=== PATIENT | female | born 1985 | race Caucasian/White ===

== ENCOUNTER 2018-03-17 18:47 | Emergency (ER) | payer SELFPAY ==
--- NOTE | 2018-03-17 20:50 | EDPHYS ---
Physician Documentation [facility] Name: Mary Ann Lin Age: 32 yrs Sex: Female : 1985 Arrival Date: 03/17/2018 Time: 18:50 Bed 5 Private MD: Jhonatan Palma M ED Physician Ilana Marrufo HPI: 03/17 19:21 This 32 yrs old Female presents to ER via Ambulatory with complaints of jmm Cough, Chest Congestion, Chest Pain, Sore Throat. 19:21 The patient or guardian reports cough. Onset: The symptoms/episode began/occurred jmm gradually, 2 day(s) ago. Modifying factors: The symptoms are alleviated by nothing, the symptoms are aggravated by nothing. Associated signs and symptoms: Pertinent positives: chest pain, with cough, fever, sore throat. This is a 32 year old female with a history of anxiety that presents to the ED with cough, sore throat, congestion. States having productive cough. . Historical: - Allergies: 18:57 No Known Allergies; la1 - PMHx: 18:57 Anxiety; la1 - Immunization history:: Adult Immunizations up to date. - Social history:: Smoking status: Patient uses tobacco products, smokes one-half pack cigarettes per day. - Ebola Screening: : No symptoms or risks identified at this time. ROS: 19:21 Abdomen/GI: Negative for abdominal pain, nausea, vomiting, diarrhea, and constipation, jmm MS/Extremity: Negative for injury and deformity, Skin: Negative for injury, rash, and discoloration, Neuro: Negative for headache, weakness, numbness, tingling, and seizure. 19:21 Constitutional: Positive for body aches, malaise. 19:21 Cardiovascular: Positive for chest pain, with cough. 19:21 Respiratory: Positive for cough. 19:21 All other systems are negative. Exam: 19:21 Head/Face: atraumatic. jmm 19:21 Neck: Trachea midline, Supple Chest/axilla: Normal chest wall appearance and motion. 19:21 Constitutional: The patient appears in no acute distress, alert, awake. 19:21 ENT: Posterior pharynx: erythema, that is moderate. 19:21 Cardiovascular: Rate: normal, Rhythm: regular. 19:21 Respiratory: the patient does not display signs of respiratory distress, Respirations: normal, Breath sounds: are clear throughout. 19:21 Abdomen/GI: Inspection: abdomen appears normal, Bowel sounds: normal, Palpation: abdomen is soft and non-tender, in all quadrants. 19:21 Back: ROM is normal. 19:21 Musculoskeletal/extremity: ROM: intact in all extremities. 19:21 Skin: Appearance: Color: normal in color. 19:21 Neuro: Orientation: is normal, Mentation: is normal, Memory: is normal, Gait: is steady. 19:21 Psych: Behavior/mood is pleasant, cooperative. Vital Signs: 18:57 BP 111 / 73; Pulse 84; Resp 16; Temp 98.4; Pulse Ox 100% on R/A; Weight 61.23 kg; la1 Height 5 ft. 4 in. (162.56 cm); 20:56 BP 118 / 67; Pulse 76; Resp 20; Temp 98.6; Pulse Ox 99% on R/A; aj 18:57 Body Mass Index 23.17 (61.23 kg, 162.56 cm) la1 MDM: 19:[address] [facility] 20:48 Data reviewed: vital signs, nurses notes. Data interpreted: Pulse oximetry: on room air [facility] is 100 %. Interpretation: normal. Counseling: I had a detailed discussion with the patient and/or guardian regarding: the historical points, exam findings, and any diagnostic results supporting the discharge/admit diagnosis, lab results, radiology results, the need for outpatient follow up, to return to the emergency department if symptoms worsen or persist or if there are any questions or concerns that arise at home. 03/17 19:05 Order name: Flu; Complete Time: 20:26 03/17 19:05 Order name: Strep; Complete Time: 20:26 03/17 19:19 Order name: Chest Pa And Lat (2 Views) XRAY [facility] 03/17 19:54 Order name: Throat Culture EDMS Administered Medications: No medications were administered Disposition: 03/17/18 20:49 Discharged to Home. Impression: Acute bronchitis. - Condition is Stable. - Discharge Instructions: Acute Bronchitis, Adult. - Prescriptions for promethazine- DM - take 5 milliliter by ORAL route every 4-6 hours; 120 milliliter. Prednisone 20 mg Oral Tablet - take 3 tablet by ORAL route once daily for 5 days; 15 tablet. Zithromax Z- Juan 250 mg Oral Tablet - take 1 tablet by ORAL route as directed for 5 days Day 1 - take two (2) tablets one time. Day 2, 3, 4 , 5 take one (1) tablet once daily.; 6 tablet. Albuterol Sulfate 90 mcg/actuation - inhale 1-2 puff by INHALATION route every 4-6 hours; 1 Inhaler. - Medication Reconciliation Form, Thank You Letter, Antibiotic Education, Prescription Opioid Use form. - Work release form (03/18/18 13:27). bd - Follow up: Private Physician; When: 2 - 3 days; Reason: Recheck today's complaints, Continuance of care, Re-evaluation by your physician. Signatures: Dispatcher [employer] EDChanel Hensley, RN RN Jhonatan Siu PA PA jmm Attema, Lee, RN RN laSwetha Condon Corrections: (The following items were deleted from the chart) 20:58 20:49 03/17/2018 20:49 Discharged to Home. Impression: Acute bronchitis. Condition is aj Stable. Forms are Medication Reconciliation Form, Thank You Letter, Antibiotic Education, Prescription Opioid Use. Follow up: Private Physician; When: 2 - 3 days; Reason: Recheck today's complaints, Continuance of care, Re-evaluation by your physician. con
--- NOTE | 2018-03-17 20:50 | ER ---
Nurse's Notes [facility] Name: Mary Ann Lin Age: 32 yrs Sex: Female : 1985 Arrival Date: 03/17/2018 Time: 18:50 Bed 5 Private MD: Jhonatan Palma M Diagnosis: Acute bronchitis Presentation: 03/17 18:56 Presenting complaint: Patient states: sore throat, productive cough, fever for one la1 week. Transition of care: patient was not received from another setting of care. Onset of symptoms was March 17, 2018. Risk Assessment: Do you want to hurt yourself or someone else? Patient reports no desire to harm self or others. Initial Sepsis Screen: Does the patient meet any 2 criteria? No. Patient's initial sepsis screen is negative. Does the patient have a suspected source of infection? No. Patient's initial sepsis screen is negative. Care prior to arrival: None. 18:56 Method Of Arrival: Ambulatory la1 18:56 Acuity: ANNABELLE 4 la1 Triage Assessment: 20:58 General: Behavior is. aj Historical: - Allergies: 18:57 No Known Allergies; la1 - PMHx: 18:57 Anxiety; la1 - Immunization history:: Adult Immunizations up to date. - Social history:: Smoking status: Patient uses tobacco products, smokes one-half pack cigarettes per day. - Ebola Screening: : No symptoms or risks identified at this time. Screenin:04 Abuse screen: Denies threats or abuse. Denies injuries from another. Nutritional aj screening: No deficits noted. Tuberculosis screening: No symptoms or risk factors identified. Fall Risk None identified. Assessment: 19:04 General: Appears in no apparent distress. comfortable. Neuro: Level of Consciousness is aj awake, alert, obeys commands, Oriented to person, place, time, situation, Appropriate for age. Cardiovascular: Patient's skin is warm and dry. Respiratory: Reports cough that is non-productive, persistent pain with cough pain with respiration Airway is patent Respiratory effort is even, unlabored, Respiratory pattern is regular, symmetrical. EENT: Throat is reddened has enlarged tonsils bilaterally Reports pain when swallowing. Derm: Skin is intact, is healthy with good turgor, Skin is pink, warm \T\ dry. normal. 20:56 Reassessment: Patient appears in no apparent distress at this time. No changes from aj previously documented assessment. Patient and/or family updated on plan of care and expected duration. Pain level reassessed. Patient is alert, oriented x 3, equal unlabored respirations, skin warm/dry/pink. Vital Signs: 18:57 BP 111 / 73; Pulse 84; Resp 16; Temp 98.4; Pulse Ox 100% on R/A; Weight 61.23 kg; la1 Height 5 ft. 4 in. (162.56 cm); 20:56 BP 118 / 67; Pulse 76; Resp 20; Temp 98.6; Pulse Ox 99% on R/A; aj 18:57 Body Mass Index 23.17 (61.23 kg, 162.56 cm) la1 ED Course: 18:50 Patient arrived in ED. mr 18:50 None, None is Private Physician. mr 18:50 Jhonatan Palma MD is Private Physician. mr 18:57 Triage completed. la1 18:57 Arm band placed on right wrist. wa1 19:02 Jhontaan Faustin PA is PHCP. [facility] 19:02 Ilana Marrufo MD is Attending Physician. [facility] 19:04 Patient has correct armband on for positive identification. Pulse ox on. NIBP on. aj 19:04 No provider procedures requiring assistance completed. Patient did not have IV access aj during this emergency room visit. Patient maintains SpO2 saturation greater than 95% on room air. 19:32 Chanel Hirsch, RN is Primary Nurse. aj 19:57 Chest Pa And Lat (2 Views) XRAY In Process Unspecified. EDMS Administered Medications: No medications were administered Outcome: 20:49 Discharge ordered by MD. [facility] 20:56 Discharged to home ambulatory. aj 20:56 Condition: good 20:56 Discharge instructions given to patient, Instructed on discharge instructions, follow up and referral plans. medication usage, Demonstrated understanding of instructions, follow-up care, medications, Prescriptions given X 4. 20:58 Patient left the ED. drake Signatures: Dispatcher [employer] EDMS Chanel Hirsch, RN Jhonatan Jerome PA PA jmm Rivera, Maria mr Attema, Lee RN RN la1
[2018-03-17 21:09] VITALS: BP 118/67; TEMP 98.6; O2SAT 99
--- NOTE | 2018-03-17 21:16 | RAD REPORT ---
EXAM DESCRIPTION: RAD - Chest Pa And Lat (2 Views) - 03/17/2018 7:59 pm CLINICAL HISTORY: Productive cough, fever, smoking history COMPARISON: None. TECHNIQUE: PA and lateral views of the chest were obtained. FINDINGS: The lungs are clear. Few small granulomatous seen. Heart size is normal and central vascu lature is within normal limits. No pleural effusion or pneumothorax seen. No acute bony finding not ed. No aortic abnormality. IMPRESSION: No acute cardiopulmonary process.
== END 2018-03-17 20:58 | disposition home or self-care (01) ==
LOC: ER 18:47
DX: J20.9 Acute bronchitis, unspecified (principal); F17.210 Nicotine dependence, cigarettes, uncomplicated
CPT/HCPCS: 71046; 87070; 87081; 87804; 99284

== ENCOUNTER 2018-06-25 11:42 | Emergency (ER) | payer SELFPAY ==
--- NOTE | 2018-06-25 13:31 | ER ---
Nurse's Notes [facility] Name: Mary Ann Riley Age: 33 yrs Sex: Female : 1985 Arrival Date: 06/25/2018 Time: 11:43 Bed Waiting Private MD: Diagnosis: ED Course: 06/25 11:43 Patient arrived in ED. as 13:22 Brandon Walter MD is Attending Physician. tw4 Administered Medications: No medications were administered Outcome: 13:30 Patient left the ED. iw Signatures: Jaimee Reece as Radha Galicia, RN RN iw Brandon Walter MD MD tw4
== END 2018-06-25 13:30 | disposition left against medical advice (07) ==
LOC: ER 11:42
DX: Z53.21 Procedure and treatment not carried out due to patient leaving prior to being seen by health care provider (principal)

== ENCOUNTER 2018-06-25 19:15 | Emergency (ER) | payer SELFPAY ==
[2018-06-25 20:44] LABS: Absolute Lymphocytes (CBC) 2.1 K/uL (0.7-4.9); Absolute Monocytes 0.7 K/uL (0.1-1.3); Absolute Neutrophil 6.3 K/uL (1.8-8.0); Basophils % 0.5 % (0-1.3); Eosinophils % 2.4 % (0-4.4); Hematocrit 43.9 % (36.0-45.0); Lymphocytes % 22.7 % (15.3-44.8); MPV 8.1 fL (7.6-11.3); Monocytes % 7.3 % (3.3-12.3); RBC Red Blood Cell Count 4.49 M/uL (3.86-4.86)
[2018-06-25] MEDS ORDERED: DIPHENOX/ATROP SULF 1 TAB PO ONE ×2 (20:52→22:13)
[2018-06-25] MEDS ORDERED: ONDANSETRON 4 MG/2 ML VIAL ONE (20:53)
[2018-06-25] MEDS ORDERED: NA CHLORIDE 0.9% 1,000 ML ONE (20:53)
[2018-06-25 20:57] LABS: BUN Blood Urea Nitrogen 8 mg/dL (7-18); Bicarbonate 26 mmol/L (21-32); Glucose Level 90 mg/dL (74-106); Potassium 3.8 mmol/L (3.5-5.1); Sodium Level 141 mmol/L (136-145)
[2018-06-25 22:14] LABS: Urine Blood 2+ (NEG); Urine Glucose NEGATIVE (NEG); Urine Protein NEGATIVE (NEG); Urine Specific Gravity >1.030 (1.005-1.030); Urine pH 5.5 (5.0-7.0)
--- NOTE | 2018-06-25 22:30 | EDPHYS ---
Physician Documentation [facility] Name: Mary Ann Lin Age: 33 yrs Sex: Female : 1985 Arrival Date: 06/25/2018 Time: 19:18 Bed 23 Private MD: ED Physician Milton Ziegler HPI: 06/25 20:29 This 33 yrs old Female presents to ER via Ambulatory with complaints of Flu pkl Symptoms. 20:29 The patient or guardian reports cough, described as mild, with productive sputum, that pkl is yellow. Onset: The symptoms/episode began/occurred 3 day(s) ago. Associated signs and symptoms: Pertinent positives: diarrhea, sore throat, vomiting. 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 - Social history:: Smoking status: Patient uses tobacco products, smokes one-half pack cigarettes per day. - Ebola Screening: : Patient negative for fever greater than or equal to 101.5 degrees Fahrenheit, and additional compatible Ebola Virus Disease symptoms Patient denies exposure to infectious person Patient denies travel to an Ebola-affected area in the 21 days before illness onset No symptoms or risks identified at this time. ROS: 20:29 Eyes: Negative for injury, pain, redness, and discharge. pkl 20:29 ENT: Positive for sinus congestion, sore throat. 20:29 Neck: Negative for stiffness. 20:29 Cardiovascular: Negative for chest pain. 20:29 Respiratory: Positive for cough, with yellow sputum. 20:29 Abdomen/GI: Positive for vomiting, diarrhea. 20:29 Back: Negative for acute changes. 20:29 : Negative for urinary symptoms. 20:29 MS/extremity: Negative for acute changes. 20:29 Skin: Negative for rash. 20:29 Neuro: Negative for altered mental status. Exam: 20:29 Head/Face: Normocephalic, atraumatic. Eyes: Pupils equal round and reactive to light, pkl extra-ocular motions intact. Lids and lashes normal. Conjunctiva and sclera are non-icteric and not injected. Cornea within normal limits. Periorbital areas with no swelling, redness, or edema. 20:29 ENT: Mouth: Oral mucosa: dry, Posterior pharynx: erythema, that is mild. 20:29 Neck: Exam negative for nuchal rigidity. 20:29 Chest/axilla: Exam negative for acute changes. 20:29 Cardiovascular: Rate: normal, Rhythm: regular. 20:29 Respiratory: the patient does not display signs of respiratory distress, Respirations: normal, Breath sounds: are clear throughout. 20:29 Abdomen/GI: Bowel sounds: normal, Palpation: abdomen is soft and non-tender, in all quadrants. 20:29 Back: Exam negative for acute changes. 20:29 : Exam negative for acute changes. 20:29 Musculoskeletal/extremity: Exam is negative for acute changes. 20:29 Skin: Exam negative for rash. 20:29 Neuro: Orientation: is normal, Mentation: is normal, Cranial nerves: grossly normal, Motor: is normal. Vital Signs: 19:42 BP 128 / 69; Pulse 81; Resp 19; Temp 97.6; Pulse Ox 100% on R/A; Weight 68.04 kg; aj Height 5 ft. 3 in. (160.02 cm); 20:35 BP 126 / 72; Pulse 60; Resp 18; Pulse Ox 100% ; rv 21:00 BP 138 / 80; Pulse 64; Resp 16 S; Pulse Ox 100% on R/A; rv 21:30 BP 134 / 85; Pulse 64; Resp 17 S; Pulse Ox 100% on R/A; rv 22:00 BP 133 / 82; Pulse 56; Resp 17 S; Pulse Ox 100% on R/A; rv 22:30 BP 137 / 63; Pulse 58; Resp 19 S; Pulse Ox 100% on R/A; rv 19:42 Body Mass Index 26.57 (68.04 kg, 160.02 cm) MDM: 20:21 Patient medically screened. [facility] 22:27 Data reviewed: vital signs, nurses notes, lab test result(s). [facility] 06/25 19:40 Order name: Flu; Complete Time: 22:24 06/25 19:40 Order name: Strep; Complete Time: 22:16 06/25 20:27 Order name: CBC with Diff; Complete Time: 21:08 [facility] 06/25 20:27 Order name: Chem 7; Complete Time: 21:08 pkl 06/25 22:04 Order name: Urine Dipstick--Ancillary (enter results); Complete Time: 22:16 ms 06/25 22:12 Order name: Throat Culture EDMS Administered Medications: 20:46 Drug: NS 0.9% 1000 ml Route: IV; Rate: 1000 ml; Site: right antecubital; rv 22:42 Follow up: IV Status: Completed infusion rv 20:46 Drug: Zofran 4 mg Route: IVP; Site: right antecubital; rv 22:42 Follow up: Response: No adverse reaction rv 22:05 Drug: LoMOTIL 2 tabs Route: PO; rv 22:42 Follow up: Response: Marked relief of symptoms rv 22:30 Drug: Cipro 500 mg Route: PO; rv 22:42 Follow up: Response: Medication administered at discharge. rv Disposition: 06/25/18 22:28 Discharged to Home. Impression: Gastroenteritis. Bronchitis. - Condition is Stable. - Prescriptions for Zofran 4 mg Oral Tablet - take 1 tablet by ORAL route every 12 hours As needed; 6 tablet. Cipro 500 mg Oral Tablet - take 1 tablet by ORAL route every 12 hours for 5 days; 10 tablet. - Work release form, Medication Reconciliation Form, Thank You Letter, Antibiotic Education, Prescription Opioid Use form. - Follow up: Private Physician; When: 2 - 3 days; Reason: Re-evaluation by your physician. - Problem is new. - Symptoms are unchanged. Signatures: Dispatcher [employer] EDChanel Hensley RN RN aj Lam, Pin, MD MD pkl Kermit Hill RN RN rv Corrections: (The following items were deleted from the chart) 22:52 22:28 06/25/2018 22:28 Discharged to Home. Impression: Gastroenteritis. Bronchitis. rv Condition is Stable. Forms are Medication Reconciliation Form, Thank You Letter, Antibiotic Education, Prescription Opioid Use. Follow up: Private Physician; When: 2 - 3 days; Reason: Re-evaluation by your physician. Problem is new. Symptoms are unchanged. pkl
--- NOTE | 2018-06-25 22:30 | ER ---
Nurse's Notes [facility] Name: Mary Ann Lin Age: 33 yrs Sex: Female : 1985 Arrival Date: 06/25/2018 Time: 19:18 Bed 23 Private MD: Diagnosis: Gastroenteritis. Bronchitis Presentation: 06/25 19:40 Presenting complaint: Patient states: Flu like symptoms for 2-3 days. Took cold and flu aj medication at 1830 today [employer]. Transition of care: patient was not received from another setting of care. Onset of symptoms was June 23, 2018. Risk Assessment: Do you want to hurt yourself or someone else? Patient reports no desire to harm self or others. Initial Sepsis Screen: Does the patient meet any 2 criteria? No. Patient's initial sepsis screen is negative. Does the patient have a suspected source of infection? No. Patient's initial sepsis screen is negative. Care prior to arrival: None. 19:40 Method Of Arrival: Ambulatory aj 19:40 Acuity: ANNABELLE 4 aj Triage Assessment: 19:42 General: Appears in no apparent distress. comfortable, Behavior is calm, cooperative, aj appropriate for age. Pain: Denies pain. EENT: Reports nasal congestion nasal discharge. Neuro: Level of Consciousness is awake, alert, obeys commands, Oriented to person, place, time, situation, Appropriate for age. Respiratory: Reports cough that is Airway is patent Respiratory effort is even, unlabored, Respiratory pattern is regular, symmetrical. Derm: Skin is intact, is healthy with good turgor, Skin is pink, warm \T\ dry. normal. 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 - Social history:: Smoking status: Patient uses tobacco products, smokes one-half pack cigarettes per day. - Ebola Screening: : Patient negative for fever greater than or equal to 101.5 degrees Fahrenheit, and additional compatible Ebola Virus Disease symptoms Patient denies exposure to infectious person Patient denies travel to an Ebola-affected area in the 21 days before illness onset No symptoms or risks identified at this time. Screenin:15 Abuse screen: Denies threats or abuse. Denies injuries from another. Nutritional rv screening: No deficits noted. Tuberculosis screening: No symptoms or risk factors identified. Fall Risk None identified. Assessment: 20:14 General: Appears in no apparent distress. comfortable, Behavior is calm, cooperative. rv Pain: Denies pain. Neuro: Level of Consciousness is awake, alert, obeys commands, Oriented to person, place, time, situation. Cardiovascular: Capillary refill < 3 seconds. Respiratory: Airway is patent. GI: No signs and/or symptoms were reported involving the gastrointestinal system. : No signs and/or symptoms were reported regarding the genitourinary system. EENT: No signs and/or symptoms were reported regarding the EENT system. Derm: Skin is intact. Musculoskeletal: No signs and/or symptoms reported regarding the musculoskeletal system. Vital Signs: 19:42 BP 128 / 69; Pulse 81; Resp 19; Temp 97.6; Pulse Ox 100% on R/A; Weight 68.04 kg; aj Height 5 ft. 3 in. (160.02 cm); 20:35 BP 126 / 72; Pulse 60; Resp 18; Pulse Ox 100% ; rv 21:00 BP 138 / 80; Pulse 64; Resp 16 S; Pulse Ox 100% on R/A; rv 21:30 BP 134 / 85; Pulse 64; Resp 17 S; Pulse Ox 100% on R/A; rv 22:00 BP 133 / 82; Pulse 56; Resp 17 S; Pulse Ox 100% on R/A; rv 22:30 BP 137 / 63; Pulse 58; Resp 19 S; Pulse Ox 100% on R/A; rv 19:42 Body Mass Index 26.57 (68.04 kg, 160.02 cm) aj ED Course: 19:18 Patient arrived in ED. al2 19:41 Triage completed. aj 19:42 Arm band placed on left wrist. Patient placed in waiting room, Patient notified of wait aj time. Labs ordered per protocol. Drawn by ED staff. 20:15 Patient has correct armband on for positive identification. Bed in low position. Call rv light in reach. Side rails up X 1. Pulse ox on. NIBP on. 20:15 Strep Sent. rv 20:15 Flu Sent. rv 20:20 Inserted saline lock: 22 gauge in right antecubital area, using aseptic technique. rv Blood collected. 20:20 Initial lab(s) drawn, by me, sent to lab. rv 20:21 Milton Ziegler MD is Attending Physician. pkl 22:43 No provider procedures requiring assistance completed. IV discontinued, bleeding rv controlled, No redness/swelling at site. Pressure dressing applied. Administered Medications: 20:46 Drug: NS 0.9% 1000 ml Route: IV; Rate: 1000 ml; Site: right antecubital; rv 22:42 Follow up: IV Status: Completed infusion rv 20:46 Drug: Zofran 4 mg Route: IVP; Site: right antecubital; rv 22:42 Follow up: Response: No adverse reaction rv 22:05 Drug: LoMOTIL 2 tabs Route: PO; rv 22:42 Follow up: Response: Marked relief of symptoms rv 22:30 Drug: Cipro 500 mg Route: PO; rv 22:42 Follow up: Response: Medication administered at discharge. rv Outcome: 22:28 Discharge ordered by . pkl 22:43 Discharged to home ambulatory. rv 22:43 Condition: improved 22:43 Discharge instructions given to patient, Instructed on discharge instructions, follow up and referral plans. medication usage, Demonstrated understanding of instructions, follow-up care, medications, Prescriptions given X 2. 22:52 Patient left the ED. rv Signatures: Chanel Hirsch, RN RN Milton Sandoval MD MD pkBernice Crowder Ronaldo, RN RN rv
[2018-06-25] MEDS ORDERED: CIPROFLOXACIN HCL 500 MG TAB ONE (22:45)
[2018-06-26 01:22] VITALS: TEMP 97.6; O2SAT 100
[2018-06-26 01:28] VITALS: BP 137/63
== END 2018-06-25 22:52 | disposition home or self-care (01) ==
LOC: ER 19:15
DX: J40 Bronchitis, not specified as acute or chronic (principal); K52.9 Noninfective gastroenteritis and colitis, unspecified; F41.9 Anxiety disorder, unspecified; F17.210 Nicotine dependence, cigarettes, uncomplicated
CPT/HCPCS: 36415; 80048; 81003; 85025; 87070; 87081; 87804; 96361; 96374; 99284; J2405; J7030

== ENCOUNTER 2018-09-16 07:08 | Emergency (ER) | payer SELFPAY ==
--- NOTE | 2018-09-16 08:08 | ER ---
Nurse's Notes [facility] Name: Mary Ann Lin Age: 33 yrs Sex: Female : 1985 Arrival Date: 09/16/2018 Time: 07:10 Bed 5 Private MD: Jhonatan Palma M Diagnosis: Viral infection, unspecified Presentation: 09/16 07:14 Presenting complaint: Nonproductive cough, body aches, fever, sore throat, and headache hb x 4 days. TMAX 100.4. Transition of care: patient was not received from another setting of care. Onset of symptoms was September 12, 2018. Risk Assessment: Do you want to hurt yourself or someone else? Patient reports no desire to harm self or others. Initial Sepsis Screen: Does the patient meet any 2 criteria? No. Patient's initial sepsis screen is negative. Does the patient have a suspected source of infection? No. Patient's initial sepsis screen is negative. Care prior to arrival: None. 07:14 Method Of Arrival: Ambulatory hb 07:14 Acuity: ANNABELLE 4 hb Historical: - Allergies: 07:16 No Known Allergies; hb - Home Meds: 07:16 Lorazepam Oral [Active]; hb - PMHx: 07:16 Anxiety; hb - PSHx: 07:16 ; hb - Immunization history:: Adult Immunizations up to date. - Social history:: Smoking status: Patient uses tobacco products, smokes one-half pack cigarettes per day. - Ebola Screening: : No symptoms or risks identified at this time. Screenin:39 Abuse screen: Denies threats or abuse. Denies injuries from another. Nutritional ph screening: No deficits noted. Tuberculosis screening: No symptoms or risk factors identified. Fall Risk None identified. Assessment: 07:40 General: Appears in no apparent distress. comfortable, Behavior is calm, cooperative, ph appropriate for age, Reports chills for fever for 2-3 days. Pain: Complains of pain in head and "all over". Neuro: Level of Consciousness is awake, alert, obeys commands, Oriented to person, place, time, situation. Cardiovascular: Capillary refill < 3 seconds Patient's skin is warm and dry. Respiratory: Airway is patent Respiratory effort is even, unlabored, Respiratory pattern is regular, symmetrical. GI: Patient currently denies diarrhea, nausea, vomiting. EENT: Reports nasal congestion nasal discharge pain when swallowing. Derm: Skin is intact, is healthy with good turgor, Skin is pink, warm \\T\\ dry. Musculoskeletal: Circulation, motion, and sensation intact. Range of motion: intact in all extremities. 08:38 Reassessment: Patient appears in no apparent distress at this time. Patient and/or ph family updated on plan of care and expected duration. Pain level reassessed. Patient is alert, oriented x 3, equal unlabored respirations, skin warm/dry/pink. Pt d/c home w/ work note. Vital Signs: 07:14 BP 124 / 62; Pulse 100; Resp 16; Temp 98; Pulse Ox 97% ; Pain 6/10; hb ED Course: 07:10 Patient arrived in ED. as 07:10 Jhonatan Palma MD is Private Physician. as 07:13 Lona Barriga RN is Primary Nurse. ph 07:15 Triage completed. hb 07:16 Arm band placed on. hb 07:19 [facility] 07:19 Armen Giron MD is Attending Physician. jr8 07:21 Attending Physician role handed off by Armen Giron MD [facility] 07:21 Ed Banks MD is Attending Physician. henrique 07:40 Patient has correct armband on for positive identification. Placed in gown. Bed in low ph position. Call light in reach. Side rails up X 1. Pulse ox on. NIBP on. Door closed. Lights dimmed. Warm blanket given. 07:40 Flu and/or RSV swab sent to lab. Strep swab sent to lab. ph 07:43 No provider procedures requiring assistance completed. Patient did not have IV access ph during this emergency room visit. Administered Medications: No medications were administered Outcome: 08:07 Discharge ordered by . jr8 08:41 Discharged to home ambulatory. ph 08:41 Condition: good 08:41 Discharge instructions given to patient, Instructed on discharge instructions, follow up and referral plans. medication usage, Demonstrated understanding of instructions, follow-up care, medications, Prescriptions given X 3. 08:41 Patient left the ED. ph Signatures: Ed Banks MD MD cha Martinez, Amelia as Christian Stein PA PA [facility] Lona Barriga RN RN ph Bridges, Karen, RN RN hb
--- NOTE | 2018-09-16 08:08 | EDPHYS ---
Physician Documentation [facility] Name: Mary Ann Riley Age: 33 yrs Sex: Female : 1985 Arrival Date: 09/16/2018 Time: 07:10 Bed 5 Private MD: Jhonatan Palma M ED Physician Ed Banks HPI: 09/16 07:31 This 33 yrs old Female presents to ER via Ambulatory with complaints of Cold jr8 Symptoms. 07:31 Patient for the past 4 days has had cough, body aches, fever, sore throat, headache. jr8 Has been utilizing OTC medications without relief . Severity of symptoms: At their worst the symptoms were moderate in the emergency department the symptoms are unchanged. The patient has not experienced similar symptoms in the past. The patient has not recently seen a physician. Historical: - Allergies: 07:16 No Known Allergies; hb - Home Meds: 07:16 Lorazepam Oral [Active]; hb - PMHx: 07:16 Anxiety; hb - PSHx: 07:16 ; hb - Immunization history:: Adult Immunizations up to date. - Social history:: Smoking status: Patient uses tobacco products, smokes one-half pack cigarettes per day. - Ebola Screening: : No symptoms or risks identified at this time. ROS: 07:31 Eyes: Negative for injury, pain, redness, and discharge, Neck: Negative for injury, jr8 pain, and swelling, Cardiovascular: Negative for chest pain, palpitations, and edema, Abdomen/GI: Negative for abdominal pain, nausea, vomiting, diarrhea, and constipation, Back: Negative for injury and pain, MS/Extremity: Negative for injury and deformity, Skin: Negative for injury, rash, and discoloration, Neuro: Negative for headache, weakness, numbness, tingling, and seizure. 07:31 Constitutional: Positive for body aches, chills. 07:31 ENT: Positive for sore throat, Negative for drainage from ear(s), ear pain, rhinorrhea, sinus congestion, difficulty swallowing, difficulty handling secretions, hoarseness. 07:31 Respiratory: Positive for cough, Negative for dyspnea on exertion, shortness of breath, sputum production, wheezing. Exam: 07:31 Eyes: Pupils equal round and reactive to light, extra-ocular motions intact. Lids and jr8 lashes normal. Conjunctiva and sclera are non-icteric and not injected. Cornea within normal limits. Periorbital areas with no swelling, redness, or edema. ENT: Nares patent. No nasal discharge, no septal abnormalities noted. Tympanic membranes are normal and external auditory canals are clear. Oropharynx with no redness, swelling, or masses, exudates, or evidence of obstruction, uvula midline. Mucous membranes moist. Neck: Trachea midline, no thyromegaly or masses palpated, and no cervical lymphadenopathy. Supple, full range of motion without nuchal rigidity, or vertebral point tenderness. No Meningismus. Cardiovascular: Regular rate and rhythm with a normal S1 and S2. No gallops, murmurs, or rubs. Normal PMI, no JVD. No pulse deficits. Respiratory: Lungs have equal breath sounds bilaterally, clear to auscultation and percussion. No rales, rhonchi or wheezes noted. No increased work of breathing, no retractions or nasal flaring. Abdomen/GI: Soft, non-tender, with normal bowel sounds. No distension or tympany. No guarding or rebound. No evidence of tenderness throughout. Back: No spinal tenderness. No costovertebral tenderness. Full range of motion. Skin: Warm, dry with normal turgor. Normal color with no rashes, no lesions, and no evidence of cellulitis. MS/ Extremity: Pulses equal, no cyanosis. Neurovascular intact. Full, normal range of motion. Neuro: Awake and alert, GCS 15, oriented to person, place, time, and situation. Cranial nerves II-XII grossly intact. Motor strength 5/5 in all extremities. Sensory grossly intact. Cerebellar exam normal. Normal gait. Vital Signs: 07:14 BP 124 / 62; Pulse 100; Resp 16; Temp 98; Pulse Ox 97% ; Pain 6/10; hb MDM: 07:21 Patient medically screened. henrique 07:21 Patient medically screened. henrique 08:06 Data reviewed: vital signs, nurses notes, lab test result(s), Flu: negative and as a jr8 result, I will discharge patient. Data interpreted: Pulse oximetry: on room air is 97 %. Interpretation: normal. Counseling: I had a detailed discussion with the patient and/or guardian regarding: the historical points, exam findings, and any diagnostic results supporting the discharge/admit diagnosis, lab results, the need for outpatient follow up, a family practitioner, to return to the emergency department if symptoms worsen or persist or if there are any questions or concerns that arise at home. 09/16 07:24 Order name: Influenza Screen (a \T\ B); Complete Time: 08:06 8 09/16 07:24 Order name: Strep; Complete Time: 08:06 8 09/16 08:08 Order name: Throat Culture EDNM Administered Medications: No medications were administered Disposition: 13:47 Co-signature as Attending Physician, Ed Banks MD I agree with the assessment and [facility] plan of care. Disposition: 09/16/18 08:07 Discharged to Home. Impression: Viral infection, unspecified. - Condition is Stable. - Discharge Instructions: Viral Respiratory Infection. - Prescriptions for Prednisone 20 mg Oral Tablet - take 1 tablet by ORAL route once daily for 5 days; 5 tablet. Tessalon Perles 100 mg Oral Capsule - take 1 capsule by ORAL route every 8 hours As needed; 15 capsule. Guaifenesin AC 10- 100 mg/5 mL Oral Liquid - take 10 milliliter by ORAL route every 4 hours As needed; 240 milliliter. - Medication Reconciliation Form, Thank You Letter, Antibiotic Education, Prescription Opioid Use, Work release form form. - Follow up: Private Physician; When: 5 - 6 days; Reason: Recheck today's complaints, Continuance of care, Re-evaluation by your physician. - Problem is new. - Symptoms have improved. Signatures: Dispatcher [employer] Ed Daniels MD MD cha Roszak, Josh, PA PA jr8 Lona Barriga RN RN Karen Bridges RN RN Corrections: (The following items were deleted from the chart) 08:41 08:07 09/16/2018 08:07 Discharged to Home. Impression: Viral infection, unspecified. ph Condition is Stable. Forms are Medication Reconciliation Form, Thank You Letter, Antibiotic Education, Prescription Opioid Use. Follow up: Private Physician; When: 5 - 6 days; Reason: Recheck today's complaints, Continuance of care, Re-evaluation by your physician. Problem is new. Symptoms have improved. jr8
[2018-09-16 08:47] VITALS: BP 124/62; TEMP 98; O2SAT 97
== END 2018-09-16 08:41 | disposition home or self-care (01) ==
LOC: ER 07:08
DX: B34.9 Viral infection, unspecified (principal); F41.9 Anxiety disorder, unspecified; F17.210 Nicotine dependence, cigarettes, uncomplicated
CPT/HCPCS: 87070; 87081; 87804; 99283

== ENCOUNTER 2020-05-31 13:22 | Emergency (ER) | payer OTHER, SELFPAY ==
[2020-05-31] MEDS ORDERED: KETOROLAC 30 MG/ML INJ ONE (14:06)
[2020-05-31] MEDS ORDERED: NA CHLORIDE 0.9% 1,000 ML ONE (14:07)
[2020-05-31 14:19] LABS: Absolute Lymphocytes (CBC) 2.1 K/uL (0.7-4.9); Basophils % 0.5 % (0-1.3); Hematocrit 38.5 % (36.0-45.0); MPV 8.9 fL (7.6-11.3); RBC Red Blood Cell Count 4.47 M/uL (3.86-4.86)
[2020-05-31 14:42] LABS: ALT/SGPT 26 U/L (12-78); AST/SGOT 13 U/L (15-37); Albumin 3.8 g/dL (3.4-5.0); Alkaline Phosphatase 91 U/L (45-117); BUN Blood Urea Nitrogen 13 mg/dL (7-18); Bicarbonate 27 mmol/L (21-32); Bilirubin Direct < 0.1 mg/dL (0-0.2); Bilirubin Total 0.2 mg/dL (0.2-1.0); Glucose Level 97 mg/dL (74-106); Potassium 3.9 mmol/L (3.5-5.1); Protein, Total 7.7 g/dL (6.4-8.2); Sodium Level 137 mmol/L (136-145)
[2020-05-31] MEDS ORDERED: CEFTRIAXONE/SWI 1gm 1 GM/10 ML SYR ONE (14:57)
[2020-05-31 15:10] LABS: Urine Bacteria <20 /HPF (<20); Urine Mucus 1+ /HPF (NONE SEEN)
[2020-05-31 15:11] LABS: Urine Blood 3+ (NEG); Urine Glucose NEGATIVE (NEG); Urine Protein 1+ (NEG)
--- NOTE | 2020-05-31 15:22 | RAD REPORT ---
EXAM DESCRIPTION: CT - Abdomen Pelvis W Contrast - 05/31/2020 2:58 pm CLINICAL HISTORY: Abdominal pain COMPARISON: none. TECHNIQUE: Computed axial tomography of the abdomen pelvis was obtained. 100 cc Isovue-300 was admin istered intravenously. Oral contrast was not requested which limits evaluation of bowel. All CT scans are performed using dose optimization technique as appropriate and may include automated exposure control or mA/KV adjustment according to patient size. FINDINGS: The liver, spleen, pancreas, adrenal and kidneys appear unremarkable. There is no evidence of diverticulitis. Normal appendix. A 17 millimeter right ovarian follicle without significant free-fluid IMPRESSION: No acute abnormality is displayed.
[2020-05-31] MEDS ORDERED: ONDANSETRON 4 MG/2 ML VIAL ONE (15:35)
[2020-05-31] MEDS ORDERED: MORPHINE 4 MG/ML SYR ONE (15:35)
--- NOTE | 2020-05-31 15:38 | EDPHYS ---
Physician Documentation [facility] Name: Mary Ann Lin Age: 35 yrs Sex: Female : 1985 Arrival Date: 05/31/2020 Time: 13:25 Bed 8 Private MD: ED Physician Shashank Bailey HPI: 05/31 14:41 This 35 yrs old Female presents to ER via Ambulatory with complaints of Blood jr8 in Urine, Kidney Pain. 14:41 The patient complains of pain in the mid back area, left flank and right flank. The jr8 pain does not radiate. Onset: The symptoms/episode began/occurred acutely. Modifying factors: The symptoms are alleviated by nothing. the symptoms are aggravated by nothing. Associated signs and symptoms: Pertinent positives: hematuria. Severity of pain: At its worst the pain was mild in the emergency department the pain is unchanged. The patient has not experienced similar symptoms in the past. The patient has not recently seen a physician. Historical: - Allergies: 13:41 No Known Allergies; ss - PMHx: 13:41 Anxiety; ss - Immunization history:: Adult Immunizations up to date. ROS: 14:41 Eyes: Negative for injury, pain, redness, and discharge, ENT: Negative for injury, jr8 pain, and discharge, Neck: Negative for injury, pain, and swelling, Cardiovascular: Negative for chest pain, palpitations, and edema, Respiratory: Negative for shortness of breath, cough, wheezing, and pleuritic chest pain, Abdomen/GI: Negative for abdominal pain, nausea, vomiting, diarrhea, and constipation, MS/Extremity: Negative for injury and deformity, Skin: Negative for injury, rash, and discoloration, Neuro: Negative for headache, weakness, numbness, tingling, and seizure. 14:41 Back: Positive for flank pain, bilaterally. 14:41 : Positive for hematuria. Exam: 14:41 Eyes: Pupils equal round and reactive to light, extra-ocular motions intact. Lids and jr8 lashes normal. Conjunctiva and sclera are non-icteric and not injected. Cornea within normal limits. Periorbital areas with no swelling, redness, or edema. ENT: Nares patent. No nasal discharge, no septal abnormalities noted. Tympanic membranes are normal and external auditory canals are clear. Oropharynx with no redness, swelling, or masses, exudates, or evidence of obstruction, uvula midline. Mucous membranes moist. Neck: Trachea midline, no thyromegaly or masses palpated, and no cervical lymphadenopathy. Supple, full range of motion without nuchal rigidity, or vertebral point tenderness. No Meningismus. Cardiovascular: Regular rate and rhythm with a normal S1 and S2. No gallops, murmurs, or rubs. Normal PMI, no JVD. No pulse deficits. Respiratory: Lungs have equal breath sounds bilaterally, clear to auscultation and percussion. No rales, rhonchi or wheezes noted. No increased work of breathing, no retractions or nasal flaring. Skin: Warm, dry with normal turgor. Normal color with no rashes, no lesions, and no evidence of cellulitis. MS/ Extremity: Pulses equal, no cyanosis. Neurovascular intact. Full, normal range of motion. Neuro: Awake and alert, GCS 15, oriented to person, place, time, and situation. Cranial nerves II-XII grossly intact. Motor strength 5/5 in all extremities. Sensory grossly intact. Cerebellar exam normal. Normal gait. 14:41 Abdomen/GI: Inspection: abdomen appears normal, Bowel sounds: active, all quadrants, Palpation: soft, in all quadrants, mild abdominal tenderness, in the suprapubic area, anterior aspect of right lateral abdomen and anterior aspect of left lateral abdomen, mass, is not appreciated, rebound tenderness, is not appreciated, voluntary guarding, is not appreciated, involuntary guarding, is not appreciated, no appreciated organomegaly, Indicators: McBurney's point is not tender, Yu's sign is negative, Rovsing's sign is negative. 14:41 Back: ROM is normal, normal spinal alignment noted, CVA tenderness, that is mild, is noted bilaterally. Vital Signs: 13:38 BP 132 / 81; Pulse 84; Resp 15; Temp 97.5(TE); Pulse Ox 100% on R/A; Weight 74.84 kg; ss Height 5 ft. 4 in. (162.56 cm); Pain 8/10; 14:30 BP 114 / 66; Pulse 64; Resp 18; Pulse Ox 99% on R/A; em 15:30 BP 119 / 76; Pulse 60; Resp 18; Pulse Ox 97% on R/A; em 13:38 Body Mass Index 28.32 (74.84 kg, 162.56 cm) ss MDM: 13:29 Patient medically screened. 8 15:36 Data reviewed: vital signs, nurses notes, lab test result(s), radiologic studies, CT jr8 scan. Data interpreted: Pulse oximetry: on room air is 100 %. Interpretation: normal. Counseling: I had a detailed discussion with the patient and/or guardian regarding: the historical points, exam findings, and any diagnostic results supporting the discharge/admit diagnosis, lab results, radiology results, the need for outpatient follow up, a family practitioner, to return to the emergency department if symptoms worsen or persist or if there are any questions or concerns that arise at home. Response to treatment: the patient's symptoms have mildly improved after treatment. 05/31 13:36 Order name: Basic Metabolic Panel; Complete Time: 14:52 [facility] 05/31 13:36 Order name: CBC with Diff; Complete Time: 14:32 [facility] 05/31 13:36 Order name: Hepatic Function; Complete Time: 14:52 [facility] 05/31 13:36 Order name: Urine Microscopic Only; Complete Time: 15:12 8 05/31 13:37 Order name: Gc Culture [facility] 05/31 14:15 Order name: Urine Dipstick--Ancillary (enter results); Complete Time: 15:12 05/31 13:36 Order name: IV Saline Lock; Complete Time: 14:04 8 05/31 13:36 Order name: Labs collected and sent; Complete Time: 14:04 [facility] 05/31 14:15 Order name: Urine --Ancillary (enter results); Complete Time: 15:12 05/31 14:32 Order name: CT Abd/Pelvis - IV Contrast Only; Complete Time: 15:36 [facility] 05/31 15:12 Order name: Urine Culture [facility] 05/31 13:36 Order name: Urine Test (obtain specimen); Complete Time: 14:03 [facility] 05/31 13:36 Order name: Urine Dipstick-Ancillary (obtain specimen); Complete Time: 14:03 [facility] Administered Medications: 14:00 Drug: NS 0.9% 1000 ml Route: IV; Rate: 1000 ml; Site: right antecubital; em 15:45 Follow up: IV Status: Completed infusion; IV Intake: 1000ml em 14:00 Drug: TORadol - Ketorolac 15 mg Route: IVP; Site: right antecubital; em 14:34 Follow up: Response: No adverse reaction; No change in condition; Pain is unchanged, em physician notified 15:17 Drug: Rocephin 1 grams Route: IV; Rate: calculated rate; Site: right antecubital; em 15:45 Follow up: Response: No adverse reaction; IV Status: Completed infusion; IV Intake: 10mlem Disposition: 16:54 Co-signature as Attending Physician, Shashank Bailey MD. rn Disposition: 05/31/20 15:37 Discharged to Home. Impression: Acute cystitis with hematuria. - Condition is Stable. - Discharge Instructions: Urinary Tract Infection, Adult. - Prescriptions for Bactrim DS 800- 160 mg Oral Tablet - take 1 tablet by ORAL route every 12 hours for 7 days; 14 tablet. Zofran 4 mg Oral Tablet - take 1 tablet by ORAL route every 12 hours As needed; 20 tablet. - Medication Reconciliation Form, Thank You Letter, Antibiotic Education, Prescription Opioid Use form. - Follow up: Private Physician; When: 2 - 3 days; Reason: Recheck today's complaints, Continuance of care, Re-evaluation by your physician. - Problem is new. - Symptoms have improved. Signatures: Dispatcher [employer] Cj Roman, RN Shashank Amaya MD MD rn Smirch, Shelby, RN RN ss Roszak, Josh, PA PA jr8 Corrections: (The following items were deleted from the chart) 16:08 15:37 05/31/2020 15:37 Discharged to Home. Impression: Acute cystitis with hematuria. em Condition is Stable. Forms are Medication Reconciliation Form, Thank You Letter, Antibiotic Education, Prescription Opioid Use. Follow up: Private Physician; When: 2 - 3 days; Reason: Recheck today's complaints, Continuance of care, Re-evaluation by your physician. Problem is new. Symptoms have improved. jr8
--- NOTE | 2020-05-31 15:38 | ER ---
Nurse's Notes [facility] Name: Mary Ann Lin Age: 35 yrs Sex: Female : 1985 Arrival Date: 05/31/2020 Time: 13:25 Bed 8 Private MD: Diagnosis: Acute cystitis with hematuria Presentation: 05/31 13:38 Chief complaint: Patient states: "kidney pain" x 4 days. Coronavirus screen: Client ss denies travel out of the [place] in the last 14 days. Ebola Screen: Patient denies exposure to infectious person. Patient denies travel to an Ebola-affected area in the 21 days before illness onset. Initial Sepsis Screen: Does the patient meet any 2 criteria? No. Patient's initial sepsis screen is negative. Does the patient have a suspected source of infection? No. Patient's initial sepsis screen is negative. Risk Assessment: Do you want to hurt yourself or someone else? Patient reports no desire to harm self or others. Onset of symptoms was May 27, 2020. 13:38 Method Of Arrival: Ambulatory ss 13:38 Acuity: ANNABELLE 3 ss Historical: - Allergies: 13:41 No Known Allergies; ss - PMHx: 13:41 Anxiety; ss - Immunization history:: Adult Immunizations up to date. Screenin:34 Abuse screen: Denies threats or abuse. Denies injuries from another. Nutritional sv screening: No deficits noted. Tuberculosis screening: No symptoms or risk factors identified. Fall Risk None identified. Assessment: 13:50 General: Appears in no apparent distress. comfortable, Behavior is calm, cooperative, em appropriate for age. Pain: Complains of pain in left low back and right low back Pain currently is 8 out of 10 on a pain scale. Neuro: Level of Consciousness is awake, alert, obeys commands, Oriented to person, place, time, situation, Appropriate for age. Cardiovascular: Capillary refill < 3 seconds Patient's skin is warm and dry. Respiratory: Airway is patent Respiratory effort is even, unlabored, Respiratory pattern is regular, symmetrical. GI: Abdomen is flat, Patient currently denies nausea, vomiting. Derm: Skin is intact, is healthy with good turgor, Skin is pink, warm \\T\\ dry. Musculoskeletal: Capillary refill < 3 seconds, Range of motion: intact in all extremities. 14:30 Reassessment: Patient appears in no apparent distress at this time. Patient and/or em family updated on plan of care and expected duration. Pain level reassessed. Patient is alert, oriented x 3, equal unlabored respirations, skin warm/dry/pink. Patient states symptoms have not improved. 15:15 Reassessment: reports pain is unchanged, provider notified, received VO for 4 mg Zofran em IVP x 1 and 4 mg Morphine IVP x 1. 15:45 Reassessment: Patient appears in no apparent distress at this time. Patient and/or em family updated on plan of care and expected duration. Pain level reassessed. Patient is alert, oriented x 3, equal unlabored respirations, skin warm/dry/pink. rates pain 6/10 Patient states feeling better. Vital Signs: 13:38 BP 132 / 81; Pulse 84; Resp 15; Temp 97.5(TE); Pulse Ox 100% on R/A; Weight 74.84 kg; ss Height 5 ft. 4 in. (162.56 cm); Pain 8/10; 14:30 BP 114 / 66; Pulse 64; Resp 18; Pulse Ox 99% on R/A; em 15:30 BP 119 / 76; Pulse 60; Resp 18; Pulse Ox 97% on R/A; em 13:38 Body Mass Index 28.32 (74.84 kg, 162.56 cm) ED Course: 13:25 Patient arrived in ED. ds1 13:29 Christian Stein PA is PHCP. jr8 13:29 Shashank Bailey MD is Attending Physician. jr8 13:31 Cj Finch, ONEIL is Primary Nurse. em 13:34 Nurse Practitioner and/or Physician School Bus Operator to see patient. sv 13:34 Arm band placed on Patient placed in an exam room, on a stretcher. sv 13:34 Patient has correct armband on for positive identification. Bed in low position. Call light in reach. 13:40 Triage completed. ss 13:55 Initial lab(s) drawn, by me, sent to lab. Urine collected: clean catch specimen, clear, jp3 parrish colored. Inserted saline lock: 20 gauge in right antecubital area, using aseptic technique. Blood collected. Patient maintains SpO2 saturation greater than 95% on room air. 14:58 CT Abd/Pelvis - IV Contrast Only In Process Unspecified. EDMS 16:06 No provider procedures requiring assistance completed. IV discontinued, intact, em bleeding controlled, No redness/swelling at site. Pressure dressing applied. Administered Medications: 14:00 Drug: NS 0.9% 1000 ml Route: IV; Rate: 1000 ml; Site: right antecubital; em 15:45 Follow up: IV Status: Completed infusion; IV Intake: 1000ml em 14:00 Drug: TORadol - Ketorolac 15 mg Route: IVP; Site: right antecubital; em 14:34 Follow up: Response: No adverse reaction; No change in condition; Pain is unchanged, em physician notified 15:17 Drug: Rocephin 1 grams Route: IV; Rate: calculated rate; Site: right antecubital; em 15:45 Follow up: Response: No adverse reaction; IV Status: Completed infusion; IV Intake: 10mlem Intake: 10:00 IV: 150ml; Total: 150ml. em 10:00 IV: 1000ml; Total: 1150ml. em 15:45 IV: 1000ml; Total: 2150ml. em 15:45 IV: 10ml; Total: 2160ml. em Outcome: 15:37 Discharge ordered by MD. barrera 16:06 Discharged to home ambulatory. em 16:06 Condition: improved 16:06 Discharge instructions given to patient, Instructed on discharge instructions, follow up and referral plans. medication usage, Demonstrated understanding of instructions, follow-up care, medications, Prescriptions given X 2. 16:08 Patient left the ED. em Signatures: Dispatcher [employer] [facility] Ghada Nieto RN RN Cj Finch RN RN Emma Garcia ds1 Gauri Harrison RN RN ss Roszak, Josh, PA PA jr8 Deepak Daley jp3
[2020-05-31 18:04] VITALS: TEMP 97.5
[2020-05-31 18:08] VITALS: BP 119/76; O2SAT 97
== END 2020-05-31 16:08 | disposition home or self-care (01) ==
LOC: ER 13:22
DX: N30.01 Acute cystitis with hematuria (principal)
CPT/HCPCS: 96365; 96361; 87088; 85025; 87086; 80048; 36415; 81025; 80076; 74177; 96375; 99284; Q9967; J0696; J7030; J2405; 81003; 81015

== ENCOUNTER 2022-05-13 19:39 | Emergency (ER) | payer OTHER ==
[2022-05-13 20:33] LABS: Absolute Lymphocytes (CBC) 2.2 K/uL (0.7-4.9); Hematocrit 42.9 % (36.0-45.0); MCV 94.2 fL (80-100); MPV 7.5 fL (7.6-11.3); RBC Red Blood Cell Count 4.55 M/uL (3.86-4.86)
[2022-05-13] MEDS ORDERED: ONDANSETRON 4 MG/2 ML VIAL ONE (20:40)
[2022-05-13] MEDS ORDERED: HYDROCOD 2.5mg-ACETAMIN 108mg/5mL Soln ONE (20:40)
[2022-05-13] MEDS ORDERED: KETOROLAC 30 MG/ML INJ ONE (20:40)
[2022-05-13 20:54] LABS: Magnesium 2.2 mg/dL (1.8-2.4); Troponin High Sensitivity 3.9 pg/mL (<58.9)
[2022-05-13 21:03] LABS: SARS-COV-2 RT PCR NEGATIVE (NEGATIVE)
--- NOTE | 2022-05-13 21:09 | RAD REPORT ---
EXAM DESCRIPTION: RAD - Chest Single View - 05/13/2022 8:59 pm CLINICAL HISTORY: CHEST PAIN COMPARISON: <Comparisons> FINDINGS: Lines: None. Lungs: No evidence of edema or pneumonia. Pleural: No significant pleural effusions or pneumothorax. Cardiac: The heart size is within normal limits. Mediastinum: Within normal limits. Bones: No acute fractures. Other: None IMPRESSION: No acute cardiopulmonary disease.
[2022-05-13] MEDS ORDERED: NA CHLORIDE 0.9% 1,000 ML ONE (21:58)
[2022-05-13 23:04] LABS: Urine Blood 3+ (Negative); Urine Glucose Negative (Negative); Urine Protein Negative (Negative); Urine Specific Gravity 1.025 (1.005-1.030)
[2022-05-13 23:20] LABS: Urine Bacteria <20 /HPF (<20); Urine Mucus Slight /HPF (None Seen)
[2022-05-13] MEDS ORDERED: CEFTRIAXONE 1000 MG/VIAL ONE (23:58)
--- NOTE | 2022-05-13 23:58 | EDPHYS ---
Physician Documentation [facility] Name: Mary Ann Lin Age: 36 yrs Sex: Female : 1985 Arrival Date: 05/13/2022 Time: 19:42 Bed 7 Private MD: ED Physician Jignesh Quick HPI: 05/13 20:30 This 36 yrs old Female presents to ER via Ambulatory with complaints of Sore Throat, cp Cough, Chest Pain, Neck Pain, <24hrs Old. 20:30 The patient presents with sore throat. cp 20:30 The patient describes throat pain as constant. cp 20:30 Onset: The symptoms/episode began/occurred 2 day(s) ago. cp 20:30 Associated signs and symptoms: Pertinent positives: chest pain, cough, fever, flu-like cp symptoms, myalgias, headache, Sore throat neck and back pain, Pertinent negatives diarrhea, dysphagia, vomiting. 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 Last tetanus immunization: up to date. - Social history:: Smoking status: Patient reports the use of cigarette tobacco products, smokes one pack cigarettes per day. ROS: 20:35 Constitutional: Positive for body aches, Negative for fever, poor PO intake. cp 20:35 Eyes: Negative for injury, pain, redness, and discharge. cp 20:35 ENT: Positive for sore throat, Negative for drainage from ear(s), ear pain, difficulty swallowing, difficulty handling secretions. 20:35 Neck: Positive for pain with movement, pain at rest. 20:35 Cardiovascular: Positive for chest pain, Negative for edema, palpitations. 20:35 Respiratory: Positive for cough, Negative for wheezing. 20:35 Abdomen/GI: Negative for vomiting, diarrhea, constipation. 20:35 Skin: Negative for cellulitis, rash. 20:35 Neuro: Positive for headache, Negative for altered mental status, numbness, syncope, weakness. 20:35 All other systems are negative. Exam: 20:10 ECG was reviewed by the Attending Physician. cp 20:40 Constitutional: The patient appears in no acute distress, alert, awake, cp non-diaphoretic, non-toxic, well developed, well nourished. 20:40 Head/Face: Normocephalic, atraumatic. cp 20:40 Eyes: Periorbital structures: appear normal, Conjunctiva: normal, no exudate, no injection, Sclera: no appreciated abnormality, Lids and lashes: appear normal, bilaterally. 20:40 ENT: External ear(s): are unremarkable, Ear canal(s): are normal, clear, TM's: dullness, bilaterally, Nose: is normal, Mouth: Lips: moist, Oral mucosa: moist, Posterior pharynx: Tonsils: no enlargement, no exudate, swelling, is not appreciated, erythema, that is mild, exudate, is not appreciated. 20:40 Neck: ROM/movement: pain, that is mild, with flexion, limited range of motion, is not appreciated, Meningeal signs: are not present, nuchal rigidity, is not appreciated, Lymph nodes: no appreciated lymphadenopathy. 20:40 Chest/axilla: Inspection: normal. 20:40 Cardiovascular: Rate: normal, Rhythm: regular. 20:40 Respiratory: the patient does not display signs of respiratory distress, Respirations: normal, no use of accessory muscles, no retractions, labored breathing, is not present, Breath sounds: bronchial sounds, that are mild, are heard diffusely, decreased breath sounds, are not appreciated, stridor, is not appreciated, + upper airway congestion. 20:40 Abdomen/GI: Inspection: abdomen appears normal, Bowel sounds: active, all quadrants, Palpation: abdomen is soft and non-tender, in all quadrants. 20:40 Back: pain, that is mild, ROM is normal, CVA tenderness, is absent. 20:40 Skin: no rash present. 20:40 Neuro: Orientation: to person, place \\T\\ time. Mentation: is normal, Motor: moves all fours, strength is normal, Sensation: is normal. Vital Signs: 19:49 BP 147 / 82; Pulse 79; Resp 20; Temp 98.8; Pulse Ox 100% ; Weight 74.39 kg; Height 5 kb3 ft. 4 in. (162.56 cm); Pain 8/10; 21:12 BP 106 / 76; Pulse 72; Resp 18; Pulse Ox 100% on R/A; ll3 23:05 BP 116 / 59; Pulse 62; Resp 18; Pulse Ox 100% on R/A; ll3 05/14 00:16 BP 106 / 69; Pulse 56; Resp 18; Pulse Ox 100% on R/A; kl 05/13 19:49 Body Mass Index 28.15 (74.39 kg, 162.56 cm) kb3 MDM: 05/13 20:01 Patient medically screened. cp 21:00 Differential diagnosis: group A strep tonsillitis, mononucleosis, peritonsillar abscess cp retropharyngeal abcess tonsillitis, COVOD-19, influenza, UTI. 23:57 Data reviewed: vital signs, nurses notes, lab test result(s), EKG, radiologic studies, cp plain films. 23:57 Test interpretation: by ED physician or midlevel provider: ECG, plain radiologic cp studies. Counseling: I had a detailed discussion with the patient and/or guardian regarding: the historical points, exam findings, and any diagnostic results supporting the discharge/admit diagnosis, lab results, radiology results, to return to the emergency department if symptoms worsen or persist or if there are any questions or concerns that arise at home. Response to treatment: the patient's symptoms have markedly improved after treatment, and as a result, I will discharge patient. 05/13 19:56 Order name: COVID-19/FLU A+B (Document "Date of Onset" if Symptomatic); Complete Time: kb3 21:40 05/13 21:41 Interpretation: Reviewed. cp 05/13 19:56 Order name: Strep; Complete Time: 21:40 kb3 05/13 21:44 Interpretation: Reviewed. cp 05/13 20:15 Order name: Basic Metabolic Panel; Complete Time: 21:40 cp 05/13 21:40 Interpretation: Normal except: GFR 76. cp 05/13 20:15 Order name: CBC with Diff; Complete Time: 21:40 cp 05/13 21:40 Interpretation: Normal except: MPV 7.5. cp 05/13 20:15 Order name: D-Dimer; Complete Time: 21:40 cp 05/13 21:41 Interpretation: Reviewed. cp 05/13 20:15 Order name: Magnesium; Complete Time: 21:40 05/13 20:15 Order name: Troponin HS; Complete Time: 21:40 05/13 21:44 Interpretation: Reviewed. 05/13 20:15 Order name: XRAY Chest (1 view); Complete Time: 21:40 05/13 21:41 Interpretation: Report review. 05/13 20:36 Order name: [place] Screen Profile; Complete Time: 21:40 05/13 21:12 Order name: Throat Culture EDTX 05/13 21:46 Order name: Urine Microscopic Only; Complete Time: 23:29 05/13 23:30 Interpretation: Normal except: UWBC 10-20; URBC 5-10. 05/13 23:04 Order name: Urine Dipstick-Ancillary; Complete Time: 23:11 [facility] 05/13 23:11 Interpretation: Normal except: UBLD 3+; UESTR Trace. 05/13 23:25 Order name: Urine Culture [facility] 05/13 20:15 Order name: EKG; Complete Time: 20:15 05/13 20:15 Order name: Cardiac monitoring; Complete Time: 20:16 05/13 20:15 Order name: EKG - Nurse/Tech; Complete Time: 20:16 05/13 20:15 Order name: IV Saline Lock; Complete Time: 20:29 05/13 20:15 Order name: Labs collected and sent; Complete Time: 20:29 05/13 20:15 Order name: O2 Per Protocol; Complete Time: 20:16 05/13 20:15 Order name: O2 Sat Monitoring; Complete Time: 20:16 05/13 21:46 Order name: Urine Dipstick-Ancillary (obtain specimen); Complete Time: 23:05 EC:10 Rate is 70 beats/min. Rhythm is regular. ID interval is normal. QRS interval is normal. cp QT interval is normal. Interpreted by me. Reviewed by me. Administered Medications: 20:53 Drug: Ketorolac 15 mg Route: IVP; Site: left antecubital; ll3 23:26 Follow up: Response: No adverse reaction ll3 20:53 Drug: Zofran (Ondansetron) 4 mg Route: IVP; Site: left antecubital; ll3 23:26 Follow up: Response: No adverse reaction ll3 20:53 Drug: Lortab Liquid 10 ml Route: PO; ll3 23:26 Follow up: Response: No adverse reaction; Pain is decreased ll3 22:03 Drug: NS 0.9% 1000 ml Route: IV; Rate: 1 bolus; Site: left antecubital; kl 23:00 Follow up: IV Status: Completed infusion; IV Intake: 1000ml kl 05/14 00:02 Drug: Rocephin (cefTRIAXone) 1 grams Route: IV; Rate: calculated rate; Site: left ll3 antecubital; 00:15 Follow up: IV Status: Completed infusion; IV Intake: 50ml kl 00:16 Follow up: Response: No adverse reaction kl Disposition: 04:37 Co-signature as Attending Physician, Jignesh FIERRO was immediately available on-site ms3 in the Emergency Department for consultation in the care of the patient. Disposition Summary: 05/13/22 23:57 Discharge Ordered Location: Home cp Problem: new cp Symptoms: have improved cp Condition: Stable cp Diagnosis - Acute bronchitis, unspecified cp - UTI/ Urinary tract infection, site not specified cp Followup: cp - With: Private Physician - When: 2 - 3 days - Reason: Recheck today's complaints Discharge Instructions: - Discharge Summary Sheet cp - Acute Bronchitis, Adult cp - Urinary Tract Infection, Adult cp Forms: - Medication Reconciliation Form cp - Thank You Letter cp - Antibiotic Education cp - Prescription Opioid Use cp Prescriptions: - Bromfed DM 2-30-10 mg/5 mL Oral syrup - take 10 milliliter by ORAL route every 6 hours; 180 milliliter; Refills: 0, cp Product Selection Permitted - albuterol sulfate 90 mcg/actuation Inhalation HFA aerosol inhaler - inhale 1 puff by INHALATION route every 4-6 hours; 1 Inhaler; Refills: 0, cp Product Selection Permitted - Bactrim DS 800-160 mg Oral Tablet - take 1 tablet by ORAL route every 12 hours for 7 days; 14 tablet; Refills: 0, cp Product Selection Permitted Signatures: Dispatcher [employer] Mariajose Walton RN RN kl Page, Corey, PA PA cp Sims, Marcus, DO DO ms3 Amelia Heart RN RN ll3 Felicia Toledo RN RN kb3 Corrections: (The following items were deleted from the chart) 11/12 19:52 19:50 Home Meds: Lorazepam Oral; kb3 kb3 21:40 21:40 Normal except. cp cp
--- NOTE | 2022-05-13 23:58 | ER ---
Nurse's Notes [facility] Name: Mary Ann Lin Age: 36 yrs Sex: Female : 1985 Arrival Date: 05/13/2022 Time: 19:42 Bed 7 Private MD: Diagnosis: Acute bronchitis, unspecified;UTI/ Urinary tract infection, site not specified Presentation: 05/13 19:49 Chief complaint: Patient states: Pt reports fever, cough, body aches, neck pain, chest kb3 pain x2 days. Reports son was recently in ED with same symptoms but tested negative for flu/covid. Coronavirus screen: Vaccine status: Patient reports being unvaccinated. Client denies travel out of the [place] in the last 14 days. Ebola Screen: Patient negative for fever greater than or equal to 101.5 degrees Fahrenheit, and additional compatible Ebola Virus Disease symptoms Patient denies exposure to infectious person. Patient denies travel to an Ebola-affected area in the 21 days before illness onset. Initial Sepsis Screen: Does the patient meet any 2 criteria? No. Patient's initial sepsis screen is negative. Does the patient have a suspected source of infection? No. Patient's initial sepsis screen is negative. Risk Assessment: Do you want to hurt yourself or someone else? Patient reports no desire to harm self or others. Onset of symptoms was May 11, 2022. 19:49 Method Of Arrival: Ambulatory kb3 19:49 Acuity: ANNABELLE 4 kb3 Triage Assessment: 19:50 General: Appears in no apparent distress. Behavior is calm, cooperative. Pain: kb3 Complains of pain in head, chest, abdomen, right arm, left arm, right leg and left leg Pain does not radiate. Pain currently is 8 out of 10 on a pain scale. 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 Last tetanus immunization: up to date. - Social history:: Smoking status: Patient reports the use of cigarette tobacco products, smokes one pack cigarettes per day. Screenin:14 Abuse screen: Denies threats or abuse. Nutritional screening: No deficits noted. kl Tuberculosis screening: No symptoms or risk factors identified. Fall Risk None identified. Assessment: 20:29 General: Appears in no apparent distress. uncomfortable, Behavior is calm, cooperative. ll3 Pain: Complains of pain in chest and head Pain does not radiate. Pain currently is 8 out of 10 on a pain scale. Is continuous. Neuro: Level of Consciousness is awake, alert, obeys commands, Oriented to person, place, time, situation. Respiratory: Airway is patent Respiratory effort is even, unlabored, Respiratory pattern is regular, symmetrical, Breath sounds are clear bilaterally. EENT: Throat Pt c/o of sore neck. Derm: Skin is pink, warm \T\ dry. 21:12 Reassessment: No changes from previously documented assessment. Patient and/or family ll3 updated on plan of care and expected duration. Pain level reassessed. Patient is alert, oriented x 3, equal unlabored respirations, skin warm/dry/pink. 22:26 Reassessment: No changes from previously documented assessment. Patient and/or family kl updated on plan of care and expected duration. Pain level reassessed. Patient is alert, oriented x 3, equal unlabored respirations, skin warm/dry/pink. Vital Signs: 19:49 BP 147 / 82; Pulse 79; Resp 20; Temp 98.8; Pulse Ox 100% ; Weight 74.39 kg; Height 5 kb3 ft. 4 in. (162.56 cm); Pain 8/10; 21:12 BP 106 / 76; Pulse 72; Resp 18; Pulse Ox 100% on R/A; ll3 23:05 BP 116 / 59; Pulse 62; Resp 18; Pulse Ox 100% on R/A; ll3 05/14 00:16 BP 106 / 69; Pulse 56; Resp 18; Pulse Ox 100% on R/A; kl 05/13 19:49 Body Mass Index 28.15 (74.39 kg, 162.56 cm) kb3 ED Course: 05/13 19:42 Patient arrived in ED. as 19:45 Ed Connelly PA is PHCP. cp 19:45 Quick, Jignesh, DO is Attending Physician. cp 19:50 Triage completed. kb3 19:50 Arm band placed on right wrist. kb3 20:30 Initial lab(s) drawn, by me, sent to lab. Inserted saline lock: 22 gauge in left ll3 antecubital area, using aseptic technique. Blood collected. 21:00 XRAY Chest (1 view) In Process Unspecified. EDMS 23:07 Urine Microscopic Only Sent. 05/14 00:16 IV discontinued, intact, bleeding controlled, No redness/swelling at site. Pressure kl dressing applied. 00:17 Patient has correct armband on for positive identification. kl 00:17 No provider procedures requiring assistance completed. kl Administered Medications: 05/13 20:53 Drug: Ketorolac 15 mg Route: IVP; Site: left antecubital; ll3 23:26 Follow up: Response: No adverse reaction ll3 20:53 Drug: Zofran (Ondansetron) 4 mg Route: IVP; Site: left antecubital; ll3 23:26 Follow up: Response: No adverse reaction ll3 20:53 Drug: Lortab Liquid 10 ml Route: PO; ll3 23:26 Follow up: Response: No adverse reaction; Pain is decreased ll3 22:03 Drug: NS 0.9% 1000 ml Route: IV; Rate: 1 bolus; Site: left antecubital; kl 23:00 Follow up: IV Status: Completed infusion; IV Intake: 1000ml 05/14 00:02 Drug: Rocephin (cefTRIAXone) 1 grams Route: IV; Rate: calculated rate; Site: left ll3 antecubital; 00:15 Follow up: IV Status: Completed infusion; IV Intake: 50ml 00:16 Follow up: Response: No adverse reaction Medication: 00:17 VIS not applicable for this client. kl Intake: 05/13 23:00 IV: 1000ml; Total: 1000ml. 05/14 00:15 IV: 50ml; Total: 1050ml. Outcome: 05/13 23:57 Discharge ordered by . cp 05/14 00:16 Discharged to home ambulatory. kl Condition: improved Discharge instructions given to patient, Instructed on discharge instructions, follow up and referral plans. medication usage, Demonstrated understanding of instructions, follow-up care, medications, Prescriptions given X 3. 00:18 Patient left the ED. Signatures: Dispatcher [employer] Mariajose Walton RN RN Jaimee Juan Corey, PA PA cp Loubet, Lynsea, RN RN 3 Felicia Toledo RN RN kb3 Corrections: (The following items were deleted from the chart) 05/13 19:52 19:50 Home Meds: Lorazepam Oral; kb3 kb3 21:12 20:29 Neuro: Level of Consciousness is awake, alert, obeys commands, Oriented to ll3 person, place, time, situation, ll3
[2022-05-13] MEDS ORDERED: NA CHLORIDE 0.9% 50 ML IV ONE (23:59)
[2022-05-14 00:44] VITALS: TEMP 98.8; O2SAT 100
[2022-05-14 01:01] VITALS: BP 106/69
--- NOTE | 2022-05-15 15:10 | EKG ---
Test Date: 2022-05-13 Test Time: 20:06:32 Flush Tester: MARCELLUS MEASUREMENT RESULTS: Intervals: Rate: 70 [place]: 168 QRSD: 80 QT: 380 QTc: 410 [place]: P: 54 [place]: 168 QRS: 92 T: 32 INTERPRETIVE STATEMENTS: Sinus rhythm with marked sinus arrhythmia Rightward axis Borderline ECG Compared to ECG 07/27/2005 13:37:00 Right-axis deviation now present Electronically Signed On 05-15-22 15:09:12 RECORDS SUPERVISOR by Pop Dorsey
== END 2022-05-14 00:18 | disposition home or self-care (01) ==
LOC: ER 19:39
DX: J20.9 Acute bronchitis, unspecified (principal); N39.0 Urinary tract infection, site not specified; F41.9 Anxiety disorder, unspecified; Z20.822 Contact with and (suspected) exposure to COVID-19
CPT/HCPCS: 96361; 93005; 87070; 87088; 85025; 87086; 80048; 36415; 83735; 86308; 85379; 87081; 84484; 0240U; 71045; 96375; 96374; 99284; J7030; J2405; 81003; 81015

== ENCOUNTER 2022-06-08 12:06 | Emergency (ER) | payer OTHER ==
--- OUTSIDE RECORDS SUMMARY | 2022-06-08 12:13 | XMS REPORT | Continuity of Care Document ---
:1985 Author Organization [facility] t Address [address] [place] [address] Care Team Providers Name Role Phone Pcp, Patient Does Not Have A Primary Care Physician +1-000-0 00-0000 FELICITAS TORRES Attending Clinician Unavailable Torres PACFelicitas Attending Clinician JOHNNA YO Attending Clinician Unavailable Johnna Yo MD Attending Clinician Only, Adc Test Attending Clinician Unavailable Pob, Ad[facility] Lab Main Attending Clinician Unavailable Doctor Unassigned, [place] Attending Clinician Unavailable Ultrasound, Adc Mfm Attending Clinician Unavailable Edward Martínez MD Attending Clinician Kaylee Houser RN Attending Clinician Unavailable 1, [facility] Mfm Usg Room Attending Clinician Unavailable Lynnette Castellanos MD Attending Clinician JOHNNA YO Admitting Clinician Unavailable Johnna Yo MD Admitting Clinician Payers Payer Name Policy Type Policy Number Effective Date Expiration Date S nikhil [employer] [id number] 2016 HEALTH 00:00:00 Problems Condition Condition Condition Status Onset Resolution Last Treating Co mments Source Name Details Category Date Date Treatment Clinician Date Single Single Disease Active 2020-07 Univers liveborn, liveborn, 1-18 ity of born in born in 00:00: [facility], 00 Medi sarah delivered delivered Bran ch by by section section Obesity Obesity Disease Active 2021-1 Univers (BMI (BMI 0-01 ity of 30-39.9) 30-39.9) 00:00: [place] [id number] Medical Branch Anemia of Anemia of Disease Active Uni vers mother in mother in 7-31 [place]y [place] , , [place] antepartum antepartum 00 Me dical Branch Family Family Disease Active Univers history of history of 6-22 it y of congenital congenital [place] anomaly of anomaly of 00 Me dical cardiovasc cardiovasc Br anch ular ular system system High risk High risk Disease Active Uni vers , , 4-21 it y of multigravi multigravi 00:[place] da of da of 00 Medical advanced advanced Branch maternal maternal age in age in third third trimester trimester 32 weeks 32 weeks Disease Active Unive rs gestation gestation 4-21 ity of of of 00:00: [place] 00 [facility] 36 weeks 36 weeks Disease Active Unive rs gestation gestation 4-21 ity of of of 00:00: [place] 00 [facility] 38 weeks 38 weeks Disease Active Unive rs gestation gestation 4-21 ity of of of 00:00: [place] 00 [facility] 39 weeks 39 weeks Disease Active Unive rs gestation gestation 4-21 ity of of of 00:00: [place] 00 [facility] History of History of Disease Active 2016-07 U nivers seizure seizure 2-13 ity of 00:00: [address] Tobacco Tobacco Disease Active 2016-07 Univers use use 2-13 ity of disorder disorder 00:00: [address] Depression Depression Disease Active U nivers ity of [facility] Anxiety Anxiety Disease Active Overview: Univ ers [place] ity of g of this [place] note Medical might be Branch different from the original. dx: 2005, currently on SSRI and Benzodiaz epines Previous Previous Disease Active Unive rs ity of section section [facility] Allergies, Adverse Reactions, Alerts Allergy Allergy Status Severity Reaction(s) Onset Inactive Treating Comm ents Source Name Type Date Date Clinician NO KNOWN Drug Active Univers ALLERGIE Class ity of S [facility] Social History Social Habit Start Date Stop Date Quantity Comments Source ASSERTION 2020-09-01 University of 00:00:00 [facility] History of tobacco 2007-06-13 Cigarette Smoker University of use 00:00:00 [facility] Exposure to 2022-01-18 2022-01-28 Not sure University SARS-CoV-2 (event) 00:00:00 17:23:00 [facility] Alcohol intake 2021-04-01 2021-04-01 Ex-drinker [facility] 00:00:00 00:00:00 (finding) [facility] Cigarettes smoked 2020-12-21 2020-12-21 Univers ity of current (pack per 00:00:00 00:00:00 [facility] ) - Reported Branch Tobacco use and 2020-12-21 2020-12-21 Smokeless Universit y of exposure 00:00:00 00:00:00 tobacco non-user [facility] dical [place] Tobacco Comment 2020-10-20 2020-10-20 < 1/2 PPD, was Unive rsity of 00:00:00 00:00:00 smoking 1 PPD [facility] Sex Ass[birth year] At [birth year] Universit y of 00:00:00 00:00:00 [facility] Smoking Status Start Date Stop Date Source Smokes tobacco daily 2020-12-21 00:00:00 Univers ity of [facility] Medications Ordered Filled Start Stop Current Ordering Indication Dosage Frequency Signature Comments Components Source Medication Medication Date Date Medication? Clinician (SIG) Name Name acetaminoph 2021- No 1000mg 1,000 mg, Univers en 01-29 Oral, ity of (TYLENOL) 00:30: 23:25 ONCE, 1 [place] tablet 00 :00 dose, On Medical 1,000 mg Sat [place] 01/28/22 at 1930, Routine ketorolac 2021- No 30mg 30 mg, Unive rs (TORADOL) 01-29 Slow IV ity of injection 00:30: 23:26 Push, [place] 30 mg 00 :00 ONCE, 1 Medical dose, On Branch 01/28/22 at 1930, JYOTI ibuprofen Yes [id number] 800mg Take 1 U nivers 800 mg 7-30 tablet by ity of tablet 00:00: mouth [place] 00 every 8 Medical (eight) Branch hours as needed for Pain (scale 4-6). 2020-07 Yes Take by Univer s vit 1-20 mouth. ity of calc,iron,f 11:10: [facility] 18 Medical ( Branch VITAMIN ORAL) 2020-07 Yes Take by Univer s vit 1-20 mouth. ity of calc,iron,f 11:10: [facility] 18 Medical ( Branch VITAMIN ORAL) 2020-07 Yes Take by Univer s vit 1-20 mouth. ity of calc,iron,f 11:10: [facility] 18 Medical ( Branch VITAMIN ORAL) 2020-07 Yes Take by Univer s vit 1-20 mouth. ity of calc,iron,f 11:10: [place] [address] Medical ( Branch VITAMIN ORAL) 2020-07 Yes Take by Univer s vit 1-20 mouth. ity of calc,iron,f 11:10: [place] [address] Medical ( Branch VITAMIN ORAL) simethicone 2020-07 Yes 80mg 80 mg, Univ ers (GAS RELIEF -19 Oral, BID, it y of (SIMETHICON 23:45: First dose [place] E)) 00 (after Medical chewable last Branch tablet 80 modificati mg on) on Sun05/20/21 at 1745, Until Discontinu ed, Routine 2020-07 Yes Take by [employer] vit 1-19 mouth. ity of calc,iron,f 07:53: [facility] 25 Medical ( Branch VITAMIN ORAL) 2020-07 Yes [id number] 1{tbl} Take 1 Univers vitamin 1-19 tablet by ity of w/FA tablet 00:00: mouth [place] 00 daily. Medical Branch docusate 2020-07 Yes [id number] 240mg Take 1 U nivers calcium 240 1-19 capsule by it y of mg capsule 00:00: mouth once [place] 00 daily as Medical needed for Branch Constipati on. ferrous 2020-07 Yes [id number] 325mg Take 1 Un go sulfate 325 1-19 tablet by ity of mg (65 mg 00:00: mouth 2 [place] iron) 00 (two) Medical tablet times Branch daily. ibuprofen 2020-07 Yes [id number] 800mg Take 1 Univers 800 mg 1-19 tablet by ity of tablet 00:00: mouth [place] 00 every 8 Medical (eight) Branch hours. Take with food or milk. HYDROcodone 2020-07 Yes [id number] 1{tbl} Take 1 Un go -acetaminop 1-19 tablet by ity of hen 5-325 00:00: mouth [place] mg tablet 00 every 6 Medical (six) Branch hours as needed (Pain scale above 4). Do not exceed 3 grams of acetaminop hen in 24 hours. Indication s: acute pain 2020-07 Yes [id number] 1{tbl} Take 1 Univers vitamin 1-19 tablet by ity of w/FA tablet 00:00: mouth [place] 00 daily. Medical Branch docusate 2020-07 Yes [id number] 240mg Take 1 U nivers calcium 240 1-19 capsule by it y of mg capsule 00:00: mouth once [place] 00 daily as Medical needed for Branch Constipati on. ferrous 2020-07 Yes [id number] 325mg Take 1 Un go sulfate 325 1-19 tablet by ity of mg (65 mg 00:00: mouth 2 [place] iron) 00 (two) Medical tablet times Branch daily. ibuprofen 2020-07 Yes [id number] 800mg Take 1 Univers 800 mg 1-19 tablet by ity of tablet 00:00: mouth [place] 00 every 8 Medical (eight) Branch hours. Take with food or milk. HYDROcodone 2020-07 Yes [id number] 1{tbl} Take 1 Un go -acetaminop 1-19 tablet by ity of hen 5-325 00:00: mouth [place] mg tablet 00 every 6 Medical (six) Branch hours as needed (Pain scale above 4). Do not exceed 3 grams of acetaminop hen in 24 hours. Indication s: acute pain 2020-07 Yes [id number] 1{tbl} Take 1 Univers vitamin 1-19 tablet by ity of w/FA tablet 00:00: mouth [place] 00 daily. Medical Branch docusate 2020-07 Yes [id number] 240mg Take 1 U nivers calcium 240 1-19 capsule by it y of mg capsule 00:00: mouth once [place] 00 daily as Medical needed for Branch Constipati on. ferrous 2020-07 Yes [id number] 325mg Take 1 Un go sulfate 325 1-19 tablet by ity of mg (65 mg 00:00: mouth 2 [place] iron) 00 (two) Medical tablet times Branch daily. ibuprofen 2020-07 Yes [id number] 800mg Take 1 Univers 800 mg 1-19 tablet by ity of tablet 00:00: mouth [place] 00 every 8 Medical (eight) Branch hours. Take with food or milk. HYDROcodone 2020-07 Yes [id number] 1{tbl} Take 1 Un go -acetaminop 1-19 tablet by ity of hen 5-325 00:00: mouth [place] mg tablet 00 every 6 Medical (six) Branch hours as needed (Pain scale above 4). Do not exceed 3 grams of acetaminop hen in 24 hours. Indication s: acute pain 2020-07 Yes [id number] 1{tbl} Take 1 Univers vitamin 1-19 tablet by ity of w/FA tablet 00:00: mouth [place] 00 daily. Medical Branch docusate 2020-07 Yes [id number] 240mg Take 1 U nivers calcium 240 1-19 capsule by it y of mg capsule 00:00: mouth once [place] 00 daily as Medical needed for Branch Constipati on. ferrous 2020-07 Yes [id number] 325mg Take 1 Un go sulfate 325 1-19 tablet by ity of mg (65 mg 00:00: mouth 2 [place] iron) 00 (two) Medical tablet times Branch daily. HYDROcodone 2020-07 Yes [id number] 1{tbl} Take 1 Un go -acetaminop 1-19 tablet by ity of hen 5-325 00:00: mouth [place] mg tablet 00 every 6 Medical (six) Branch hours as needed (Pain scale above 4). Do not exceed 3 grams of acetaminop hen in 24 hours. Indication s: acute pain ibuprofen 2020-07- No [id number] 800mg Take 1 Univers 800 mg 1-19 07-30 tablet by ity of tablet 00:00: 00:00 mouth [place] 00 :00 every 8 Medical (eight) Branch hours. Take with food or milk. acetaminoph 2020-07 No 1000mg 1,000 mg, Univers en ADULT 07-19 IV ity of (OFIRMEV) 22:00: 10:13 [place]fusion, [place] injection 00 :00 Administer Medi sarah 1,000 mg over 15 Branch Minutes, Q6H, 3 doses, First dose on Sun05/19/21 at 1600, Last dose on Sun05/20/21 at 0000, Routine
Indicatio n: Perioperat cecilia Patient ibuprofen 2020-07 Yes 800mg 800 mg, Univ ers (IBU) 1-18 Oral, Q8H, ity of tablet 800 20:00: First dose [place] mg 00 on [facility] 05/19/21 Branch at 1400, Until Discontinu ed, Routine ibuprofen 2020-07 Yes 800mg 800 mg, Univ ers (IBU) 1-18 Oral, Q8H, ity of tablet 800 20:00: First dose [place] mg 00 on [facility] 05/19/21 Branch at 1400, Until Discontinu ed, Routine simethicone 2020-07 Yes 80mg 80 mg, Univ ers (GAS RELIEF 07-19 Oral, ity of (SIMETHICON 18:30: DAILY, [place] E)) 00 First dose Medical chewable on [facility] tablet 80 05/19/21 mg at 1230, Until Discontinu ed, Routine simethicone 2020-07- No 80mg 80 mg, Uni vers (GAS RELIEF 07-19 Oral, ity of (SIMETHICON 18:30: 23:42 DAILY, [place] E)) 00 :05 First dose Medical chewable on [facility] tablet 80 05/19/21 mg at 1230, Until Discontinu ed, Routine ketorolac 2020-07- No 30mg 30 mg, Unive rs (TORADOL) 07-19 Slow IV ity of injection 18:00: 05:23 [place], Q6H, [place] 30 mg 00 :00 3 doses, Medical First dose Branch (after last modificati on) on [place] 05/19/21 at 1200, Last dose on Sun05/20/21 at 0000, Routine
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 Restricted medication : ALEXIS OBJUAN JOSEN rho(D) 2020-07 Yes 300ug 300 mcg, Univer s immune -18 Intramuscu ity of globulin 16:28: lar, ONCE, [place] (RHOGAM) 34 For 1 Medical syringe 300 dose, Branch mcg Conditiona l, Routine rho(D) 2020-07 Yes 300ug 300 mcg, Univer s immune -18 Intramuscu ity of globulin 16:28: lar, ONCE, [place] (RHOGAM) 34 For 1 Medical syringe 300 dose, Branch mcg Conditiona l, Routine HYDROcodone 2020-07 Yes 2{tbl} 2 tablet, Univers -acetaminop 1-18 Oral, ity of hen (NORCO 16:24: Q6HPRN, [place] 5) 5-325 mg 53 Starting Medi sarah tablet 2 on [place] Branch tablet 05/19/21 at 1024, Until Discontinu ed, Routine, Pain (scale 7-10), If uncontroll ed by Ibuprofen HYDROcodone 2020-07 Yes 2{tbl} 2 tablet, Univers -acetaminop 1-18 Oral, ity of hen (NORCO 16:24: Q6HPRN, [place] 5) 5-325 mg 53 Starting Medi sarah tablet 2 on [place] Branch tablet 05/19/21 at 1024, Until Discontinu ed, Routine, Pain (scale 7-10), If uncontroll ed by Ibuprofen HYDROcodone 2020-07 Yes 1{tbl} 1 tablet, Univers -acetaminop 1-18 Oral, ity of hen (NORCO 16:24: Q6HPRN, [place] 5) 5-325 mg 49 Starting Medi sarah tablet 1 on [place] Branch tablet 05/19/21 at 1024, Until Discontinu ed, Routine, Pain (scale 4-6), If uncontroll ed by Ibuprofen HYDROcodone 2020-07 Yes 1{tbl} 1 tablet, Univers -acetaminop 1-18 Oral, ity of hen (NORCO 16:24: Q6HPRN, [place] 5) 5-325 mg 49 Starting Medi sarah tablet 1 on [place] Branch tablet 05/19/21 at 1024, Until Discontinu ed, Routine, Pain (scale 4-6), If uncontroll ed by Ibuprofen diphenhydrA 2020-07 Yes 25mg 25 mg, Univ ers MINE 1-18 Oral, ity of (BENADRYL) 16:23: Q6HPRN, [place] tablet 25 41 Starting Medica l mg on [place] Branch 05/19/21 at 1023, Until Discontinu ed, Routine, Sleep, Itching ondansetron 2020-07 Yes 4mg 4 mg, Slow Univers (ZOFRAN 1-18 IV Push, ity of (PF)) 16:23: Q8HPRN, [place] injection 4 41 Starting Medi sarah mg on [place] Branch 05/19/21 at 1023, Until Discontinu ed, Routine, Nausea and Vomiting (N/V) bisacodyL 2020-07 Yes 10mg 10 mg, Univer s (DULCOLAX) 1-18 Rectal, ity of suppository 16:23: QDAILYPRN, [place] 10 mg 41 Starting Medical on [place] Branch 05/19/21 at 1023, Until Discontinu ed, Routine, Constipati on magnesium 2020-07 Yes 30mL 30 mL, Univer s hydroxide 1-18 Oral, ity of (MILK OF 16:23: QDAILYPRN, [place] MAGNESIA) 41 Starting Medica l 400 mg/5 mL on [place] Branch suspension 05/19/21 30 mL at 1023, Until Discontinu ed, Routine, Constipati on diphenhydrA 2020-07 Yes 25mg 25 mg, Univ ers MINE 1-18 Oral, ity of (BENADRYL) 16:23: Q6HPRN, [place] tablet 25 41 Starting Medica l mg on [place] Branch 05/19/21 at 1023, Until Discontinu ed, Routine, Sleep, Itching ondansetron 2020-07 Yes 4mg 4 mg, Slow Univers (ZOFRAN 1-18 IV Push, ity of (PF)) 16:23: Q8HPRN, [place] injection 4 41 Starting Medi sarah mg on [place] Branch 05/19/21 at 1023, Until Discontinu ed, Routine, Nausea and Vomiting (N/V) bisacodyL 2020-07 Yes 10mg 10 mg, Univer s (DULCOLAX) 1-18 Rectal, ity of suppository 16:23: QDAILYPRN, [place] 10 mg 41 Starting Medical on [place] Branch 05/19/21 at 1023, Until Discontinu ed, Routine, Constipati on magnesium 2020-07 Yes 30mL 30 mL, Univer s hydroxide 1-18 Oral, ity of (MILK OF 16:23: QDAILYPRN, [place] MAGNESIA) 41 Starting Medica l 400 mg/5 mL on [place] Branch suspension 05/19/21 30 mL at 1023, Until Discontinu ed, Routine, Constipati on sodium 2020-07 Yes PRN, Univers chloride 18 Starting ity of 0.9 % 15:00: on [place] irrigation 00 05/19/21 Medic al solution at 0900, Branch Until Discontinu ed, Intra-op sodium 2020-07 Yes PRN, Univers chloride 18 Starting ity of 0.9 % 15:00: on [place] irrigation 00 05/19/21 Medic al solution at 0900, Branch Until Discontinu ed, Intra-op lactated 2020-07- No 500mL at 999 Unive rs ringers IV 07-1918 mL/hr, 500 it y of infusion 14:30: 14:24 mL, IV [place] 500 mL 00 :00 Infusion, Medical ONCE, 1 Branch dose, On [place] 05/19/21 at 0830, Routine lactated 2020-07- No 1000mL at 125 Univ ers ringers IV 07-19-18 mL/hr, ity of infusion 14:30: 16:28 1,000 mL, [place] 1,000 mL 00 :35 IV Medical Infusion, Branch CONTINUOUS , Starting on [place] 05/19/21 at 0830, Until [place] 05/19/21 at 1028, Routine sodium 2020-07- No 30mL 30 mL, Univers citrate-cit 07-19 Oral, ity of kim acid 14:22: 14:34 PRE-PROCED [place] (BICITRA) 50 :00 URE ONCE, Medic al 500-334 1 dose, Branch mg/5 mL Starting solution 30 on [place] mL 05/19/21 at 0822, Until 05/21/21 at 2359, Routine, Surgery/Pr ocedure hydrOXYzine 2020-07 Yes [id number] 25mg Take 1 Univers 25 mg 0-01 capsule by ity of capsule 00:00: mouth 4 [place] 00 (four) Medical times Branch daily as needed for Anxiety. hydrOXYzine 2020-07 Yes [id number] 25mg Take 1 Univers 25 mg 0-01 capsule by ity of capsule 00:00: mouth 4 [place] 00 (four) Medical times Branch daily as needed for Anxiety. hydrOXYzine 2020-07 Yes [id number] 25mg Take 1 Univers 25 mg 0-01 capsule by ity of capsule 00:00: mouth 4 [place] 00 (four) Medical times Branch daily as needed for Anxiety. hydrOXYzine 2020-07 Yes [id number] 25mg Take 1 Univers 25 mg 0-01 capsule by ity of capsule 00:00: mouth () Medical times Branch daily as needed for Anxiety. hydrOXYzine 2020-07 Yes [id number] 25mg Take 1 Univers 25 mg 0-01 capsule by ity of capsule 00:00: mouth () Medical times Branch daily as needed for Anxiety. hydrOXYzine 2020-07 Yes [id number] 25mg Take 1 Univers 25 mg 0-01 capsule by ity of capsule 00:00: mouth (four) Medical times Branch daily as needed for Anxiety. hydrOXYzine 2020-07 Yes [id number] 25mg Take 1 Univers 25 mg 0-01 capsule by ity of capsule 00:00: mouth () Medical times Branch daily as needed for Anxiety. hydrOXYzine 2020-07 Yes [id number] 25mg Take 1 Univers 25 mg 0-01 capsule by ity of capsule 00:00: mouth () Medical times Branch daily as needed for Anxiety. hydrOXYzine 2020-07 Yes [id number] 25mg Take 1 Univers 25 mg 0-01 capsule by ity of capsule 00:00: mouth () Medical times Branch daily as needed for Anxiety. hydrOXYzine 2020-07 Yes [id number] 25mg Take 1 Univers 25 mg 0-01 capsule by ity of capsule 00:00: mouth () Medical times Branch daily as needed for Anxiety. hydrOXYzine 2020-07 Yes [id number] 25mg Take 1 Univers 25 mg 0-01 capsule by ity of capsule 00:00: mouth () Medical times Branch daily as needed for Anxiety. hydrOXYzine 2020-07 Yes [id number] 25mg Take 1 Univers 25 mg 0-01 capsule by ity of capsule 00:00: mouth () Medical times Branch daily as needed for Anxiety. hydrOXYzine 2020-07 Yes [id number] 25mg Take 1 Univers 25 mg 0-01 capsule by ity of capsule 00:00: mouth () Medical times Branch daily as needed for Anxiety. hydrOXYzine 2020-07 Yes [id number] 25mg Take 1 Univers 25 mg 0-01 capsule by ity of capsule 00:00: mouth 4 [place] 00 (four) Medical times Branch daily as needed for Anxiety. azithromyci 2021-0 2021- No 250mg Take 1 Un go n 250 mg 03-10 tablet by ity o f tablet 00:00: 00:00 mouth [place] 00 :00 daily. Medical Take 500 Branch mg day 1, then 250 mg days 2 to 5. clonazePAM 2021-0 Yes [id number] .5mg Take 1 U nivers 0.5 mg 9-08 tablet by ity of tablet 00:00: mouth [place] 00 every 8 Medical (eight) Branch hours as needed (Anxiety). clonazePAM 2021-0 Yes [id number] .5mg Take 1 U nivers 0.5 mg 9-08 tablet by ity of tablet 00:00: mouth [place] 00 every 8 Medical (eight) Branch hours as needed (Anxiety). clonazePAM 2021-0 Yes [id number] .5mg Take 1 U nivers 0.5 mg 9-08 tablet by ity of tablet 00:00: mouth [place] 00 every 8 Medical (eight) Branch hours as needed (Anxiety). clonazePAM 2021-0 Yes [id number] .5mg Take 1 U nivers 0.5 mg 9-08 tablet by ity of tablet 00:00: mouth [place] 00 every 8 Medical (eight) Branch hours as needed (Anxiety). clonazePAM 2021-0 Yes [id number] .5mg Take 1 U nivers 0.5 mg 9-08 tablet by ity of tablet 00:00: mouth [place] 00 every 8 Medical (eight) Branch hours as needed (Anxiety). clonazePAM 2021-0 Yes [id number] .5mg Take 1 U nivers 0.5 mg 9-08 tablet by ity of tablet 00:00: mouth [place] 00 every 8 Medical (eight) Branch hours as needed (Anxiety). clonazePAM 2021-0 Yes [id number] .5mg Take 1 U nivers 0.5 mg 9-08 tablet by ity of tablet 00:00: mouth [place] 00 every 8 Medical (eight) Branch hours as needed (Anxiety). clonazePAM 2021-0 Yes [id number] .5mg Take 1 U nivers 0.5 mg 9-08 tablet by ity of tablet 00:00: mouth [place] 00 every 8 Medical (eight) Branch hours as needed (Anxiety). clonazePAM 2021-0 Yes [id number] .5mg Take 1 U nivers 0.5 mg 9-08 tablet by ity of tablet 00:00: mouth [place] 00 every 8 Medical (eight) Branch hours as needed (Anxiety). clonazePAM 2021-0 Yes [id number] .5mg Take 1 U nivers 0.5 mg 9-08 tablet by ity of tablet 00:00: mouth [place] 00 every 8 Medical (eight) Branch hours as needed (Anxiety). clonazePAM 2021-0 Yes [id number] .5mg Take 1 U nivers 0.5 mg 9-08 tablet by ity of tablet 00:00: mouth [place] 00 every 8 Medical (eight) Branch hours as needed (Anxiety). clonazePAM 2021-0 Yes [id number] .5mg Take 1 U nivers 0.5 mg 9-08 tablet by ity of tablet 00:00: mouth [place] 00 every 8 Medical (eight) Branch hours as needed (Anxiety). clonazePAM 1-0 Yes [id number] .5mg Take 1 U nivers 0.5 mg 9-08 tablet by ity of tablet 00:00: mouth [place] 00 every 8 Medical (eight) Branch hours as needed (Anxiety). clonazePAM 1-0 Yes [id number] .5mg Take 1 U nivers 0.5 mg 9-08 tablet by ity of tablet 00:00: mouth [place] 00 every 8 Medical (eight) Branch hours as needed (Anxiety). ferrous 2020-0 Yes [id number] 325mg Take 1 Un go sulfate 325 7-31 tablet by ity of mg (65 mg 00:00: mouth 2 [place] iron) 00 (two) Medical tablet times Branch daily. ferrous 2020-0 Yes [id number] 325mg Take 1 Un go sulfate 325 7-31 tablet by ity of mg (65 mg 00:00: mouth 2 [place] iron) 00 (two) Medical tablet times Branch daily. ferrous 2021-0 Yes [id number] 325mg Take 1 Un go sulfate 325 7-31 tablet by ity of mg (65 mg 00:00: mouth 2 [place] iron) 00 (two) Medical tablet times Branch daily. ferrous 202-0 Yes [id number] 325mg Take 1 Un go sulfate 325 7-31 tablet by ity of mg (65 mg 00:00: mouth 2 [place] iron) 00 (two) Medical tablet times Branch daily. ferrous Yes [id number] 325mg Take 1 Un go sulfate 325 7-31 tablet by ity of mg (65 mg 00:00: mouth 2 [place] iron) 00 (two) Medical tablet times Branch daily. ferrous Yes [id number] 325mg Take 1 Un go sulfate 325 7-31 tablet by ity of mg (65 mg 00:00: mouth 2 [place] iron) 00 (two) Medical tablet times Branch daily. ferrous Yes [id number] 325mg Take 1 Un go sulfate 325 7-31 tablet by ity of mg (65 mg 00:00: mouth 2 [place] iron) 00 (two) Medical tablet times Branch daily. ferrous Yes [id number] 325mg Take 1 Un go sulfate 325 7-31 tablet by ity of mg (65 mg 00:00: mouth 2 [place] iron) 00 (two) Medical tablet times Branch daily. ferrous Yes [id number] 325mg Take 1 Un go sulfate 325 7-31 tablet by ity of mg (65 mg 00:00: mouth 2 [place] iron) 00 (two) Medical tablet times Branch daily. ferrous Yes [id number] 325mg Take 1 Un go sulfate 325 7-31 tablet by ity of mg (65 mg 00:00: mouth 2 [place] iron) 00 (two) Medical tablet times Branch daily. ferrous Yes [id number] 325mg Take 1 Un go sulfate 325 7-31 tablet by ity of mg (65 mg 00:00: mouth 2 [place] iron) 00 (two) Medical tablet times Branch daily. ferrous Yes [id number] 325mg Take 1 Un go sulfate 325 7-31 tablet by ity of mg (65 mg 00:00: mouth 2 [place] iron) 00 (two) Medical tablet times Branch daily. ferrous Yes [id number] 325mg Take 1 Un go sulfate 325 7-31 tablet by ity of mg (65 mg 00:00: mouth 2 [place] iron) 00 (two) Medical tablet times Branch daily. ferrous Yes [id number] 325mg Take 1 Un go sulfate 325 7-31 tablet by ity of mg (65 mg 00:00: mouth 2 [place] iron) 00 (two) Medical tablet times Branch daily. Yes Take by Univer s vit 4-21 mouth. ity of calc,iron,f 14:46: [place] olic 00 Medical ( Branch VITAMIN ORAL) Yes Take by Univer s vit 4-21 mouth. ity of calc,iron,f 14:46: [place] olic 00 Medical ( Branch VITAMIN ORAL) Yes Take by Univer s vit 4-21 mouth. ity of calc,iron,f 14:46: [place] olic 00 Medical ( Branch VITAMIN ORAL) Yes Take by Univer s vit 4-21 mouth. ity of calc,iron,f 14:46: [place] olic 00 Medical ( Branch VITAMIN ORAL) Yes Take by Univer s vit 4-21 mouth. ity of calc,iron,f 14:46: [place] olic 00 Medical ( Branch VITAMIN ORAL) Yes Take by Univer s vit 4-21 mouth. ity of calc,iron,f 14:46: [place] olic 00 Medical ( Branch VITAMIN ORAL) Yes Take by Univer s vit 4-21 mouth. ity of calc,iron,f 14:46: [place] olic 00 Medical ( Branch VITAMIN ORAL) Yes Take by Univer s vit 4-21 mouth. ity of calc,iron,f 14:46: [place] olic 00 Medical ( Branch VITAMIN ORAL) escitalopra Yes Univer s m oxalate 1-26 ity of 20 mg 00:00: [place] tablet 00 Medical Branch escitalopra Yes Univer s m oxalate 1-26 ity of 20 mg 00:00: [place] tablet 00 [facility] Branch escitalopra Yes Univer s m oxalate 1-26 ity of 20 mg 00:00: [place] tablet 00 Medical Branch escitalopra Yes Univer s m oxalate 1-26 ity of 20 mg 00:00: [place] tablet 00 Medical Branch escitalopra Yes Univer s m oxalate 1-26 ity of 20 mg 00:00: [place] tablet 00 Medical Branch escitalopra Yes Univer s m oxalate 1-26 ity of 20 mg 00:00: [place] tablet 00 Medical Branch escitalopra 0 Yes Univer s m oxalate 1-26 ity of 20 mg 00:00: [place] tablet 00 Medical Branch escitalopra 0 Yes Univer s m oxalate 1-26 ity of 20 mg 00:00: [place] tablet 00 Medical Branch escitalopra 0 Yes Univer s m oxalate 1-26 ity of 20 mg 00:00: [place] tablet 00 Medical Branch escitalopra 0 Yes Univer s m oxalate 1-26 ity of 20 mg 00:00: [place] tablet 00 Medical Branch escitalopra 0 Yes Univer s m oxalate 1-26 ity of 20 mg 00:00: [place] tablet 00 Medical Branch escitalopra 0 Yes Univer s m oxalate 1-26 ity of 20 mg 00:00: [place] tablet 00 Medical Branch escitalopra 0 Yes Univer s m oxalate 1-26 ity of 20 mg 00:00: [place] tablet 00 Medical Branch escitalopra 0 Yes Univer s m oxalate 1-26 ity of 20 mg 00:00: [place] tablet 00 Medical Branch Immunizations Ordered Filled Immunization Date Status Comments [facility] e Immunization Name Name Influenza Virus 2021-05-03 Completed Universit y of Vaccine [facility] IM, 00:00:00 [place] Me dical Preserv and ABX Branch Free 6 MO-64 YRS Influenza Virus 2021-05-03 Completed Universit y of Vaccine [place] [facility], 00:00:00 [place] Me dical Preserv and ABX Branch Free 6 MO-64 YRS Influenza Virus 2021-05-03 Completed Universit y of Vaccine [place] [facility], 00:00:00 [place] Me dical Preserv and ABX Branch Free 6 MO-64 YRS Influenza Virus 2021-05-03 Completed Universit y of Vaccine [place] [facility], 00:00:00 [place] Me dical Preserv and ABX Branch Free 6 MO-64 YRS Influenza Virus 2021-05-03 Completed Universit y of Vaccine [facility] IM, 00:00:00 [place] Me dical Preserv and ABX Branch Free 6 MO-64 YRS Influenza Virus 2021-05-03 Completed Universit y of Vaccine [place] IM, 00:00:00 [place] Me dical Preserv and ABX Branch Free 6 MO-64 YRS Influenza Virus 2021-05-03 Completed Universit y of Vaccine [place] IM, 00:00:00 [place] Me dical Preserv and ABX Branch Free 6 MO-64 YRS Influenza Virus 2021-05-03 Completed Universit y of Vaccine [place] IM, 00:00:00 [place] Me dical Preserv and ABX Branch Free 6 MO-64 YRS Influenza Virus 2021-05-03 Completed Universit y of Vaccine [facility] IM, 00:00:00 [place] Me dical Preserv and ABX Branch Free 6 MO-64 YRS Influenza Virus 2021-05-03 Completed Universit y of Vaccine [place] IM, 00:00:00 [place] Me dical Preserv and ABX Branch Free 6 MO-64 YRS Influenza Virus 2021-05-03 Completed Universit y of Vaccine [facility] IM, 00:00:00 [place] Me dical Preserv and ABX Branch Free 6 MO-64 YRS Influenza Virus 2021-05-03 Completed Universit y of Vaccine [place] IM, 00:00:00 [place] Me dical Preserv and ABX Branch Free 6 MO-64 YRS Influenza Virus 2021-05-03 Completed Universit y of Vaccine [facility] IM, 00:00:00 [place] Me dical Preserv and ABX Branch Free 6 MO-64 YRS TDAP 2021-03-09 Completed University of 00:00:00 [facility] TDAP 2021-03-09 Completed University of 00:00:00 [facility] TDAP 2021-03-09 Completed University of 00:00:00 [facility] TDAP 2021-03-09 Completed University of 00:00:00 [facility] TDAP 2021-03-09 Completed University of 00:00:00 [facility] TDAP 2021-03-09 Completed University of 00:00:00 [facility] TDAP 2021-03-09 Completed University of 00:00:00 [facility] TDAP 2021-03-09 Completed University of 00:00:00 [facility] TDAP 2021-03-09 Completed University of 00:00:00 [facility] TDAP 2021-03-09 Completed University of 00:00:00 [facility] TDAP 2021-03-09 Completed University of 00:00:00 [facility] TDAP 2021-03-09 Completed University of 00:00:00 [facility] TDAP 2021-03-09 Completed University of 00:00:00 [facility] TDAP 2021-03-09 Completed University of 00:00:00 [facility] TDAP (ADACEL) 2015-08-31 Completed University of VACCINE 00:00:00 [facility] Branch TDAP (ADACEL) 2015-08-31 Completed University of VACCINE 00:00:00 [facility] TDAP (ADACEL) 2015-08-31 Completed University of VACCINE 00:00:00 [facility] Branch TDAP (ADACEL) 2015-08-31 Completed University of VACCINE 00:00:00 [facility] Branch TDAP (ADACEL) 2015-08-31 Completed University of VACCINE 00:00:00 [facility] Branch TDAP (ADACEL) 2015-08-31 Completed University of VACCINE 00:00:00 [facility] Branch TDAP (ADACEL) 2015-08-31 Completed University of VACCINE 00:00:00 [facility] TDAP (ADACEL) 2015-08-31 Completed University of VACCINE 00:00:00 [facility] TDAP (ADACEL) 2015-08-31 Completed University of VACCINE 00:00:00 [facility] Branch TDAP (ADACEL) 2015-08-31 Completed University of VACCINE 00:00:00 [facility] TDAP (ADACEL) 2015-08-31 Completed University of VACCINE 00:00:00 [facility] TDAP (ADACEL) 2015-08-31 Completed University of VACCINE 00:00:00 [facility] TDAP (ADACEL) 2015-08-31 Completed University of VACCINE 00:00:00 [facility] TDAP (ADACEL) 2015-08-31 Completed University of VACCINE 00:00:00 [facility] Vital Signs Vital Name Observation Time Observation Value Comments Source Systolic blood 2022-01-29 00:51:00 113 mm[Hg] Univer sity of pressure [facility] Diastolic blood 2022-01-29 00:51:00 66 mm[Hg] Unive rsity of pressure [facility] Heart rate 2022-01-29 00:51:00 79 /min [facility] Body temperature 2022-01-28 22:24:00 37.72 Eufemia [facility] Respiratory rate 2022-01-28 22:24:00 19 /min [facility] Body height 2022-01-28 22:24:00 162.6 cm [facility] [place] [facility] Body weight 2022-01-28 22:24:00 78.019 kg [facility] [place] [facility] BMI 2022-01-28 22:24:00 29.52 kg/m2 [facility] [place] [facility] Oxygen saturation in 2022-01-28 22:24:00 98 /min University of Arterial blood by [facility] sarah Pulse oximetry Branch Systolic blood 2021-05-21 13:59:00 125 mm[Hg] Univer sity of pressure [place] [facility] Diastolic blood 2021-05-21 13:59:00 54 mm[Hg] Unive rsity of pressure [place] [facility] Heart rate 2021-05-21 13:59:00 91 /min [facility] [place] [facility] Body temperature 2021-05-21 13:59:00 36.61 Eufemia Univ ersity [facility] [place] [facility] Respiratory rate 2021-05-21 13:59:00 18 /min Univ [facility] [place] [facility] Oxygen saturation in 2021-05-21 13:59:00 99 /min University of Arterial blood by [facility] Pulse oximetry Branch Body height 2021-05-19 14:30:00 162.6 cm [facility] [place] [facility] Body weight 2021-05-19 14:30:00 85.276 kg [facility] [place] [facility] BMI 2021-05-19 14:30:00 32.27 kg/m2 [facility] [place] [facility] Heart rate 2021-05-19 14:45:00 101 /min [facility] [place] [facility] Oxygen saturation in 2021-05-19 14:45:00 100 /min University of Arterial blood by [facility] Pulse oximetry Branch Systolic blood 2021-05-19 14:30:00 126 mm[Hg] Univer sity of pressure [place] [facility] Diastolic blood 2021-05-19 14:30:00 75 mm[Hg] Unive rsity of pressure [place] [facility] Body temperature 2021-05-19 14:30:00 36.44 Eufemia Univ ersity [facility] [place] [facility] Respiratory rate 2021-05-19 14:30:00 16 /min Univ [facility] [place] [facility] Body height 2021-05-19 14:30:00 162.6 cm [facility] [place] [facility] Body weight 2021-05-19 14:30:00 85.276 kg [facility] [place] [facility] BMI 2021-05-19 14:30:00 32.27 kg/m2 [facility] [place] [facility] Systolic blood 2021-05-12 20:23:00 110 mm[Hg] Univer sity of pressure [place] [facility] Diastolic blood 2021-05-12 20:23:00 70 mm[Hg] Unive rsity of pressure [place] [facility] Heart rate 2021-05-12 20:23:00 109 /min [facility] [place] [facility] Body temperature 2021-05-12 20:23:00 36.78 Eufemia Univ ers[facility] [place] [facility] Respiratory rate 2021-05-12 20:23:00 18 /min Univ [facility] [place] [facility] Body height 2021-05-12 20:23:00 162.6 cm [facility] [place] [facility] Body weight 2021-05-12 20:23:00 83.008 kg [facility] [place] [facility] BMI 2021-05-12 20:23:00 31.41 kg/m2 [facility] [place] [facility] Systolic blood 2021-05-03 21:50:00 121 mm[Hg] Univer sity of pressure [place] [facility] Diastolic blood 2021-05-03 21:50:00 80 mm[Hg] Unive rsity of pressure [place] [facility] Heart rate 2021-05-03 21:50:00 101 /min [facility] [place] [facility] Body temperature 2021-05-03 21:50:00 36.83 Eufemia Univ [facility] [place] [facility] Respiratory rate 2021-05-03 21:50:00 18 /min Univ [facility] [place] [facility] Body height 2021-05-03 21:50:00 162.6 cm [facility] [place] [facility] Body weight 2021-05-03 21:50:00 81.647 kg [facility] [place] [facility] BMI 2021-05-03 21:50:00 30.90 kg/m2 [facility] [place] [facility] Systolic blood 2021-04-01 19:30:00 115 mm[Hg] Univer sity of pressure [place] [facility] Diastolic blood 2021-04-01 19:30:00 71 mm[Hg] Unive rsity of pressure [place] [facility] Heart rate 2021-04-01 19:30:00 88 /min [facility] Body temperature 2021-04-01 19:30:00 36.94 Eufemia [facility] Respiratory rate 2021-04-01 19:30:00 18 /min [facility] Body height 2021-04-01 19:30:00 160 cm [facility] Body weight 2021-04-01 19:30:00 78.926 kg [facility] BMI 2021-04-01 19:30:00 30.82 kg/m2 [facility] Procedures Procedure Date / Time Performing Clinician Source Performed LIPASE 2022-01-28 23:26:00 Felicitas Torres [facility] COMP. METABOLIC PANEL 2022-01-28 23:26:00 Felicitas Torres [facility] ([id number]) Medical Branch CBC WITH DIFF 2022-01-28 23:26:00 Felicitas Torres [facility] URINALYSIS 2022-01-28 23:26:00 Felicitas Torres [facility] CONSENT/REFUSAL FOR 2022-01-28 22:19:10 [facility] Unassigned, [facility] CBC WITH DIFF 2021-05-20 10:01:00 Adum, [facility] CBC WITH DIFF 2021-05-20 10:01:00 Adum, [facility] SECTION 2021-05-19 14:42:00 Adum, [facility] LAPAROSCOPIC 2021-05-19 14:42:00 Adum, [facility] 2021-05-19 14:42:00 Adum, [facility] LAPAROSCOPIC 2021-05-19 14:42:00 Adum, [facility] NOTICE OF PRIVACY 2021-05-19 13:56:31 Doctor Unassigned, No Univ ersity [facility] NOTICE OF PRIVACY 2021-05-19 13:56:31 Doctor Unassigned, No Univ ersity [facility] CONSENT/REFUSAL FOR 2021-05-19 13:56:08 Doctor Unassigned, No [facility] [place] DIAGNOSIS AND TREATMENT Name Medical Branch CONSENT/REFUSAL FOR 2021-05-19 13:56:08 Doctor Unassigned, No Un [facility] [place] DIAGNOSIS AND TREATMENT Name Medical Branch ASSIGNMENT OF BENEFITS 2021-05-19 13:55:48 Doctor Unassigned, No [facility] Medical Branch ASSIGNMENT OF BENEFITS 2021-05-19 13:55:48 Doctor Unassigned, No [facility] RHO (D) IMMUNE GLOBULIN 2021-05-18 23:18:00 Adum, Johnna Rodriguez [facility] RHO (D) IMMUNE GLOBULIN 2021-05-18 23:18:00 Adum, Johnna Rodriguez [facility] CONSENT/REFUSAL FOR 2021-05-17 21:41:48 Doctor Unassigned, No [facility] [place] DIAGNOSIS AND TREATMENT Name Medical Branch CONSENT/REFUSAL FOR 2021-05-17 21:41:48 Doctor Unassigned, No [facility] [place] DIAGNOSIS AND TREATMENT Name Medical Branch ASSIGNMENT OF BENEFITS 2021-05-17 21:41:35 Doctor Unassigned, No [facility] Medical Branch ASSIGNMENT OF BENEFITS 2021-05-17 21:41:35 Doctor Unassigned, No [facility] Medical Branch CONSENT/REFUSAL FOR 2021-05-17 21:41:18 Doctor Unassigned, No [facility] [place] DIAGNOSIS AND TREATMENT Name Medical Branch CONSENT/REFUSAL FOR 2021-05-17 21:41:18 Doctor Unassigned, No [facility] [place] DIAGNOSIS AND TREATMENT Name Medical Branch ASSIGNMENT OF BENEFITS 2021-05-17 21:41:04 Doctor Unassigned, No [facility] Medical Branch ASSIGNMENT OF BENEFITS 2021-05-17 21:41:04 Doctor Unassigned, No [facility] Branch PHYSICIAN ORDERS 2021-05-12 06:01:00 [facility]assigned, [facility] W/O 2021-05-12 00:00:00 Adum, Johnna Rodriguez [facility] SPECIFIC GRAVITY Medical Branch PHYSICIAN ORDERS 2021-05-11 06:01:00 Doctor Unassigned, No [facility] [place] Name Medical Branch ASSIGNMENT OF BENEFITS 2021-05-03 22:35:22 Doctor Unassigned, No [facility] FLU VACC ([id number]), 2021-05-03 21:54:12 Adum, [facility] 2-64 YRS, .5ML, IM, [facility] (FLUCELVAX) POCT URINALYSIS W/O 2021-05-03 00:00:00 AdJohnna stern Universi ty [facility] POCT URINALYSIS W/O 2021-04-01 00:00:00 AdJohnna stern Universi ty [facility] Encounters Start End Encounter Admission Attending Care Care Encounter Source Date/Time Date/Time Type Type Clinicians Facility Department ID 2022-01-28 2022-01-28 Emergency X BRIAN [facility] ERT [id number] Univers 17:25:00 20:14:00 FELICITAS [facility] 2022-01-28 2022-01-28 Emergency Brian [facility] [id number] Univers 17:25:00 20:14:00 Felicitas Betts [place] [id number] i ty [facility] [id number] [facility] [phone] [place] [address] Branch 2021-07-29 2021-07-29 Outpatient R ADUM, [facility] [id number] Univers 10:15:00 10:15:00 [facility] 2021-07-28 2021-07-28 Outpatient R ADUM, [facility] [id number] Univers 13:00:00 13:00:00 [facility] 2021-06-22 2021-06-22 Outpatient R ADUM, [facility] [id number] Univers 16:15:00 16:15:00 [facility] 2021-06-14 2021-06-14 Outpatient R ADUM, [facility] [id number] Univers 16:15:00 16:15:00 [facility] 2021-06-09 2021-06-09 Outpatient R ADUM, [facility] [id number] Univers 15:30:00 15:30:00 JOHNNA jara [facility] 2021-06-03 2021-06-03 Outpatient R ADUM, [facility] [id number] Univers 11:15:00 11:15:00 JOHNNA jara [facility] 2021-05-23 2021-05-23 Refill Ad, [facility] 1.2.840.114 [id number] Univers 00:00:00 00:00:00 Johnna Rodriguez [place] [id number] ity of [facility] [id number] [phone] Ia dical [facility] 134 [facility] 2021-05-19 2021-05-21 Inpatient P ADUM, [facility] MERLENE [id number] Univers 07:53:00 11:00:00 JOHNNA jara [facility] 2021-05-19 2021-05-21 Hospital Ad, [facility] 1.2.840.114 [id number] Univers 07:53:00 11:00:00 Encounter Johnna Rodriguez [place] [id number] ity [id number] [id number] [facility] 083 Branch 2021-05-19 2021-05-19 Surgery Adum, [facility] [id number] Univers 08:00:00 10:20:00 Johnna Rodriguez [place] [id number] it[id number] [id number] [facility] 013 Branch 2021-05-18 2021-05-18 Laboratory Only, Adc Test [facility] 1.2.840. 114 [id number] Univers 17:22:54 17:37:54 Only Adum, Johnna Rodriguez [place] [id number] it[id number] [id number] [facility] 353 Branch 2021-05-18 2021-05-18 [place] Supervisor Alan, Adc Lab Main [facility] 1.2.8 40.114 [id number] Univers 17:00:24 17:15:24 Visit Adum, Johnna Rodriguez [place] [id number] ity of [facility] [id number] [phone] Me dical NAL 353 [facility] 2021-05-18 2021-05-18 Outpatient R ADUM, [facility] [id number] Univers 08:30:00 08:30:00 JOHNNA ity [facility] 2021-05-12 2021-05-12 Routine Adum, [facility] [id number] Univers 13:39:02 14:50:19 Johnna L FAIZA [id number] [place]y of [place] [id number] [id number] Ia dical NAL 134 [facility] 2021-05-12 2021-05-12 Outpatient R ADUM, [facility] [id number] Univers 13:15:00 14:50:19 JOHNNA ity [facility] 2021-05-12 2021-05-12 Orders Doctor DEMOND 1.2.840.114 [id number] Univers 00:00:00 00:00:00 Only Unassigned, ANA PAULA [id number] ity of [facility] [id number] Jason as [phone] [address] 2021-05-11 2021-05-11 Outpatient R ADUM, [facility] [id number] Univers 13:15:00 13:15:00 JOHNNA ity [facility] 2021-05-11 2021-05-11 Orders Doctor LAGOS 1.2.840.114 [id number] Univers 00:00:00 00:00:00 Only Unassigned, ANA PAULA [id number] ity of [facility] [id number] Jason as [phone] [address] 2021-05-03 2021-05-03 [place] Supervisor Alan, Alexis Lab Main [facility] 1.2.8 40.114 [id number] Univers 17:36:35 17:51:35 Visit Adum, Johnna Rodriguez FAIZ[place] [id number] ity of [facility] [id number] [place] [phone] [facility] 353 [facility] 2021-05-03 2021-05-03 [place] Supervisor Alan, Adc Lab Main [facility] 1.2.8 40.114 [id number] Univers 17:36:04 17:51:04 Visit Adum, Johnna KENDALL [id number] [place]y of [place] [id number] [phone] [address] 2021-05-03 2021-05-03 Routine Adum, [facility] 1.2.840.114 [id number] Univers 16:27:00 17:15:21 Johnna KENDALL [id number] ity of [place] [id number] [phone] [address] 2021-05-03 2021-05-03 Outpatient R ADUM, [facility] [id number] Univers 16:15:00 17:15:21 JOHNNA ity [facility] 2021-05-03 2021-05-03 Orders Doctor DEMOND 1.2.840.114 [id number] Univers 00:00:00 00:00:00 Only Unassigned, ANA PAULA [id number] ity of [facility] [id number] Jason as [phone] [address] 2021-04-19 2021-04-19 Outpatient R ADUM, [facility] [id number] Univers 14:00:00 14:00:00 JOHNNA ity [facility] 2021-04-01 2021-04-01 Routine Adum, [facility] 1.2.840.114 [id number] Univers 14:13:21 15:03:38 Johnna Kendall [id number] ity of [id number] [phone] [address] 2021-04-01 2021-04-01 Outpatient R ADUM, [facility] [id number] Univers 14:00:00 14:00:00 JOHNNA ity [facility] 2021-03-25 2021-03-25 Outpatient R ADUM, [facility] [id number] Univers 09:15:00 09:15:00 JOHNNA ity of [facility] 2021-03-23 2021-03-23 Outpatient R ADUM, [facility] [id number] Univers 11:00:00 11:00:00 JOHNNA ity [facility] 2021-03-18 2021-03-18 [place] Supervisor Ultrasound, Adc [facility] 1.2 .840.114 [id number] Univers 15:48:20 16:18:20 Visit Edward [place] [id number] it[place] of [id number] [phone] Ia dical nal [address] [place] [address] 2021-03-18 2021-03-18 Outpatient R [facility] [id number] Univers 14:00:00 14:00:00 ity of [facility] 2021-03-10 2021-03-10 [facility] [id number] Univers 00:00:00 00:00:00 Johnna L [place] [id number] it[place] of [id number] [phone] Ia dical nal [address] [place] [address] 2021-03-09 2021-03-09 Laboratory Only, Adc Test [facility] 1.2.840. 114 [id number] Univers 13:15:49 13:30:49 Only Adum, Johnna Rodriguez [place] [id number] ity of [place] [id number] [place] [id number] [address] 2021-03-09 2021-03-09 Routine Adum, [facility] 1.2.840.114 [id number] Univers 11:31:44 12:46:12 Johnna L [place] [id number] ity of [place] [id number] [phone] Ia dical nal [address] [place] [address] 2021-03-09 2021-03-09 Outpatient R ADUM, [facility] [id number] Univers 11:15:00 11:15:00 JOHNNA ity of [facility] 2021-03-09 2021-03-09 Orders Doctor DEMOND 1.2.840.114 [id number] Univers 00:00:00 00:00:00 Only Unassigned, ANA PAULA [id number] ity of [facility] [id number] Jason as [phone] [facility] 009 Branch 2021-03-03 2021-03-03 Outpatient R ADUM, [facility] [id number] Univers 14:15:00 14:15:00 JOHNNA ity [facility] 2021-02-26 2021-02-26 Nurse DEMOND Houser 1.2.840.114 [id number] Univers 00:00:00 00:00:00 Triage Kaylee GOSS [id number] [facility] 4.2.7.2.686 Jason as [phone] [facility] [address] [place] 2021-02-08 2021-02-08 [facility] 1.2.883.205 [id number] Univers 00:00:00 00:00:00 Johnna Michael [place] [id number] [place] of [id number] [phone] Ia dical nal 134 [facility] 2021-02-07 2021-02-07 [facility] 1.2.119.589 [id number] Univers 00:00:00 00:00:00 Johnna Rodriguez [place] [id number] [place] of [id number] [phone] Ia dical nal 134 [facility] 2021-02-03 2021-02-03 [place] Supervisor 1, [facility] Us Room UNIVERSIT 1 .2.840.114 [id number] Univers 13:52:04 15:07:04 Visit Lynnette Castellanos [employer] [id number] ity of [id number] [phone] [facility] 104 Branch 2021-02-03 2021-02-03 Outpatient P [facility] [id number] Univers 14:15:00 14:15:00 ity of [facility] 2021-01-29 2021-01-29 Case Adum, [facility] 1.2.840.114 [id number] Univers 00:00:00 00:00:00 Management Johnna L [place] [id number] [place] of [id number] [phone] Ia dical nal 134 [facility] 2021-01-28 2021-01-28 Outpatient R [facility] [id number] Univers 08:30:00 08:30:00 ity of [facility] 2021-01-27 2021-01-27 [facility] [id number] Univers 00:00:00 00:00:00 Johnna Michael [place] [id number] [place] of [id number] [phone] Ia dical nal 134 [facility] 2021-01-27 2021-01-27 Telephone Ad, [facility] [id number] Univers 00:00:00 00:00:00 Johnna Michael [place] [id number] [place] of [id number] [phone] Ia dical nal 134 [facility] 2021-01-26 2021-01-26 [place] Supervisor Alan, Adc Lab Main [facility] 1.2.8 40.114 [id number] Univers 16:44:26 16:59:26 Visit Adum, Johnna Michael Hu[place] [id number] ity of [id number] [phone] Ia dical nal 353 [facility] 2021-01-26 2021-01-26 Routine Adum, [facility] 1.2.840.114 [id number] Univers 14:21:54 15:48:55 Johnna Rodriguez [place] [id number] ity of Visit [place] [id number] [phone] Me dical nal [address] [place] [address] 2021-01-26 2021-01-26 Outpatient R ADUM, [facility] [id number] Univers 14:00:00 14:00:00 JOHNNA jara [facility] 2021-01-26 2021-01-26 Orders Doctor DEMOND [id number] Univers 00:00:00 00:00:00 Only Unassigned, ANA PAULA [id number] ity of [facility] [id number] Jason as [phone] [address] 2021-01-25 2021-01-25 Outpatient R ADUM, [facility] [id number] Univers 10:45:00 10:45:00 JOHNNA [facility] 2021-01-24 2021-01-24 Outpatient P [facility] [id number] Univers 09:45:00 09:45:00 ity [facility] 2021-01-18 2021-01-18 Outpatient R ADUM, [facility] [id number] Univers 10:45:00 10:45:00 JOHNNA [facility] 2020-12-24 2020-12-24 Outpatient R ADUM, [facility] [id number] Univers 08:15:00 08:15:00 JOHNNA [facility] 2020-12-21 2020-12-21 Routine Adum, [facility] [id number] Univers 16:40:30 17:02:28 Johnna Kendall [id number] ity of [id number] [place] [phone] Ia dical nal [address] [place] [address] 2020-12-21 2020-12-21 Outpatient R ADUM, [facility] [id number] Univers 16:15:00 16:15:00 JOHNNA [facility] 2020-11-03 2020-11-03 Outpatient R ADUM, [facility] [id number] Univers 16:00:00 16:00:00 JOHNNA [facility] 2020-10-21 2020-10-21 Outpatient R [facility] [id number] Univers 13:30:00 13:30:00 ity of [facility] 2020-10-21 2020-10-21 Telephone Adum, [facility] [id number] Univers 00:00:00 00:00:00 Johnna Rodriguez Faiza [id number] ity [id number] [phone] Ia dical [address] 2020-10-20 2020-10-20 Initial Adum, [facility] [id number] Univers 13:56:11 15:52:55 Johnna Rodriguez Faiza [id number] ity of [id number] [phone] Ia dic[address] 2020-10-20 2020-10-20 Outpatient R AD, [facility] [id number] Univers 13:30:00 13:30:00 JOHNNA ity of [facility] 2020-10-20 2020-10-20 Orders Doctor DEMOND [id number] Univers 00:00:00 00:00:00 Only Unassigned, ANA PAULA [id number] ity of [facility] [id number] Jason as [phone] [address] 2009-11-09 2009-11-09 Outpatient [facility] [id number] Univers 00:00:00 17:58:00 5 ity [facility] 2008-06-01 2008-06-01 Outpatient [facility] [id number] Univers 00:00:00 14:49:00 3 ity [facility] 2008-03-06 2008-03-06 Outpatient [facility] [id number] Univers 00:00:00 16:07:00 0 ity [facility] 2008-03-03 2008-03-03 Outpatient [facility] [id number] Univers 00:00:00 00:00:00 9 ity [facility] 2008-02-18 2008-02-18 Outpatient [facility] [id number] Univers 00:00:00 15:54:00 6 ity [facility] 2008-01-29 2008-01-29 Outpatient [facility] [id number] Univers 00:00:00 16:38:00 7 [facility] 2007-02-05 2007-02-05 Outpatient [facility] [id number] Univers 00:00:00 10:10:00 2 [facility] 2006-08-08 2006-08-08 Outpatient [facility] [id number] Univers 00:00:00 14:25:00 6 [facility] 2006-07-25 2006-07-25 Outpatient [facility] [id number] Univers 00:00:00 17:10:00 7 [facility] 2006-05-09 2006-05-09 Outpatient [facility] [id number] Univers 00:00:00 16:09:00 5 [facility] 2006-04-24 2006-04-24 Outpatient [facility] [id number] Univers 00:00:00 00:00:00 1 [facility] 2005-11-09 2005-11-09 Outpatient [facility] [id number] Univers 00:00:00 11:56:00 1 [facility] 2005-06-28 2005-06-28 Outpatient [facility] [id number] Univers 00:00:00 15:39:00 7 [facility] Results Test Description Test Time Test Comments Results Result Comments Source COMP. METABOLIC PANEL (87719) 2022-01-29 00:06:26 Test Item Value Reference Range Interpretation Comme nts NA (test code = 9839507098) 135 mmol/L 135-145 K (test code = 9120727013) 4.0 mmol/L 3.5-5 CL (test code = 1289571511) 101 mmol/L 98-108 CO2 TOTAL (test code = 0546496506) 22 mmol/L 23-31 L AGAP (test code = 6772167309) 2-16 BUN (test code = 9931085423) 10 mg/dL 7-23 GLUCOSE (test code = 7444942251) 120 mg/dL 70-110 H CREATININE (test code = 0.83 mg/dL 0.5-1.04 6840553783) TOTAL BILI (test code = 0.5 mg/dL 0.1-1.3 8494365397) CALCIUM (test code = 3760935125) 9.4 mg/dL 8.6-10.6 T PROTEIN (test code = 4488061517) 7.3 g/dL 6.3-8.2 ALBUMIN (test code = 7916781604) 4.5 g/dL 3.5-5 ALK PHOS (test code = 0068108639) 51 U/L 34-122 ALTv (test code = 1742-6) 19 U/L 5-35 AST(SGOT) (test code = 2717014739) 23 U/L 13-40 eGFR (test code = 7218158688) mL/min/1.73m2 MOLLY (test code = MOLLY) Association of Glomerular Filtration Rate (GFR) and Staging of Kidney Disease* + +-------- + ------+| GFR (mL/min/1.73 m2) ?| With Kidney Damage ?| ?Without Kidney Damage+ +-- + +| ?>90 ?| ?Stage one ?| ? Normal ?+ +------- + -------+| ?60-89 ?| ?Stage two ?| ? Decreased GFR ? + +-------- + ------+| ?30-59 ?| ?Stage three ?| ? Stage three ? + +-------- + ------+| ?15-29 ?| ?Stage four ? | ? Stage four ?+ +------- + -------+| ?<15 (or dialysis) ? ?| ?Stage five ? | ? Stage five ?+ +------- + -------+ *Each stage assumes the associated GFR level has been in effect for at least three months. ?Stages 1 to 5, with or without kidney disease, indicate chronic kidney disease. Notes: Determination of stages one and two (with eGFR >59mL/min/1.73 m2) requires estimation of kidney damage for at least three months as defined by structural or functional abnormalities of the kidney, manifested by either:Pathological abnormalities or Markers of kidney damage (including abnormalities in the composition of the blood or urine or abnormalities in imaging tests). Lab Interpretation (test code = Abnormal 11072-3) [facility] Test Item Value Reference Range Interpretation Comments LIPASE (test code = 6365046630) 177 U/L 0-220 Lab Interpretation (test code = Normal 51696-7) [facility] WITH [id number] 00:01:25 Test Item Value Reference Range Interpretation Comments WBC (test code = See_Comment [Automated message] 6690-2) The system [employer] generated this result transmitted ref erence range: 4.30 - 1 1.10 10*3/?L. The re ference range was not u sed to interpret this result as normal/abnor mal. RBC (test code = See_Comment [Automated message] 789-8) The system [employer] generated this result transmitted ref erence range: 3.93 - 5 .25 10*6/?L. The re ference range was not u sed to interpret this result as normal/abnor mal. HGB (test code = 13.7 g/dL 11.6-15 718-7) HCT (test code = 40.1 % 35.7-45.2 4544-3) MCV (test code = 93.0 fL 80.6-95.5 787-2) MCH (test code = 31.8 pg 25.9-32.8 785-6) MCHC (test code = 34.2 g/dL 31.6-35.1 786-4) RDW-SD (test code 43.3 fL 39-49.9 = 68080-1) RDW-CV (test code 12.5 % 12-15.5 = 788-0) PLT (test code = See_Comment [Automated message] 777-3) The system [employer] generated this result transmitted ref erence range: 166 - 35 8 10*3/?L. The re ference range was not u sed to interpret this result as normal/abnor mal. MPV (test code = 9.7 fL 9.5-12.9 73137-6) NRBC/100 WBC (test See_Comment [Automat ed message] code = 2861597614) The tidye [employer] which generated this result transmitted ref erence range: 0.0 - 10 .0 /100 WBCs. The refer ence range was not u sed to interpret this result as normal/abnor mal. NRBC x10^3 (test See_Comment [Automated message] code = 5487009305) The syste m which generated this result transmitted ref erence range: 10*3/?L. The reference range was not used to interpr et this result as normal/abnormal . GRAN MAT (NEUT) % 73.5 % (test code = 770-8) IMM GRAN % (test 0.40 % code = 8022273382) LYMPH % (test code 19.0 % = 736-9) MONO % (test code 5.8 % = 5905-5) EOS % (test code = 0.9 % 713-8) BASO % (test code 0.4 % = 706-2) GRAN MAT 6.57 10*3/uL 1.88-7.09 x10^3(ANC) (test code = 7730731648) IMM GRAN x10^3 0.04 10*3/uL 0-0.06 (test code = 2864878446) LYMPH x10^3 (test 1.70 10*3/uL 1.32-3.29 code = 731-0) MONO x10^3 (test 0.52 10*3/uL 0.33-0.92 code = 742-7) EOS x10^3 (test 0.08 10*3/uL 0.03-0.39 code = 711-2) BASO x10^3 (test 0.04 10*3/uL 0.01-0.07 code = 704-7) [facility] with [id number] 11:10:09 Test Item Value Reference Range Interpretation Comments WBC (test code = See_Comment H [Automated 2390-2) message] The sy stem which generated this result transmitted reference range : 4.30 - 11.10 10*3/?L. The reference range was not used to interpret this result as normal/abnormal . RBC (test code = See_Comment L [Automated 669-8) message] The sy stem which generated this result transmitted reference range : 3.93 - 5.25 10*6/?L. The reference range was not used to interpret this result as normal/abnormal . HGB (test code = 8.7 g/dL 11.6-15.0 L 718-7) HCT (test code = 27.3 % 35.7-45.2 L 4544-3) MCV (test code = 93.2 fL 80.6-95.5 787-2) MCH (test code = 29.7 pg 25.9-32.8 785-6) MCHC (test code = 31.9 g/dL 31.6-35.1 786-4) RDW-SD (test code = 45.6 fL 39.0-49.9 86261-3) RDW-CV (test code = 13.4 % 12.0-15.5 788-0) PLT (test code = See_Comment [Automated 777-3) message] The sy stem which generated this result transmitted reference range : 166 - 358 10*3/ ?L. The reference r harpal was not used to interpret this result as normal/abnormal . MPV (test code = 10.8 fL 9.5-12.9 67107-1) NRBC/100 WBC (test See_Comment [Automat ed code = 5751422385) message] The system which generated this result transmitted reference range : 0.0 - 10.0 /100 WBCs. The refer ence range was not u sed to interpret th is result as normal/abnormal . NRBC x10^3 (test code <0.01 See_Comment [Auto mated = 4239077254) message] The s ystem which generated this result transmitted reference range : 10*3/?L. The reference range was not used to interpret this result as normal/abnormal . GRAN MAT (NEUT) % 78.0 % (test code = 770-8) IMM GRAN % (test code 0.70 % = 3158337849) LYMPH % (test code = 13.6 % 736-9) MONO % (test code = 6.0 % 5905-5) EOS % (test code = 1.3 % 713-8) BASO % (test code = 0.4 % 706-2) GRAN MAT x10^3(ANC) 8.89 10*3/uL 1.88-7.09 H (test code = 1949517745) IMM GRAN x10^3 (test 0.08 10*3/uL 0.00-0.06 H code = 7490366673) LYMPH x10^3 (test code 1.55 10*3/uL 1.32-3.29 = 731-0) MONO x10^3 (test code 0.68 10*3/uL 0.33-0.92 = 742-7) EOS x10^3 (test code = 0.15 10*3/uL 0.03-0.39 711-2) BASO x10^3 (test code 0.05 10*3/uL 0.01-0.07 = 704-7) Lab Interpretation Abnormal (test code = 18778-0) [facility] with [id number] 11:10:09 Test Item Value Reference Range Interpretation Comments WBC (test code = See_Comment H [Automated 6690-2) message] The sy stem which generated this result transmitted reference range : 4.30 - 11.10 10*3/?L. The reference range was not used to interpret this result as normal/abnormal . RBC (test code = See_Comment L [Automated 789-8) message] The sy stem which generated this result transmitted reference range : 3.93 - 5.25 10*6/?L. The reference range was not used to interpret this result as normal/abnormal . HGB (test code = 8.7 g/dL 11.6-15.0 L 718-7) HCT (test code = 27.3 % 35.7-45.2 L 4544-3) MCV (test code = 93.2 fL 80.6-95.5 787-2) MCH (test code = 29.7 pg 25.9-32.8 785-6) MCHC (test code = 31.9 g/dL 31.6-35.1 786-4) RDW-SD (test code = 45.6 fL 39.0-49.9 14575-5) RDW-CV (test code = 13.4 % 12.0-15.5 788-0) PLT (test code = See_Comment [Automated 777-3) message] The sy stem which generated this result transmitted reference range : 166 - 358 10*3/ ?L. The reference r harpal was not used to interpret this result as normal/abnormal . MPV (test code = 10.8 fL 9.5-12.9 50266-7) NRBC/100 WBC (test See_Comment [Automat ed code = 9034827288) message] The system which generated this result transmitted reference range : 0.0 - 10.0 /100 WBCs. The refer ence range was not u sed to interpret th is result as normal/abnormal . NRBC x10^3 (test code <0.01 See_Comment [Auto mated = 8255061980) message] The s ystem which generated this result transmitted reference range : 10*3/?L. The reference range was not used to interpret this result as normal/abnormal . GRAN MAT (NEUT) % 78.0 % (test code = 770-8) IMM GRAN % (test code 0.70 % = 0362607794) LYMPH % (test code = 13.6 % 736-9) MONO % (test code = 6.0 % 5905-5) EOS % (test code = 1.3 % 713-8) BASO % (test code = 0.4 % 706-2) GRAN MAT x10^3(ANC) 8.89 10*3/uL 1.88-7.09 H (test code = 0662291290) IMM GRAN x10^3 (test 0.08 10*3/uL 0.00-0.06 H code = 3985723114) LYMPH x10^3 (test code 1.55 10*3/uL 1.32-3.29 = 731-0) MONO x10^3 (test code 0.68 10*3/uL 0.33-0.92 = 742-7) EOS x10^3 (test code = 0.15 10*3/uL 0.03-0.39 711-2) BASO x10^3 (test code 0.05 10*3/uL 0.01-0.07 = 704-7) Lab Interpretation Abnormal (test code = 31624-6) [facility] IMMUNE [id number] 18:56:23 Test Item Value Reference Range Interpretation Comments RHIG CANDIDATE? No- see comment Patient i s not a (test code = candidate for R hIg- 5055) Patient is Rh Positive.Perfor med at [facility] Laboratory Services - [facility] Blood [address] [place] [phone] Free: [phone] A No. [id number] [facility] IMMUNE [id number] 18:56:23 Test Item Value Reference Range Interpretation Comments RHIG CANDIDATE? No- see comment Patient i s not a (test code = candidate for R hIg- 5055) Patient is Rh Positive.Perfor med at [facility] Laboratory Services - [facility] Blood [address] [place] [phone] Free: [phone] A No. [id number] [facility] W/O SPECIFIC [id number] 20:25:00 Test Item Value Reference Range Interpretation Comments POCT PH U (test code = 3254) N/A 5-8 POCT U LEUK EST (test code = N/A Negative - Negative 3263) POCT U NIT (test code = 3262) N/A Negative - Negative POCT U PROT (test code = 3259) Negative Negative - Negative POCT U GLU (test code = 3256) Trace Negative - Negative POCT U KETONE (test code = 3258) N/A Negative - Negative POCT U BLD (test code = 3257) N/A Negative - Negative [facility]/O SPECIFIC [id number] 21:54:00 Test Item Value Reference Range Interpretation Comments POCT PH U (test code = 3254) n/a 5-8 POCT U LEUK EST (test code = 3263) n/a Negative - Negative POCT U NIT (test code = 3262) n/a Negative - Negative POCT U PROT (test code = 3259) neg Negative - Negative POCT U GLU (test code = 3256) neg Negative - Negative POCT U KETONE (test code = 3258) n/a Negative - Negative POCT U BLD (test code = 3257) n/a Negative - Negative Lab Interpretation (test code = Normal 92820-5) [facility] [id number] 19:44:00 Test Item Value Reference Range Interpretation Comments POCT PH U (test code = 3254) n/a 5-8 POCT U LEUK EST (test code = 3263) n/a Negative - Negative POCT U NIT (test code = 3262) n/a Negative - Negative POCT U PROT (test code = 3259) neg Negative - Negative POCT U GLU (test code = 3256) neg Negative - Negative POCT U KETONE (test code = 3258) n/a Negative - Negative POCT U BLD (test code = 7027) n/a Negative - Negative [facility]"
[2022-06-08 13:06] LABS: Urine Blood Negative (Negative); Urine Glucose Negative (Negative); Urine Protein Negative (Negative); Urine Specific Gravity <=1.005 (1.005-1.030); Urine pH 5.5 (5.0-7.0)
[2022-06-08] MEDS ORDERED: MORPHINE 4 MG/ML SYR ONE (13:11)
[2022-06-08] MEDS ORDERED: NA CHLORIDE 0.9% 1,000 ML ONE (13:11)
[2022-06-08] MEDS ORDERED: ONDANSETRON 4 MG/2 ML VIAL ONE (13:11)
[2022-06-08 13:13] LABS: Absolute Lymphocytes (CBC) 2.2 K/uL (0.7-4.9); Hematocrit 43.1 % (36.0-45.0); Lymphocytes % 30.9 % (15.3-44.8); MCV 92.2 fL (80-100); RBC Red Blood Cell Count 4.67 M/uL (3.86-4.86)
[2022-06-08 13:25] LABS: Albumin 3.7 g/dL (3.4-5.0); Bilirubin Total 0.1 mg/dL (0.2-1.0); Potassium 3.8 mmol/L (3.5-5.1); Protein, Total 7.5 g/dL (6.4-8.2)
[2022-06-08 13:42] LABS: Urine Specific Gravity/Preg <1.005 (1.005-1.030)
[2022-06-08] MEDS ORDERED: AZITHROMYCIN 250 MG TAB ONE (14:11)
[2022-06-08] MEDS ORDERED: LIDOCAINE 1% MPF 2 ML AMPULE ONE (14:11)
[2022-06-08] MEDS ORDERED: CEFTRIAXONE 1000 MG/VIAL ONE (14:11)
[2022-06-08] MEDS ORDERED: metroNIDAZOLE 500 MG TABLET ONE (14:26)
--- NOTE | 2022-06-08 14:27 | RAD REPORT ---
EXAM DESCRIPTION: CTAbdomen Pelvis W Contrast - 06/08/2022 2:20 pm CLINICAL HISTORY: Abdominal pain. Pelvic pain COMPARISON: Abdomen Pelvis W Contrast dated 05/31/2020 TECHNIQUE: Biphasic CT imaging of the abdomen and pelvis was performed with 100 ml non-ionic IV cont rast. All CT scans are performed using dose optimization technique as appropriate and may include automated exposure control or mA/KV adjustment according to patient size. FINDINGS: The lung bases are clear. The liver, spleen, pancreas, adrenal glands and kidneys are within normal limits. No bowel obstruction, free air, free fluid or abscess. The appendix is normal. No evidence of signi ficant lymphadenopathy. No suspicious bony findings. IMPRESSION: No acute intra-abdominal or pelvic finding.
[2022-06-08 14:40] LABS: Urine Crystals Unidentified Few /HPF (None Seen); Urine RBC <5 /HPF (None Seen)
--- NOTE | 2022-06-08 14:48 | ER ---
Nurse's Notes [facility] Name: Mary Ann Lin Age: 37 yrs Sex: Female : 1985 Arrival Date: 06/08/2022 Time: 12:10 Bed 10 Private MD: Diagnosis: Trichomoniasis, unspecified Presentation: 06/08 12:22 Chief complaint: Patient states: Clear vaginal discharge and itching, bilateral flank jl7 pain x 1 month, started after unprotected intercourse. Coronavirus screen: Vaccine status: Patient reports receiving the 1st dose of the Covid vaccine. Ebola Screen: No symptoms or risks identified at this time. Initial Sepsis Screen: Does the patient meet any 2 criteria? No. Patient's initial sepsis screen is negative. Does the patient have a suspected source of infection? No. Patient's initial sepsis screen is negative. Risk Assessment: Do you want to hurt yourself or someone else? Patient reports no desire to harm self or others. Onset of symptoms was May 09, 2022. 12:22 Method Of Arrival: Ambulatory jl7 12:22 Acuity: ANNABELLE 4 jl7 12:31 Acuity: ANNABELLE 3 ap3 Triage Assessment: 12:26 General: Appears in no apparent distress. uncomfortable, Behavior is calm, cooperative, jl7 appropriate for age. Pain: Complains of pain in pelvis Pain currently is 9 out of 10 on a pain scale. 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 - Social history:: Smoking status: Patient reports the use of cigarette tobacco products, smokes one-half pack cigarettes per day. Screenin:04 Abuse screen: Denies threats or abuse. Nutritional screening: No deficits noted. kr3 Tuberculosis screening: No symptoms or risk factors identified. Fall Risk IV access (20 points). Total Justin Fall Scale indicates No Risk (0-24 pts). Assessment: 15:08 General: Appears in no apparent distress. comfortable, Behavior is calm, cooperative, kr3 appropriate for age. Pain: Complains of pain in pelvis. Neuro: Level of Consciousness is awake, alert, obeys commands, Oriented to person, place, time, situation. Cardiovascular: Patient's skin is warm and dry. Respiratory: No deficits noted. GI: No deficits noted. : white. EENT: No signs and/or symptoms were reported regarding the EENT system. Derm: No signs and/or symptoms reported regarding the dermatologic system. Musculoskeletal: Circulation, motion, and sensation intact. Range of motion:. Vital Signs: 12:22 BP 106 / 74; Pulse 88; Resp 17; Temp 99; Pulse Ox 100% ; Weight 74.84 kg; Height 5 ft. jl7 4 in. (162.56 cm); Pain 9/10; 13:30 BP 117 / 66; Pulse 76; Resp 18; Pulse Ox 100% on R/A; kr3 14:30 BP 109 / 58; Pulse 74; Resp 18; Pulse Ox 100% on R/A; kr3 14:30 BP 115 / 60; Pulse 72; Resp 17; Pulse Ox 100% on R/A; kr3 12:22 Body Mass Index 28.32 (74.84 kg, 162.56 cm) jl7 ED Course: 12:10 Patient arrived in ED. rg4 12:14 Zay Lopez NP is PHCP. pm1 12:14 Shashank Bailey MD is Attending Physician. pm1 12:26 Triage completed. jl7 12:26 Arm band placed on right wrist. jl7 12:30 Bed in low position. Call light in reach. Side rails up X 1. kr3 12:38 Alie Valdez RN is Primary Nurse. kr3 13:37 Inserted saline lock: 22 gauge in right antecubital area, using aseptic technique. kr3 Blood collected. 13:37 Missed attempt(s): 22 gauge in left antecubital area. kr3 13:57 Assist provider with pelvic exam: Set up pelvic tray. Performed by Zay Lopez NP kr3 Specimens sent to lab. 14:22 CT Abd/Pelvis - IV Contrast Only In Process Unspecified. EDMS 15:05 IV discontinued, intact, bleeding controlled, No redness/swelling at site. Pressure kr3 dressing applied. Administered Medications: 13:36 Drug: NS 0.9% 1000 ml Route: IV; Rate: 1 bolus; Site: right antecubital; kr3 15:04 Follow up: Response: No adverse reaction; IV Status: Completed infusion; IV Intake: kr3 1000ml 13:36 Drug: Zofran (Ondansetron) 4 mg Route: IVP; Site: right antecubital; kr3 15:04 Follow up: Response: No adverse reaction kr3 13:37 Drug: morphine 4 mg Route: IVP; Infused Over: 4 mins; Site: right antecubital; kr3 15:04 Follow up: Response: No adverse reaction; RASS: Alert and Calm (0) kr3 14:38 Drug: Rocephin (cefTRIAXone) 1 grams Route: IM; Site: right gluteus; kr3 15:03 Follow up: Response: No adverse reaction kr3 14:38 Drug: AZITHromycin 1 grams Route: PO; kr3 15:03 Follow up: Response: No adverse reaction kr3 14:38 Drug: Flagyl (metroNIDAZOLE) 2 grams Route: PO; kr3 15:03 Follow up: Response: No adverse reaction kr3 Medication: 15:06 VIS not applicable for this client. kr3 Intake: 15:04 IV: 1000ml; Total: 1000ml. kr3 Outcome: 14:47 Discharge ordered by MD. pm1 15:05 Discharged to home ambulatory. kr3 15:05 Condition: stable 15:05 Discharge instructions given to patient, Instructed on discharge instructions, follow up and referral plans. Demonstrated understanding of instructions, follow-up care. 15:09 Patient left the ED. kr3 Signatures: Dispatcher [employer] EDMS Zay Lopez NP E LEARNING COORDINATOR pm1 Jayleen Houser4 Shanelle Gómez RN RN jl7 Chanel Box RN RN ap3 Alie Valdez RN RN kr3
--- NOTE | 2022-06-08 14:48 | EDPHYS ---
Physician Documentation [facility] Name: Mary Ann Lin Age: 37 yrs Sex: Female : 1985 Arrival Date: 06/08/2022 Time: 12:10 Bed 10 Private MD: ED Physician Shashank Bailey HPI: 06/08 12:33 This 37 yrs old Female presents to ER via Ambulatory with complaints of Vaginal pm1 Itching, Vaginal Discharge, Low Back Pain. 12:33 The patient presents with vaginal discharge, that is clear discharge, vaginal itching. pm1 Onset: The symptoms/episode began/occurred 1 month(s) ago. Modifying factors: The symptoms are alleviated by nothing, patient believed that it was a yeast infection initially and took over the counter monostat without improvement, the symptoms are aggravated by nothing. Associated signs and symptoms: Pertinent positives: nausea, low back pain, Pertinent negatives: diarrhea, dysuria, fever, vomiting. Severity of symptoms: in the emergency department the symptoms are unchanged. The patient is sexually active. The patient's method of control includes nothing. The patient has not experienced similar symptoms in the past. The patient has not recently seen a physician. Patient reports onset of symptoms 1 month ago after unprotected intercourse. 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 - Social history:: Smoking status: Patient reports the use of cigarette tobacco products, smokes one-half pack cigarettes per day. ROS: 12:33 Positive for vaginal discharge, low back pain. pm1 12:33 Constitutional: Negative for fever, chills, and weight loss, Cardiovascular: Negative for chest pain, palpitations, and edema, Respiratory: Negative for shortness of breath, cough, wheezing, and pleuritic chest pain, Abdomen/GI: Negative for abdominal pain, nausea, vomiting, diarrhea, and constipation, Back: Negative for injury and pain, MS/Extremity: Negative for injury and deformity, Skin: Negative for injury, rash, and discoloration. 12:33 Neuro: Negative for headache, weakness, numbness, tingling, and seizure. 12:33 : Positive for vaginal discharge, vaginal itching, Negative for urinary symptoms, vaginal bleeding. 12:33 All other systems are negative. Exam: 12:33 Constitutional: This is a well developed, well nourished patient who is awake, alert, pm1 and in no acute distress. Head/Face: Normocephalic, atraumatic. 12:33 Cardiovascular: Regular rate and rhythm with a normal S1 and S2. No gallops, murmurs, or rubs. Normal PMI, no JVD. No pulse deficits. Respiratory: Lungs have equal breath sounds bilaterally, clear to auscultation and percussion. No rales, rhonchi or wheezes noted. No increased work of breathing, no retractions or nasal flaring. 12:33 Skin: Warm, dry with normal turgor. Normal color with no rashes, no lesions, and no evidence of cellulitis. MS/ Extremity: Pulses equal, no cyanosis. Neurovascular intact. Full, normal range of motion. 12:33 Abdomen/GI: Inspection: abdomen appears normal, Palpation: soft, in all quadrants, mild abdominal tenderness, in the suprapubic area. 12:33 Back: Exam negative for acute changes. 12:33 Neuro: Exam negative for acute changes, Orientation: is normal, Mentation: is normal, Motor: is normal, moves all fours. 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 Vital Signs: 12:22 BP 106 / 74; Pulse 88; Resp 17; Temp 99; Pulse Ox 100% ; Weight 74.84 kg; Height 5 ft. jl7 4 in. (162.56 cm); Pain 9/10; 13:30 BP 117 / 66; Pulse 76; Resp 18; Pulse Ox 100% on R/A; kr3 14:30 BP 109 / 58; Pulse 74; Resp 18; Pulse Ox 100% on R/A; kr3 14:30 BP 115 / 60; Pulse 72; Resp 17; Pulse Ox 100% on R/A; kr3 12:22 Body Mass Index 28.32 (74.84 kg, 162.56 cm) jl7 MDM: 12:14 Patient medically screened. pm1 14:46 Data reviewed: vital signs. Data interpreted: Pulse oximetry: on room air is 100 %. pm1 Interpretation: normal. Counseling: I had a detailed discussion with the patient and/or guardian regarding: the historical points, exam findings, and any diagnostic results supporting the discharge/admit diagnosis, lab results, radiology results, the need for outpatient follow up, a family practitioner, an OB/Gyne specialist, to return to the emergency department if symptoms worsen or persist or if there are any questions or concerns that arise at home. 06/08 12:33 Order name: CBC with Diff; Complete Time: 13:38 pm1 06/08 12:33 Order name: CMP; Complete Time: 13:32 pm1 06/08 12:33 Order name: Lipase; Complete Time: 13:32 pm1 06/08 12:33 Order name: GC (GONORR/CHLAMYDIA) Probe pm1 06/08 12:33 Order name: Wet Prep; Complete Time: 14:20 pm1 06/08 13:06 Order name: Urine Dipstick-Ancillary; Complete Time: 13:07 EDMS 06/08 12:33 Order name: CT Abd/Pelvis - IV Contrast Only; Complete Time: 14:28 pm1 06/08 13:06 Order name: Urine --Ancillary (enter results); Complete Time: 13:48 kj1 06/08 13:07 Order name: Test, Serum; Complete Time: 14:06 pm1 06/08 14:19 Order name: Urine Microscopic Only; Complete Time: 14:46 pm1 06/08 12:33 Order name: IV Saline Lock; Complete Time: 13:00 pm1 06/08 12:33 Order name: Labs collected and sent; Complete Time: 13:00 pm1 06/08 12:33 Order name: Urine Dipstick-Ancillary (obtain specimen); Complete Time: 13:00 pm1 06/08 12:33 Order name: Urine Test (obtain specimen); Complete Time: 13:00 pm1 06/08 12:33 Order name: Pelvic Exam Setup; Complete Time: 14:38 pm1 Administered Medications: 13:36 Drug: NS 0.9% 1000 ml Route: IV; Rate: 1 bolus; Site: right antecubital; kr3 15:04 Follow up: Response: No adverse reaction; IV Status: Completed infusion; IV Intake: kr3 1000ml 13:36 Drug: Zofran (Ondansetron) 4 mg Route: IVP; Site: right antecubital; kr3 15:04 Follow up: Response: No adverse reaction kr3 13:37 Drug: morphine 4 mg Route: IVP; Infused Over: 4 mins; Site: right antecubital; kr3 15:04 Follow up: Response: No adverse reaction; RASS: Alert and Calm (0) kr3 14:38 Drug: Rocephin (cefTRIAXone) 1 grams Route: IM; Site: right gluteus; kr3 15:03 Follow up: Response: No adverse reaction kr3 14:38 Drug: AZITHromycin 1 grams Route: PO; kr3 15:03 Follow up: Response: No adverse reaction kr3 14:38 Drug: Flagyl (metroNIDAZOLE) 2 grams Route: PO; kr3 15:03 Follow up: Response: No adverse reaction kr3 Disposition: 16:56 Co-signature as Attending Physician, Shashank Bailey MD. rn Disposition Summary: 06/08/22 14:47 Discharge Ordered Location: Home pm1 Problem: new pm1 Symptoms: have improved pm1 Condition: Stable pm1 Diagnosis - Trichomoniasis, unspecified pm1 Followup: pm1 - With: Emergency Department - When: As needed - Reason: Worsening of condition Followup: pm1 - With: Private Physician - When: 2 - 3 days - Reason: Recheck today's complaints, Continuance of care, Re-evaluation by your physician Discharge Instructions: - Discharge Summary Sheet pm1 - Trichomoniasis pm1 Forms: - Medication Reconciliation Form pm1 - Thank You Letter pm1 - Antibiotic Education pm1 - Prescription Opioid Use pm1 Signatures: Dispatcher [employer] EDMS Shashank Bailey MD MD rn Marinas, Patrick, NP DIET CLERK pm1 Shanelle Gómez RN RN jl7 Alie Valdez RN RN kr3
[2022-06-08 17:09] VITALS: TEMP 99; O2SAT 100
[2022-06-08 17:22] VITALS: BP 115/60
[2022-06-11 23:17] LABS: C.trachomatis RNA,TMA Not Detected (Not Detected)
== END 2022-06-08 15:09 | disposition home or self-care (01) ==
LOC: ER 12:06
DX: A59.8 Trichomoniasis of other sites (principal); F17.210 Nicotine dependence, cigarettes, uncomplicated
CPT/HCPCS: 96361; 85025; 36415; 84703; 81025; 87210; 83690; 80053; 87590; 87490; 74177; 96375; 96372; 96374; 99284; Q9967; Q0144; J7030; J2405; 81003; 81015

== ENCOUNTER 2022-06-24 17:25 | Emergency (ER) | payer OTHER ==
--- OUTSIDE RECORDS SUMMARY | 2022-06-24 17:30 | XMS REPORT | Continuity of Care Document ---
:1985 [facility] t Address [address] [place] [address] Care Team Providers Name Role Phone Pcp, Patient Does Not Have A Primary Care Physician +[id number] FELICITAS TORRES Attending Clinician Unavailable Torres PACFelicitas Attending Clinician JOHNNA YO Attending Clinician Unavailable Johnna Yo MD Attending Clinician Only, Adc Test Attending Clinician Unavailable Pob, Adc Lab Main Attending Clinician Unavailable Doctor Unassigned, [place] Attending Clinician Unavailable Ultrasound, Adc Mfm Attending Clinician Unavailable Edward Martínez MD Attending Clinician Kaylee Houser RN Attending Clinician Unavailable 1, [facility] Mfm Usg Room Attending Clinician Unavailable Lynnette Castellanos MD Attending Clinician JOHNNA YO Admitting Clinician Unavailable Johnna Yo MD Admitting Clinician Payers Payer Name Policy Type Policy Number Effective Date Expiration Date S nikhil [employer] [id number] 2016 HEALTH 00:00:00 Problems Condition Condition Condition Status Onset Resolution Last Treating Co mments Source Name Details Category Date Date Treatment Clinician Date Single Single Disease Active 2020-07 Univers liveborn, liveborn, 1-18 ity of born in born in 00:00: [facility], 00 Medi sarah delivered delivered Bran ch by by section section Obesity Obesity Disease Active 2021-1 Univers (BMI (BMI 0-01 ity of 30-39.9) 30-39.9) 00:00: [place] [id number] Medical Branch Anemia of Anemia of Disease [...] gestation 4-21 ity of of of 00:00: [place] 00 [facility] 36 weeks 36 weeks Disease Active Unive rs gestation gestation 4-21 ity of of of 00:00: [place] 00 [facility] 38 weeks 38 weeks Disease Active Unive rs gestation gestation 4-21 ity of of of 00:00: [place] 00 [facility] 39 weeks 39 weeks Disease Active Unive rs gestation gestation 4-21 ity of of of 00:00: [place] 00 [facility] History of History of Disease Active 2016-07 U nivers seizure seizure 2-13 ity of 00:00: [address] Tobacco Tobacco Disease Active 2016-07 Univers use use 2-13 ity of disorder disorder 00:00: [address] Depression Depression Disease Active U nivers ity of [facility] Anxiety Anxiety Disease Active Overview: Univ ers [place] ity of g of this [place] note Medical might be Branch different from the original. dx: 2005, currently on SSRI and Benzodiaz epines Previous Previous Disease Active Unive rs ity of section section [facility] Allergies, Adverse Reactions, Alerts Allergy Allergy Status Severity Reaction(s) Onset Inactive Treating Comm ents Source Name Type Date Date Clinician NO KNOWN Drug Active Univers ALLERGIE Class ity of S [facility] Social History Social Habit Start Date Stop Date Quantity Comments Source ASSERTION 2020-09-01 University of 00:00:00 [facility] History of tobacco 2007-06-13 Cigarette Smoker University of use 00:00:00 [facility] Exposure to 2022-01-18 2022-01-28 Not sure University SARS-CoV-2 (event) 00:00:00 17:23:00 [facility] Alcohol intake 2021-04-01 2021-04-01 Ex-drinker [facility] 00:00:00 00:00:00 (finding) [facility] Cigarettes smoked 2020-12-21 2020-12-21 Univers ity of current (pack per 00:00:00 00:00:00 [facility] ) - Reported Branch Tobacco use and 2020-12-21 2020-12-21 Smokeless Universit y of exposure 00:00:00 00:00:00 tobacco non-user [facility] dical [place] Tobacco Comment 2020-10-20 2020-10-20 < 1/2 PPD, was Unive rsity of 00:00:00 00:00:00 smoking 1 PPD [facility] Sex Ass[birth year] At [birth year] Universit y of 00:00:00 00:00:00 [facility] Smoking Status Start Date Stop Date Source Smokes tobacco daily 2020-12-21 00:00:00 Univers ity of [facility] Medications Ordered Filled Start Stop Current Ordering Indication Dosage Frequency Signature Comments Components Source Medication Medication Date Date Medication? Clinician (SIG) Name Name acetaminoph 2021- No 1000mg 1,000 mg, Univers en 01-29 Oral, ity of (TYLENOL) 00:30: 23:25 ONCE, 1 [place] tablet [place] :[place] dose, On Medical 1,000 mg Sat [place] 01/28/22 at 1930, Routine ketorolac 2021- No 30mg 30 mg, Unive rs (TORADOL) 01-29 Slow IV ity of injection 00:30: 23:26 Push, [place] 30 mg 00 :00 ONCE, 1 Medical dose, On Branch 01/28/22 at 1930, JYOTI ibuprofen Yes [id number] 800mg Take 1 U nivers 800 mg 7-30 tablet by ity of tablet 00:00: mouth [place] 00 every 8 Medical (eight) Branch hours as needed for Pain (scale 4-6). 2020-07 Yes Take by Univer s vit 1-20 mouth. ity of calc,iron,f 11:10: [facility], [place] 18 Medical ( Branch VITAMIN ORAL) 2020-07 Yes Take by Univer s vit 1-20 mouth. ity of calc,iron,f 11:10: [facility] [place] 18 Medical ( Branch VITAMIN ORAL) 2020-07 Yes Take by Univer s vit 1-20 mouth. ity of calc,iron,f 11:10: [facility] [place] 18 Medical ( Branch VITAMIN ORAL) 2020-07 Yes Take by Univer s vit 1-20 mouth. ity of calc,iron,f 11:10: [place] [address] Medical ( Branch VITAMIN ORAL) 2020-07 Yes Take by Univer s vit 1-20 mouth. ity of calc,iron,f 11:10: [place] [address] Medical ( Branch VITAMIN ORAL) simethicone 2020-07 Yes 80mg 80 mg, Univ ers (GAS RELIEF -19 Oral, BID, it y of (SIMETHICON 23:45: First dose [place] E)) 00 (after Medical chewable last Branch tablet 80 modificati mg on) on Sun05/20/21 at 1745, Until Discontinu ed, Routine 2020-07 Yes Take by walkbyer s vit 1-19 mouth. ity of calc,iron,f 07:53: [facility] [place] 25 Medical ( Branch VITAMIN ORAL) 2020-07 Yes [id number] 1{tbl} Take 1 Univers vitamin 1-19 tablet by ity of w/FA tablet 00:00: mouth [place] 00 daily. Medical Branch docusate 2020-07 Yes [id number] 240mg Take 1 U nivers calcium 240 1-19 capsule by it y of mg capsule 00:00: mouth once [place] 00 daily as Medical needed for Branch Constipati on. ferrous 2020-07 Yes [id number] 325mg Take 1 Un go sulfate 325 1-19 tablet by ity of mg (65 mg 00:00: mouth 2 [place] iron) 00 (two) Medical tablet times Branch daily. ibuprofen 2020-07 Yes [id number] 800mg Take 1 Univers 800 mg 1-19 [...] hours. Indication s: acute pain 2020-07 Yes [id number] 1{tbl} Take 1 Univers vitamin 1-19 tablet by ity of w/FA tablet 00:00: mouth [place] 00 daily. Medical Branch docusate 2020-07 Yes [id number] 240mg Take 1 U nivers calcium 240 1-19 capsule by it y of mg capsule 00:00: mouth once [place] 00 daily as Medical needed for Branch Constipati on. ferrous 2020-07 Yes [id number] 325mg Take 1 Un go sulfate 325 1-19 tablet by ity of mg (65 mg 00:00: mouth 2 [place] iron) 00 (two) Medical tablet times Branch daily. ibuprofen 2020-07 Yes [id number] 800mg Take 1 Univers 800 mg 1-19 tablet by ity of tablet 00:00: mouth [place] 00 every 8 Medical (eight) Branch hours. Take with food or milk. HYDROcodone 2020-07 Yes [id number] 1{tbl} Take 1 Un og -acetaminop 1-19 tablet by ity of hen 5-325 00:00: mouth [place] mg tablet 00 every 6 Medical (six) Branch hours as needed (Pain scale above 4). Do not exceed 3 grams of acetaminop hen in 24 hours. Indication s: acute pain 2020-07 Yes [id number] 1{tbl} Take 1 Univers vitamin 1-19 tablet by ity of w/FA tablet 00:00: mouth [place] 00 daily. Medical Branch docusate 2020-07 Yes [id number] 240mg Take 1 U nivers calcium 240 1-19 capsule by it y of mg capsule 00:00: mouth once [place] 00 daily as Medical needed for Branch Constipati on. ferrous 2020-07 Yes [id number] 325mg Take 1 Un go sulfate 325 1-19 tablet by ity of mg (65 mg 00:00: mouth 2 [place] iron) 00 (two) Medical tablet times Branch daily. ibuprofen 2020-07 Yes [id number] 800mg Take 1 Univers 800 mg 1-19 [...] hours. Indication s: acute pain 2020-07 Yes [id number] 1{tbl} Take 1 Univers vitamin 1-19 tablet by ity of w/FA tablet 00:00: mouth [place] 00 daily. Medical Branch docusate 2020-07 Yes [id number] 240mg Take 1 U nivers calcium 240 1-19 capsule by it y of mg capsule 00:00: mouth once [place] 00 daily as Medical needed for Branch Constipati on. ferrous 2020-07 Yes [id number] 325mg Take 1 Un go sulfate 325 [...] Indication s: acute pain ibuprofen 2020-07- No [id number] 800mg Take 1 Univers 800 mg 1-19 [...] First dose [place] mg 00 on [facility] 05/19/21 Branch at 1400, Until Discontinu ed, Routine ibuprofen 2020-07 Yes 800mg 800 mg, Univ ers (IBU) 1-18 Oral, Q8H, ity of tablet 800 20:00: First dose [place] mg 00 on [facility] 05/19/21 Branch at 1400, Until Discontinu ed, Routine simethicone 2020-07 Yes 80mg 80 mg, Univ ers (GAS RELIEF 07-19 Oral, ity of (SIMETHICON 18:30: DAILY, [place] E[place] 00 First dose Medical chewable on [facility] tablet 80 05/19/21 mg at 1230, Until Discontinu ed, Routine simethicone 2020-07- No 80mg 80 mg, Uni vers (GAS RELIEF 07-19 Oral, ity of (SIMETHICON 18:30: 23:42 DAILY, [place] E)) 00 :05 First dose Medical chewable on [facility] tablet 80 05/19/21 mg at 1230, Until Discontinu ed, Routine ketorolac 2020-07- No 30mg 30 mg, Unive rs (TORADOL) 07-19 Slow IV ity of injection 18:00: 05:23 [place], Q6H, [place] 30 mg 00 :00 3 doses, Medical First dose Branch (after last modificati on) on [place] 05/19/21 at 1200, Last dose on Sun05/20/21 at 0000, Routine
geography faculty member approving Restricted medication : ALEXIS OBJUAN JOSEN [...] IV [place], ity of (PF)) 16:23: Q8HPRN, [place] injection 4 41 Starting Medi sarah mg [...] IV Push, ity of (PF)) 16:23: Q8HPRN, [place] injection 4 41 Starting Medi sarah mg [...] 2359, Routine, Surgery/Pr ocedure hydrOXYzine 2020-07 Yes [id number] 25mg Take 1 Univers 25 mg 0-01 capsule by ity of capsule 00:00: mouth 4 [place] 00 (four) Medical times Branch daily as needed for Anxiety. hydrOXYzine 2020-07 Yes [id number] 25mg Take 1 Univers 25 mg 0-01 capsule by ity of capsule 00:00: mouth 4 [place] 00 (four) Medical times Branch daily as needed for Anxiety. hydrOXYzine 2020-07 Yes [id number] 25mg Take 1 Univers 25 mg 0-01 capsule by ity of capsule 00:00: mouth 4 [place] 00 (four) Medical times Branch daily as needed for Anxiety. hydrOXYzine 2020-07 Yes [id number] 25mg Take 1 Univers 25 mg 0-01 capsule by ity of capsule 00:00: mouth () Medical times Branch daily as needed for Anxiety. hydrOXYzine 2020-07 Yes [id number] 25mg Take 1 Univers 25 mg 0-01 capsule by ity of capsule 00:00: mouth () Medical times Branch daily as needed for Anxiety. hydrOXYzine 2020-07 Yes [id number] 25mg Take 1 Univers 25 mg 0-01 capsule by ity of capsule 00:00: mouth (four) Medical times Branch daily as needed for Anxiety. hydrOXYzine 2020-07 Yes [id number] 25mg Take 1 Univers 25 mg 0-01 capsule by ity of capsule 00:00: mouth () Medical times Branch daily as needed for Anxiety. hydrOXYzine 2020-07 Yes [id number] 25mg Take 1 Univers 25 mg 0-01 capsule by ity of capsule 00:00: mouth () Medical times Branch daily as needed for Anxiety. hydrOXYzine 2020-07 Yes [id number] 25mg Take 1 Univers 25 mg 0-01 capsule by ity of capsule 00:00: mouth () Medical times Branch daily as needed for Anxiety. hydrOXYzine 2020-07 Yes [id number] 25mg Take 1 Univers 25 mg 0-01 capsule by ity of capsule 00:00: mouth () Medical times Branch daily as needed for Anxiety. hydrOXYzine 2020-07 Yes [id number] 25mg Take 1 Univers 25 mg 0-01 capsule by ity of capsule 00:00: mouth () Medical times Branch daily as needed for Anxiety. hydrOXYzine 2020-07 Yes [id number] 25mg Take 1 Univers 25 mg 0-01 capsule by ity of capsule 00:00: mouth () Medical times Branch daily as needed for Anxiety. hydrOXYzine 2020-07 Yes [id number] 25mg Take 1 Univers 25 mg 0-01 capsule by ity of capsule 00:00: mouth () Medical times Branch daily as needed for Anxiety. hydrOXYzine 2020-07 Yes [id number] 25mg Take 1 Univers 25 mg 0-01 [...] days 2 to 5. clonazePAM 2021-0 Yes [id number] .5mg Take 1 U nivers 0.5 mg 9-08 tablet by ity of tablet 00:00: mouth [place] 00 every 8 Medical (eight) Branch hours as needed (Anxiety). clonazePAM 2021-0 Yes [id number] .5mg Take 1 U nivers 0.5 mg 9-08 tablet by ity of tablet 00:00: mouth [place] 00 every 8 Medical (eight) Branch hours as needed (Anxiety). clonazePAM 2021-0 Yes [id number] .5mg Take 1 U nivers 0.5 mg 9-08 tablet by ity of tablet 00:00: mouth [place] 00 every 8 Medical (eight) Branch hours as needed (Anxiety). clonazePAM 2021-0 Yes [id number] .5mg Take 1 U nivers 0.5 mg 9-08 tablet by ity of tablet 00:00: mouth [place] 00 every 8 Medical (eight) Branch hours as needed (Anxiety). clonazePAM 2021-0 Yes [id number] .5mg Take 1 U nivers 0.5 mg 9-08 tablet by ity of tablet 00:00: mouth [place] 00 every 8 Medical (eight) Branch hours as needed (Anxiety). clonazePAM 2021-0 Yes [id number] .5mg Take 1 U nivers 0.5 mg 9-08 tablet by ity of tablet 00:00: mouth [place] 00 every 8 Medical (eight) Branch hours as needed (Anxiety). clonazePAM 2021-0 Yes [id number] .5mg Take 1 U nivers 0.5 mg 9-08 tablet by ity of tablet 00:00: mouth [place] 00 every 8 Medical (eight) Branch hours as needed (Anxiety). clonazePAM 2021-0 Yes [id number] .5mg Take 1 U nivers 0.5 mg 9-08 tablet by ity of tablet 00:00: mouth [place] 00 every 8 Medical (eight) Branch hours as needed (Anxiety). clonazePAM 2021-0 Yes [id number] .5mg Take 1 U nivers 0.5 mg 9-08 tablet by ity of tablet 00:00: mouth [place] 00 every 8 Medical (eight) Branch hours as needed (Anxiety). clonazePAM 2021-0 Yes [id number] .5mg Take 1 U nivers 0.5 mg 9-08 tablet by ity of tablet 00:00: mouth [place] 00 every 8 Medical (eight) Branch hours as needed (Anxiety). clonazePAM 2021-0 Yes [id number] .5mg Take 1 U nivers 0.5 mg 9-08 tablet by ity of tablet 00:00: mouth [place] 00 every 8 Medical (eight) Branch hours as needed (Anxiety). clonazePAM 2021-0 Yes [id number] .5mg Take 1 U nivers 0.5 mg 9-08 tablet by ity of tablet 00:00: mouth [place] 00 every 8 Medical (eight) Branch hours as needed (Anxiety). clonazePAM 1-0 Yes [id number] .5mg Take 1 U nivers 0.5 mg 9-08 tablet by ity of tablet 00:00: mouth [place] 00 every 8 Medical (eight) Branch hours as needed (Anxiety). clonazePAM 1-0 Yes [id number] .5mg Take 1 U nivers 0.5 mg 9-08 tablet by ity of tablet 00:00: mouth [place] 00 every 8 Medical (eight) Branch hours as needed (Anxiety). ferrous 2020-0 Yes [id number] 325mg Take 1 Un go sulfate 325 7-31 tablet by ity of mg (65 mg 00:00: mouth 2 [place] iron) 00 (two) Medical tablet times Branch daily. ferrous 2020-0 Yes [id number] 325mg Take 1 Un go sulfate 325 7-31 tablet by ity of mg (65 mg 00:00: mouth 2 [place] iron) 00 (two) Medical tablet times Branch daily. ferrous 2021-0 Yes [id number] 325mg Take 1 Un go sulfate 325 7-31 tablet by ity of mg (65 mg 00:00: mouth 2 [place] iron) 00 (two) Medical tablet times Branch daily. ferrous 202-0 Yes [id number] 325mg Take 1 Un go sulfate 325 7-31 tablet by ity of mg (65 mg 00:00: mouth 2 [place] iron) 00 (two) Medical tablet times Branch daily. ferrous Yes [id number] 325mg Take 1 Un go sulfate 325 7-31 tablet by ity of mg (65 mg 00:00: mouth 2 [place] iron) 00 (two) Medical tablet times Branch daily. ferrous Yes [id number] 325mg Take 1 Un go sulfate 325 7-31 tablet by ity of mg (65 mg 00:00: mouth 2 [place] iron) 00 (two) Medical tablet times Branch daily. ferrous Yes [id number] 325mg Take 1 Un go sulfate 325 7-31 tablet by ity of mg (65 mg 00:00: mouth 2 [place] iron) 00 (two) Medical tablet times Branch daily. ferrous Yes [id number] 325mg Take 1 Un go sulfate 325 7-31 tablet by ity of mg (65 mg 00:00: mouth 2 [place] iron) 00 (two) Medical tablet times Branch daily. ferrous Yes [id number] 325mg Take 1 Un go sulfate 325 7-31 tablet by ity of mg (65 mg 00:00: mouth 2 [place] iron) 00 (two) Medical tablet times Branch daily. ferrous Yes [id number] 325mg Take 1 Un go sulfate 325 7-31 tablet by ity of mg (65 mg 00:00: mouth 2 [place] iron) 00 (two) Medical tablet times Branch daily. ferrous Yes [id number] 325mg Take 1 Un go sulfate 325 7-31 tablet by ity of mg (65 mg 00:00: mouth 2 [place] iron) 00 (two) Medical tablet times Branch daily. ferrous Yes [id number] 325mg Take 1 Un go sulfate 325 7-31 tablet by ity of mg (65 mg 00:00: mouth 2 [place] iron) 00 (two) Medical tablet times Branch daily. ferrous Yes [id number] 325mg Take 1 Un go sulfate 325 7-31 tablet by ity of mg (65 mg 00:00: mouth 2 [place] iron) 00 (two) Medical tablet times Branch daily. ferrous Yes [id number] 325mg Take 1 Un go sulfate 325 [...] Immunizations Ordered Filled Immunization Date Status Comments [facility] e Immunization Name Name Influenza Virus 2021-05-03 Completed Universit y of Vaccine Quad IM, 00:00:00 [place] Me dical Preserv and ABX Branch Free [...] YRS TDAP 2021-03-09 Completed University of 00:00:00 [facility] TDAP 2021-03-09 Completed University of 00:00:00 [facility] TDAP 2021-03-09 Completed University of 00:00:00 [facility] TDAP 2021-03-09 Completed University of 00:00:00 [facility] TDAP 2021-03-09 Completed University of 00:00:00 [facility] TDAP 2021-03-09 Completed University of 00:00:00 [facility] TDAP 2021-03-09 Completed University of 00:00:00 [facility] TDAP 2021-03-09 Completed University of 00:00:00 [facility] TDAP 2021-03-09 Completed University of 00:00:00 [facility] TDAP 2021-03-09 Completed University of 00:00:00 [facility] TDAP 2021-03-09 Completed University of 00:00:00 [facility] TDAP 2021-03-09 Completed University of 00:00:00 [facility] TDAP 2021-03-09 Completed University of 00:00:00 [facility] TDAP 2021-03-09 Completed University of 00:00:00 [facility] TDAP (ADACEL) 2015-08-31 Completed University of VACCINE 00:00:00 [facility] TDAP (ADACEL) 2015-08-31 Completed University of VACCINE 00:00:00 [facility] TDAP (ADACEL) 2015-08-31 Completed University of VACCINE 00:00:00 [facility] TDAP (ADACEL) 2015-08-31 Completed University of VACCINE 00:00:00 [facility] TDAP (ADACEL) 2015-08-31 Completed University of VACCINE 00:00:00 [facility] TDAP (ADACEL) 2015-08-31 Completed University of VACCINE 00:00:00 [facility] TDAP (ADACEL) 2015-08-31 Completed University of VACCINE 00:00:00 [facility] TDAP (ADACEL) 2015-08-31 Completed University of VACCINE 00:00:00 [facility] TDAP (ADACEL) 2015-08-31 Completed University of VACCINE 00:00:00 [facility] TDAP (ADACEL) 2015-08-31 Completed University of VACCINE 00:00:00 [facility] TDAP (ADACEL) 2015-08-31 Completed University of VACCINE 00:00:00 [facility] TDAP (ADACEL) 2015-08-31 Completed University of VACCINE 00:00:00 [facility] TDAP (ADACEL) 2015-08-31 Completed University of VACCINE 00:00:00 [facility] TDAP (ADACEL) 2015-08-31 Completed University of VACCINE 00:00:00 [facility] Vital Signs Vital Name Observation Time Observation Value Comments Source Systolic blood 2022-01-29 00:51:00 113 mm[Hg] Univer sity of pressure [facility] Diastolic blood 2022-01-29 00:51:00 66 mm[Hg] Unive rsity of pressure [facility] Heart rate 2022-01-29 00:51:00 79 /min [facility] Body temperature 2022-01-28 22:24:00 37.72 Eufemia [facility] Respiratory rate 2022-01-28 22:24:00 19 /min [facility] Body height 2022-01-28 22:24:00 162.6 cm [facility] [place] [facility] Body weight 2022-01-28 22:24:00 78.019 kg [facility] [place] [facility] BMI 2022-01-28 22:24:00 29.52 kg/m2 Universi ty [facility] [place] [facility] Oxygen saturation in 2022-01-28 22:24:00 98 /min University of Arterial blood by [facility] Pulse oximetry Branch Systolic blood 2021-05-21 13:59:00 125 mm[Hg] Univer sity of pressure [place] [facility] Diastolic blood 2021-05-21 13:59:00 54 mm[Hg] Unive rsity of pressure [place] [facility] Heart rate 2021-05-21 13:59:00 91 /min Universi ty of [place] [facility] Body temperature 2021-05-21 13:59:00 36.61 Eufemia Univ ersity of [place] [facility] Respiratory rate 2021-05-21 13:59:00 18 /min Univ ersity of [place] [facility] Oxygen saturation in 2021-05-21 13:59:00 99 /min University of Arterial blood by [facility] Pulse oximetry Branch Body height 2021-05-19 14:30:00 162.6 cm [facility]i [facility] [place] [facility] Body weight 2021-05-19 14:30:00 85.276 kg [facility]i [facility] [place] [facility] BMI 2021-05-19 14:30:00 32.27 kg/m2 Universi ty of [place] [facility] Heart rate 2021-05-19 14:45:00 101 /min Universi ty of [place] [facility] Oxygen saturation in 2021-05-19 14:45:00 100 /min University of Arterial blood by [facility] Pulse oximetry Branch Systolic blood 2021-05-19 14:30:00 126 mm[Hg] Univer sity of pressure [place] [facility] Diastolic blood 2021-05-19 14:30:00 75 mm[Hg] Unive rsity of pressure [place] [facility] Body temperature 2021-05-19 14:30:00 36.44 Eufemia Univ ersity of [place] [facility] Respiratory rate 2021-05-19 14:30:00 16 /min Univ ersity of [place] [facility] Body height 2021-05-19 14:30:00 162.6 cm Universi ty of [place] [facility] Body weight 2021-05-19 14:30:00 85.276 kg Universi ty of [place] [facility] BMI 2021-05-19 14:30:00 32.27 kg/m2 Universi ty [facility] [place] [facility] Systolic blood 2021-05-12 20:23:00 110 mm[Hg] Univer sity of pressure [place] [facility] Diastolic blood 2021-05-12 20:23:00 70 mm[Hg] Unive rsity of pressure [place] [facility] Heart rate 2021-05-12 20:23:00 109 /min Universi ty [facility] [place] [facility] Body temperature 2021-05-12 20:23:00 36.78 Eufemia Univ ersity of [place] [facility] Respiratory rate 2021-05-12 20:23:00 18 /min Univ ersity of [place] [facility] Body height 2021-05-12 20:23:00 162.6 cm Universi [facility] [place] [facility] Body weight 2021-05-12 20:23:00 83.008 kg [facility] [place] [facility] BMI 2021-05-12 20:23:00 31.41 kg/m2 [facility] [place] [facility] Systolic blood 2021-05-03 21:50:00 121 mm[Hg] Univer sity of pressure [place] [facility] Diastolic blood 2021-05-03 21:50:00 80 mm[Hg] Unive rsity of pressure [place] [facility] Heart rate 2021-05-03 21:50:00 101 /min [facility] [place] [facility] Body temperature 2021-05-03 21:50:00 36.83 Eufemia Univ ersity of [place] [facility] Respiratory rate 2021-05-03 21:50:00 18 /min Univ ersity of [place] [facility] Body height 2021-05-03 21:50:00 162.6 cm [facility] [place] [facility] Body weight 2021-05-03 21:50:00 81.647 kg [facility]i ty [facility] [place] [facility] BMI 2021-05-03 21:50:00 30.90 kg/m2 [facility] [place] [facility] Systolic blood 2021-04-01 19:30:00 115 mm[Hg] Univer sity of pressure [place] [facility] Diastolic blood 2021-04-01 19:30:00 71 mm[Hg] Unive rsity of pressure [place] [facility] Heart rate 2021-04-01 19:30:00 88 /min [facility] Body temperature 2021-04-01 19:30:00 36.94 Eufemia [facility] Respiratory rate 2021-04-01 19:30:00 18 /min [facility] Body height 2021-04-01 19:30:00 160 cm [facility] Body weight 2021-04-01 19:30:00 78.926 kg [facility] BMI 2021-04-01 19:30:00 30.82 kg/m2 [facility] Procedures Procedure Date / Time Performing Clinician Source Performed LIPASE 2022-01-28 23:26:00 Felicitas Torres [facility] COMP. METABOLIC PANEL 2022-01-28 23:26:[address] [facility] ([id number]) Medical Branch CBC WITH DIFF 2022-01-28 23:26:00 Felicitas Torres [facility] URINALYSIS 2022-01-28 23:26:00 Felicitas Torres [facility] CONSENT/REFUSAL FOR 2022-01-28 22:19:10 [facility] CBC WITH DIFF 2021-05-20 10:01:00 [facility] CBC WITH DIFF 2021-05-20 10:01:00 [facility] SECTION 2021-05-19 14:42:00 [facility] LAPAROSCOPIC 2021-05-19 14:42:00 Adum, [facility] 2021-05-19 14:42:00 [facility] LAPAROSCOPIC 2021-05-19 14:42:00 Adum, [facility] NOTICE OF PRIVACY 2021-05-19 13:56:31 Doctor Unassigned, No Univ ersity [facility] NOTICE OF PRIVACY 2021-05-19 13:56:31 Doctor Unassigned, No Univ ersity [facility] CONSENT/REFUSAL FOR 2021-05-19 13:56:08 Doctor Unassigned, No [facility] [place] [facility] Name Medical Branch CONSENT/REFUSAL FOR 2021-05-19 13:56:08 Doctor Unassigned, No [facility] [place] [facility] Name Medical Branch ASSIGNMENT OF BENEFITS 2021-05-19 13:55:48 Doctor Unassigned, No [facility] Medical Branch ASSIGNMENT OF BENEFITS 2021-05-19 13:55:48 Doctor Unassigned, No [facility] RHO (D) IMMUNE GLOBULIN 2021-05-18 23:18:00 Adum, Johnna Rodriguez [facility] RHO (D) IMMUNE GLOBULIN 2021-05-18 23:18:00 Adum, Johnna Rodriguez [facility] CONSENT/REFUSAL FOR 2021-05-17 21:41:48 Doctor Unassigned, No [facility] [place] [facility] Name Medical Branch CONSENT/REFUSAL FOR 2021-05-17 21:41:48 Doctor Unassigned, No [facility] [place] [facility]AT[facility] Name Medical Branch ASSIGNMENT OF BENEFITS 2021-05-17 21:41:35 Doctor Unassigned, No [facility] Medical Branch ASSIGNMENT OF BENEFITS 2021-05-17 21:41:35 Doctor Unassigned, No [facility] Medical Branch CONSENT/REFUSAL FOR 2021-05-17 21:41:18 Doctor Unassigned, No [facility] [place] [facility] Name Medical Branch CONSENT/REFUSAL FOR 2021-05-17 21:41:18 Doctor Unassigned, No [facility] [place] [facility] Name Medical Branch ASSIGNMENT OF BENEFITS 2021-05-17 21:41:04 Doctor Unassigned, No [facility] Medical Branch ASSIGNMENT OF BENEFITS 2021-05-17 21:41:04 Doctor Unassigned, No [facility] Branch PHYSICIAN ORDERS 2021-05-12 06:01:00 Doctor Unassigned, No [facility]/O 2021-05-12 00:00:00 Adum, Johnna Rodriguez [facility] SPECIFIC GRAVITY Medical Branch PHYSICIAN ORDERS 2021-05-11 06:01:00 Doctor Unassigned, No [facility] [place] Name Medical [facility] ASSIGNMENT OF BENEFITS 2021-05-03 22:35:22 Doctor Unassigned, No [facility] FLU VACC ([phone]), 2021-05-03 21:54:12 Adum, [facility] 2-64 YRS, .5ML, IM, [facility] (FLUCELVAX) POCT URINALYSIS W/O 2021-05-03 00:00:00 AdJohnna stern [facility] POCT URINALYSIS W/O 2021-04-01 00:00:00 AdJohnna stern [facility] Encounters Start End Encounter Admission Attending Care Care Encounter Source Date/Time Date/Time Type Type Clinicians Facility Department ID 2022-01-28 2022-01-28 Emergency X BRIAN [facility] ERT [id number] Univers 17:25:00 20:14:[address] [facility] 2022-01-28 2022-01-28 Emergency Brian [facility] [id number] Univers 17:25:00 20:14:00 Felicitas Betts SOLO 350.1.13.10 i ty [facility] 4.2.7.2.686 [facility] [id number] [place] [address] Branch 2021-07-29 2021-07-29 Outpatient R ADUM, [facility] [id number] Univers 10:15:00 10:15:00 [facility] 2021-07-28 2021-07-28 Outpatient R ADUM, [facility] [id number] Univers 13:00:00 13:00:00 [facility] 2021-06-22 2021-06-22 Outpatient R ADUM, [facility] [id number] Univers 16:15:00 16:15:00 [facility] 2021-06-14 2021-06-14 Outpatient R ADUM, [facility] [id number] Univers 16:15:00 16:15:00 [facility] 2021-06-09 2021-06-09 Outpatient R ADUM, [facility] [id number] Univers 15:30:00 15:30:00 JHONNA jara [facility] 2021-06-03 2021-06-03 Outpatient R ADUM, [facility] [id number] Univers 11:15:00 11:15:00 JOHNNA jara [facility] 2021-05-23 2021-05-23 Refill Ad, [facility] 1.2.840.114 [id number] Univers 00:00:00 00:00:00 Johnna Rodriguez [place] 350.1.13.10 [facility] [place] [phone] Fl dical [facility] [address] 2021-05-19 2021-05-21 Inpatient P ADUM, [facility] MERLENE [id number] Univers 07:53:00 11:00:00 JOHNNA jara [facility] 2021-05-19 2021-05-21 Hospital Ad, [facility] 1.2.840.114 [id number] Univers 07:53:00 11:00:00 Encounter Johnna Rodriguez [place] 350.1.13.10 [place] [id number] [facility] 083 Branch 2021-05-19 2021-05-19 Surgery Adum, [facility] 1.2.840.114 [id number] Univers 08:00:00 10:20:00 Johnna Rodriguez [place] [id number] [place] [id number] [facility] 013 Branch 2021-05-18 2021-05-18 Laboratory Only, Adc Test [facility] 1.2.840. 114 [id number] Univers 17:22:54 17:37:54 Only Adum, Johnna Rodriguez [place] 350.1.13.10 [place] [id number] [facility] 353 Branch 2021-05-18 2021-05-18 Sales Representative Printing Alan, Adc Lab Main [facility] 1.2.8 40.114 [id number] Univers 17:00:24 17:15:24 Visit Adum, Johnna Rodriguez [place] 350.1.13.10 [facility] [place] [phone] Me dical NAL [address] 2021-05-18 2021-05-18 Outpatient R ADUM, [facility] [id number] Univers 08:30:00 08:30:00 JOHNNA ity [facility] 2021-05-12 2021-05-12 Routine Adum, [facility] 1.2.840.114 [id number] Univers 13:39:02 14:50:19 Johnna L FAIZ[place] 350.1.13.10 ity of [place] [phone] Fl dical NAL [address] 2021-05-12 2021-05-12 Outpatient R ADUM, [facility] [id number] Univers 13:15:00 14:50:19 JOHNNA ity [facility] 2021-05-12 2021-05-12 Orders Doctor DEMOND 1.2.840.114 [id number] Univers 00:00:00 00:00:00 Only Unassigned, ANA PAULA 350.1.13.10 ity of [place] [facility] 4.2.7.2.686 Jason as [phone] [address] 2021-05-11 2021-05-11 Outpatient R ADUM, [facility] [id number] Univers 13:15:00 13:15:00 JOHNNA ity [facility] 2021-05-11 2021-05-11 Orders Doctor LAGOS 1.2.840.114 [id number] Univers 00:00:00 00:00:00 Only Unassigned, ANA PAULA 350.1.13.10 ity of [place] [facility] 4.2.7.2.686 Jason as [phone] [address] 2021-05-03 2021-05-03 Sales Representative Printing Alan, Alexis Lab Main [facility] 1.2.8 40.114 [id number] Univers 17:36:35 17:51:35 Visit Adum, Johnna Rodriguez [place] 350.1.13.10 [facility] [place] [phone] [facility] [address] 2021-05-03 2021-05-03 Sales Representative Printing Alan, Adc Lab Main [facility] 1.2.8 40.114 [id number] Univers 17:36:04 17:51:04 Visit Adum, Johnna K[place] 350.1.13.10 it[place] of [place] [phone] [address] 2021-05-03 2021-05-03 Routine Adum, [facility] 1.2.840.114 [id number] Univers 16:27:00 17:15:21 Johnna K[place]ALL 350.1.13.10 ity of [place] [phone] [address] 2021-05-03 2021-05-03 Outpatient R ADUM, [facility] [id number] Univers 16:15:00 17:15:21 JOHNNA ity [facility] 2021-05-03 2021-05-03 Orders Doctor DEMOND 1.2.840.114 [id number] Univers 00:00:00 00:00:00 Only Unassigned, ANA PAULA 350.1.13.10 ity of [place] [facility] 4.2.7.2.686 Jason as [phone] [address] 2021-04-19 2021-04-19 Outpatient R ADUM, [facility] [id number] Univers 14:00:00 14:00:00 JOHNNA ity [facility] 2021-04-01 2021-04-01 Routine Adum, [facility] 1.2.840.114 [id number] Univers 14:13:21 15:03:38 Johnna [place] 350.1.13.10 ity of [place] [phone] [address] 2021-04-01 2021-04-01 Outpatient R ADUM, [facility] [id number] Univers 14:00:00 14:00:00 JOHNNA ity [facility] 2021-03-25 2021-03-25 Outpatient R ADUM, [facility] [id number] Univers 09:15:00 09:15:00 JOHNNA ity of [facility] 2021-03-23 2021-03-23 Outpatient R ADUM, [facility] [id number] Univers 11:00:00 11:00:00 JOHNNA ity [facility] 2021-03-18 2021-03-18 Sales Representative Printing Ultrasound, Adc [facility] 1.2 .840.114 [id number] Univers 15:48:20 16:18:20 Visit Edward [place] 350.1.13.10 it[place] of [place] [phone] Fl dical nal [address] [place] [address] 2021-03-18 2021-03-18 Outpatient R [facility] [id number] Univers 14:00:00 14:00:00 ity of [facility] 2021-03-10 2021-03-10 [facility] 1.2.077.512 [id number] Univers 00:00:00 00:00:00 Johnna L [place] 350.1.13.10 [place] of [place] [phone] Fl dical nal [address] [place] [address] 2021-03-09 2021-03-09 Laboratory Only, Adc Test [facility] 1.2.840. 114 [id number] Univers 13:15:49 13:30:49 Only Adum, Johnna Rodriguez [place] 350.1.13.10 [place] [phone] [address] 2021-03-09 2021-03-09 Routine Adum, [facility] 1.2.840.114 [id number] Univers 11:31:44 12:46:12 Johnna L [place] 350.1.13.10 ity of [place] [phone] Fl dical nal [address] [place] [address] 2021-03-09 2021-03-09 Outpatient R ADUM, [facility] [id number] Univers 11:15:00 11:15:00 JOHNNA ity of [facility] 2021-03-09 2021-03-09 Orders Doctor DEMOND 1.2.840.114 [id number] Univers 00:00:00 00:00:00 Only Unassigned, ANA PAULA 350.1.13.10 ity of [place] [facility] 4.2.7.2.[phone] [facility] 009 Branch 2021-03-03 2021-03-03 Outpatient R ADUM, [facility] [id number] Univers 14:15:00 14:15:00 JOHNNA ity [facility] 2021-02-26 2021-02-26 Nurse DEMOND Houser 1.2.840.114 [id number] Univers 00:00:00 00:00:00 Triage Kaylee GOSS 350.1.13.10 i ty of [facility] 4.2.7.2.686 Jason as [phone] [facility] 019 [place] 2021-02-08 2021-02-08 [facility] 1.2.594.443 [id number] Univers 00:00:00 00:00:00 Johnna Michael [place] 350.1.13.10 [place] [phone] Fl dical nal [address] [facility] 2021-02-07 2021-02-07 [facility] 1.2.060.684 [id number] Univers 00:00:00 00:00:00 Johnna Rodriguez [place] 350.1.13.10 [place] [phone] Fl dical nal [address] [facility] 2021-02-03 2021-02-03 Sales Representative Printing 1, [facility] Us Room UNIVERSIT 1 .2.840.114 [id number] Univers 13:52:04 15:07:04 Visit Lynnette Castellanos [employer] 350.1.13.10 it[place] [phone] [facility] 104 Branch 2021-02-03 2021-02-03 Outpatient P [facility] [id number] Univers 14:15:00 14:15:00 ity of [facility] 2021-01-29 2021-01-29 Case Adum, [facility] 1.2.840.114 [id number] Univers 00:00:00 00:00:00 Management Johnna L [place] 350.1.13.10 [place] [phone] Fl dical nal [address] [facility] 2021-01-28 2021-01-28 Outpatient R [facility] [id number] Univers 08:30:00 08:30:00 ity of [facility] 2021-01-27 2021-01-27 [facility] 1.2.900.135 [id number] Univers 00:00:00 00:00:00 Johnna Michael [place] 350.1.13.10 [place] [phone] Fl dical nal [address] [facility] 2021-01-27 2021-01-27 Telephone Ad, [facility] 1.2.621.167 [id number] Univers 00:00:00 00:00:00 Johnna Michael [place] 350.1.13.10 [place] of [place] [phone] Fl dical nal [address] [facility] 2021-01-26 2021-01-26 Sales Representative Printing Alan, Adc Lab Main [facility] 1.2.8 40.114 [id number] Univers 16:44:26 16:59:26 Visit Adum, Johnna Michael [place] 350.1.13.10 [place] of [place] [phone] Fl dical nal [address] [facility] 2021-01-26 2021-01-26 Routine Adum, [facility] 1.2.840.114 [id number] Univers 14:21:54 15:48:55 Johnna Rodriguez [place] 350.1.13.10 ity of [place] [phone] Me dical nal [address] [place] [address] 2021-01-26 2021-01-26 Outpatient R ADUM, [facility] [id number] Univers 14:00:00 14:00:00 JOHNNA jara [facility] 2021-01-26 2021-01-26 Orders Doctor DEMOND 1.2.840.114 [id number] Univers 00:00:00 00:00:00 Only Unassigned, ANA PAULA 350.1.13.10 ity of [place] [facility] 4.2.7.2.686 Jason as [phone] [address] 2021-01-25 2021-01-25 Outpatient R ADUM, [facility] [id number] Univers 10:45:00 10:45:[address] [facility] 2021-01-24 2021-01-24 Outpatient P [facility] [id number] Univers 09:45:00 09:45:00 ity [facility] 2021-01-18 2021-01-18 Outpatient R ADUM, [facility] [id number] Univers 10:45:00 10:45:[address] [facility] 2020-12-24 2020-12-24 Outpatient R ADUM, [facility] [id number] Univers 08:15:00 08:15:[address] [facility] 2020-12-21 2020-12-21 Routine Adum, [facility] 1.2.840.114 [id number] Univers 16:40:30 17:02:28 Johnna [place] 350.1.13.10 ity of [place] [phone] Fl dical nal [address] [place] [address] 2020-12-21 2020-12-21 Outpatient R ADUM, [facility] [id number] Univers 16:15:00 16:15:[address] [facility] 2020-11-03 2020-11-03 Outpatient R ADUM, [facility] [id number] Univers 16:00:00 16:00:[address] [facility] 2020-10-21 2020-10-21 Outpatient R [facility] [id number] Univers 13:30:00 13:30:00 ity of [facility] 2020-10-21 2020-10-21 Telephone Adum, [facility] 1.2.614.545 [id number] Univers 00:00:00 00:00:00 Jhonna Rodriguez [place] 350.1.13.10 it[place] of [place] [phone] Fl dical [address] 2020-10-20 2020-10-20 Initial Adum, [facility] 1.2.840.114 [id number] Univers 13:56:11 15:52:55 Johnna Rodriguez [place] 350.1.13.10 ity of [place] [phone] Fl dic[address] 2020-10-20 2020-10-20 Outpatient R AD, [facility] [id number] Univers 13:30:00 13:30:00 JOHNNA ity of [facility] 2020-10-20 2020-10-20 Orders Doctor DEMOND 1.2.840.114 [id number] Univers 00:00:00 00:00:00 Only Unassigned, ANA PAULA 350.1.13.10 ity of [place] [facility] 4.2.7.2.686 Jason as [phone] [address] 2009-11-09 2009-11-09 Outpatient [facility] [id number] Univers 00:00:00 17:58:00 5 ity [facility] 2008-06-01 2008-06-01 Outpatient [facility] [id number] Univers 00:00:00 14:49:00 3 ity [facility] 2008-03-06 2008-03-06 Outpatient [facility] [id number] Univers 00:00:00 16:07:00 0 ity [facility] 2008-03-03 2008-03-03 Outpatient [facility] [id number] Univers 00:00:00 00:00:00 9 ity [facility] 2008-02-18 2008-02-18 Outpatient [facility] [id number] Univers 00:00:00 15:54:00 6 ity [facility] 2008-01-29 2008-01-29 Outpatient [facility] [id number] Univers 00:00:00 16:38:[address] [facility] 2007-02-05 2007-02-05 Outpatient [facility] [id number] Univers 00:00:00 10:10:[address] [facility] 2006-08-08 2006-08-08 Outpatient [facility] [id number] Univers 00:00:00 14:25:[address] [facility] 2006-07-25 2006-07-25 Outpatient [facility] [id number] Univers 00:00:00 17:10:[address] [facility] 2006-05-09 2006-05-09 Outpatient [facility] [id number] Univers 00:00:00 16:09:[address] [facility] 2006-04-24 2006-04-24 Outpatient [facility] [id number] Univers 00:00:00 00:00:[address] [facility] 2005-11-09 2005-11-09 Outpatient [facility] [id number] Univers 00:00:00 11:56:[address] [facility] 2005-06-28 2005-06-28 Outpatient [facility] [id number] Univers 00:00:00 15:39:[address] [facility] Results Test Description Test Time Test Comments Results Result Comments Source COMP. METABOLIC PANEL (78665) 2022-01-29 00:06:26 Test Item Value Reference Range Interpretation Comme nts NA (test code = 9649101224) 135 mmol/L 135-145 K (test code = 9371269650) 4.0 mmol/L 3.5-5 CL (test code = 2958275816) 101 mmol/L 98-108 CO2 TOTAL (test code = 8827605216) 22 mmol/L 23-31 L AGAP (test code = 9052156518) 2-16 BUN (test code = 9668911699) 10 mg/dL 7-23 GLUCOSE (test code = 1199881987) 120 mg/dL 70-110 H CREATININE (test code = 0.83 mg/dL 0.5-1.04 2464769669) TOTAL BILI (test code = 0.5 mg/dL 0.1-1.3 6669330044) CALCIUM (test code = 9998700724) 9.4 mg/dL 8.6-10.6 T PROTEIN (test code = 5302760555) 7.3 g/dL 6.3-8.2 ALBUMIN (test code = 6969231943) 4.5 g/dL 3.5-5 ALK PHOS (test code = 2764238905) 51 U/L 34-122 ALTv (test code = 1742-6) 19 U/L 5-35 AST(SGOT) (test code = 5327641874) 23 U/L 13-40 eGFR (test code = 8437361467) mL/min/1.73m2 MOLLY (test code = MOLLY) Association [...] tests). Lab Interpretation (test code = Abnormal 47245-1) [facility] Test Item Value Reference Range Interpretation Comments LIPASE (test code = 6495596071) 177 U/L 0-220 Lab Interpretation (test code = Normal 10543-0) [facility] WITH FGZK2026-95-12 00:01:25 Test Item Value Reference Range Interpretation Comments WBC (test code = See_Comment [Automated message] 6690-2) The system [employer] generated this result transmitted ref erence range: 4.30 - 1 1.10 10*3/?L. The re ference range was not u sed to interpret this result as normal/abnor mal. RBC (test code = See_Comment [Automated message] 789-8) The system [employer] generated this result transmitted ref erence range: [...] RDW-SD (test code 43.3 fL 39-49.9 = 48811-8) RDW-CV (test code 12.5 % 12-15.5 = 788-0) PLT (test code = See_Comment [Automated message] 777-3) The system [employer] generated this result transmitted ref erence range: 166 - 35 8 10*3/?L. The re ference range was not u sed to interpret this result as normal/abnor mal. MPV (test code = 9.7 fL 9.5-12.9 55646-5) NRBC/100 WBC (test See_Comment [Automat ed message] code = 1123483014) The [employer] which generated this result transmitted ref erence range: 0.0 - 10 .0 /100 WBCs. The refer ence range was not u sed to interpret this result as normal/abnor mal. NRBC x10^3 (test See_Comment [Automated message] code = 0287649742) The syste m which generated this result transmitted ref erence range: 10*3/?L. The reference range was not used to interpr et this result as normal/abnormal . GRAN MAT (NEUT) % 73.5 % (test code = 770-8) IMM GRAN % (test 0.40 % code = 8252128676) LYMPH % (test code 19.0 % = 736-9) MONO % (test code 5.8 % = 5905-5) EOS % (test code = 0.9 % 713-8) BASO % (test code 0.4 % = 706-2) GRAN MAT 6.57 10*3/uL 1.88-7.09 x10^3(ANC) (test code = 2200365212) IMM GRAN x10^3 0.04 10*3/uL 0-0.06 (test code = 6416323068) LYMPH x10^3 (test 1.70 10*3/uL 1.32-3.29 code = 731-0) MONO x10^3 (test 0.52 10*3/uL 0.33-0.92 code = 742-7) EOS x10^3 (test 0.08 10*3/uL 0.03-0.39 code = 711-2) BASO x10^3 (test 0.04 10*3/uL 0.01-0.07 code = 704-7) [facility] with Kuxjdlqeajom1246-18-10 11:10:09 Test Item Value Reference Range Interpretation Comments WBC (test code = See_Comment H [Automated 5390-2) message] The sy stem which generated this result transmitted reference range : 4.30 - 11.10 10*3/?L. The reference range was not used to interpret this result as normal/abnormal . RBC (test code = See_Comment L [Automated 139-8) message] The sy stem which generated this [...] RDW-SD (test code = 45.6 fL 39.0-49.9 60730-9) RDW-CV (test code = 13.4 % 12.0-15.5 788-0) PLT (test code = See_Comment [Automated 777-3) message] The sy stem which generated this result transmitted reference range : 166 - 358 10*3/ ?L. The reference r harpal was not used to interpret this result as normal/abnormal . MPV (test code = 10.8 fL 9.5-12.9 67683-0) NRBC/100 WBC (test See_Comment [Automat ed code = 5932081606) message] The system which generated this result transmitted reference range : 0.0 - 10.0 /100 WBCs. The refer ence range was not u sed to interpret th is result as normal/abnormal . NRBC x10^3 (test code <0.01 See_Comment [Auto mated = 4284438122) message] The s ystem which generated this result transmitted reference range : 10*3/?L. The reference range was not used to interpret this result as normal/abnormal . GRAN MAT (NEUT) % 78.0 % (test code = 770-8) IMM GRAN % (test code 0.70 % = [id number]) LYMPH % (test code = 13.6 % 736-9) MONO % (test code = 6.0 % 5905-5) EOS % (test code = 1.3 % 713-8) BASO % (test code = 0.4 % 706-2) GRAN MAT x10^3(ANC) 8.89 10*3/uL 1.88-7.09 H (test code = [id number]) IMM GRAN x10^3 (test 0.08 10*3/uL 0.00-0.06 H code = [id number]) LYMPH x10^3 (test code 1.55 10*3/uL 1.32-3.29 = 731-0) MONO x10^3 (test code 0.68 10*3/uL 0.33-0.92 = 742-7) EOS x10^3 (test code = 0.15 10*3/uL 0.03-0.39 711-2) BASO x10^3 (test code 0.05 10*3/uL 0.01-0.07 = 704-7) Lab Interpretation Abnormal (test code = 88293-7) [facility] with [id number] 11:10:09 Test Item Value Reference Range Interpretation [...] RDW-SD (test code = 45.6 fL 39.0-49.9 01804-3) RDW-CV (test code = 13.4 % 12.0-15.5 788-0) PLT (test code = See_Comment [Automated 777-3) message] The sy stem which generated this result transmitted reference range : 166 - 358 10*3/ ?L. The reference r harpal was not used to interpret this result as normal/abnormal . MPV (test code = 10.8 fL 9.5-12.9 61724-8) NRBC/100 WBC (test See_Comment [Automat ed code = 2555330397) message] The system which generated this result transmitted reference range : 0.0 - 10.0 /100 WBCs. The refer ence range was not u sed to interpret th is result as normal/abnormal . NRBC x10^3 (test code <0.01 See_Comment [Auto mated = [id number]) message] The s ystem which generated this result transmitted reference range : 10*3/?L. The reference range was not used to interpret this result as normal/abnormal . GRAN MAT (NEUT) % 78.0 % (test code = 770-8) IMM GRAN % (test code 0.70 % = 7246354951) LYMPH % (test code = 13.6 % 736-9) MONO % (test code = 6.0 % 5905-5) EOS % (test code = 1.3 % 713-8) BASO % (test code = 0.4 % 706-2) GRAN MAT x10^3(ANC) 8.89 10*3/uL 1.88-7.09 H (test code = 0462581949) IMM GRAN x10^3 (test 0.08 10*3/uL 0.00-0.06 H code = 7990515597) LYMPH x10^3 (test code 1.55 10*3/uL 1.32-3.29 = 731-0) MONO x10^3 (test code 0.68 10*3/uL 0.33-0.92 = 742-7) EOS x10^3 (test code = 0.15 10*3/uL 0.03-0.39 711-2) BASO x10^3 (test code 0.05 10*3/uL 0.01-0.07 = 704-7) Lab Interpretation Abnormal (test code = 25346-1) [facility] [id number] 18:56:23 Test Item Value Reference Range Interpretation Comments RHIG CANDIDATE? No- see comment Patient i s not a (test code = candidate for R hIg- 5055) Patient is Rh Positive.Perfor med at [facility] Laboratory Services - [facility] Blood [address] [place] [id number] Free: [phone] A No. [id number] [facility] IMM[facility]E [id number] 18:56:23 Test Item Value Reference Range Interpretation Comments RHIG CANDIDATE? No- see comment Patient i s not a (test code = candidate for R hIg- 5055) Patient is Rh Positive.Perfor med at [facility] Laboratory Services - [facility] Blood [address] [place] [id number] Free: [phone] A No. [id number] [facility]/O SPECIFIC [id number] 20:25:00 Test Item Value Reference Range Interpretation [...] code = 3257) N/A Negative - Negative [facility] SPECIFIC [id number] 21:54:00 Test Item Value Reference Range Interpretation [...] Negative Lab Interpretation (test code = Normal 54682-6) [facility] [id number] 19:44:00 Test Item Value Reference Range Interpretation [...] Negative POCT U BLD (test code = 2927) n/a Negative - Negative [facility]"
[2022-06-24] MEDS ORDERED: ACETAMINOPHEN 325 MG TABLET ONE (18:18)
[2022-06-24 19:07] LABS: SARS-COV-2 RT PCR NEGATIVE (NEGATIVE)
--- NOTE | 2022-06-24 19:12 | EDPHYS ---
Physician Documentation [facility] Name: Mary Ann Lin Age: 37 yrs Sex: Female : 1985 Arrival Date: 06/24/2022 Time: 17:26 Bed 12 Private MD: ED Physician Ghada Du HPI: 06/24 18:10 This 37 yrs old Female presents to ER via Ambulatory with complaints of Flu Symptoms. cp 18:10 The patient or guardian reports cough, that is intermittent. Onset: The cp symptoms/episode began/occurred 2 day(s) ago. 18:10 Associated signs and symptoms: Pertinent positives: earache, nausea, rhinorrhea, sore cp throat, Pertinent negatives: chest pain, diarrhea, vomiting. Severity of symptoms: in the emergency department the symptoms are unchanged despite home interventions. 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 - Social history:: Smoking status: Patient reports the use of cigarette tobacco products, smokes one pack cigarettes per day. ROS: 18:15 Constitutional: Positive for chills, Negative for fever, poor PO intake. cp 18:15 Eyes: Negative for injury, pain, redness, and discharge. cp 18:15 ENT: Positive for ear pain, rhinorrhea, sore throat, Negative for drainage from ear(s), difficulty swallowing, difficulty handling secretions. 18:15 Cardiovascular: Negative for chest pain. 18:15 Respiratory: Positive for cough, "sounds productive", Negative for shortness of breath, wheezing. 18:15 Abdomen/GI: Positive for nausea, Negative for vomiting, diarrhea, constipation. 18:15 Skin: Negative for rash. 18:15 Neuro: Negative for altered mental status, headache, weakness. 18:15 All other systems are negative. Exam: 18:20 Constitutional: The patient appears in no acute distress, alert, awake, non-toxic, well cp developed, well nourished. 18:20 Head/Face: Normocephalic, atraumatic. cp 18:20 Eyes: Periorbital structures: appear normal, Conjunctiva: normal, no exudate, no injection, Lids and lashes: appear normal, bilaterally. 18:20 ENT: External ear(s): are unremarkable, Ear canal(s): are normal, clear, TM's: dullness, bilaterally, Nose: nasal drainage, that is minimal, Mouth: Lips: moist, Oral mucosa: moist, Posterior pharynx: Airway: no evidence of obstruction, patent, Tonsils: enlarged on the left, with erythema, no exudate, Uvula: midline, erythema, that is moderate, exudate, is not appreciated, Voice: is normal. 18:20 Neck: ROM/movement: is normal, is supple, no meningismus, no nuchal rigidity, Lymph nodes: lymphadenopathy is appreciated, anterior cervical nodes. 18:20 Chest/axilla: Inspection: normal. 18:20 Cardiovascular: Rate: tachycardic, Rhythm: regular. 18:20 Respiratory: the patient does not display signs of respiratory distress, Respirations: normal, no use of accessory muscles, no retractions, labored breathing, is not present, Breath sounds: decreased breath sounds, are not appreciated, stridor, is not appreciated, + upper airway congestion. wheezing: is not appreciated. 18:20 Abdomen/GI: Inspection: abdomen appears normal, Palpation: abdomen is soft and non-tender. 18:20 Skin: no rash present. Vital Signs: 17:38 BP 128 / 85; Pulse 107; Resp 18; Temp 98.8; Pulse Ox 99% ; Weight 74.84 kg; Height 5 ph ft. 4 in. (162.56 cm); 19:22 BP 123 / 71; Pulse 101; Resp 18; Temp 99; Pulse Ox 100% ; Pain 8/10; pf1 17:38 Body Mass Index 28.32 (74.84 kg, 162.56 cm) ph MDM: 17:44 Patient medically screened. cp 18:15 Differential diagnosis: bronchitis, flu, URI, pneumonia. cp 19:12 Data reviewed: vital signs, nurses notes, lab test result(s). cp 19:12 Counseling: I had a detailed discussion with the patient and/or guardian regarding: the cp historical points, exam findings, and any diagnostic results supporting the discharge/admit diagnosis, lab results, to return to the emergency department if symptoms worsen or persist or if there are any questions or concerns that arise at home. Response to treatment: the patient's symptoms have mildly improved after treatment, and as a result, I will discharge patient. ED course: VSS. Patient appears non-toxic and no signs of respiratory distress. Will discharge to home for continued monitoring. 06/24 18:06 Order name: COVID-19/FLU A+B; Complete Time: 19:10 cp 06/24 18:06 Order name: Strep; Complete Time: 18:38 cp 06/24 19:20 Order name: Throat Culture EDMS Administered Medications: 18:23 Drug: Tylenol 650 mg Route: PO; ph 19:22 Follow up: Response: Temperature is decreased; Pain is decreased; RASS: Alert and Calm pf1 (0) Disposition Summary: 06/24/22 19:12 Discharge Ordered Location: Home cp Problem: new cp Condition: Stable cp Diagnosis - Cough cp - Acute pharyngitis, unspecified cp Followup: cp - With: Private Physician - When: 2 - 3 days - Reason: Worsening of condition Discharge Instructions: - Discharge Summary Sheet cp - Pharyngitis cp - Sore Throat cp - Cool Mist Vaporizer cp - Cough, Adult cp Forms: - Medication Reconciliation Form cp - Thank You Letter cp - Antibiotic Education cp - Prescription Opioid Use cp Prescriptions: - Bromfed DM 2-30-10 mg/5 mL Oral syrup - take 10 milliliter by ORAL route every 6 hours; 180 milliliter; Refills: 0, cp Product Selection Permitted - Amoxicillin 875 mg Oral Tablet - take 1 tablet by ORAL route every 12 hours for 10 days; 20 tablet; Refills: 0, cp Product Selection Permitted Signatures: Dispatcher [employer] EDMS Lona Barriga RN RN ph Ed Connelly, GINGER PA Balbina hercules RN pf1
--- NOTE | 2022-06-24 19:12 | ER ---
Nurse's Notes [facility] Name: Mary Ann Lin Age: 37 yrs Sex: Female : 1985 Arrival Date: 06/24/2022 Time: 17:26 Bed 12 Private MD: Diagnosis: Cough;Acute pharyngitis, unspecified Presentation: 06/24 17:38 Chief complaint: Patient states: Cough, congestion, ear pain, sore throat, headache, ph body aches and nausea x 2 days. Coronavirus screen: Vaccine status: Patient reports receiving the 1st dose of the Covid vaccine. Ebola Screen: No symptoms or risks identified at this time. Initial Sepsis Screen: Does the patient meet any 2 criteria? No. Patient's initial sepsis screen is negative. Does the patient have a suspected source of infection? No. Patient's initial sepsis screen is negative. Risk Assessment: Do you want to hurt yourself or someone else? Patient reports no desire to harm self or others. 17:38 Method Of Arrival: Ambulatory ph 17:38 Acuity: ANNABELLE 4 ph 17:43 Onset of symptoms was June 24, 2022. ph Triage Assessment: 17:42 General: Appears in no apparent distress. Behavior is calm, cooperative, appropriate ph for age. Pain:. Pain: Complains of pain in throat and ears. Neuro: Level of Consciousness is awake, alert, obeys commands, Oriented to person, place, time, situation. Cardiovascular: Capillary refill < 3 seconds in bilateral fingers Patient's skin is warm and dry. Respiratory: Reports cough that is Airway is patent Respiratory effort is even, unlabored, Respiratory pattern is regular, symmetrical, Denies shortness of breath. GI: Reports nausea, Patient currently denies abdominal pain, vomiting. : No signs and/or symptoms were reported regarding the genitourinary system. Derm: Skin is intact, is healthy with good turgor, Skin is pink, warm \T\ dry. Musculoskeletal: Circulation, motion, and sensation intact. Range of motion: intact in all extremities. 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 - Social history:: Smoking status: Patient reports the use of cigarette tobacco products, smokes one pack cigarettes per day. Screenin:41 [facility] ED Fall Risk Assessment (Adult) History of falling in the last 3 months, ph including since admission No falls in past 3 months (0 pts) Confusion or Disorientation No (0 pts) Intoxicated or Sedated No (0 pts) Impaired Gait No (0 pts) Mobility Assist Device Used No (0 pt) Altered Elimination No (0 pt) Score/Fall Risk Level 0 - 2 = Low Risk Oriented to surroundings, Maintained a safe environment. Abuse screen: Denies threats or abuse. Denies injuries from another. Nutritional screening: No deficits noted. Tuberculosis screening: No symptoms or risk factors identified. Assessment: 19:10 General: Appears in no apparent distress. comfortable, well groomed, well developed, pf1 Behavior is calm, cooperative, appropriate for age, quiet. Pain: Complains of pain in Patient C/O sorethroat pain of 8 Pain currently is 8 out of 10 on a pain scale. Quality of pain is described as aching. 19:10 Neuro: No deficits noted. Level of Consciousness is awake, alert, obeys commands, pf1 Oriented to person, place, time, situation. Cardiovascular: No deficits noted. Respiratory: Reports cough that is Airway is patent Respiratory effort is even, unlabored, Respiratory pattern is regular, symmetrical. GI: No deficits noted. No signs and/or symptoms were reported involving the gastrointestinal system. : No deficits noted. No signs and/or symptoms were reported regarding the genitourinary system. EENT: Reports pain in sorethroat. Vital Signs: 17:38 BP 128 / 85; Pulse 107; Resp 18; Temp 98.8; Pulse Ox 99% ; Weight 74.84 kg; Height 5 ph ft. 4 in. (162.56 cm); 19:22 BP 123 / 71; Pulse 101; Resp 18; Temp 99; Pulse Ox 100% ; Pain 8/10; pf1 17:38 Body Mass Index 28.32 (74.84 kg, 162.56 cm) ph ED Course: 17:26 Patient arrived in ED. as 17:27 Ed Connelly PA is PHCP. cp 17:27 Ghada Du MD is Attending Physician. cp 17:39 Triage completed. ph 17:40 Arm band placed on Patient placed in an exam room, on a stretcher. ph 17:41 Lona Barriga, RN is Primary Nurse. ph 17:43 Patient has correct armband on for positive identification. Bed in low position. Call ph light in reach. Side rails up X 1. Door closed. Noise minimized. 18:23 Strep Sent. ph 18:23 COVID-19/FLU A+B Sent. ph 19:23 No provider procedures requiring assistance completed. pf1 19:23 Patient did not have IV access during this emergency room visit. pf1 Administered Medications: 18:23 Drug: Tylenol 650 mg Route: PO; ph 19:22 Follow up: Response: Temperature is decreased; Pain is decreased; RASS: Alert and Calm pf1 (0) Medication: 17:43 VIS not applicable for this client. ph Outcome: 19:12 Discharge ordered by MD. cp 19:23 Discharged to home ambulatory. pf1 19:23 Condition: stable 19:23 Discharge instructions given to patient, Instructed on discharge instructions, follow up and referral plans. medication usage, Demonstrated understanding of instructions, follow-up care, medications, Prescriptions given X 2. 19:27 Patient left the ED. pf1 Signatures: Jaimee Reece Patricia, RN RN Ed Connelly PA PA cp Balbina white, RN RN pf1
[2022-06-24 19:43] VITALS: BP 123/71; TEMP 99; O2SAT 100
== END 2022-06-24 19:27 | disposition home or self-care (01) ==
LOC: ER 17:25
DX: R05.9 Cough, unspecified (principal); J02.9 Acute pharyngitis, unspecified; Z20.822 Contact with and (suspected) exposure to COVID-19; R11.0 Nausea; F17.210 Nicotine dependence, cigarettes, uncomplicated
CPT/HCPCS: 87070; 87081; 0240U

== ENCOUNTER 2022-08-17 12:48 | Emergency (ER) | payer OTHER ==
--- OUTSIDE RECORDS SUMMARY | 2022-08-17 12:53 | XMS REPORT | Continuity of Care Document ---
:1985 Author Organization [facility] t Address [address] [place] [address] Care Team Providers Name Role Phone Pcp, Patient Does Not Have A Primary Care Physician +[id number] FELICITAS TORRES Attending Clinician Unavailable Torres PACFelicitas Attending Clinician JOHNNA YO Attending Clinician Unavailable Johnna Yo MD Attending Clinician Only, Adc Test Attending Clinician Unavailable Pob, Adc Lab Main Attending Clinician Unavailable Doctor Unassigned, [place] Attending Clinician Unavailable Ultrasound, Adc Mfm Attending Clinician Unavailable Edward Martínez MD Attending Clinician Kaylee Houser RN Attending Clinician Unavailable 1, [facility] Mfm Usg Room Attending Clinician Unavailable Lynnette Castellanos MD Attending Clinician JOHNNA YO Admitting Clinician Unavailable Johnna Yo MD Admitting Clinician Payers Payer Name Policy Type Policy Number Effective Date Expiration Date S nikhil [employer] [id number] 2016 HEALTH 00:00:00 Problems Condition Condition Condition Status Onset Resolution Last Treating Co mments Source Name Details Category Date Date Treatment Clinician Date Single Single Disease Active 2020-07 Univers liveborn, liveborn, 1-18 ity of born in born in 00:00: [facility], 00 Medi sarah delivered delivered Bran ch by by section section Obesity Obesity Disease Active 2021-1 Univers (BMI (BMI 0-01 ity of 30-39.9) 30-39.9) 00:00: [place] [address] Medical Branch Anemia of Anemia of Disease [...] gestation 4-21 ity of of of 00:00: [place] 00 [facility] 36 weeks 36 weeks Disease Active Unive rs gestation gestation 4-21 ity of of of 00:00: [place] 00 [facility] 38 weeks 38 weeks Disease Active Unive rs gestation gestation 4-21 ity of of of 00:00: [place] 00 [facility] 39 weeks 39 weeks Disease Active Unive rs gestation gestation 4-21 ity of of of 00:00: [place] 00 [facility] History of History of Disease Active 2016-07 U nivers seizure seizure 2-13 ity of 00:00: [address] Tobacco Tobacco Disease Active 2016-07 Univers use use 2-13 ity of disorder disorder 00:00: [address] Depression Depression Disease Active U nivers ity of [facility] Anxiety Anxiety Disease Active Overview: Univ ers [place] ity of g of this [place] note Medical might be Branch different from the original. dx: 2005, currently on SSRI and Benzodiaz epines Previous Previous Disease Active Unive rs ity of section section [facility] Allergies, Adverse Reactions, Alerts Allergy Allergy Status Severity Reaction(s) Onset Inactive Treating Comm ents Source Name Type Date Date Clinician NO KNOWN Drug Active Univers ALLERGIE Class ity of S [facility] Social History Social Habit Start Date Stop Date Quantity Comments Source ASSERTION 2020-09-01 University of 00:00:00 [facility] History of tobacco 2007-06-13 Cigarette Smoker University of use 00:00:00 [facility] Exposure to 2022-01-18 2022-01-28 Not sure University SARS-CoV-2 (event) 00:00:00 17:23:00 [facility] Alcohol intake 2021-04-01 2021-04-01 Ex-drinker [facility] 00:00:00 00:00:00 (finding) [facility] Cigarettes smoked 2020-12-21 2020-12-21 Univers ity of current (pack per 00:00:00 00:00:00 [facility] ) - Reported Branch Tobacco use and 2020-12-21 2020-12-21 Smokeless Universit y of exposure 00:00:00 00:00:00 tobacco non-user [facility] dical [place] Tobacco Comment 2020-10-20 2020-10-20 < 1/2 PPD, was Unive rsity of 00:00:00 00:00:00 smoking 1 PPD [facility] Sex Assigned At [birth year] Universit y of 00:00:00 00:00:00 [facility] Smoking Status Start Date Stop Date Source Smokes tobacco daily 2020-12-21 00:00:00 Univers ity of [facility] Medications Ordered Filled Start Stop Current Ordering Indication Dosage Frequency Signature Comments Components Source Medication Medication Date Date Medication? Clinician (SIG) Name Name acetaminoph 2021- No 1000mg 1,000 mg, Univers en 01-29 Oral, ity of (TYLENOL) 00:30: 23:25 ONCE, [place] tablet [place] :[place] dose, On Medical 1,000 mg Sat [place] 01/28/22 at 1930, Routine ketorolac 2021- No 30mg 30 mg, Unive rs (TORADOL) 01-29 Slow IV ity of injection 00:30: 23:26 Push, [place] 30 mg 00 :00 ONCE, 1 Medical dose, On Branch 01/28/22 at 1930, JYOTI ibuprofen Yes [id number] 800mg Take 1 U nivers 800 mg 7-30 tablet by ity of tablet 00:00: mouth [place] 00 every 8 Medical (eight) Branch hours as needed for Pain (scale 4-6). 2020-07 Yes Take by Univer s vit 1-20 mouth. ity of calc,iron,f 11:10: [facility] 18 Medical ( Branch VITAMIN ORAL) 2020-07 Yes Take by Univer s vit 1-20 mouth. ity of calc,iron,f 11:10: [facility] 18 Medical ( Branch VITAMIN ORAL) 2020-07 Yes Take by Univer s vit 1-20 mouth. ity of calc,iron,f 11:10: [facility] 18 Medical ( Branch VITAMIN ORAL) 2020-07 Yes Take by Univer s vit 1-20 mouth. ity of calc,iron,f 11:10: [place] [id number] Medical ( Branch VITAMIN ORAL) 2020-07 Yes Take by Univer s vit 1-20 mouth. ity of calc,iron,f 11:10: [place] [address] Medical ( Branch VITAMIN ORAL) simethicone 2020-07 Yes 80mg 80 mg, Univ ers (GAS RELIEF -19 Oral, BID, it y of (SIMETHICON 23:45: First dose [place] E)) 00 (after Medical chewable last Branch tablet 80 modificati mg on) on Sun05/20/21 at 1745, Until Discontinu ed, Routine 2020-07 Yes Take by [employer] s vit 1-19 mouth. ity of calc,iron,f 07:53: [facility] 25 Medical ( Branch VITAMIN ORAL) 2020-07 Yes [id number] 1{tbl} Take 1 Univers vitamin 1-19 tablet by ity of w/FA tablet 00:00: mouth [place] 00 daily. Medical Branch docusate 2020-07 Yes [id number] 240mg Take 1 U nivers calcium 240 1-19 capsule by it y of mg capsule 00:00: mouth [place] 00 daily as Medical needed for Branch Constipati on. ferrous 2020-07 Yes [id number] 325mg Take 1 Un go sulfate 325 1-19 tablet by ity of mg (65 mg 00:00: mouth 2 [place] iron) 00 (two) Medical tablet times Branch daily. ibuprofen 2020-07 Yes [id number] 800mg Take 1 Univers 800 mg 1-19 [...] hours. Indication s: acute pain 2020-07 Yes [id number] 1{tbl} Take 1 Univers vitamin 1-19 tablet by ity of w/FA tablet 00:00: mouth [place] 00 daily. Medical Branch docusate 2020-07 Yes [id number] 240mg Take 1 U nivers calcium 240 1-19 capsule by it y of mg capsule 00:00: mouth [place] 00 daily as Medical needed for Branch Constipati on. ferrous 2020-07 Yes [id number] 325mg Take 1 Un go sulfate 325 1-19 tablet by ity of mg (65 mg 00:00: mouth 2 [place] iron) 00 (two) Medical tablet times Branch daily. ibuprofen 2020-07 Yes [id number] 800mg Take 1 Univers 800 mg 1-19 [...] hours. Indication s: acute pain 2020-07 Yes [id number] 1{tbl} Take 1 Univers vitamin 1-19 tablet by ity of w/FA tablet 00:00: mouth [place] 00 daily. Medical Branch docusate 2020-07 Yes [id number] 240mg Take 1 U nivers calcium 240 1-19 capsule by it y of mg capsule 00:00: mouth once [place] 00 daily as Medical needed for Branch Constipati on. ferrous 2020-07 Yes [id number] 325mg Take 1 Un go sulfate 325 1-19 tablet by ity of mg (65 mg 00:00: mouth 2 [place] iron) 00 (two) Medical tablet times Branch daily. ibuprofen 2020-07 Yes [id number] 800mg Take 1 Univers 800 mg 1-19 [...] hours. Indication s: acute pain 2020-07 Yes [id number] 1{tbl} Take 1 Univers vitamin 1-19 tablet by ity of w/FA tablet 00:00: mouth [place] 00 daily. Medical Branch docusate 2020-07 Yes [id number] 240mg Take 1 U nivers calcium 240 1-19 capsule by it y of mg capsule 00:00: mouth once [place] 00 daily as Medical needed for Branch Constipati on. ferrous 2020-07 Yes [id number] 325mg Take 1 Un go sulfate 325 [...] Indication s: acute pain ibuprofen 2020-07- No [id number] 800mg Take 1 Univers 800 mg 1-19 [...] First dose [place] mg 00 on [facility] 05/19/21 Branch at 1400, Until Discontinu ed, Routine ibuprofen 2020-07 Yes 800mg 800 mg, Univ ers (IBU) 1-18 Oral, Q8H, ity of tablet 800 20:00: First dose [place] mg 00 on [facility] 05/19/21 Branch at 1400, Until Discontinu ed, Routine simethicone 2020-07 Yes 80mg 80 mg, Univ ers (GAS RELIEF 07-19 Oral, ity of (SIMETHICON 18:30: DAILY, [place] E[place] 00 First dose Medical chewable on [facility] tablet 80 05/19/21 mg at 1230, Until Discontinu ed, Routine simethicone 2020-07- No 80mg 80 mg, Uni vers (GAS RELIEF 07-19 Oral, ity of (SIMETHICON 18:30: 23:42 DAILY, [place] E)) 00 :05 First dose Medical chewable on [facility] tablet 80 05/19/21 mg at 1230, Until [...] IV Push, ity of (PF)) 16:23: Q8HPRN, [place] injection 4 41 Starting Medi sarah mg [...] IV Push, ity of (PF)) 16:23: Q8HPRN, [place] injection 4 41 Starting Medi sarah mg [...] 2359, Routine, Surgery/Pr ocedure hydrOXYzine 2020-07 Yes [id number] 25mg Take 1 Univers 25 mg 0-01 capsule by ity of capsule 00:00: mouth 4 [place] 00 (four) Medical times Branch daily as needed for Anxiety. hydrOXYzine 2020-07 Yes [id number] 25mg Take 1 Univers 25 mg 0-01 capsule by ity of capsule 00:00: mouth 4 [place] 00 (four) Medical times Branch daily as needed for Anxiety. hydrOXYzine 2020-07 Yes [id number] 25mg Take 1 Univers 25 mg 0-01 capsule by ity of capsule 00:00: mouth 4 [place] 00 (four) Medical times Branch daily as needed for Anxiety. hydrOXYzine 2020-07 Yes [id number] 25mg Take 1 Univers 25 mg 0-01 capsule by ity of capsule 00:00: mouth () Medical times Branch daily as needed for Anxiety. hydrOXYzine 2020-07 Yes [id number] 25mg Take 1 Univers 25 mg 0-01 capsule by ity of capsule 00:00: mouth () Medical times Branch daily as needed for Anxiety. hydrOXYzine 2020-07 Yes [id number] 25mg Take 1 Univers 25 mg 0-01 capsule by ity of capsule 00:00: mouth (four) Medical times Branch daily as needed for Anxiety. hydrOXYzine 2020-07 Yes [id number] 25mg Take 1 Univers 25 mg 0-01 capsule by ity of capsule 00:00: mouth () Medical times Branch daily as needed for Anxiety. hydrOXYzine 2020-07 Yes [id number] 25mg Take 1 Univers 25 mg 0-01 capsule by ity of capsule 00:00: mouth () Medical times Branch daily as needed for Anxiety. hydrOXYzine 2020-07 Yes [id number] 25mg Take 1 Univers 25 mg 0-01 capsule by ity of capsule 00:00: mouth () Medical times Branch daily as needed for Anxiety. hydrOXYzine 2020-07 Yes [id number] 25mg Take 1 Univers 25 mg 0-01 capsule by ity of capsule 00:00: mouth () Medical times Branch daily as needed for Anxiety. hydrOXYzine 2020-07 Yes [id number] 25mg Take 1 Univers 25 mg 0-01 capsule by ity of capsule 00:00: mouth () Medical times Branch daily as needed for Anxiety. hydrOXYzine 2020-07 Yes [id number] 25mg Take 1 Univers 25 mg 0-01 capsule by ity of capsule 00:00: mouth () Medical times Branch daily as needed for Anxiety. hydrOXYzine 2020-07 Yes [id number] 25mg Take 1 Univers 25 mg 0-01 capsule by ity of capsule 00:00: mouth () Medical times Branch daily as needed for Anxiety. hydrOXYzine 2020-07 Yes [id number] 25mg Take 1 Univers 25 mg 0-01 [...] days 2 to 5. clonazePAM 2021-0 Yes [id number] .5mg Take 1 U nivers 0.5 mg 9-08 tablet by ity of tablet 00:00: mouth [place] 00 every 8 Medical (eight) Branch hours as needed (Anxiety). clonazePAM 2021-0 Yes [id number] .5mg Take 1 U nivers 0.5 mg 9-08 tablet by ity of tablet 00:00: mouth [place] 00 every 8 Medical (eight) Branch hours as needed (Anxiety). clonazePAM 2021-0 Yes [id number] .5mg Take 1 U nivers 0.5 mg 9-08 tablet by ity of tablet 00:00: mouth [place] 00 every 8 Medical (eight) Branch hours as needed (Anxiety). clonazePAM 2021-0 Yes [id number] .5mg Take 1 U nivers 0.5 mg 9-08 tablet by ity of tablet 00:00: mouth [place] 00 every 8 Medical (eight) Branch hours as needed (Anxiety). clonazePAM 2021-0 Yes [id number] .5mg Take 1 U nivers 0.5 mg 9-08 tablet by ity of tablet 00:00: mouth [place] 00 every 8 Medical (eight) Branch hours as needed (Anxiety). clonazePAM 2021-0 Yes [id number] .5mg Take 1 U nivers 0.5 mg 9-08 tablet by ity of tablet 00:00: mouth [place] 00 every 8 Medical (eight) Branch hours as needed (Anxiety). clonazePAM 2021-0 Yes [id number] .5mg Take 1 U nivers 0.5 mg 9-08 tablet by ity of tablet 00:00: mouth [place] 00 every 8 Medical (eight) Branch hours as needed (Anxiety). clonazePAM 2021-0 Yes [id number] .5mg Take 1 U nivers 0.5 mg 9-08 tablet by ity of tablet 00:00: mouth [place] 00 every 8 Medical (eight) Branch hours as needed (Anxiety). clonazePAM 2021-0 Yes [id number] .5mg Take 1 U nivers 0.5 mg 9-08 tablet by ity of tablet 00:00: mouth [place] 00 every 8 Medical (eight) Branch hours as needed (Anxiety). clonazePAM 2021-0 Yes [id number] .5mg Take 1 U nivers 0.5 mg 9-08 tablet by ity of tablet 00:00: mouth [place] 00 every 8 Medical (eight) Branch hours as needed (Anxiety). clonazePAM 2021-0 Yes [id number] .5mg Take 1 U nivers 0.5 mg 9-08 tablet by ity of tablet 00:00: mouth [place] 00 every 8 Medical (eight) Branch hours as needed (Anxiety). clonazePAM 2021-0 Yes [id number] .5mg Take 1 U nivers 0.5 mg 9-08 tablet by ity of tablet 00:00: mouth [place] 00 every 8 Medical (eight) Branch hours as needed (Anxiety). clonazePAM 1-0 Yes [id number] .5mg Take 1 U nivers 0.5 mg 9-08 tablet by ity of tablet 00:00: mouth [place] 00 every 8 Medical (eight) Branch hours as needed (Anxiety). clonazePAM 1-0 Yes [id number] .5mg Take 1 U nivers 0.5 mg 9-08 tablet by ity of tablet 00:00: mouth [place] 00 every 8 Medical (eight) Branch hours as needed (Anxiety). ferrous 2020-0 Yes [id number] 325mg Take 1 Un go sulfate 325 7-31 tablet by ity of mg (65 mg 00:00: mouth 2 [place] iron) 00 (two) Medical tablet times Branch daily. ferrous 2020-0 Yes [id number] 325mg Take 1 Un go sulfate 325 7-31 tablet by ity of mg (65 mg 00:00: mouth 2 [place] iron) 00 (two) Medical tablet times Branch daily. ferrous 2021-0 Yes [id number] 325mg Take 1 Un go sulfate 325 7-31 tablet by ity of mg (65 mg 00:00: mouth 2 [place] iron) 00 (two) Medical tablet times Branch daily. ferrous 202-0 Yes [id number] 325mg Take 1 Un go sulfate 325 7-31 tablet by ity of mg (65 mg 00:00: mouth 2 [place] iron) 00 (two) Medical tablet times Branch daily. ferrous Yes [id number] 325mg Take 1 Un go sulfate 325 7-31 tablet by ity of mg (65 mg 00:00: mouth 2 [place] iron) 00 (two) Medical tablet times Branch daily. ferrous Yes [id number] 325mg Take 1 Un go sulfate 325 7-31 tablet by ity of mg (65 mg 00:00: mouth 2 [place] iron) 00 (two) Medical tablet times Branch daily. ferrous Yes [id number] 325mg Take 1 Un go sulfate 325 7-31 tablet by ity of mg (65 mg 00:00: mouth 2 [place] iron) 00 (two) Medical tablet times Branch daily. ferrous Yes [id number] 325mg Take 1 Un go sulfate 325 7-31 tablet by ity of mg (65 mg 00:00: mouth 2 [place] iron) 00 (two) Medical tablet times Branch daily. ferrous Yes [id number] 325mg Take 1 Un go sulfate 325 7-31 tablet by ity of mg (65 mg 00:00: mouth 2 [place] iron) 00 (two) Medical tablet times Branch daily. ferrous Yes [id number] 325mg Take 1 Un go sulfate 325 7-31 tablet by ity of mg (65 mg 00:00: mouth 2 [place] iron) 00 (two) Medical tablet times Branch daily. ferrous Yes [id number] 325mg Take 1 Un go sulfate 325 7-31 tablet by ity of mg (65 mg 00:00: mouth 2 [place] iron) 00 (two) Medical tablet times Branch daily. ferrous Yes [id number] 325mg Take 1 Un go sulfate 325 7-31 tablet by ity of mg (65 mg 00:00: mouth 2 [place] iron) 00 (two) Medical tablet times Branch daily. ferrous Yes [id number] 325mg Take 1 Un go sulfate 325 7-31 tablet by ity of mg (65 mg 00:00: mouth 2 [place] iron) 00 (two) Medical tablet times Branch daily. ferrous Yes [id number] 325mg Take 1 Un go sulfate 325 [...] Ordered Filled Immunization Date Status Comments [facility] e Immunization Name Name Influenza Virus 2021-05-03 Completed Universit y of Vaccine Quad IM, 00:00:00 [place] Me dical Preserv and ABX Branch Free [...] YRS TDAP 2021-03-09 Completed University of 00:00:00 [facility] TDAP 2021-03-09 Completed University of 00:00:00 [facility] TDAP 2021-03-09 Completed University of 00:00:00 [facility] TDAP 2021-03-09 Completed University of 00:00:00 [facility] TDAP 2021-03-09 Completed University of 00:00:00 [facility] TDAP 2021-03-09 Completed University of 00:00:00 [facility] TDAP 2021-03-09 Completed University of 00:00:00 [facility] TDAP 2021-03-09 Completed University of 00:00:00 [facility] TDAP 2021-03-09 Completed University of 00:00:00 [facility] TDAP 2021-03-09 Completed University of 00:00:00 [facility] TDAP 2021-03-09 Completed University of 00:00:00 [facility] TDAP 2021-03-09 Completed University of 00:00:00 [facility] TDAP 2021-03-09 Completed University of 00:00:00 [facility] Branch TDAP 2021-03-09 Completed University of 00:00:00 [facility] TDAP (ADACEL) 2015-08-31 Completed University of VACCINE 00:00:00 [facility] Branch TDAP (ADACEL) 2015-08-31 Completed University of VACCINE 00:00:00 [facility] TDAP (ADACEL) 2015-08-31 Completed University of VACCINE 00:00:00 [facility] Branch TDAP (ADACEL) 2015-08-31 Completed University of VACCINE 00:00:00 [facility] Branch TDAP (ADACEL) 2015-08-31 Completed University of VACCINE 00:00:00 [facility] Branch TDAP (ADACEL) 2015-08-31 Completed University of VACCINE 00:00:00 [facility] Branch TDAP (ADACEL) 2015-08-31 Completed University of VACCINE 00:00:00 [facility] TDAP (ADACEL) 2015-08-31 Completed University of VACCINE 00:00:00 [facility] TDAP (ADACEL) 2015-08-31 Completed University of VACCINE 00:00:00 [facility] Branch TDAP (ADACEL) 2015-08-31 Completed University of VACCINE 00:00:00 [facility] TDAP (ADACEL) 2015-08-31 Completed University of VACCINE 00:00:00 [facility] TDAP (ADACEL) 2015-08-31 Completed University of VACCINE 00:00:00 [facility] TDAP (ADACEL) 2015-08-31 Completed University of VACCINE 00:00:00 [facility] TDAP (ADACEL) 2015-08-31 Completed University of VACCINE 00:00:00 [facility] Vital Signs Vital Name Observation Time Observation Value Comments Source Systolic blood 2022-01-29 00:51:00 113 mm[Hg] Univer sity of pressure [facility] Diastolic blood 2022-01-29 00:51:00 66 mm[Hg] Unive rsity of pressure [facility] Heart rate 2022-01-29 00:51:00 79 /min [facility] Body temperature 2022-01-28 22:24:00 37.72 [facility] 2022-01-28 22:24:00 19 /min [facility] Body height 2022-01-28 22:24:00 162.6 cm Universi ty of [place] [facility] Body weight 2022-01-28 22:24:00 78.019 kg Universi ty of [place] [facility] BMI 2022-01-28 22:24:00 29.52 kg/m2 Universi ty of [place] [facility] Oxygen saturation in 2022-01-28 22:24:00 98 /min University of Arterial blood by [facility] sarah Pulse oximetry Branch Systolic blood 2021-05-21 13:59:00 125 mm[Hg] Univer sity of pressure [place] [facility] Diastolic blood 2021-05-21 13:59:00 54 mm[Hg] Unive rsity of pressure [place] [facility] Heart rate 2021-05-21 13:59:00 91 /min Universi ty of [place] [facility] Body temperature 2021-05-21 13:59:00 36.61 Eufemia Univ ersity of [place] [facility] Respiratory rate 2021-05-21 13:59:00 18 /min Univ ersity of [place] [facility] Oxygen saturation in 2021-05-21 13:59:00 99 /min University of Arterial blood by [facility] [place] [facility] Pulse oximetry Branch Body height 2021-05-19 14:30:00 162.6 cm Universi ty of [place] [facility] Body weight 2021-05-19 14:30:00 85.276 kg Universi ty of [place] [facility] BMI 2021-05-19 14:30:00 32.27 kg/m2 Universi ty of [place] [facility] Heart rate 2021-05-19 14:45:00 101 /min Universi ty of [place] [facility] Oxygen saturation in 2021-05-19 14:45:00 100 /min University of Arterial blood by [facility] [place] [facility] Pulse oximetry Branch Systolic blood 2021-05-19 14:30:00 126 mm[Hg] Univer sity of pressure [place] [facility] Diastolic blood 2021-05-19 14:30:00 75 mm[Hg] Unive rsity of pressure [place] [facility] Body temperature 2021-05-19 14:30:00 36.44 Eufemia Univ ersity of [place] [facility] Respiratory rate 2021-05-19 14:30:00 16 /min Univ ersity of [place] [facility] Body height 2021-05-19 14:30:00 162.6 cm Universi ty of [place] [facility] Body weight 2021-05-19 14:30:00 85.276 kg Universi ty of [place] [facility] BMI 2021-05-19 14:30:00 32.27 kg/m2 Universi ty of [place] [facility] Systolic blood 2021-05-12 20:23:00 110 mm[Hg] Univer sity of pressure [place] [facility] Diastolic blood 2021-05-12 20:23:00 70 mm[Hg] Unive rsity of pressure [place] [facility] Heart rate 2021-05-12 20:23:00 109 /min Universi ty of [place] [facility] Body temperature 2021-05-12 20:23:00 36.78 Eufemia Univ ersity of [place] [facility] Respiratory rate 2021-05-12 20:23:00 18 /min Univ ersity of [place] [facility] Body height 2021-05-12 20:23:00 162.6 cm Universi ty of [place] [facility] Body weight 2021-05-12 20:23:00 83.008 kg Universi ty of [place] [facility] BMI 2021-05-12 20:23:00 31.41 kg/m2 Universi ty of [place] [facility] Systolic blood 2021-05-03 21:50:00 121 mm[Hg] Univer sity of pressure [place] [facility] Diastolic blood 2021-05-03 21:50:00 80 mm[Hg] Unive rsity of pressure [place] [facility] Heart rate 2021-05-03 21:50:00 101 /min Universi ty of [place] [facility] Body temperature 2021-05-03 21:50:00 36.83 Eufemia Univ ersity of [place] [facility] Respiratory rate 2021-05-03 21:50:00 18 /min Univ ersity of [place] [facility] Body height 2021-05-03 21:50:00 162.6 cm Universi ty of [place] [facility] Body weight 2021-05-03 21:50:00 81.647 kg Universi ty of [place] [facility] BMI 2021-05-03 21:50:00 30.90 kg/m2 Universi ty of [place] [facility] Systolic blood 2021-04-01 19:30:00 115 mm[Hg] Univer sity of pressure [place] [facility] Diastolic blood 2021-04-01 19:30:00 71 mm[Hg] Unive rsity of pressure [place] [facility] Heart rate 2021-04-01 19:30:00 88 /min [facility] Body temperature 2021-04-01 19:30:00 36.94 Eufemia [facility] Respiratory rate 2021-04-01 19:30:00 18 /min [facility] Body height 2021-04-01 19:30:00 160 cm [facility] Body weight 2021-04-01 19:30:00 78.926 kg [facility] BMI 2021-04-01 19:30:00 30.82 kg/m2 [facility] Procedures Procedure Date / Time Performing Clinician Source Performed LIPASE 2022-01-28 23:26:00 Felicitas Torres [facility] COMP. METABOLIC PANEL 2022-01-28 23:26:00 Felicitas Torres [facility] ([id number]) Medical Branch CBC WITH DIFF 2022-01-28 23:26:00 Felicitas Torres [facility] URINALYSIS 2022-01-28 23:26:00 Felicitas Torres [facility] CONSENT/REFUSAL FOR 2022-01-28 22:19:10 [facility] CBC WITH DIFF 2021-05-20 10:01:00 Adum, [facility] CBC WITH DIFF 2021-05-20 10:01:00 Adum, [facility] SECTION 2021-05-19 14:42:00 Adum, [facility] LAPAROSCOPIC 2021-05-19 14:42:00 [facility] [facility] [place] [facility] SECTION 2021-05-19 14:42:00 Adum, [facility] LAPAROSCOPIC 2021-05-19 14:42:00 Adum, [facility] NOTICE OF PRIVACY 2021-05-19 13:56:31 Doctor Unassigned, No Univ ersity [facility] NOTICE OF PRIVACY 2021-05-19 13:56:31 Doctor Unassigned, No Univ ersity [facility] CONSENT/REFUSAL FOR 2021-05-19 13:56:08 Doctor Unassigned, No [facility] [place] [facility] Name Medical Branch CONSENT/REFUSAL FOR 2021-05-19 13:56:08 Doctor Unassigned, No [facility] [place] DI[facility]NOS[facility] AND TREATMENT Name Medical Branch ASSIGNMENT OF BENEFITS 2021-05-19 13:55:48 Doctor Unassigned, No [facility] ASSIGNMENT OF BENEFITS 2021-05-19 13:55:48 Doctor Unassigned, No [facility] RHO (D) IMMUNE GLOBULIN 2021-05-18 23:18:00 Adum, Johnna Rodriguez [facility] RHO (D) IMMUNE GLOBULIN 2021-05-18 23:18:00 Adum, Johnna Rodriguez [facility] CONSENT/REFUSAL FOR 2021-05-17 21:41:48 Doctor Unassigned, No [facility] [place] DIAGNOSIS AND TREATMENT Name Medical Branch CONSENT/REFUSAL FOR 2021-05-17 21:41:48 Doctor Unassigned, No [facility] [place] DIAGNOSIS AND TREATMENT Name Medical Branch ASSIGNMENT OF BENEFITS 2021-05-17 21:41:35 Doctor Unassigned, No [facility] ASSIGNMENT OF BENEFITS 2021-05-17 21:41:35 Doctor Unassigned, No [facility] Branch CONSENT/REFUSAL FOR 2021-05-17 21:41:18 Doctor Unassigned, No [facility] [place] DIAGNOSIS AND TREATMENT Name Medical Branch CONSENT/REFUSAL FOR 2021-05-17 21:41:18 Doctor Unassigned, No [facility] [place] DIAGNOSIS AND TREATMENT Name Medical Branch ASSIGNMENT OF BENEFITS 2021-05-17 21:41:04 Doctor Unassigned, No [facility] Medical Branch ASSIGNMENT OF BENEFITS 2021-05-17 21:41:04 Doctor Unassigned, No [facility] Branch PHYSICIAN ORDERS 2021-05-12 06:01:00 [facility]igned, [facility]O 2021-05-12 00:00:00 Adum, Johnna Rodriguez [facility] SPECIFIC GRAVITY Medical Branch PHYSICIAN ORDERS 2021-05-11 06:01:00 Doctor Unassigned, No [facility] [place] Name Medical Branch ASSIGNMENT OF BENEFITS 2021-05-03 22:35:22 Doctor Unassigned, No [facility] FLU VACC ([id number]), 2021-05-03 21:54:12 Adum, [facility], .5ML, IM, [facility] (FLUCELVAX) POCT URINALYSIS W/O 2021-05-03 00:00:00 AdJohnna stern [facility] POCT URINALYSIS W/O 2021-04-01 00:00:00 AdJohnna stern [facility] Encounters Start End Encounter Admission Attending Care Care Encounter Source Date/Time Date/Time Type Type Clinicians Facility Department ID 2022-01-28 2022-01-28 Emergency X BRIAN [facility] ERT [id number] Univers 17:25:00 20:14:00 FELICITAS [facility] 2022-01-28 2022-01-28 Emergency Brian [facility] [id number] Univers 17:25:00 20:14:00 Felicitas Betts [place] 350.1.13.10 i ty [facility] 4.2.7.2.686 [facility] [phone] [place] [address] Branch 2021-07-29 2021-07-29 Outpatient R ADUM, [facility] [id number] Univers 10:15:00 10:15:00 [facility] 2021-07-28 2021-07-28 Outpatient R ADUM, [facility] [id number] Univers 13:00:00 13:00:00 [facility] 2021-06-22 2021-06-22 Outpatient R ADUM, [facility] [id number] Univers 16:15:00 16:15:00 [facility] 2021-06-14 2021-06-14 Outpatient R ADUM, [facility] [id number] Univers 16:15:00 16:15:00 [facility] 2021-06-09 2021-06-09 Outpatient R ADUM, [facility] [id number] Univers 15:30:00 15:30:00 JOHNNA jara [facility] 2021-06-03 2021-06-03 Outpatient R ADUM, [facility] [id number] Univers 11:15:00 11:15:00 JOHNNA jara [facility] 2021-05-23 2021-05-23 Refill Ad, [facility] 1.2.840.114 [id number] Univers 00:00:00 00:00:00 Johnna Rodriguez [place] 350.1.13.10 ity [facility] [place] [phone] Md dical [facility] [address] [facility] 2021-05-19 2021-05-21 Inpatient P ADUM, [facility] MERLENE [id number] Univers 07:53:00 11:00:00 JOHNNA jara [facility] 2021-05-19 2021-05-21 Hospital Ad, [facility] 1.2.840.114 [id number] Univers 07:53:00 11:00:00 Encounter Johnna Rodriguez [place] 350.1.13.10 ity [place] [phone] [facility] 083 Branch 2021-05-19 2021-05-19 Surgery Adum, [facility] 1.2.840.114 [id number] Univers 08:00:00 10:20:00 Johnna Rodriguez [place] 350.1.13.10 it[place] [phone] [facility] 013 Branch 2021-05-18 2021-05-18 Laboratory Only, Adc Test [facility] 1.2.840. 114 [id number] Univers 17:22:54 17:37:54 Only Adum, Johnna Rodriguez [place] 350.1.13.10 it[place] [phone] [facility] 353 Branch 2021-05-18 2021-05-18 Wood Coater Alan, Adc Lab Main [facility] 1.2.8 40.114 [id number] Univers 17:00:24 17:15:24 Visit Adum, Johnna Rodriguez [place] 350.1.13.10 ity of [facility] 4.[place].2.[place] [phone] Me dical NAL [address] [facility] 2021-05-18 2021-05-18 Outpatient R ADUM, [facility] [id number] Univers 08:30:00 08:30:00 JOHNNA ity [facility] 2021-05-12 2021-05-12 Routine Adum, [facility] 1.2.840.114 [id number] Univers 13:39:02 14:50:19 Johnna L [place] 350.1.13.10 ity of [place] [phone] Md dical NAL [address] [facility] 2021-05-12 2021-05-12 Outpatient R ADUM, [facility] [id number] Univers 13:15:00 14:50:19 JOHNNA ity [facility] 2021-05-12 2021-05-12 Orders Doctor DEMOND 1.2.840.114 [id number] Univers 00:00:00 00:00:00 Only Unassigned, ANA PAULA 350.1.13.10 ity of [place] [facility] 4.2.7.2.686 Jason as [phone] [address] 2021-05-11 2021-05-11 Outpatient R ADUM, [facility] [id number] Univers 13:15:00 13:15:00 JOHNNA ity [facility] 2021-05-11 2021-05-11 Orders Doctor LAGOS 1.2.840.114 [id number] Univers 00:00:00 00:00:00 Only Unassigned, ANA PAULA 350.1.13.10 ity of [place] [facility] 4.2.7.2.686 Jason as [phone] [address] 2021-05-03 2021-05-03 Wood Coater Alan, Alexis Lab Main [facility] 1.2.8 40.114 [id number] Univers 17:36:35 17:51:35 Visit Adum, Johnna Rodriguez [place] 350.1.13.10 ity of [facility] 4.2.[place] [phone] [facility] [address] [facility] 2021-05-03 2021-05-03 Wood Coater Alan, Adc Lab Main [facility] 1.2.8 40.114 [id number] Univers 17:36:04 17:51:04 Visit Adum, Johnna K[place] 350.1.13.10 it[place] of [place] [phone] [address] 2021-05-03 2021-05-03 Routine Adum, [facility] 1.2.840.114 [id number] Univers 16:27:00 17:15:21 Johnna K[place]ALL 350.1.13.10 ity of [place] [phone] [address] 2021-05-03 2021-05-03 Outpatient R ADUM, [facility] [id number] Univers 16:15:00 17:15:21 JOHNNA ity [facility] 2021-05-03 2021-05-03 Orders Doctor DEMOND 1.2.840.114 [id number] Univers 00:00:00 00:00:00 Only Unassigned, ANA PAULA 350.1.13.10 ity of [place] [facility] 4.2.7.2.686 Jason as [phone] [address] 2021-04-19 2021-04-19 Outpatient R ADUM, [facility] [id number] Univers 14:00:00 14:00:00 JOHNNA ity [facility] 2021-04-01 2021-04-01 Routine Adum, [facility] 1.2.840.114 [id number] Univers 14:13:21 15:03:38 Johnna Kend[place] 350.1.13.10 ity of [place] [phone] [address] 2021-04-01 2021-04-01 Outpatient R ADUM, [facility] [id number] Univers 14:00:00 14:00:00 JOHNNA ity [facility] 2021-03-25 2021-03-25 Outpatient R ADUM, [facility] [id number] Univers 09:15:00 09:15:00 JOHNNA ity of [facility] 2021-03-23 2021-03-23 Outpatient R ADUM, [facility] [id number] Univers 11:00:00 11:00:00 JOHNNA ity [facility] 2021-03-18 2021-03-18 Wood Coater Ultrasound, Adc [facility] 1.2 .840.114 [id number] Univers 15:48:20 16:18:20 Visit Edward [place] 350.1.13.10 ity of [place] [phone] Md dical nal [address] [place] [address] 2021-03-18 2021-03-18 Outpatient R [facility] [id number] Univers 14:00:00 14:00:00 ity of [facility] 2021-03-10 2021-03-10 [facility] 1.2.261.909 [id number] Univers 00:00:00 00:00:00 Johnna L [place] 350.1.13.10 ity of [place] [phone] Md dical nal [address] [place] [address] 2021-03-09 2021-03-09 Laboratory Only, Adc Test [facility] 1.2.840. 114 [id number] Univers 13:15:49 13:30:49 Only Adum, Johnna Rodriguez [place] 350.1.13.10 ity of [place] 4.2.7.2.[place] [phone] [address] 2021-03-09 2021-03-09 Routine Adum, [facility] 1.2.840.114 [id number] Univers 11:31:44 12:46:12 Johnna L [place] 350.1.13.10 ity of [place] [phone] Md dical nal [address] [place] [address] 2021-03-09 2021-03-09 Outpatient R ADUM, [facility] [id number] Univers 11:15:00 11:15:00 JOHNNA ity of [facility] 2021-03-09 2021-03-09 Orders Doctor DEMOND 1.2.840.114 [id number] Univers 00:00:00 00:00:00 Only Unassigned, ANA PAULA 350.1.13.10 ity of [place] [facility] 4.2.7.2.686 Jason as [phone] [facility] 009 Branch 2021-03-03 2021-03-03 Outpatient R ADUM, [facility] [id number] Univers 14:15:00 14:15:00 JOHNNA ity [facility] 2021-02-26 2021-02-26 Nurse DEMOND Houser 1.2.840.114 [id number] Univers 00:00:00 00:00:00 Triage Kaylee GOSS 350.1.13.10 i ty of [facility] 4.2.7.2.686 Jason as [phone] [facility] [address] [place] 2021-02-08 2021-02-08 [facility]phone [facility] 1.2.798.529 [id number] Univers 00:00:00 00:00:00 Johnna Michael [place] 350.1.13.10 ity of [place] [phone] Md dical nal 134 [facility] 2021-02-07 2021-02-07 [facility]phone [facility] 1.2.974.858 [id number] Univers 00:00:00 00:00:00 Johnna Rodriguez [place] 350.1.13.10 ity of [place] [phone] Md dical nal 134 [facility] 2021-02-03 2021-02-03 Wood Coater 1, [facility] Us Room UNIVERSIT 1 .2.840.114 [id number] Univers 13:52:04 15:07:04 Visit Lynnette Castellanos [employer] [place] 350.1.13.10 ity of [place] [phone] [facility] 104 Branch 2021-02-03 2021-02-03 Outpatient P [facility] [id number] Univers 14:15:00 14:15:00 ity of [facility] 2021-01-29 2021-01-29 Case Adum, [facility] 1.2.840.114 [id number] Univers 00:00:00 00:00:00 Management Johnna L [place] 350.1.13.10 ity of [place] [phone] Md dical nal 134 [facility] 2021-01-28 2021-01-28 Outpatient R [facility] [id number] Univers 08:30:00 08:30:00 ity of [facility] 2021-01-27 2021-01-27 [facility]phone [facility] 1.2.529.021 [id number] Univers 00:00:00 00:00:00 Johnna Michael [place] 350.1.13.10 ity of [place] [phone] Md dical nal 134 [facility] 2021-01-27 2021-01-27 Telephone Ad, [facility] 1.2.221.992 [id number] Univers 00:00:00 00:00:00 Johnna Michael [place] 350.1.13.10 ity of [place] [phone] Md dical nal 134 [facility] 2021-01-26 2021-01-26 Wood Coater Alan, Adc Lab Main [facility] 1.2.8 40.114 [id number] Univers 16:44:26 16:59:26 Visit Adum, [place]na [place] 350.1.13.10 [place] of [place] [phone] Md dical nal 353 [facility] 2021-01-26 2021-01-26 Routine Adum, [facility] 1.2.840.114 [id number] Univers 14:21:54 15:48:55 Johnna Rodriguez [place] 350.1.13.10 ity of [place].2.[place] [phone] Me dical nal [address] [place] [address] 2021-01-26 2021-01-26 Outpatient R ADUM, [facility] [id number] Univers 14:00:00 14:00:00 JOHNNA jara [facility] 2021-01-26 2021-01-26 Orders Doctor DEMOND 1.2.840.114 [id number] Univers 00:00:00 00:00:00 Only Unassigned, ANA PAULA 350.1.13.10 ity of [place] [facility] 4.2.7.2.686 Jason as [phone] [address] 2021-01-25 2021-01-25 Outpatient R ADUM, [facility] [id number] Univers 10:45:00 10:45:00 JOHNNA [facility] 2021-01-24 2021-01-24 Outpatient P [facility] [id number] Univers 09:45:00 09:45:00 ity [facility] 2021-01-18 2021-01-18 Outpatient R ADUM, [facility] [id number] Univers 10:45:00 10:45:00 JOHNNA [facility] 2020-12-24 2020-12-24 Outpatient R ADUM, [facility] [id number] Univers 08:15:00 08:15:00 JOHNNA [facility] 2020-12-21 2020-12-21 Routine Adum, [facility] 1.2.840.114 [id number] Univers 16:40:30 17:02:28 Johnna Kendall 350.1.13.10 ity of [place].2.[place] [phone] Md dical nal [address] [place] [address] 2020-12-21 2020-12-21 Outpatient R ADUM, [facility] [id number] Univers 16:15:00 16:15:00 JOHNNA [facility] 2020-11-03 2020-11-03 Outpatient R ADUM, [facility] [id number] Univers 16:00:00 16:00:00 JOHNNA [facility] 2020-10-21 2020-10-21 Outpatient R [facility] [id number] Univers 13:30:00 13:30:00 ity of [facility] 2020-10-21 2020-10-21 Telephone Adum, [facility] 1.2.420.967 [id number] Univers 00:00:00 00:00:00 Johnna Rodriguez [place] 350.1.13.10 ity of [place] [phone] Md dical [address] 2020-10-20 2020-10-20 Initial Adum, [facility] 1.2.840.114 [id number] Univers 13:56:11 15:52:55 Johnna Rodriguez [place] 350.1.13.10 ity of [place] [phone] Md dic[address] 2020-10-20 2020-10-20 Outpatient R AD, [facility] [id number] Univers 13:30:00 13:30:00 JOHNNA ity of [facility] 2020-10-20 2020-10-20 Orders Doctor DEMOND 1.2.840.114 [id number] Univers 00:00:00 00:00:00 Only Unassigned, ANA PAULA 350.1.13.10 ity of [place] [facility] 4.2.7.2.686 Jason as [phone] [address] 2009-11-09 2009-11-09 Outpatient [facility] [id number] Univers 00:00:00 17:58:00 5 ity [facility] 2008-06-01 2008-06-01 Outpatient [facility] [id number] Univers 00:00:00 14:49:00 3 ity [facility] 2008-03-06 2008-03-06 Outpatient [facility] [id number] Univers 00:00:00 16:07:00 0 ity [facility] 2008-03-03 2008-03-03 Outpatient [facility] [id number] Univers 00:00:00 00:00:00 9 ity [facility] 2008-02-18 2008-02-18 Outpatient [facility] [id number] Univers 00:00:00 15:54:00 6 ity [facility] 2008-01-29 2008-01-29 Outpatient [facility] [id number] Univers 00:00:00 16:38:00 7 [facility] 2007-02-05 2007-02-05 Outpatient [facility] [id number] Univers 00:00:00 10:10:00 2 [facility] 2006-08-08 2006-08-08 Outpatient [facility] [id number] Univers 00:00:00 14:25:00 6 [facility] 2006-07-25 2006-07-25 Outpatient [facility] [id number] Univers 00:00:00 17:10:00 7 [facility] 2006-05-09 2006-05-09 Outpatient [facility] [id number] Univers 00:00:00 16:09:00 5 [facility] 2006-04-24 2006-04-24 Outpatient [facility] [id number] Univers 00:00:00 00:00:00 1 [facility] 2005-11-09 2005-11-09 Outpatient [facility] [id number] Univers 00:00:00 11:56:00 1 [facility] 2005-06-28 2005-06-28 Outpatient [facility] [id number] Univers 00:00:00 15:39:00 7 [facility] Results Test Description Test Time Test Comments Results Result Comments Source COMP. METABOLIC PANEL (60256) 2022-01-29 00:06:26 Test Item Value Reference Range Interpretation Comme nts NA (test code = 7233570388) 135 mmol/L 135-145 K (test code = 5014416236) 4.0 mmol/L 3.5-5 CL (test code = 7848151556) 101 mmol/L 98-108 CO2 TOTAL (test code = 2872864992) 22 mmol/L 23-31 L AGAP (test code = 3318506831) 2-16 BUN (test code = 8565225891) 10 mg/dL 7-23 GLUCOSE (test code = 8205246667) 120 mg/dL 70-110 H CREATININE (test code = 0.83 mg/dL 0.5-1.04 3594724370) TOTAL BILI (test code = 0.5 mg/dL 0.1-1.3 2535746418) CALCIUM (test code = 1675262160) 9.4 mg/dL 8.6-10.6 T PROTEIN (test code = 9722389657) 7.3 g/dL 6.3-8.2 ALBUMIN (test code = 5375225085) 4.5 g/dL 3.5-5 ALK PHOS (test code = 5043265977) 51 U/L 34-122 ALTv (test code = 1742-6) 19 U/L 5-35 AST(SGOT) (test code = 5072007474) 23 U/L 13-40 eGFR (test code = 9483429749) mL/min/1.73m2 MOLLY (test code = MOLLY) Association [...] tests). Lab Interpretation (test code = Abnormal 73560-3) [facility] Test Item Value Reference Range Interpretation Comments LIPASE (test code = 4453139931) 177 U/L 0-220 Lab Interpretation (test code = Normal 08619-0) [facility] WITH [id number] 00:01:25 Test Item Value Reference Range Interpretation Comments WBC (test code = See_Comment [Automated message] 6690-2) The system [employer] generated this result transmitted ref erence range: 4.30 - 1 1.10 10*3/?L. The re ference range was not u sed to interpret this result as normal/abnor mal. RBC (test code = See_Comment [Automated message] 789-8) The system [employer] generated this result transmitted ref erence range: [...] RDW-SD (test code 43.3 fL 39-49.9 = 48052-9) RDW-CV (test code 12.5 % 12-15.5 = 788-0) PLT (test code = See_Comment [Automated message] 777-3) The system [employer] generated this result transmitted ref erence range: 166 - 35 8 10*3/?L. The re ference range was not u sed to interpret this result as normal/abnor mal. MPV (test code = 9.7 fL 9.5-12.9 52723-0) NRBC/100 WBC (test See_Comment [Automat ed message] code = 9222044894) The [employer] which generated this result transmitted ref erence range: 0.0 - 10 .0 /100 WBCs. The refer ence range was not u sed to interpret this result as normal/abnor mal. NRBC x10^3 (test See_Comment [Automated message] code = 9616315897) The syste m which generated this result transmitted ref erence range: 10*3/?L. The reference range was not used to interpr et this result as normal/abnormal . GRAN MAT (NEUT) % 73.5 % (test code = 770-8) IMM GRAN % (test 0.40 % code = 7467759768) LYMPH % (test code 19.0 % = 736-9) MONO % (test code 5.8 % = 5905-5) EOS % (test code = 0.9 % 713-8) BASO % (test code 0.4 % = 706-2) GRAN MAT 6.57 10*3/uL 1.88-7.09 x10^3(ANC) (test code = 2288744574) IMM GRAN x10^3 0.04 10*3/uL 0-0.06 (test code = 6221054800) LYMPH x10^3 (test 1.70 10*3/uL 1.32-3.29 code = 731-0) MONO x10^3 (test 0.52 10*3/uL 0.33-0.92 code = 742-7) EOS x10^3 (test 0.08 10*3/uL 0.03-0.39 code = 711-2) BASO x10^3 (test 0.04 10*3/uL 0.01-0.07 code = 704-7) [facility] with Spqkcxllzkeo8465-04-65 11:10:09 Test Item Value Reference Range Interpretation Comments WBC (test code = See_Comment H [Automated 5390-2) message] The sy stem which generated this result transmitted reference range : 4.30 - 11.10 10*3/?L. The reference range was not used to interpret this result as normal/abnormal . RBC (test code = See_Comment L [Automated 869-8) message] The sy stem which generated this [...] RDW-SD (test code = 45.6 fL 39.0-49.9 13946-9) RDW-CV (test code = 13.4 % 12.0-15.5 788-0) PLT (test code = See_Comment [Automated 777-3) message] The sy stem which generated this result transmitted reference range : 166 - 358 10*3/ ?L. The reference r harpal was not used to interpret this result as normal/abnormal . MPV (test code = 10.8 fL 9.5-12.9 40544-6) NRBC/100 WBC (test See_Comment [Automat ed code = 0347034706) message] The system which generated this result transmitted reference range : 0.0 - 10.0 /100 WBCs. The refer ence range was not u sed to interpret th is result as normal/abnormal . NRBC x10^3 (test code <0.01 See_Comment [Auto mated = [id number]) message] The s ystem which generated this result transmitted reference range : 10*3/?L. The reference range was not used to interpret this result as normal/abnormal . GRAN MAT (NEUT) % 78.0 % (test code = 770-8) IMM GRAN % (test code 0.70 % = [id number]) LYMPH % (test code = 13.6 % 736-9) MONO % (test code = 6.0 % 5905-5) EOS % (test code = 1.3 % 713-8) BASO % (test code = 0.4 % 706-2) GRAN MAT x10^3(ANC) 8.89 10*3/uL 1.88-7.09 H (test code = [id number]) IMM GRAN x10^3 (test 0.08 10*3/uL 0.00-0.06 H code = [id number]) LYMPH x10^3 (test code 1.55 10*3/uL 1.32-3.29 = 731-0) MONO x10^3 (test code 0.68 10*3/uL 0.33-0.92 = 742-7) EOS x10^3 (test code = 0.15 10*3/uL 0.03-0.39 711-2) BASO x10^3 (test code 0.05 10*3/uL 0.01-0.07 = 704-7) Lab Interpretation Abnormal (test code = 00918-5) [facility] with [id number] 11:10:09 Test Item Value Reference Range Interpretation [...] RDW-SD (test code = 45.6 fL 39.0-49.9 33187-5) RDW-CV (test code = 13.4 % 12.0-15.5 788-0) PLT (test code = See_Comment [Automated 777-3) message] The sy stem which generated this result transmitted reference range : 166 - 358 10*3/ ?L. The reference r harpal was not used to interpret this result as normal/abnormal . MPV (test code = 10.8 fL 9.5-12.9 87054-0) NRBC/100 WBC (test See_Comment [Automat ed code = [id number]) message] The system which generated this result transmitted reference range : 0.0 - 10.0 /100 WBCs. The refer ence range was not u sed to interpret th is result as normal/abnormal . NRBC x10^3 (test code <0.01 See_Comment [Auto mated = [id number]) message] The s ystem which generated this result transmitted reference range : 10*3/?L. The reference range was not used to interpret this result as normal/abnormal . GRAN MAT (NEUT) % 78.0 % (test code = 770-8) IMM GRAN % (test code 0.70 % = [id number]) LYMPH % (test code = 13.6 % 736-9) MONO % (test code = 6.0 % 5905-5) EOS % (test code = 1.3 % 713-8) BASO % (test code = 0.4 % 706-2) GRAN MAT x10^3(ANC) 8.89 10*3/uL 1.88-7.09 H (test code = [id number]) IMM GRAN x10^3 (test 0.08 10*3/uL 0.00-0.06 H code = [id number]) LYMPH x10^3 (test code 1.55 10*3/uL 1.32-3.29 = 731-0) MONO x10^3 (test code 0.68 10*3/uL 0.33-0.92 = 742-7) EOS x10^3 (test code = 0.15 10*3/uL 0.03-0.39 711-2) BASO x10^3 (test code 0.05 10*3/uL 0.01-0.07 = 704-7) Lab Interpretation Abnormal (test code = 66061-5) [facility] [id number] 18:56:23 Test Item Value Reference Range Interpretation Comments RHIG CANDIDATE? No- see comment Patient i s not a (test code = candidate for R hIg- 5055) Patient is Rh Positive.Perfor med at [facility] Laboratory Services - [facility] Blood [address] [place] [id number] Free: [phone] A No. [id number] [facility] IMMUNE [id number] 18:56:23 Test Item Value Reference Range Interpretation Comments RHIG CANDIDATE? No- see comment Patient i s not a (test code = candidate for R hIg- 5055) Patient is Rh Positive.Perfor med at [facility] Laboratory Services - [facility] Blood [address] [place] [id number] Free: [phone] A No. [id number] [facility]/O SPECIFIC [id number] 20:25:00 Test Item Value Reference Range Interpretation [...] code = 3257) N/A Negative - Negative [facility] SPECIFIC [id number] 21:54:00 Test Item Value Reference Range Interpretation [...] Negative Lab Interpretation (test code = Normal 48993-8) [facility]/O SPECIFIC [id number] 19:44:00 Test Item Value Reference Range Interpretation [...] Negative POCT U BLD (test code = 8607) n/a Negative - Negative [facility]"
--- NOTE | 2022-08-17 15:20 | ER ---
Nurse's Notes [facility] Name: Mary Ann Lin Age: 37 yrs Sex: Female : 1985 Arrival Date: 08/17/2022 Time: 12:49 Bed IW1 Private MD: Diagnosis: Presentation: 08/17 13:18 [facility] jl7 Assessment: 15:00 Reassessment: Called patient again to triage. No answer. Unable to locate patient. ss Attempted to call number on file. Not a working number. ED Course: 12:49 Patient arrived in ED. mr 13:07 Jhonatan Faustin PA is PHCP. con 13:07 Apurva Rojas MD is Attending Physician. con Administered Medications: No medications were administered Outcome: 15:19 Patient left the ED. Signatures: Jhonatan Faustin PA PA jmm [place] Gauri Corley RN RN Shanelle Damico RN RN jl7
== END 2022-08-17 15:19 | disposition left against medical advice (07) ==
LOC: ER 12:48
DX: Z02.9 Encounter for administrative examinations, unspecified (principal)

== ENCOUNTER 2023-05-05 16:38 | Emergency (ER) | payer OTHER ==
--- OUTSIDE RECORDS SUMMARY | 2023-05-05 16:42 | XMS REPORT | Continuity of Care Document ---
:1985 Author Organization [facility] t Address [address] [place] [address] [place] [id number] Care Team Providers Name Role Phone Pcp, Patient Does Not Have A Primary Care Physician +1-000-0 00-0000 FELICITAS TORRES Attending Clinician Unavailable Torres PACFelicitas Attending Clinician JOHNNA YO Attending Clinician Unavailable Johnna Yo MD Attending Clinician Only, Adc Test Attending Clinician Unavailable Pob, Adc Lab Main Attending Clinician Unavailable Doctor Unassigned, [place] Attending Clinician Unavailable Ultrasound, Adc Mfm Attending Clinician Unavailable Edward Martínez MD Attending Clinician Kaylee Houesr RN Attending Clinician Unavailable 1, [facility] Mfm Usg Room Attending Clinician Unavailable Lynnette Castellanos MD Attending Clinician JOHNNA YO Admitting Clinician Unavailable Johnna Yo MD Admitting Clinician Payers Payer Name Policy Type Policy Number Effective Date Expiration Date S nikhil [employer] [id number] 2016 HEALTH 00:00:00 Problems Condition Condition Condition Status Onset Resolution Last Treating Co mments Source Name Details Category Date Date Treatment Clinician Date Single Single Disease Active 2020-07 Univers liveborn, liveborn, 1-18 ity of born in born in 00:00: [facility], 00 Medi sarah delivered delivered Bran ch by by section section Obesity Obesity Disease Active 2021-1 Univers (BMI (BMI 0-01 ity of 30-39.9) 30-39.9) 00:00: [place] 00 Medical Branch Anemia of Anemia of Disease Active Uni vers mother in mother in 7-31 [place]y [place] , , [place]:00[place] antepartum antepartum 00 Me dical Branch Anemia of Anemia of Disease Active [...] ity of of of 00:00: [place] 00 [facility] 36 weeks 36 weeks Disease Active Unive rs gestation gestation 4-21 ity of of of 00:00: [place] 00 [facility] 38 weeks 38 weeks Disease Active Unive rs gestation gestation 4-21 ity of of of 00:00: [place] 00 [facility] 39 weeks 39 weeks Disease Active Unive rs gestation gestation 4-21 ity of of of 00:00: [place] 00 [facility] History of History of Disease Active 2016-07 U nivers seizure seizure 2-13 ity of 00:00: [place] 00 Medical Branch Tobacco Tobacco Disease Active 2016-07 Univers use use 2-13 ity of disorder disorder 00:00: [place] [id number] Medical Branch Depression Depression Disease Active U nivers ity of [facility] Branch Anxiety Anxiety Disease Active Overview: Univ ers [place] ity of g of this [place] note Medical might be Branch different from the original. dx: 2005, currently on SSRI and Benzodiaz epines Previous Previous Disease Active Unive rs ity of section section [facility] Allergies, Adverse Reactions, Alerts Allergy Allergy Status Severity Reaction(s) Onset Inactive Treating Comm ents Source Name Type Date Date Clinician NO KNOWN Drug Active [facility] ALLERGIE Class ity of S [facility] Social History Social Habit Start Date Stop Date Quantity Comments Source ASSERTION 2020-09-01 [facility] 00:00:00 [facility] History of tobacco 2007-06-13 Cigarette Smoker University of use 00:00:00 [facility] Sexual orientation Univer sity [facility] [place] [facility] Exposure to 2022-01-18 2022-01-28 Not sure University SARS-CoV-2 (event) 00:00:00 17:23:00 [facility] History of Social 2022-01-28 2022-01-28 Univers ity of function 00:00:00 00:00:00 [facility] Cigarettes smoked 2020-12-21 2020-12-21 Univers ity of current (pack per 00:00:00 00:00:00 [facility] ) - Reported [place] Tobacco use and 2020-12-21 2020-12-21 Smokeless Universit y of exposure 00:00:00 00:00:00 tobacco non-user [facility] Alcohol intake 2020-12-21 2020-12-21 Ex-drinker [facility] 00:00:00 00:00:00 (finding) [facility] Tobacco Comment 2020-10-20 2020-10-20 < 1/2 PPD, was Unive rsity of 00:00:00 00:00:00 smoking 1 PPD [facility] Sex Assigned At [birth year] Universit y of 00:00:00 00:00:00 [facility] Smoking Status Start Date Stop Date Source Smokes tobacco daily 2020-12-21 00:00:00 Univers ity [facility] [place] [facility] Medications Ordered Filled Start Stop Current Ordering Indication Dosage Frequency Signature Comments Components Source Medication Medication Date Date Medication? Clinician (SIG) Name Name acetaminoph No 1000mg 1,000 mg, Univers en 01-29 Oral, ity of (TYLENOL) 00:30: 23:25 ONCE, 1 [place] tablet 00 :00 dose, On Medical 1,000 mg [facility] 01/28/22 at 1930, Routine ketorolac No 30mg 30 mg, Unive rs (TORADOL) 7-31 07-30 Slow IV ity of injection 00:30: 23:26 Push, [place] 30 mg 00 :00 ONCE, 1 Medical dose, On Branch 01/28/22 at 1930, JYOTI ibuprofen 2021-0 Yes [id number] 800mg Take 1 U nivers 800 mg 7-30 tablet by ity of tablet 00:00: mouth [place] 00 every 8 Medical (eight) Branch hours as needed for Pain (scale 4-6). 2020-07 Yes Take by Hypemarkser s vit 1-20 mouth. ity of calc,iron,f 11:10: [place] [address] Medical ( Branch VITAMIN ORAL) 2020-07 Yes Take by Hypemarkser s vit 1-20 mouth. ity of calc,iron,f 11:10: [place] [address] Medical ( Branch VITAMIN ORAL) 2020-07 Yes Take by Hypemarkser s vit 1-20 mouth. ity of calc,iron,f 11:10: [place] [address] Medical ( Branch VITAMIN ORAL) 2020-07 Yes Take by Hypemarkser s vit 1-20 mouth. ity of calc,iron,f 11:10: [place] [address] Medical ( Branch VITAMIN ORAL) 2020-07 Yes Take by Hypemarkser s vit 1-20 mouth. ity of calc,iron,f 11:10: [place] [address] Medical ( Branch VITAMIN ORAL) 2020-07 Yes Take by Hypemarkser s vit 1-20 mouth. ity of calc,iron,f 11:10: [place] [address] Medical ( Branch VITAMIN ORAL) 2020-07 Yes Take by Hypemarkser s vit 1-20 mouth. ity of calc,iron,f 11:10: [place] [address] Medical ( Branch VITAMIN ORAL) 2020-07 Yes Take by Hypemarkser s vit 1-20 mouth. ity of calc,iron,f 11:10: [place] [address] Medical ( Branch VITAMIN ORAL) 2020-07 Yes Take by Hypemarkser s vit 1-20 mouth. ity of calc,iron,f 11:10: [place] [address] Medical ( Branch VITAMIN ORAL) 2020-07 Yes Take by Hypemarkser s vit 1-20 mouth. ity of calc,iron,f 11:10: [place] [address] Medical ( Branch VITAMIN ORAL) 2020-07 Yes Take by Univer s vit 1-20 mouth. ity of calc,iron,f 11:10: [place] [address] Medical ( Branch VITAMIN ORAL) 2020-07 Yes Take by Univer s vit 1-20 mouth. ity of calc,iron,f 11:10: [place] [address] Medical ( Branch VITAMIN ORAL) 2020-07 Yes Take by Univer s vit 1-20 mouth. ity of calc,iron,f 11:10: [place] [address] Medical ( Branch VITAMIN ORAL) 2020-07 Yes Take by Univer s vit 1-20 mouth. ity of calc,iron,f 11:10: [place] [address] Medical ( Branch VITAMIN ORAL) 2020-07 Yes Take by Univer s vit 1-20 mouth. ity of calc,iron,f 11:10: [address] ( Branch VITAMIN ORAL) 2020-07 Yes Take by Univer s vit 1-20 mouth. ity of calc,iron,f 11:10: [place] [address] Medical ( Branch VITAMIN ORAL) 2020-07 Yes Take by Univer s vit 1-20 mouth. ity of calc,iron,f 11:10: [place] [address] Medical ( Branch VITAMIN ORAL) 2020-07 Yes Take by Univer s vit 1-20 mouth. ity of calc,iron,f 11:10: [place] [address] Medical ( Branch VITAMIN ORAL) 2020-07 Yes Take by Univer s vit 1-20 mouth. ity of calc,iron,f 11:10: [place] [address] Medical ( Branch VITAMIN ORAL) 2020-07 Yes Take by Univer s vit 1-20 mouth. ity of calc,iron,f 11:10: [place] [address] Medical ( Branch VITAMIN ORAL) simethicone 2020-07 Yes 80mg 80 mg, Univ ers (GAS RELIEF - Oral, BID, it y of (SIMETHICON 23:45: First dose [place] E)) 00 (after Medical chewable last Branch tablet 80 modificati mg on) on Sun05/20/21 at 1745, Until Discontinu ed, Routine 2020-07 Yes Take by Univer s vit 1-19 mouth. ity of calc,iron,f 07:53: [place] olic 25 Medical ( Branch VITAMIN ORAL) 2020-07 Yes [id number] 1{tbl} Take 1 Univers vitamin 1-19 tablet by ity of w/FA tablet 00:00: mouth [place] 00 daily. Medical Branch docusate 2020-07 Yes [id number] 240mg Take 1 U nivers calcium 240 1-19 capsule by it y of mg capsule 00:00: mouth once [place] 00 daily as Medical needed for Branch Constipati on. ferrous 2020-07 Yes [id number] 325mg Take 1 Un go sulfate 325 1-19 tablet by ity of mg (65 mg 00:00: mouth 2 [place] iron) 00 (two) Medical tablet times Branch daily. ibuprofen 2020-07 Yes [id number] 800mg Take 1 Univers 800 mg 1-19 [...] hours. Indication s: acute pain 2020-07 Yes [id number] 1{tbl} Take 1 Univers vitamin 1-19 tablet by ity of w/FA tablet 00:00: mouth [place] 00 daily. Medical Branch docusate 2020-07 Yes [id number] 240mg Take 1 U nivers calcium 240 1-19 capsule by it y of mg capsule 00:00: mouth once [place] 00 daily as Medical needed for Branch Constipati on. ferrous 2020-07 Yes [id number] 325mg Take 1 Un go sulfate 325 1-19 tablet by ity of mg (65 mg 00:00: mouth 2 [place] iron) 00 (two) Medical tablet times Branch daily. ibuprofen 2020-07 Yes [id number] 800mg Take 1 Univers 800 mg 1-19 [...] hours. Indication s: acute pain 2020-07 Yes [id number] 1{tbl} Take 1 Univers vitamin 1-19 tablet by ity of w/FA tablet 00:00: mouth [place] 00 daily. Medical Branch docusate 2020-07 Yes [id number] 240mg Take 1 U nivers calcium 240 1-19 capsule by it y of mg capsule 00:00: mouth once [place] 00 daily as Medical needed for Branch Constipati on. ferrous 2020-07 Yes [id number] 325mg Take 1 Un go sulfate 325 1-19 tablet by ity of mg (65 mg 00:00: mouth 2 [place] iron) 00 (two) Medical tablet times Branch daily. ibuprofen 2020-07 Yes [id number] 800mg Take 1 Univers 800 mg 1-19 [...] hours. Indication s: acute pain 2020-07 Yes [id number] 1{tbl} Take 1 Univers vitamin 1-19 tablet by ity of w/FA tablet 00:00: mouth [place] 00 daily. Medical Branch docusate 2020-07 Yes [id number] 240mg Take 1 U nivers calcium 240 1-19 capsule by it y of mg capsule 00:00: mouth once [place] 00 daily as Medical needed for Branch Constipati on. ferrous 2020-07 Yes [id number] 325mg Take 1 Un go sulfate 325 [...] hours. Indication s: acute pain 2020-07 Yes [id number] 1{tbl} Take 1 Univers vitamin 1-19 tablet by ity of w/FA tablet 00:00: mouth [place] 00 daily. Medical Branch docusate 2020-07 Yes [id number] 240mg Take 1 U nivers calcium 240 1-19 capsule by it y of mg capsule 00:00: mouth once [place] 00 daily as Medical needed for Branch Constipati on. ferrous 2020-07 Yes [id number] 325mg Take 1 Un go sulfate 325 [...] Indication s: acute pain ibuprofen 2020-07- No [id number] 800mg Take 1 Univers 800 mg 1-19 [...] Minutes, Q6H, 3 doses, First dose on [place] 05/19/21 at 1600, Last dose on Sun05/20/21 at 0000, Routine
Indicatio n: Perioperat cecilia Patient ibuprofen 2020-07 Yes 800mg 800 mg, Univ ers (IBU) 1-18 Oral, Q8H, ity of tablet 800 20:00: First dose [place] mg 00 on [place] Medical 05/19/21 Branch at 1400, Until Discontinu ed, Routine ibuprofen 2020-07 Yes 800mg 800 mg, Univ ers (IBU) 1-18 Oral, Q8H, ity of tablet 800 20:00: First dose [place] mg 00 on [facility] Medical 05/19/21 Branch at 1400, Until Discontinu ed, Routine simethicone 2020-07 Yes 80mg 80 mg, Univ ers (GAS RELIEF 18 Oral, ity of (SIMETHICON 18:30: DAILY, [place] E)) 00 First dose Medical chewable on [facility] Branch tablet 80 05/19/21 mg at 1230, Until Discontinu ed, Routine simethicone 2020-07- No 80mg 80 mg, Uni vers (GAS RELIEF 07-19 Oral, ity of (SIMETHICON 18:30: 23:42 DAILY, [place] E)) 00 :05 First dose Medical chewable on [facility] Branch tablet 80 05/19/21 mg at 1230, Until Discontinu ed, Routine ketorolac 2020-07- No 30mg 30 mg, Unive rs (TORADOL) 07-19 Slow IV ity of injection 18:00: 05:23 Push, Q6H, [place] 30 mg 00 :00 3 doses, Medical First dose Branch (after last modificati on) on Sun05/19/21 at 1200, Last dose on Sun05/20/21 at 0000, Routine
meat team member approving Restricted medication : ADC OBGYN rho(D) 2020-07 Yes 300ug [facility] Intramuscu ity of globulin 16:28: lar, ONCE, [place] (RHOGAM) 34 For 1 Medical syringe 300 dose, Branch mcg Conditiona l, Routine rho(D) 2020-07 Yes 300ug 300 mcg, Univer s immune -18 Intramuscu ity of globulin 16:28: lar, ONCE, [place] (RHOGAM) 34 For 1 Medical syringe 300 dose, Branch mcg Conditiona l, Routine HYDROcodone 2020-07 Yes 2{tbl} 2 tablet, Univers -acetaminop 07-19 Oral, ity of hen (NORCO 16:24: Q6HPRN, [place] 5) 5-325 mg 53 Starting Medi sarah tablet 2 on [facility] tablet 05/19/21 at 1024, Until Discontinu [...] 25 41 Starting Medica l mg on [facility] Branch 05/19/21 at 1023, Until Discontinu ed, Routine, Sleep, Itching ondansetron 2020-07 Yes 4mg 4 mg, Slow Univers (ZOFRAN 1-18 IV Push, ity of (PF)) 16:23: Q8HPRN, [place] injection 4 41 Starting Medi sarah mg on [facility] 05/19/21 at 1023, Until Discontinu ed, [...] 25 41 Starting Medica l mg on [facility] Branch 05/19/21 at 1023, Until Discontinu ed, Routine, Sleep, Itching ondansetron 2020-07 Yes 4mg 4 mg, Slow Univers (ZOFRAN 1-18 IV Push, ity of (PF)) 16:23: Q8HPRN, [place] injection 4 41 Starting Medi sarah mg on [facility] 05/19/21 at 1023, Until Discontinu ed, Routine, Nausea and Vomiting (N/V) bisacodyL 2020-07 Yes 10mg 10 mg, Univer s (DULCOLAX) 118 Rectal, ity of suppository 16:23: QDAILYPRN, [place] 10 mg 41 Starting Medical on [facility] 05/19/21 at 1023, Until Discontinu ed, Routine, Constipati on magnesium 2020-07 Yes 30mL 30 mL, Univer s hydroxide -18 Oral, ity of (MILK OF 16:23: QDAILYPRN, [place] MAGNESIA) 41 Starting Medica l 400 mg/5 mL on [facility] Branch suspension 05/19/21 30 mL at 1023, Until Discontinu ed, Routine, Constipati on sodium 2020-07 Yes PRN, Univers chloride 1-18 Starting ity of 0.9 % 15:00: on [place] irrigation 00 05/19/21 Medic al solution at 0900, Branch Until Discontinu ed, Intra-op sodium 2020-07 Yes PRN, Univers chloride -18 Starting ity of 0.9 % 15:00: on [place] irrigation 00 11/18/21 Medic al solution at 0900, Branch Until Discontinu ed, Intra-op lactated 2020-07- No 500mL at 999 Unive rs ringers IV 07-19-18 mL/hr, 500 it y of infusion 14:30: 14:24 mL, IV [place] 500 mL 00 :00 Infusion, Medical ONCE, 1 Branch dose, On [place] 05/19/21 at 0830, Routine lactated 2020-07- No 1000mL at 125 Univ ers ringers IV 07-19 11-18 mL/hr, ity of infusion 14:30: 16:28 1,000 mL, [place] 1,000 mL 00 :35 IV Medical Infusion, Branch CONTINUOUS , Starting on [place] 05/19/21 at 0830, Until [place] 05/19/21 at 1028, Routine sodium 2020-07- No 30mL 30 mL, Univers citrate-cit 07-19-18 Oral, ity of kim acid 14:22: 14:34 PRE-PROCED [place] (BICITRA) 50 :00 URE ONCE, Medic al [id number] 1 dose, Branch mg/5 mL Starting solution 30 on [place] mL 05/19/21 at 0822, Until 05/21/21 at 2359, Routine, Surgery/Pr ocedure hydrOXYzine 2020-07 Yes [id number] 25mg Take 1 Univers 25 mg 0-01 capsule by ity of capsule 00:00: mouth (four) Medical times Branch daily as needed for Anxiety. hydrOXYzine 2020-07 Yes [id number] 25mg Take 1 Univers 25 mg 0-01 capsule by ity of capsule 00:00: mouth (four) Medical times Branch daily as needed for Anxiety. hydrOXYzine 2020-07 Yes [id number] 25mg Take 1 Univers 25 mg 0-01 capsule by ity of capsule 00:00: mouth 4 (four) Medical times Branch daily as needed for Anxiety. hydrOXYzine 2020-07 Yes [id number] 25mg Take 1 Univers 25 mg 0-01 capsule by ity of capsule 00:00: mouth 4 (four) Medical times Branch daily as needed for Anxiety. hydrOXYzine 2020-07 Yes [id number] 25mg Take 1 Univers 25 mg 0-01 capsule by ity of capsule 00:00: mouth 4 00 (four) Medical times Branch daily as needed for Anxiety. hydrOXYzine 2020-07 Yes [id number] 25mg Take 1 Univers 25 mg 0-01 capsule by ity of capsule 00:00: mouth () Medical times Branch daily as needed for Anxiety. hydrOXYzine 2020-07 Yes [id number] 25mg Take 1 Univers 25 mg 0-01 capsule by ity of capsule 00:00: mouth () Medical times Branch daily as needed for Anxiety. hydrOXYzine 2020-07 Yes [id number] 25mg Take 1 Univers 25 mg 0-01 capsule by ity of capsule 00:00: mouth (four) Medical times Branch daily as needed for Anxiety. hydrOXYzine 2020-07 Yes [id number] 25mg Take 1 Univers 25 mg 0-01 capsule by ity of capsule 00:00: mouth () Medical times Branch daily as needed for Anxiety. hydrOXYzine 2020-07 Yes [id number] 25mg Take 1 Univers 25 mg 0-01 capsule by ity of capsule 00:00: mouth () Medical times Branch daily as needed for Anxiety. hydrOXYzine 2020-07 Yes [id number] 25mg Take 1 Univers 25 mg 0-01 capsule by ity of capsule 00:00: mouth () Medical times Branch daily as needed for Anxiety. hydrOXYzine 2020-07 Yes [id number] 25mg Take 1 Univers 25 mg 0-01 capsule by ity of capsule 00:00: mouth () Medical times Branch daily as needed for Anxiety. hydrOXYzine 2020-07 Yes [id number] 25mg Take 1 Univers 25 mg 0-01 capsule by ity of capsule 00:00: mouth () Medical times Branch daily as needed for Anxiety. hydrOXYzine 2020-07 Yes [id number] 25mg Take 1 Univers 25 mg 0-01 capsule by ity of capsule 00:00: mouth () Medical times Branch daily as needed for Anxiety. hydrOXYzine 2020-07 Yes [id number] 25mg Take 1 Univers 25 mg 0-01 capsule by ity of capsule 00:00: mouth () Medical times Branch daily as needed for Anxiety. hydrOXYzine 2020-07 Yes [id number] 25mg Take 1 Univers 25 mg 0-01 capsule by ity of capsule 00:00: mouth 4 (four) Medical times Branch daily as needed for Anxiety. hydrOXYzine 2020-07 Yes [id number] 25mg Take 1 Univers 25 mg 0-01 capsule by ity of capsule 00:00: mouth 4 (four) Medical times Branch daily as needed for Anxiety. hydrOXYzine 2020-07 Yes [id number] 25mg Take 1 Univers 25 mg 0-01 capsule by ity of capsule 00:00: mouth (four) Medical times Branch daily as needed for Anxiety. azithromyci 2020-2020- No 250mg Take 1 Un go n 250 mg 03-10 tablet by ity o f tablet 00:00: 00:00 mouth [place] 00 :00 daily. Medical Take 500 Branch mg day 1, then 250 mg days 2 to 5. clonazePAM 2020-0 Yes [id number] .5mg Take 1 U nivers 0.5 mg 9-08 tablet by ity of tablet 00:00: mouth 00 every 8 Medical (eight) Branch hours as needed (Anxiety). clonazePAM 2020-0 Yes [id number] .5mg Take 1 U nivers 0.5 mg 9-08 tablet by ity of tablet 00:00: mouth 00 every 8 Medical (eight) Branch hours as needed (Anxiety). clonazePAM 1-0 Yes [id number] .5mg Take 1 U nivers 0.5 mg 9-08 tablet by ity of tablet 00:00: mouth [place] 00 every 8 Medical (eight) Branch hours as needed (Anxiety). clonazePAM 1-0 Yes [id number] .5mg Take 1 U nivers 0.5 mg 9-08 tablet by ity of tablet 00:00: mouth [place] 00 every 8 Medical (eight) Branch hours as needed (Anxiety). clonazePAM 2021-0 Yes [id number] .5mg Take 1 U nivers 0.5 mg 9-08 tablet by ity of tablet 00:00: mouth [place] 00 every 8 Medical (eight) Branch hours as needed (Anxiety). clonazePAM 2021-0 Yes [id number] .5mg Take 1 U nivers 0.5 mg 9-08 tablet by ity of tablet 00:00: mouth [place] 00 every 8 Medical (eight) Branch hours as needed (Anxiety). clonazePAM 2021-0 Yes [id number] .5mg Take 1 U nivers 0.5 mg 9-08 tablet by ity of tablet 00:00: mouth [place] 00 every 8 Medical (eight) Branch hours as needed (Anxiety). clonazePAM 2021-0 Yes [id number] .5mg Take 1 U nivers 0.5 mg 9-08 tablet by ity of tablet 00:00: mouth [place] 00 every 8 Medical (eight) Branch hours as needed (Anxiety). clonazePAM 2021-0 Yes [id number] .5mg Take 1 U nivers 0.5 mg 9-08 tablet by ity of tablet 00:00: mouth [place] 00 every 8 Medical (eight) Branch hours as needed (Anxiety). clonazePAM 2021-0 Yes [id number] .5mg Take 1 U nivers 0.5 mg 9-08 tablet by ity of tablet 00:00: mouth [place] 00 every 8 Medical (eight) Branch hours as needed (Anxiety). clonazePAM 2021-0 Yes [id number] .5mg Take 1 U nivers 0.5 mg 9-08 tablet by ity of tablet 00:00: mouth [place] 00 every 8 Medical (eight) Branch hours as needed (Anxiety). clonazePAM 2021-0 Yes [id number] .5mg Take 1 U nivers 0.5 mg 9-08 tablet by ity of tablet 00:00: mouth [place] 00 every 8 Medical (eight) Branch hours as needed (Anxiety). clonazePAM 2021-0 Yes [id number] .5mg Take 1 U nivers 0.5 mg 9-08 tablet by ity of tablet 00:00: mouth [place] 00 every 8 Medical (eight) Branch hours as needed (Anxiety). clonazePAM 2021-0 Yes [id number] .5mg Take 1 U nivers 0.5 mg 9-08 tablet by ity of tablet 00:00: mouth [place] 00 every 8 Medical (eight) Branch hours as needed (Anxiety). clonazePAM 2021-0 Yes [id number] .5mg Take 1 U nivers 0.5 mg 9-08 tablet by ity of tablet 00:00: mouth [place] 00 every 8 Medical (eight) Branch hours as needed (Anxiety). clonazePAM 2021-0 Yes [id number] .5mg Take 1 U nivers 0.5 mg 9-08 tablet by ity of tablet 00:00: mouth [place] 00 every 8 Medical (eight) Branch hours as needed (Anxiety). clonazePAM 2021-0 Yes [id number] .5mg Take 1 U nivers 0.5 mg 9-08 tablet by ity of tablet 00:00: mouth [place] 00 every 8 Medical (eight) Branch hours as needed (Anxiety). clonazePAM 2021-0 Yes [id number] .5mg Take 1 U nivers 0.5 mg 9-08 tablet by ity of tablet 00:00: mouth [place] 00 every 8 Medical (eight) Branch hours as needed (Anxiety). clonazePAM 2021-0 Yes [id number] .5mg Take 1 U nivers 0.5 mg 9-08 tablet by ity of tablet 00:00: mouth [place] 00 every 8 Medical (eight) Branch hours as needed (Anxiety). clonazePAM 2021-0 Yes [id number] .5mg Take 1 U nivers 0.5 mg 9-08 tablet by ity of tablet 00:00: mouth [place] 00 every 8 Medical (eight) Branch hours as needed (Anxiety). clonazePAM 1-0 Yes [id number] .5mg Take 1 U nivers 0.5 mg 9-08 tablet by ity of tablet 00:00: mouth [place] 00 every 8 Medical (eight) Branch hours as needed (Anxiety). clonazePAM 2021-0 Yes [id number] .5mg Take 1 U nivers 0.5 mg 9-08 tablet by ity of tablet 00:00: mouth [place] 00 every 8 Medical (eight) Branch hours as needed (Anxiety). ferrous 2021-0 Yes [id number] 325mg Take 1 Uni vers sulfate 325 7-31 tablet by ity of mg (65 mg 00:00: mouth 2 [place] iron) 00 (two) Medical tablet times Branch daily. ferrous 2021-0 Yes [id number] 325mg Take 1 Uni vers sulfate 325 7-31 tablet by ity of mg (65 mg 00:00: mouth 2 [place] iron) 00 (two) Medical tablet times Branch daily. ferrous 2021-0 Yes [id number] 325mg Take 1 Uni vers sulfate 325 7-31 tablet by ity of mg (65 mg 00:00: mouth 2 [place] iron) 00 (two) Medical tablet times Branch daily. ferrous 2021-0 Yes [id number] 325mg Take 1 Uni vers sulfate 325 7-31 tablet by ity of mg (65 mg 00:00: mouth 2 [place] iron) 00 (two) Medical tablet times Branch daily. ferrous 0 Yes [id number] 325mg Take 1 Uni vers sulfate 325 7-31 tablet by ity of mg (65 mg 00:00: mouth 2 [place] iron) 00 (two) Medical tablet times Branch daily. ferrous 0 Yes [id number] 325mg Take 1 Uni vers sulfate 325 7-31 tablet by ity of mg (65 mg 00:00: mouth 2 [place] iron) 00 (two) Medical tablet times Branch daily. ferrous 0 Yes [id number] 325mg Take 1 Uni vers sulfate 325 7-31 tablet by ity of mg (65 mg 00:00: mouth 2 [place] iron) 00 (two) Medical tablet times Branch daily. ferrous 0 Yes [id number] 325mg Take 1 Uni vers sulfate 325 7-31 tablet by ity of mg (65 mg 00:00: mouth 2 [place] iron) 00 (two) Medical tablet times Branch daily. ferrous 0 Yes [id number] 325mg Take 1 Uni vers sulfate 325 7-31 tablet by ity of mg (65 mg 00:00: mouth 2 [place] iron) 00 (two) Medical tablet times Branch daily. ferrous 0 Yes [id number] 325mg Take 1 Uni vers sulfate 325 7-31 tablet by ity of mg (65 mg 00:00: mouth 2 [place] iron) 00 (two) Medical tablet times Branch daily. ferrous 0 Yes [id number] 325mg Take 1 Uni vers sulfate 325 7-31 tablet by ity of mg (65 mg 00:00: mouth 2 [place] iron) 00 (two) Medical tablet times Branch daily. ferrous 0 Yes [id number] 325mg Take 1 Uni vers sulfate 325 7-31 tablet by ity of mg (65 mg 00:00: mouth 2 [place] iron) 00 (two) Medical tablet times Branch daily. ferrous 0 Yes [id number] 325mg Take 1 Un go sulfate 325 7-31 tablet by ity of mg (65 mg 00:00: mouth 2 [place] iron) 00 (two) Medical tablet times Branch daily. ferrous 2020-0 Yes [id number] 325mg Take 1 Un go sulfate 325 7-31 tablet by ity of mg (65 mg 00:00: mouth 2 [place] iron) 00 (two) Medical tablet times Branch daily. ferrous Yes [id number] 325mg Take 1 Un go sulfate 325 7-31 tablet by ity of mg (65 mg 00:00: mouth 2 [place] iron) 00 (two) Medical tablet times Branch daily. ferrous Yes [id number] 325mg Take 1 Un go sulfate 325 7-31 tablet by ity of mg (65 mg 00:00: mouth 2 [place] iron) 00 (two) Medical tablet times Branch daily. ferrous Yes [id number] 325mg Take 1 Un go sulfate 325 7-31 tablet by ity of mg (65 mg 00:00: mouth 2 [place] iron) 00 (two) Medical tablet times Branch daily. ferrous Yes [id number] 325mg Take 1 Un go sulfate 325 7-31 tablet by ity of mg (65 mg 00:00: mouth 2 [place] iron) 00 (two) Medical tablet times Branch daily. ferrous Yes [id number] 325mg Take 1 Un go sulfate 325 7-31 tablet by ity of mg (65 mg 00:00: mouth 2 [place] iron) 00 (two) Medical tablet times Branch daily. ferrous Yes [id number] 325mg Take 1 Un go sulfate 325 7-31 tablet by ity of mg (65 mg 00:00: mouth 2 [place] iron) 00 (two) Medical tablet times Branch daily. ferrous Yes [id number] 325mg Take 1 Un go sulfate 325 7-31 tablet by ity of mg (65 mg 00:00: mouth 2 [place] iron) 00 (two) Medical tablet times Branch daily. ferrous Yes [id number] 325mg Take 1 Un go sulfate 325 7-31 tablet by ity of mg (65 mg 00:00: mouth 2 [place] iron) 00 (two) Medical tablet times Branch daily. ferrous Yes [id number] 325mg Take 1 Un go sulfate 325 7-31 tablet by ity of mg (65 mg 00:00: mouth 2 [place] iron) 00 (two) Medical tablet times Branch daily. ferrous Yes [id number] 325mg Take 1 Un go sulfate 325 7-31 tablet by ity of mg (65 mg 00:00: mouth 2 [place] iron) 00 (two) Medical tablet times Branch daily. ferrous Yes [id number] 325mg Take 1 Un go sulfate 325 7-31 tablet by ity of mg (65 mg 00:00: mouth 2 [place] iron) 00 (two) Medical tablet times Branch daily. ferrous Yes [id number] 325mg Take 1 Un go sulfate 325 7-31 tablet by ity of mg (65 mg 00:00: mouth 2 [place] iron) 00 (two) Medical tablet times Branch daily. ferrous Yes [id number] 325mg Take 1 Uni vers sulfate 325 7-31 tablet by ity of mg (65 mg 00:00: mouth 2 [place] iron) 00 (two) Medical tablet times Branch daily. ferrous Yes [id number] 325mg Take 1 Uni vers sulfate 325 7-31 tablet by ity of mg (65 mg 00:00: mouth 2 [place] iron) 00 (two) Medical tablet times Branch daily. Yes Take by Hypemarkser s vit 4-21 mouth. ity of calc,iron,f 14:46: [place] olic 00 Medical ( Branch VITAMIN ORAL) Yes Take by Univer s vit 4-21 mouth. ity of calc,iron,f 14:46: [place] olic 00 Medical ( Branch VITAMIN ORAL) Yes Take by Hypemarkser s vit 4-21 mouth. ity of calc,iron,f [...] 00 Medical ( Branch VITAMIN ORAL) escitalopra 0 Yes Univer s m oxalate 1-26 ity of 20 mg 00:00: [place] tablet Medical Branch escitalopra 0 Yes Univer s m oxalate 1-26 ity of 20 mg 00:00: [place] tablet Medical Branch escitalopra 0 Yes Univer s m oxalate 1-26 ity of 20 mg 00:00: [place] tablet Medical Branch escitalopra 0 Yes Univer s m oxalate 1-26 ity of 20 mg 00:00: [place] tablet Medical Branch escitalopra 0 Yes Univer s m oxalate 1-26 ity of 20 mg 00:00: [place] tablet Medical Branch escitalopra 0 Yes Univer s m oxalate 1-26 ity of 20 mg 00:00: [place] tablet Medical Branch escitalopra 0 Yes Univer s m oxalate 1-26 ity of 20 mg 00:00: [place] tablet Medical Branch escitalopra 0 Yes Univer s m oxalate 1-26 ity of 20 mg 00:00: [place] tablet Medical Branch escitalopra 0 Yes Univer s m oxalate 1-26 ity of 20 mg 00:00: [place] tablet Medical Branch escitalopra 0 Yes Univer s m oxalate 1-26 ity of 20 mg 00:00: [place] tablet Medical Branch escitalopra 0 Yes Univer s m oxalate 1-26 ity of 20 mg 00:00: [place] tablet Medical Branch escitalopra 0 Yes Univer s m oxalate 1-26 ity of 20 mg 00:00: [place] tablet 00 Medical Branch escitalopra 2020-0 Yes Univer s m oxalate 1-26 ity of 20 mg 00:00: [place] tablet 00 Medical Branch escitalopra 2020-0 Yes Univer s m oxalate 1-26 ity of 20 mg 00:00: [place] tablet 00 Medical Branch escitalopra 0 Yes Univer s m oxalate 1-26 ity of 20 mg 00:00: [place] tablet 00 Medical Branch escitalopra 2020-0 Yes Univer s m oxalate 1-26 ity of 20 mg 00:00: [place] tablet Medical Branch escitalopra Yes Univer s m [...] tablet 00 Medical Branch Immunizations Ordered Filled Date Status Comments Source Immunization Name Immunization Name Influenza Virus 2021-05-03 Completed Universit y [...] YRS TDAP 2021-03-09 Completed University of 00:00:00 [facility] TDAP 2021-03-09 Completed University of 00:00:00 [facility] TDAP 2021-03-09 Completed University of 00:00:00 [facility] TDAP 2021-03-09 Completed University of 00:00:00 [facility] TDAP 2021-03-09 Completed University of 00:00:00 [facility] Branch TDAP 2021-03-09 Completed University of 00:00:00 [facility] Branch TDAP 2021-03-09 Completed University of 00:00:00 [facility] TDAP 2021-03-09 Completed University of 00:00:00 [facility] TDAP 2021-03-09 Completed University of 00:00:00 [facility] TDAP 2021-03-09 Completed University of 00:00:00 [facility] TDAP 2021-03-09 Completed University of 00:00:00 [facility] TDAP 2021-03-09 Completed University of 00:00:00 [facility] TDAP 2021-03-09 Completed University of 00:00:00 [facility] TDAP 2021-03-09 Completed University of 00:00:00 [facility] TDAP (ADACEL) 2015-08-31 Completed University of VACCINE 00:00:00 [facility] TDAP (ADACEL) 2015-08-31 Completed University of VACCINE 00:00:00 [facility] TDAP (ADACEL) 2015-08-31 Completed University of VACCINE 00:00:00 [facility] TDAP (ADACEL) 2015-08-31 Completed University of VACCINE 00:00:00 [facility] Branch TDAP (ADACEL) 2015-08-31 Completed University of VACCINE 00:00:00 [facility] TDAP (ADACEL) 2015-08-31 Completed University of VACCINE 00:00:00 [facility] TDAP (ADACEL) 2015-08-31 Completed University of VACCINE 00:00:00 [facility] Branch TDAP (ADACEL) 2015-08-31 Completed University of VACCINE 00:00:00 [facility] TDAP (ADACEL) 2015-08-31 Completed University of VACCINE 00:00:00 [facility] TDAP (ADACEL) 2015-08-31 Completed University of VACCINE 00:00:00 [facility] TDAP (ADACEL) 2015-08-31 Completed University of VACCINE 00:00:00 [facility] TDAP (ADACEL) 2015-08-31 Completed University of VACCINE 00:00:00 [facility] TDAP (ADACEL) 2015-08-31 Completed University of VACCINE 00:00:00 [facility] TDAP (ADACEL) 2015-08-31 Completed University of VACCINE 00:00:00 [facility] Influenza Virus Unknown Completed Universit y of Vaccine Quad IM, [facility] dical Preserv and ABX Branch Free 6 MO-64 YRS (FLUCELVAX) TDAP (ADACEL) Unknown Completed [facility] TDAP Unknown Completed [facility] Influenza Virus Unknown Completed Universit y of Vaccine Quad IM, [facility] dical Preserv and ABX Branch Free 6 MO-64 YRS (FLUCELVAX) TDAP (ADACEL) Unknown Completed [facility] TDAP Unknown Completed [facility] TDAP (ADACEL) Unknown Completed [facility] TDAP Unknown Completed [facility] TDAP (ADACEL) Unknown Completed [facility] TDAP Unknown Completed [facility] TDAP (ADACEL) Unknown Completed [facility] TDAP Unknown Completed [facility] TDAP (ADACEL) Unknown Completed [facility] TDAP Unknown Completed [facility] TDAP (ADACEL) Unknown Completed [facility] TDAP (ADACEL) Unknown Completed [facility] TDAP (ADACEL) Unknown Completed [facility] TDAP (ADACEL) Unknown Completed [facility] TDAP (ADACEL) Unknown Completed [facility] TDAP (ADACEL) Unknown Completed [facility] TDAP (ADACEL) Unknown Completed [facility] TDAP (ADACEL) Unknown Completed [facility] TDAP Unknown Completed [facility] Influenza Virus Unknown Completed Universit y of Vaccine Quad IM, [facility] dical Preserv and ABX Branch Free 6 MO-64 YRS (FLUCELVAX) TDAP (ADACEL) Unknown Completed [facility] TDAP Unknown Completed [facility] Vital Signs Vital Name Observation Time Observation Value Comments Source Systolic blood 2022-01-29 00:51:00 113 mm[Hg] Univer sity of pressure [facility] Diastolic blood 2022-01-29 00:51:00 66 mm[Hg] Unive rsity of pressure [facility] Heart rate 2022-01-29 00:51:00 79 /min [facility] Body temperature 2022-01-28 22:24:00 37.72 Eufemia [facility] [place] [facility] Respiratory rate 2022-01-28 22:24:00 19 /min [facility] [place] [facility] Body height 2022-01-28 22:24:00 162.6 cm [facility] [place] [facility] Body weight 2022-01-28 22:24:00 78.019 kg [facility] [place] [facility] BMI 2022-01-28 22:24:00 29.52 kg/m2 [facility] [place] [facility] Oxygen saturation in 2022-01-28 22:24:00 98 /min University of Arterial blood by [place] [facility] sarah Pulse oximetry Branch Systolic blood 2021-05-21 [...] 99 /min University of Arterial blood by [facility] Pulse oximetry Branch Body height 2021-05-19 14:30:00 162.6 cm [facility] [place] [facility] Body weight 2021-05-19 14:30:00 85.276 kg [facility] [place] [facility] BMI 2021-05-19 14:30:00 32.27 kg/m2 [facility] [place] [facility] Heart rate 2021-05-19 14:45:00 101 /min [facility] [place] [facility] Oxygen saturation in 2021-05-19 14:45:00 100 /min University of Arterial blood by [facility] sarah Pulse oximetry Branch Systolic blood 2021-05-19 14:30:00 [...] 20:23:00 70 mm[Hg] Unive rsity of pressure [place] [facility] Heart rate 2021-05-12 20:23:00 109 /min [facility] [place] [facility] Body temperature 2021-05-12 20:23:00 36.78 Eufemia [facility] [place] [facility] Respiratory rate 2021-05-12 20:23:00 18 /min [facility] [place] [facility] Body height 2021-05-12 20:23:00 162.6 cm [facility] [place] [facility] Body weight 2021-05-12 20:23:00 83.008 kg [facility] [place] [facility] BMI 2021-05-12 20:23:00 31.41 kg/m2 [facility] [place] [facility] Systolic blood 2021-05-03 21:50:00 121 mm[Hg] Univer sity of pressure [place] [facility] Diastolic blood 2021-05-03 21:50:00 80 mm[Hg] Unive rsity of pressure [place] [facility] Heart rate 2021-05-03 21:50:00 101 /min [facility] [place] [facility] Body temperature 2021-05-03 21:50:00 36.83 Eufemia [facility] [place] [facility] Respiratory rate 2021-05-03 21:50:00 18 /min [facility] [place] [facility] Body height 2021-05-03 21:50:00 162.6 cm [facility] [place] [facility] Body weight 2021-05-03 21:50:00 81.647 kg [facility] [place] [facility] BMI 2021-05-03 21:50:00 30.90 kg/m2 [facility] [place] [facility] Systolic blood 2021-04-01 19:30:00 115 mm[Hg] Univer sity of pressure [place] [facility] Diastolic blood 2021-04-01 19:30:00 71 mm[Hg] [facility] Heart rate 2021-04-01 19:30:00 88 /min [facility] Body temperature 2021-04-01 19:30:00 36.94 Eufemia [facility] Respiratory rate 2021-04-01 19:30:00 18 /min [facility] Body height 2021-04-01 19:30:00 160 cm [facility] Body weight 2021-04-01 19:30:00 78.926 kg [facility] BMI 2021-04-01 19:30:00 30.82 kg/m2 [facility] Procedures Procedure Date / Time Performing Clinician Source Performed LIPASE 2022-01-28 23:26:[address] [facility] COMP. METABOLIC PANEL 2022-01-28 23:26:00 Felicitas Torres [facility] ([id number]) [facility] CBC WITH DIFF 2022-01-28 23:26:[address] [facility] URINALYSIS 2022-01-28 23:26:[address] [facility] CONSENT/REFUSAL FOR 2022-01-28 22:19:10 Doctor Unassigned, No [facility] DIAGNOSIS AND TREATMENT [facility] CBC WITH DIFF 2021-05-20 10:01[facility]00 [facility] 2021-05-20 10:01:00 Adum, Johnna Rodriguez [facility] SECTION 2021-05-19 14:42:00 Adum, Johnna Rodriguez [facility] LAPAROSCOPIC 2021-05-19 14:42:00 Adum, Johnna Michael [facility] SALPINGECTOMY [facility] SECTION 2021-05-19 14:42:00 Adum, Johnna Michael [facility] LAPAROSCOPIC 2021-05-19 14:42:00 Adum, [facility] OF [facility]ACY 2021-05-19 13:56:31 Doctor Unassigned, No Univ [facility] PRACTICES Name Medical Branch NOTICE OF PRIVACY 2021-05-19 13:56:31 Doctor Unassigned, No [facility] PRACTICES Name Medical Branch CONSENT/REFUSAL FOR 2021-05-19 13:56:08 Doctor Unassigned, No [facility] [place] [facility]AT[facility] Name Medical Branch CONSENT/REFUSAL FOR 2021-05-19 13:56:08 Doctor Unassigned, No [facility] [place] DIAGNOSIS AND TREATMENT Name Medical Branch ASSIGNMENT OF BENEFITS 2021-05-19 13:55:48 Doctor Unassigned, No [facility] Medical Branch ASSIGNMENT OF BENEFITS 2021-05-19 13:55:48 Doctor Unassigned, No [facility] RHO (D) IMMUNE GLOBULIN 2021-05-18 23:18:00 Adum, Johnna Rodriguez [facility] RHO (D) IMMUNE GLOBULIN 2021-05-18 23:18:00 Adum, Johnna Rodriguez [facility] CONSENT/REFUSAL FOR 2021-05-17 21:41:48 Doctor Unassigned, No [facility] [place] DIAGNOSIS AND TREATMENT [facility] Medical Branch CONSENT/REFUSAL FOR 2021-05-17 21:41:48 Doctor Unassigned, No [facility] [place] DIAGNOSIS AND TREATMENT Name Medical Branch ASSIGNMENT OF BENEFITS 2021-05-17 21:41:35 Doctor Unassigned, No [facility] Medical Branch ASSIGNMENT OF BENEFITS 2021-05-17 21:41:35 Doctor Unassigned, No [facility] Branch CONSENT/REFUSAL FOR 2021-05-17 21:41:18 Doctor Unassigned, No [facility] [place] DIAGNOSIS AND TREATMENT Name Medical Branch CONSENT/REFUSAL FOR 2021-05-17 21:41:18 Doctor Unassigned, No [facility] [place] DIAGNOSIS AND TREATMENT Name Medical Branch ASSIGNMENT OF BENEFITS 2021-05-17 21:41:04 Doctor Unassigned, No [facility] Medical Branch ASSIGNMENT OF BENEFITS 2021-05-17 21:41:04 Doctor Unassigned, No [facility] Branch PHYSICIAN ORDERS 2021-05-12 06:01:00 Doctor Unassigned, No [facility] W/O 2021-05-12 00:00:00 Adum, Johnna Rodriguez [facility] [place] SPECIFIC GRAVITY Medical Branch PHYSICIAN ORDERS 2021-05-11 06:01:00 Doctor Unassigned, No [facility] ASSIGNMENT OF BENEFITS 2021-05-03 22:35:22 Doctor Unassigned, No [facility] FLU VACC ([id number]), 2021-05-03 21:54:12 Adum, Johnna Rodriguez [facility] 2-64 YRS, .5ML, IM, [facility] Medical Branch (FLUCELVAX) POCT URINALYSIS W/O 2021-05-03 00:00:00 Adum, Johnna Rodriguez [facility] POCT URINALYSIS W/O 2021-04-01 00:00:00 Adum, Johnna Rodriguez Universi ty [facility] Encounters Start End Encounter Admission Attending Care Care Encounter Source Date/Time Date/Time Type Type Clinicians Facility Department ID 2022-01-28 2022-01-28 Emergency X [facility] ERT [id number] Univers 17:25:00 20:14:00 [facility] 2022-01-28 2022-01-28 [facility] [id number] Univers 17:25:00 20:14:00 Felicitas Betts [place] [id number] i ty [facility] [id number] [facility] [phone] [place] [id number] Branch 2021-07-29 2021-07-29 Outpatient R ADUM, [facility] [id number] Univers 10:15:00 10:15:00 JOHNNA [facility] 2021-07-28 2021-07-28 Outpatient R ADUM, [facility] [id number] Univers 13:00:00 13:00:00 JOHNNA [facility] 2021-06-22 2021-06-22 Outpatient R ADUM, [facility] [id number] Univers 16:15:00 16:15:00 JOHNNA [facility] 2021-06-14 2021-06-14 Outpatient R ADUM, [facility] [id number] Univers 16:15:00 16:15:00 JOHNNA [facility] 2021-06-13 2021-06-13 Patient Adum, [facility] [id number] Univers 00:00:00 00:00:00 Secure Msg Johnna Rodriguez [place] [id number] ity of [id number] [phone] Nd dical NAL 134 [facility] 2021-06-09 2021-06-09 Outpatient R ADUM, [facility] [id number] Univers 15:30:00 15:30:00 JOHNNA jara [facility] 2021-06-03 2021-06-03 Outpatient R ADUM, [facility] [id number] Univers 11:15:00 11:15:00 JOHNNA jara [facility] 2021-05-23 2021-05-23 Refill Ad, [facility] [id number] Univers 00:00:00 00:00:00 Johnna Rodriguez [place] [id number] ity of [place] [id number] [id number] Nd dical NAL [address] [place] [address] 2021-05-19 2021-05-21 Inpatient P ADUM, [facility] MERLENE [id number] Univers 07:53:00 11:00:00 JOHNNA jara [facility] 2021-05-19 2021-05-21 Hospital Ad, [facility] [id number] Univers 07:53:00 11:00:00 Encounter Johnna Rodriguez [place] [id number] ity of [facility] 4[place]2.7.2.[place] [id number] [facility] sarah [address] [place] 2021-05-19 2021-05-19 Surgery Ad, [facility] [id number] Univers 08:00:00 10:20:00 Johnna Rodriguez [place] [id number] ity of [facility] [id number] [id number] [facility] sarah [address] 2021-05-18 2021-05-18 Laboratory Only, Adc Test [facility] 1.2.840. [id number] Univers 17:22:54 17:37:54 Only Adum, Johnna [place] [id number] [id number] [phone] [facility] [address] 2021-05-18 2021-05-18 Auto Parker Alan, Adc Lab Main [facility] 1.2.8 40.114 [id number] Univers 17:00:24 17:15:24 Visit Adum, Johnna [place] [id number] [place] of [place].2.[place] [phone] Nd dical NAL 353 [facility] 2021-05-18 2021-05-18 Outpatient R ADUM, [facility] [id number] Univers 08:30:00 08:30:00 JOHNNA ity [facility] 2021-05-12 2021-05-12 Routine Adum, [facility] [id number] Univers 13:39:02 14:50:19 Johnna [place] [id number] it[place] of Visit [place] [phone] [facility] 134 [facility] 2021-05-12 2021-05-12 Outpatient R ADUM, [facility] [id number] Univers 13:15:00 14:50:19 JOHNNA ity [facility] 2021-05-12 2021-05-12 Orders Doctor DEMOND 1.2.840.114 [id number] Univers 00:00:00 00:00:00 Only Unassigned, ANA PAULA 350.1.13.10 ity of [place] [facility] 4.2.7.2.686 Jason as [phone] [facility] [address] 2021-05-11 2021-05-11 Outpatient R ADUM, [facility] [id number] Univers 13:15:00 13:15:00 JOHNNA ity [facility] 2021-05-11 2021-05-11 Orders Doctor LAGOS 1.2.840.114 [id number] Univers 00:00:00 00:00:00 Only Unassigned, ANA PAULA [id number] ity of [place] [facility] 4.2.7.2.686 Jason as [phone] [address] 2021-05-10 2021-05-10 Patient Adum, [facility] 1.2.840.114 [id number] Univers 00:00:00 00:00:00 Secure Msg Johnna L [place] [id number] ity of [facility] 4.2.7.2.[place] [id number] Nd dical NAL 134 [facility] 2021-05-06 2021-05-06 Patient Adum, [facility] 1.2.840.114 [id number] Univers 00:00:00 00:00:00 Secure Msg Johnna L [place] [id number] ity of [facility] 4.2.7.2.[place] [id number] Nd dical NAL 134 [facility] 2021-05-03 2021-05-03 Auto Parker Alan, Adc Lab Main [facility] 1.2.8 40.114 [id number] Univers 17:36:35 17:51:35 Visit Adum, Johnna Rodriguez [place] 350.1.13.10 [place] 4[place].2.[place] [phone] Nd dicde NAL 353 [facility] 2021-05-03 2021-05-03 Auto Parker Alan, Adc Lab Main [facility] 1.2.8 40.114 [id number] Univers 17:36:04 17:51:04 Visit Adum, Johnna Rodriguez [place] 350.1.13.10 ity of [facility] [id number] [id number] Nd dical NAL 353 [facility] 2021-05-03 2021-05-03 Routine Adum, [place] 1.2.840.114 [id number] Univers 16:27:00 17:15:21 Johnna L [place] 350.1.13.10 ity of Visit [place].2.[place] [phone] Nd dical NAL 134 [facility] 2021-05-03 2021-05-03 Outpatient R ADUM, [facility] [id number] Univers 16:15:00 17:15:21 JOHNNA ity [facility] 2021-05-03 2021-05-03 Orders Doctor DEMOND 1.2.840.114 [id number] Univers 00:00:00 00:00:00 Only Unassigned, ANA PAULA 350.1.13.10 ity of [place] [facility] 4.2.7.2.686 Jason as [id number] [address] 2021-04-22 2021-04-22 Patient Adum, [facility] 1.2.840.114 [id number] Univers 00:00:00 00:00:00 Secure Msg Johnna Rodriguez [place] [id number] ity of [place] 4[place].2.[place] [id number] Nd dical NAL [address] [place] [address] 2021-04-19 2021-04-19 Outpatient R ADUM, [facility] [id number] Univers 14:00:00 14:00:00 JOHNNA ity [facility] 2021-04-01 2021-04-01 Routine Ad, [facility] 1.2.840.114 [id number] Univers 14:13:21 15:03:38 Johnna [place] 350.1.13.10 ity of Visit [place] [phone] Nd dical nal [address] [place] [address] 2021-04-01 2021-04-01 Outpatient R ADUM, [facility] [id number] Univers 14:00:00 14:00:00 JOHNNA ity [facility] 2021-03-28 2021-03-28 Patient Adum, [facility] [id number] Univers 00:00:00 00:00:00 Secure Msg Johnna Rodriguez [place] [id number] ity of [place] 4[place].2.[place] [id number] Nd dical NAL [address] [place] [address] 2021-03-25 2021-03-25 Outpatient R ADUM, [facility] [id number] Univers 09:15:00 09:15:00 JOHNNA ity of [facility] 2021-03-25 2021-03-25 Patient Adum, [facility] [place] 1.2.840.114 [id number] Univers 00:00:00 00:00:00 Secure Msg Johnna L [place] 350.1.13.10 ity of [place] [phone] Nd dical NAL [address] [place] [address] 2021-03-23 2021-03-23 Outpatient R ADUM, [facility] [id number] Univers 11:00:00 11:00:00 JOHNNA ity [facility] 2021-03-18 2021-03-18 Auto Parker Ultrasound, Adc [facility] 1.2 .840.114 [id number] Univers 15:48:20 16:18:20 Visit Edward Martínez [place] 350.1.13.10 it[place] [phone] Nd dical nal [address] [place] [address] 2021-03-18 2021-03-18 Outpatient R [facility] [id number] Univers 14:00:00 14:00:00 ity of [facility] 2021-03-14 2021-03-14 Patient Adum, [facility] 1.2.840.114 [id number] Univers 00:00:00 00:00:00 Secure Msg Johnna L [place] 350.1.13.10 ity of [facility] [place] [phone] Nd dical NAL [address] [place] [address] 2021-03-10 2021-03-10 Patient Adum, [facility] 1.2.840.114 [id number] Univers 00:00:00 00:00:00 Secure Msg Johnna L [place] 350.1.13.10 it[place] of [place] [phone] Nd dical NAL [address] [place] [address] 2021-03-10 2021-03-10 Telephone Adum, [facility] 1.2.711.859 [id number] Univers 00:00:00 00:00:00 Johnna L [place] 350.1.13.10 [place] of [place] [phone] [facility] [address] [facility] 2021-03-09 2021-03-09 Laboratory Only, Adc Test [facility] 1.2.840. 114 [id number] Univers 13:15:49 13:30:49 Only Adum, Johnna Rodriguez [place] 350.1.13.10 ity of [place] [phone] [facility] [address] 2021-03-09 2021-03-09 Routine Adum, [facility] 1.2.840.114 [id number] Univers 11:31:44 12:46:12 Johnna Rodriguez [place] 350.1.13.10 ity of [place] [phone] [address] 2021-03-09 2021-03-09 Outpatient R ADUM, [facility] [id number] Univers 11:15:00 11:15:00 JOHNNA ity of [facility] 2021-03-09 2021-03-09 Orders Doctor LAGOS 1.2.840.114 [id number] Univers 00:00:00 00:00:00 Only Unassigned, ANA PAULA 350.1.13.10 ity of [place] [facility] 4.2.7.2.686 Jason as [phone] [facility] [address] 2021-03-03 2021-03-03 Outpatient R ADUM, [facility] [id number] Univers 14:15:00 14:15:00 JOHNNA ity of [facility] 2021-02-28 2021-02-28 Patient Adum, [facility] 1.2.840.114 [id number] Univers 00:00:00 00:00:00 Secure Msg Johnna Rodriguez [place] 350.1.13.10 ity of [place].2.[place] [phone] [address] 2021-02-26 2021-02-26 Nurse DEMOND Houser 1.2.840.114 [id number] Univers 00:00:00 00:00:00 Triage Kaylee Luu ANA PAULA 350.1.13.10 i ty of HOSPITAL 4.2.7.2.686 Jason as [phone] [address] 2021-02-26 2021-02-26 Patient Doctor DEMOND 1.2.840.114 [id number] Univers 00:00:00 00:00:00 Secure Msg Unassigned, ANA PAULA 350.1.13.10 ity of [place] [facility] 4.2.7.2.686 Jason as [phone] [address] 2021-02-22 2021-02-22 Patient Adum, [facility] 1.2.840.114 [id number] Univers 00:00:00 00:00:00 Secure Msg Johnna Rodriguez [place] 350.1.13.10 ity of [place].2.[place] [phone] Nd dical NAL [address] [place] [address] 2021-02-18 2021-02-18 Patient Doctor DEMOND 1.2.840.114 [id number] Univers 00:00:00 00:00:00 Secure Msg Unassigned, ANA PAULA 350.1.13.10 ity of [place] [facility] 4.2.7.2.686 Jason as [phone] [address] 2021-02-08 2021-02-08 Telephone Adum, [facility] 1.2.633.971 [id number] Univers 00:00:00 00:00:00 Johnna L [place] 350.1.13.10 ity of [place] [phone] Nd dical nal [address] [place] [address] 2021-02-07 2021-02-07 Telephone Adum, [facility] 1.2.989.955 [id number] Univers 00:00:00 00:00:00 Johnna L [place] 350.1.13.10 ity of [place] [phone] Nd dical nal [address] [place] [address] 2021-02-04 2021-02-04 Patient Adum, [facility] 1.2.840.114 [id number] Univers 00:00:00 00:00:00 Secure Msg Johnna L [place] 350.1.13.10 ity of [place].2.[place] [phone] Nd dical NAL [address] [place] [address] 2021-02-03 2021-02-03 Auto Parker 1, [facility] Us Room UNIVERSIT 1 .2.840.114 [id number] Univers 13:52:04 15:07:04 Visit Nel Castellanosta [facility] 350.1.13.10 ity of [place].2.[place] [phone] [facility] [address] 2021-02-03 2021-02-03 Outpatient P [facility] [id number] Univers 14:15:00 14:15:00 ity of [facility] 2021-02-02 2021-02-02 Patient Adum, [facility] 1.2.840.114 [id number] Univers 00:00:00 00:00:00 Secure Msg Johnna Rodriguez [place] 350.1.13.10 ity of [facility] 4.2.7.2.[place] [phone] Nd dical NAL [address] [place] [address] 2021-01-29 2021-01-29 Case Adum, [facility] 1.2.840.114 [id number] Univers 00:00:00 00:00:00 Management Johnna Rodriguez [place] 350.1.13.10 ity of [place] [phone] Nd dical nal [address] [place] [address] 2021-01-28 2021-01-28 Outpatient R [facility] [id number] Univers 08:30:00 08:30:00 ity of [facility] 2021-01-27 2021-01-27 Patient Doctor DEMOND 1.2.840.114 [id number] Univers 00:00:00 00:00:00 Secure Msg Unassigned, ANA PAULA 350.1.13.10 ity of [place] [facility] 4.2.7.2.686 Jason as [phone] [facility] [address] 2021-01-27 2021-01-27 Telephone Adum, [facility] 1.2.959.240 [id number] Univers 00:00:00 00:00:00 Johnna Michael Kend[place] 350.1.13.10 ity of [place] [phone] Nd dical nal 134 [facility] 2021-01-27 2021-01-27 Telephone Adum, [facility] 1.2.590.971 [id number] Univers 00:00:00 00:00:00 Johnna Rodriguez [place] 350.1.13.10 ity of [place] [phone] Nd dical nal 134 [facility] 2021-01-26 2021-01-26 Auto Parker Alan, Adc Lab Main [facility] 1.2.8 40.114 [id number] Univers 16:44:26 16:59:26 Visit Adum, Johnna Kendall 350.1.13.10 ity of [place] [phone] Nd dical nal 353 [facility] 2021-01-26 2021-01-26 Routine Adum, [facility] 1.2.840.114 [id number] Univers 14:21:54 15:48:55 Johnna Kendall 350.1.13.10 ity of [place] [phone] Nd dical nal 134 [facility] 2021-01-26 2021-01-26 Outpatient R ADUM, [facility] [id number] Univers 14:00:00 14:00:00 JOHNNA ity of [facility] 2021-01-26 2021-01-26 Orders Doctor DEMOND 1.2.840.114 [id number] Univers 00:00:00 00:00:00 Only Unassigned, ANA PAULA 350.1.13.10 ity of [place] [facility] 4.2.7.2.686 Jason as [phone] [address] 2021-01-25 2021-01-25 Outpatient R ADUM, [facility] [id number] Univers 10:45:00 10:45:00 JOHNNA ity [facility] 2021-01-24 2021-01-24 Outpatient P [facility] [id number] Univers 09:45:00 09:45:00 ity of [facility] 2021-01-18 2021-01-18 Outpatient R ADUM, [facility] [id number] Univers 10:45:00 10:45:00 JOHNNA ity [facility] 2020-12-24 2020-12-24 Outpatient R ADUM, [facility] [id number] Univers 08:15:00 08:15:00 JOHNNA ity of [facility] 2020-12-21 2020-12-21 Routine Adum, [facility] 1.2.840.114 [id number] Univers 16:40:30 17:02:28 Johnna L [place] 350.1.13.10 ity of [place] [phone] [address] 2020-12-21 2020-12-21 Outpatient R ADUM, [facility] [id number] Univers 16:15:00 16:15:00 JOHNNA ity [facility] 2020-11-03 2020-11-03 Outpatient R ADUM, [facility] [id number] Univers 16:00:00 16:00:00 JOHNNA ity [facility] 2020-10-21 2020-10-21 Outpatient R [facility] [id number] Univers 13:30:00 13:30:00 ity of [facility] 2020-10-21 2020-10-21 Telephone Ad, [facility] 1.2.514.868 [id number] Univers 00:00:00 00:00:00 Johnna L [place] 350.1.13.10 ity of [place].2.[place] [phone] Nd dic[address] 2020-10-20 2020-10-20 Initial Adum, [facility] 1.2.840.114 [id number] Univers 13:56:11 15:52:55 Johnna L [place] 350.1.13.10 ity of Visit [place].2.[place] [phone] Nd dical [address] 2020-10-20 2020-10-20 Outpatient Kinjal YO, [facility] [id number] Univers 13:30:00 13:30:00 JOHNNA ity [facility] 2020-10-20 2020-10-20 Orders Doctor DEMOND 1.2.840.114 [id number] Univers 00:00:00 00:00:00 Only Unassigned, ANA PAULA 350.1.13.10 [facility] 4.2.7.2.686 Jason as [phone] [address] 2009-11-09 2009-11-09 Outpatient [facility] [id number] Univers 00:00:00 17:58:00 5 [facility] 2008-06-01 2008-06-01 Outpatient [facility] [id number] Univers 00:00:00 14:49:00 3 ity [facility] 2008-03-06 2008-03-06 Outpatient [facility] [id number] Univers 00:00:00 16:07:00 0 [facility] 2008-03-03 2008-03-03 Outpatient [facility] [id number] Univers 00:00:00 00:00:00 9 [facility] 2008-02-18 2008-02-18 Outpatient [facility] [id number] Univers 00:00:00 15:54:00 6 [facility] 2008-01-29 2008-01-29 Outpatient [facility] [id number] Univers 00:00:00 16:38:00 7 y [facility] 2007-02-05 2007-02-05 Outpatient [facility] [id number] Univers 00:00:00 10:10:00 2 y [facility] 2006-08-08 2006-08-08 Outpatient [facility] [id number] Univers 00:00:00 14:25:[facility] 2006-07-25 Outpatient [facility] [id number] Univers 00:00:00 17:10:00 7 ity [facility] 2006-05-09 2006-05-09 Outpatient [facility] [id number] Univers 00:00:00 16:09:00 5 [facility] 2006-04-24 2006-04-24 Outpatient [facility] [id number] Univers 00:00:00 00:00:00 1 [facility] 2005-11-09 2005-11-09 Outpatient [facility] [id number] Univers 00:00:00 11:56:00 1 [facility] 2005-06-28 2005-06-28 Outpatient [facility] [id number] Univers 00:00:00 15:39:00 7 [facility] Results Test Description Test Time Test Comments Results Result Comments Source COMP. METABOLIC PANEL (79899) 2022-01-29 00:06:26 Test Item Value Reference Range Interpretation Comme nts NA (test code = 6821786481) 135 mmol/L 135-145 K (test code = 0244721916) 4.0 mmol/L 3.5-5 CL (test code = 7532433748) 101 mmol/L 98-108 CO2 TOTAL (test code = 1177414092) 22 mmol/L 23-31 L AGAP (test code = 8712682380) 2-16 BUN (test code = 3984887876) 10 mg/dL 7-23 GLUCOSE (test code = 6337131347) 120 mg/dL 70-110 H CREATININE (test code = 0.83 mg/dL 0.5-1.04 1430361588) TOTAL BILI (test code = 0.5 mg/dL 0.1-1.7 5051781554) CALCIUM (test code = 1724983526) 9.4 mg/dL 8.6-10.6 T PROTEIN (test code = 6570315397) 7.3 g/dL 6.3-8.2 ALBUMIN (test code = 7895738537) 4.5 g/dL 3.5-5 ALK PHOS (test code = 9566282722) 51 U/L 34-122 ALTv (test code = 1742-6) 19 U/L 5-35 AST(SGOT) (test code = 0124502217) 23 U/L 13-40 eGFR (test code = 1160615854) mL/min/1.73m2 MOLLY (test code = MOLLY) Association [...] tests). Lab Interpretation (test code = Abnormal 54031-6) [facility] Test Item Value Reference Range Interpretation Comments LIPASE (test code = 9456493665) 177 U/L 0-220 Lab Interpretation (test code = Normal 64821-8) [facility] WITH [id number] 00:01:25 Test Item Value Reference Range Interpretation Comments WBC (test code = See_Comment [Automated message] 6690-2) The system TheWrap generated this result transmitted ref erence range: 4.30 - 1 1.10 10*3/?L. The re ference range was not u sed to interpret this result as normal/abnor mal. RBC (test code = See_Comment [Automated message] 789-8) The system [employer]Wrap generated this result transmitted ref erence range: [...] RDW-SD (test code 43.3 fL 39-49.9 = 53237-0) RDW-CV (test code 12.5 % 12-15.5 = 788-0) PLT (test code = See_Comment [Automated message] 777-3) The system INCHRON h generated this result transmitted ref erence range: 166 - 35 8 10*3/?L. The re ference range was not u sed to interpret this result as normal/abnor mal. MPV (test code = 9.7 fL 9.5-12.9 45482-4) NRBC/100 WBC (test See_Comment [Automat ed message] code = 3022761463) The syste m which generated this result transmitted ref erence range: 0.0 - 10 .0 /100 WBCs. The refer ence range was not u sed to interpret this result as normal/abnor mal. NRBC x10^3 (test See_Comment [Automated message] code = 6265996033) The syste m which generated this result transmitted ref erence range: 10*3/?L. The reference range was not used to interpr et this result as normal/abnormal . GRAN MAT (NEUT) % 73.5 % (test code = 770-8) IMM GRAN % (test 0.40 % code = 0489902676) LYMPH % (test code 19.0 % = 736-9) MONO % (test code 5.8 % = 5905-5) EOS % (test code = 0.9 % 713-8) BASO % (test code 0.4 % = 706-2) GRAN MAT 6.57 10*3/uL 1.88-7.09 x10^3(ANC) (test code = 3660101232) IMM GRAN x10^3 0.04 10*3/uL 0-0.06 (test code = 9416823871) LYMPH x10^3 (test 1.70 10*3/uL 1.32-3.29 code = 731-0) MONO x10^3 (test 0.52 10*3/uL 0.33-0.92 code = 742-7) EOS x10^3 (test 0.08 10*3/uL 0.03-0.39 code = 711-2) BASO x10^3 (test 0.04 10*3/uL 0.01-0.07 code = 704-7) [facility] [id number] 11:10:09 Test Item Value Reference Range Interpretation Comments WBC (test code = See_Comment H [Automated 8190-2) message] The sy stem which generated this result transmitted reference range : 4.30 - 11.10 10*3/?L. The reference range was not used to interpret this result as normal/abnormal . RBC (test code = See_Comment L [Automated 319-8) message] The sy stem which generated this [...] RDW-SD (test code = 45.6 fL 39.0-49.9 55120-5) RDW-CV (test code = 13.4 % 12.0-15.5 788-0) PLT (test code = See_Comment [Automated 777-3) message] The sy stem which generated this result transmitted reference range : 166 - 358 10*3/ ?L. The reference r harpal was not used to interpret this result as normal/abnormal . MPV (test code = 10.8 fL 9.5-12.9 75497-4) NRBC/100 WBC (test See_Comment [Automat ed code = 1572675097) message] The system which generated this result transmitted reference range : 0.0 - 10.0 /100 WBCs. The refer ence range was not u sed to interpret th is result as normal/abnormal . NRBC x10^3 (test code <0.01 See_Comment [Auto mated = 5044234626) message] The s ystem which generated this result transmitted reference range : 10*3/?L. The reference range was not used to interpret this result as normal/abnormal . GRAN MAT (NEUT) % 78.0 % (test code = 770-8) IMM GRAN % (test code 0.70 % = 8312565913) LYMPH % (test code = 13.6 % 736-9) MONO % (test code = 6.0 % 5905-5) EOS % (test code = 1.3 % 713-8) BASO % (test code = 0.4 % 706-2) GRAN MAT x10^3(ANC) 8.89 10*3/uL 1.88-7.09 H (test code = 1533439600) IMM GRAN x10^3 (test 0.08 10*3/uL 0.00-0.06 H code = 4268270900) LYMPH x10^3 (test code 1.55 10*3/uL 1.32-3.29 = 731-0) MONO x10^3 (test code 0.68 10*3/uL 0.33-0.92 = 742-7) EOS x10^3 (test code = 0.15 10*3/uL 0.03-0.39 711-2) BASO x10^3 (test code 0.05 10*3/uL 0.01-0.07 = 704-7) Lab Interpretation Abnormal (test code = 60631-0) [facility] with [id number] 11:10:09 Test Item Value Reference Range Interpretation [...] RDW-SD (test code = 45.6 fL 39.0-49.9 06196-9) RDW-CV (test code = 13.4 % 12.0-15.5 788-0) PLT (test code = See_Comment [Automated 777-3) message] The sy stem which generated this result transmitted reference range : 166 - 358 10*3/ ?L. The reference r harpal was not used to interpret this result as normal/abnormal . MPV (test code = 10.8 fL 9.5-12.9 34350-9) NRBC/100 WBC (test See_Comment [Automat ed code = 5667626168) message] The system which generated this result transmitted reference range : 0.0 - 10.0 /100 WBCs. The refer ence range was not u sed to interpret th is result as normal/abnormal . NRBC x10^3 (test code <0.01 See_Comment [Auto mated = 3788843930) message] The s ystem which generated this result transmitted reference range : 10*3/?L. The reference range was not used to interpret this result as normal/abnormal . GRAN MAT (NEUT) % 78.0 % (test code = 770-8) IMM GRAN % (test code 0.70 % = 2284469391) LYMPH % (test code = 13.6 % 736-9) MONO % (test code = 6.0 % 5905-5) EOS % (test code = 1.3 % 713-8) BASO % (test code = 0.4 % 706-2) GRAN MAT x10^3(ANC) 8.89 10*3/uL 1.88-7.09 H (test code = 4292345394) IMM GRAN x10^3 (test 0.08 10*3/uL 0.00-0.06 H code = 0268514603) LYMPH x10^3 (test code 1.55 10*3/uL 1.32-3.29 = 731-0) MONO x10^3 (test code 0.68 10*3/uL 0.33-0.92 = 742-7) EOS x10^3 (test code = 0.15 10*3/uL 0.03-0.39 711-2) BASO x10^3 (test code 0.05 10*3/uL 0.01-0.07 = 704-7) Lab Interpretation Abnormal (test code = 95667-3) [facility] (D) IMMUNE [id number] 18:56:23 Test Item Value Reference Range Interpretation Comments RHIG CANDIDATE? No- see comment Patient i s not a (test code = candidate for R hIg- 5055) Patient is Rh Positive.Perfor med at [facility] Blood [address] [place] [address] Free: [phone] A No. [id number] [facility] (D) IMMUNE [id number] 18:56:23 Test Item Value Reference Range Interpretation Comments RHIG CANDIDATE? No- see comment Patient i s not a (test code = candidate for R hIg- 5055) Patient is Rh Positive.Perfor med at [facility] Laboratory [facility] Blood [address] [place], [place] [address]Toll Free: [phone] A No. [id number] [facility] URINALYSIS W/O SPECIFIC [id number] 20:25:00 Test Item Value Reference Range Interpretation [...] code = 3257) N/A Negative - Negative [facility]/O SPECIFIC [id number] 21:54:00 Test Item Value Reference Range Interpretation [...] Negative Lab Interpretation (test code = Normal 47666-8) [facility] URINALYSIS W/O SPECIFIC [id number] 19:44:00 Test Item Value Reference Range Interpretation [...] code = 3257) n/a Negative - Negative [facility]"
[2023-05-05] MEDS ORDERED: IPRATROPIUM BROM 0.5MG/2.5ML ONE (17:22)
[2023-05-05] MEDS ORDERED: ALBUTEROL 2.5 MG/3 ML NEB SOL ONE (17:22)
[2023-05-05] MEDS ORDERED: ACETAMINOPHEN 500 MG TAB ONE (17:37)
[2023-05-05] MEDS ORDERED: BENZONATATE 100 MG CAP PO ONE (17:38)
[2023-05-05 17:44] LABS: SARS-CoV-2 Antigen Rapid Res Negative (Negative)
--- NOTE | 2023-05-05 18:05 | RAD REPORT ---
EXAM DESCRIPTION: RAD - Chest Single View - 05/05/2023 5:50 pm CLINICAL HISTORY: COUGH COMPARISON: Chest Single View dated 05/13/2022; Chest Pa And Lat (2 Views) dated 03/17/2018 FINDINGS: Lines: None. Lungs: No evidence of edema or pneumonia. Pleural: No significant pleural effusions or pneumothorax. Cardiac: The heart size is within normal limits. Mediastinum: Within normal limits. Bones: No acute fractures. Other: None IMPRESSION: No acute cardiopulmonary disease.
--- NOTE | 2023-05-05 18:40 | EDPHYS ---
Physician Documentation [facility] Name: Mary Ann Lin Age: 37 yrs Sex: Female : 1985 Arrival Date: 05/05/2023 Time: 16:38 Bed 16 Private MD: ED Physician Shashank Bailey HPI: 05/05 16:50 This 37 yrs old Female presents to ER via Ambulatory with complaints of Cough, Chest jh7 Congestion. 16:50 The patient or guardian reports cough. Onset: The symptoms/episode began/occurred jh7 yesterday. Patient complains of cough, sore throat, and ear pain starting yesterday. She denies fever or chest pain. No medical problems.. Historical: - Allergies: 16:51 No Known Allergies; iw - Home Meds: 16:51 clonazepam 2 mg Oral tab 2 tabs 3 times per day [Active]; iw - PMHx: 16:51 Anxiety; iw - PSHx: 16:51 section; tubal; iw - Immunization history:: Adult Immunizations. - Social history:: Smoking status: Patient reports the use of cigarette tobacco products. ROS: 16:50 Constitutional: Negative for fever, chills, and weight loss, Eyes: Negative for injury, jh7 pain, redness, and discharge, Neck: Negative for injury, pain, and swelling, Cardiovascular: Negative for chest pain, palpitations, and edema, Abdomen/GI: Negative for abdominal pain, nausea, vomiting, diarrhea, and constipation, Back: Negative for injury and pain, MS/Extremity: Negative for injury and deformity, Skin: Negative for injury, rash, and discoloration, Neuro: Negative for headache, weakness, numbness, tingling, and seizure, 16:50 ENT: Positive for ear pain, sore throat, 16:50 Respiratory: Positive for cough, Negative for wheezing, 16:50 All other systems are negative, Exam: 16:50 Constitutional: This is a well developed, well nourished patient who is awake, alert, jh7 and in no acute distress. Head/Face: Normocephalic, atraumatic. Neck: Trachea midline, no thyromegaly or masses palpated, and no cervical lymphadenopathy. Supple, full range of motion without nuchal rigidity, or vertebral point tenderness. No Meningismus. Cardiovascular: Regular rate and rhythm with a normal S1 and S2. No gallops, murmurs, or rubs. Normal PMI, no JVD. No pulse deficits. Respiratory: Lungs have equal breath sounds bilaterally, clear to auscultation and percussion. No rales, rhonchi or wheezes noted. No increased work of breathing, no retractions or nasal flaring. Abdomen/GI: Soft, non-tender, with normal bowel sounds. No distension or tympany. No guarding or rebound. No evidence of tenderness throughout. Back: No spinal tenderness. No costovertebral tenderness. Full range of motion. Skin: Warm, dry with normal turgor. Normal color with no rashes, no lesions, and no evidence of cellulitis. MS/ Extremity: Pulses equal, no cyanosis. Neurovascular intact. Full, normal range of motion. Neuro: Awake and alert, GCS 15, oriented to person, place, time, and situation. Motor strength 5/5 in all extremities. Sensory grossly intact. Normal gait. 16:50 ENT: TM's: are normal, no evidence of bulging, no erythema, Posterior pharynx: erythema, that is mild, pooling of secretions, that are mild, Vital Signs: 16:50 BP 144 / 96; Pulse 108; Resp 16; Temp 98.9; Pulse Ox 100% on R/A; Weight 69.85 kg; iw Height 5 ft. 4 in. ; 17:05 BP 134 / 93; Pulse 96; Resp 20; Pulse Ox 97% on R/A; me1 17:30 BP 127 / 99; Pulse 101; Resp 20; Pulse Ox 100% on R/A; me1 19:10 BP 131 / 67; Pulse 98; Resp 16 S; Pulse Ox 100% on R/A; km8 16:50 Body Mass Index 26.43 (69.85 kg, 162.56 cm) iw MDM: 16:42 Patient medically screened. [facility] 18:15 Differential Diagnosis: Bronchitis Influenza Upper Respiratory Infection Sinusitis [facility] Pharyngitis Viral Syndrome Pneumonia. Data reviewed: vital signs, nurses notes, radiologic studies, plain films. I considered the following discharge prescriptions or medication management in the emergency department Medications were administered in the Emergency Department. See MAR. Counseling: I had a detailed discussion with the patient and/or guardian regarding the historical points, exam findings, and any diagnostic results supporting the discharge/admit diagnosis, to return to the emergency department if symptoms worsen or persist or if there are any questions or concerns that arise at home. Response to treatment: the patient's symptoms have markedly improved after treatment. 05/05 16:55 Order name: Strep [facility] 05/05 16:55 Order name: Flu; Complete Time: 18:04 [facility] 05/05 16:55 Order name: SARS RAPID; Complete Time: 18:04 [facility] 05/05 18:00 Order name: Throat Culture [facility] 05/05 16:55 Order name: XRAY Chest (1 view); Complete Time: 18:11 [facility] Administered Medications: 17:19 Drug: DuoNeb Nebulize (2.5 mg - 0.5 mg) 3 ml Nebulizer once Route: Nebulizer; me1 18:50 Follow up: Response: No adverse reaction me1 17:30 Drug: Acetaminophen PO 1000 mg PO once Route: PO; me1 18:50 Follow up: Response: No adverse reaction me1 17:30 Drug: Tessalon Perle PO 100 mg PO once Route: PO; me1 18:50 Follow up: Response: No adverse reaction; Pain is decreased me1 Disposition: 05/06 08:07 Co-signature as Attending Physician, Shashank Bailey MD I reviewed the patient's care rn provided by the Advanced Practice Provider and agree with the diagnosis and treatment plan. Disposition Summary: 05/05/23 18:39 Discharge Ordered Notes: Location: [place] [id number] Problem: new [facility] Symptoms: have improved [facility] Condition: Stable [facility] Diagnosis - Acute upper respiratory infection, unspecified [facility] Followup: [facility] - With: Private Physician - When: 2 - 3 days - Reason: Recheck today's complaints Discharge Instructions: - Discharge Summary Sheet [facility] - Upper Respiratory Infection, Adult [facility] - Viral Respiratory Infection [facility] Forms: - Medication Reconciliation Form [facility] - Thank You Letter [facility] - Patient Portal Instructions [facility] - Leadership Thank You Letter [facility] Prescriptions: - Bromfed DM 2-30-10 mg/5 mL Oral syrup - administer 10 milliliter ORAL route every 4-6 hours As needed as needed for [facility] cold symptoms; 240 milliliter; Refills: 0, Product Selection Permitted - Tessalon Perles 100 mg Oral Capsule - take 1 capsule ORAL route every 8 hours As needed; 15 capsule; Refills: 0, jh7 Product Selection Permitted - Albuterol Sulfate 2.5 mg /3 mL (0.083 %) Inhalation Solution for Nebulization - inhale 1 unit NEBULIZATION route every 8 hours As needed; 1 Each; Refills: 0, jh7 Product Selection Permitted Signatures: Dispatcher [employer] Radha Lovett, RN RN Shashank Bailey MD MD rn Hadash, Jennifer, [employer] [place] [id number] [place] Castro RN [place] [facility] [place]
--- NOTE | 2023-05-05 18:40 | ER ---
Nurse's Notes [facility] Name: Mary Ann Lin Age: 37 yrs Sex: Female : 1985 Arrival Date: 05/05/2023 Time: 16:38 Bed 16 Private MD: Diagnosis: Acute upper respiratory infection, unspecified Presentation: 05/05 16:50 Chief complaint: Patient states: congestion, sore throat , ears hurt, started iw yesterday. Coronavirus screen: Client presents with at least one sign or symptom that may indicate coronavirus-19. Ebola Screen: Patient negative for fever greater than or equal to 101.5 degrees Fahrenheit, and additional compatible Ebola Virus Disease symptoms Patient denies exposure to infectious person. Patient denies travel to an Ebola-affected area in the 21 days before illness onset. No symptoms or risks identified at this time. Initial Sepsis Screen: Does the patient meet any 2 criteria? No. Patient's initial sepsis screen is negative. Does the patient have a suspected source of infection? No. Patient's initial sepsis screen is negative. Risk Assessment: Do you want to hurt yourself or someone else? Patient reports no desire to harm self or others. Onset of symptoms was May 04, 2023. 16:50 Method Of Arrival: Ambulatory iw 16:50 Acuity: ANNABELLE 4 iw Historical: - Allergies: 16:51 No Known Allergies; iw - Home Meds: 16:51 clonazepam 2 mg Oral tab 2 tabs 3 times per day [Active]; iw - PMHx: 16:51 Anxiety; iw - PSHx: 16:51 section; tubal; iw - Immunization history:: Adult Immunizations. - Social history:: Smoking status: Patient reports the use of cigarette tobacco products. Screenin:46 [facility] ED Fall Risk Assessment (Adult) History of falling in the last 3 months, me1 including since admission No falls in past 3 months (0 pts) Confusion or Disorientation No (0 pts) Intoxicated or Sedated No (0 pts) Impaired Gait No (0 pts) Mobility Assist Device Used No (0 pt) Altered Elimination No (0 pt) Score/Fall Risk Level 0 - 2 = Low Risk. Abuse screen: Denies threats or abuse. Abuse screen: Denies threats or abuse. Nutritional screening: No deficits noted. Tuberculosis screening: No symptoms or risk factors identified. Assessment: 18:46 General: Appears uncomfortable, well groomed, well developed, well nourished, Behavior me1 is calm, cooperative, appropriate for age, Reports congestion, sore throat, bilateral ear pain, body aches that started yesterday. Pain: Complains of pain in throat Pain does not radiate. Pain currently is 7 out of 10 on a pain scale. Quality of pain is described as aching, Pain began gradually, 1 day ago. Is continuous. Neuro: Level of Consciousness is awake, alert, obeys commands, Oriented to person, place, time, situation, Appropriate for age. Cardiovascular: Capillary refill < 3 seconds Patient's skin is warm and dry. Respiratory: Airway is patent Respiratory effort is even, unlabored, Respiratory pattern is regular, symmetrical. Respiratory: Reports cough that is productive, dry, hacking, persistent since yesterday. EENT: Reports pain in throat. Vital Signs: 16:50 BP 144 / 96; Pulse 108; Resp 16; Temp 98.9; Pulse Ox 100% on R/A; Weight 69.85 kg; iw Height 5 ft. 4 in. ; 17:05 BP 134 / 93; Pulse 96; Resp 20; Pulse Ox 97% on R/A; me1 17:30 BP 127 / 99; Pulse 101; Resp 20; Pulse Ox 100% on R/A; me1 19:10 BP 131 / 67; Pulse 98; Resp 16 S; Pulse Ox 100% on R/A; km8 16:50 Body Mass Index 26.43 (69.85 kg, 162.56 cm) ED Course: 16:41 Patient arrived in ED. ts1 16:42 [facility]indu Montgomery FNP [facility]. jh7 16:42 Shashank Bailey MD is Attending Physician. jh7 16:51 Triage completed. iw 16:52 Arm band placed on Patient placed. iw 17:06 Alexandria Castro, RN is Primary Nurse. me1 17:19 SARS RAPID Sent. me1 17:19 Flu Sent. me1 17:19 Strep Sent. me1 17:52 XRAY Chest (1 view) In Process Unspecified. EDMS 18:46 Patient has correct armband on for positive identification. Bed in low position. Call me1 light in reach. Side rails up X 1. Provided Education on: POC. Verbalized understanding.. 18:46 No provider procedures requiring assistance completed. Patient did not have IV access me1 during this emergency room visit. Administered Medications: 17:19 Drug: DuoNeb Nebulize (2.5 mg - 0.5 mg) 3 ml Nebulizer once Route: Nebulizer; me1 18:50 Follow up: Response: No adverse reaction me1 17:30 Drug: Acetaminophen PO 1000 mg PO once Route: PO; me1 18:50 Follow up: Response: No adverse reaction me1 17:30 Drug: Tessalon Perle PO 100 mg PO once Route: PO; me1 18:50 Follow up: Response: No adverse reaction; Pain is decreased me1 Medication: 18:46 VIS not applicable for this client. me1 Outcome: 18:39 Discharge ordered by . david 19:10 Discharged to home ambulatory, km8 19:10 Condition: good 19:10 Discharge instructions given to patient, Instructed on discharge instructions, follow up and referral plans. medication usage, Demonstrated understanding of instructions, follow-up care, medications, Prescriptions given X 3, 19:10 Patient left the ED. km8 Signatures: Dispatcher [employer] EDRadha Kwan, RN RN Bindu Montgomery FNP [employer] 7 Nayeli Sarabia, DEREK PAS 1 Alexandria Castro, ONEIL RN al1 Almaz Meier RN RN km8
[2023-05-05 19:57] VITALS: TEMP 98.9
[2023-05-05 20:00] VITALS: O2SAT 100
[2023-05-05 20:02] VITALS: BP 131/67
== END 2023-05-05 19:10 | disposition home or self-care (01) ==
LOC: ER 16:38
DX: J06.9 Acute upper respiratory infection, unspecified (principal); F41.9 Anxiety disorder, unspecified; Z11.52 Encounter for screening for COVID-19; Z72.0 Tobacco use
CPT/HCPCS: 87070; 36415; 87081; 87804 ×2; 71045; 94640; 99284; 87811; J7613; J7644

== ENCOUNTER → 2023-09-18 | Emergency (ER) | payer SELFPAY ==
[~2023-09-18] MED LIST: AMOX/K CLAV 875 MG TAB ONE; KETOROLAC 30 MG/ML INJ ONE; LIDOCAINE VISCOUS 2% 10ML ORAL SOLN ONE; MAGNES/ALUMIN/SIMET 30ML UCUP ONE; NA CHLORIDE 0.9% 1,000 ML ONE; dexAMETHasone 10 MG/ML VIAL ONE
--- OUTSIDE RECORDS SUMMARY | 2023-09-18 18:24 | XMS REPORT | Continuity of Care Document ---
Author Name Unknown Address [address] [facility] [address] [place] [address] [facility] [address] [facility]. 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 Phone Pcp, Patient Does Not Have A Primary Care Physic joby FELICITAS TORRES Attending Clinician Unavailable Evelio PACFelicitas S Attending Clinician [phone] JOHNNA YO Attending Clinician Unavailable Johnna Yo MD Attending Clinician Only, Adc Test Attending Clinician Unavailable Pob, Ad[facility] Lab Main Attending Clinician Unavailabl e Doctor Unassigned, [place] Attending Clinician U navailable Ultrasound, Adc [facility] Attending Clinician Edward Perdue MD Attending Clinician [phone] Mik RIGGS, Kaylee Luu Attending Clinician Wilma lackey [facility] Room Attending Clinician Wilma Castellanos MD, Lynnette Attending Clinician [phone] JOHNNA YO Admitting Clinician Unavailable Johnna Yo MD Admitting Clinician [phone] Payers Payer Name Policy Type Policy Number Effective Date Expirati on Date Source [facility] [id number] 2016 00:00:00 Problems Condition Name Condition Details Condition Category Status Onset Date Resolution Date Last Treatment Date Treating Clinician Comments Source Single liveborn, born in hospital, delivered by section Single liveborn, born in hospital, delivered by section Disease Active 2021-1 1-18 00:00: 00 [facility] Obesity (BMI 30-39.9) Obesity (BMI 30-39.9) Disease Active 2020-07 0-01 00:00: 00 [facility] Anemia of mother in , antepartum Anemia of mother in , antepartum Disease Active 7-31 00:00: 00 [facility] Anemia of mother in , antepartum Anemia of mother in , antepartum Disease Active 7-31 00:00: 00 [facility] Family history of congenital anomaly of cardiovasc ular system Family history of congenital anomaly of cardiovasc ular system Disease Active 6-22 00:00: 00 [facility] High risk , multigravi da of advanced maternal age in third trimester High risk , multigravi da of advanced maternal age in third trimester Disease Active 4-21 00:00: 00 [facility] 32 weeks gestation of 32 weeks gestation of Disease Active 4-21 00:00: 00 [facility] 36 weeks gestation of 36 weeks gestation of Disease Active 4-21 00:00: 00 [facility] 38 weeks gestation of 38 weeks gestation of Disease Active 4-21 00:00: 00 [facility] 39 weeks gestation of 39 weeks gestation of Disease Active 4-21 00:00: 00 [facility] History of seizure History of seizure Disease Active 2016-07 00:00: 00 [facility] Tobacco use disorder Tobacco use disorder Disease Active 2016-07 00:00: 00 [facility] Depression Depression Disease Active [facility] Anxiety Anxiety Disease Active Silvestre w: Ciara g of this note might be different from the original. dx: 2005, currently on SSRI and Benzodiaz epines [facility] Previous section Previous section Disease Active [facility] Allergies, Adverse Reactions, Alerts Allergy Name Allergy Type Status Severity Reaction(s) Onset Date Inactive Date Treating Clinician Comments Source NO KNOWN ALLERGIE S Drug Class Active [facility] Social History Social Habit Start Date Stop Date Quantity Comments Source ASSERTION 2020-09-01 00:00:00 [facility] History of tobacco use 2007-06-13 00:00:00 Cigarette Smoker [facility] Exposure to SARS-CoV-2 (event) 2022-01-18 00:00:00 2022-01-28 17:23:00 Not sure [facility] History of Social function 2022-01-28 00:00:00 2022-01-28 00:00:00 [facility] Cigarettes smoked current (pack per day) - Reported 2020-12-21 00:00:00 2020-12-21 00:00:00 [facility] Tobacco use and exposure 2020-12-21 00:00:00 2020-12-21 00:00:00 Smokeless tobacco non-user [facility] Alcohol intake 2020-12-21 00:00:00 2020-12-21 00:00:00 Ex-drinker (finding) [facility] Tobacco Comment 2020-10-20 00:00:00 2020-10-20 00:00:00 < 1/2 PPD, was smoking 1 PPD [facility] Sex Assigned At 1985 00:00:00 1985 00:00:00 [facility] Smoking Status Start Date Stop Date Source Smokes tobacco daily 2020-12-21 00:00:00 [facility] Medications Ordered Medication Name Filled Medication Name Start Date Stop Date Current Medication? Ordering Clinician Indication Dosage Frequency Signature (SIG) Comments Components Source acetaminoph en (TYLENOL) tablet 1,000 mg 01-29 00:30: 00 01-28 23:25 :00 No 1000mg 1,000 mg, Oral, ONCE, 1 dose, On 01/28/22 at 1930, Routine [facility] ketorolac (TORADOL) injection 30 mg 01-29 00:30: 00 01-28 23:26 :00 No 30mg 30 mg, Slow IV Push, ONCE, 1 dose, On 01/28/22 at 1930, JYOTI [facility] ibuprofen 800 mg tablet 7 00:00: 00 Yes [id number] 800mg Take 1 tablet by mouth every 8 (eight) hours as needed for Pain (scale 4-6). [facility] vit calc,iron,f olic ( VITAMIN ORAL) 2020-07 11:10: 18 Yes Take by mouth. [facility] vit calc,iron,f olic ( VITAMIN ORAL) 2020-07 11:10: 18 Yes Take by mouth. [facility] vit calc,iron,f olic ( VITAMIN ORAL) 2020-07 11:10: 18 Yes Take by mouth. [facility] vit calc,iron,f olic ( VITAMIN ORAL) 2020-07 11:10: 18 Yes Take by mouth. [facility] vit calc,iron,f olic ( VITAMIN ORAL) 2020-07 11:10: 18 Yes Take by mouth. [facility] vit calc,iron,f olic ( VITAMIN ORAL) 2020-07 11:10: 18 Yes Take by mouth. [facility] vit calc,iron,f olic ( VITAMIN ORAL) 2020-07 11:10: 18 Yes Take by mouth. [facility] vit calc,iron,f olic ( VITAMIN ORAL) 2020-07 11:10: 18 Yes Take by mouth. [facility] vit calc,iron,f olic ( VITAMIN ORAL) 2020-07 11:10: 18 Yes Take by mouth. [facility] vit calc,iron,f olic ( VITAMIN ORAL) 2020-07 11:10: 18 Yes Take by mouth. [facility] vit calc,iron,f olic ( VITAMIN ORAL) 2020-07 11:10: 18 Yes Take by mouth. [facility] vit calc,iron,f olic ( VITAMIN ORAL) 2020-07 11:10: 18 Yes Take by mouth. [facility] vit calc,iron,f olic ( VITAMIN ORAL) 2020-07 11:10: 18 Yes Take by mouth. [facility] vit calc,iron,f olic ( VITAMIN ORAL) 2020-07 11:10: 18 Yes Take by mouth. [facility] vit calc,iron,f olic ( VITAMIN ORAL) 2020-07 11:10: 18 Yes Take by mouth. [facility] vit calc,iron,f olic ( VITAMIN ORAL) 2020-07 11:10: 18 Yes Take by mouth. [facility] vit calc,iron,f olic ( VITAMIN ORAL) 2020-07 11:10: 18 Yes Take by mouth. [facility] vit calc,iron,f olic ( VITAMIN ORAL) 2020-07 11:10: 18 Yes Take by mouth. [facility] vit calc,iron,f olic ( VITAMIN ORAL) 2020-07 11:10: 18 Yes Take by mouth. [facility] vit calc,iron,f olic ( VITAMIN ORAL) 2020-07 11:10: 18 Yes Take by mouth. [facility] simethicone (GAS RELIEF (SIMETHICON E)) chewable tablet 80 mg 2020-07 23:45: 00 Yes 80mg 80 mg, Oral, BID, First dose (after last modificati on) on Sun05/20/21 at 1745, Until Discontinu ed, Routine [facility] vit calc,iron,f olic ( VITAMIN ORAL) 2020-07 07:53: 25 Yes Take by mouth. [facility] vitamin w/FA tablet 2020-07 00:00: 00 Yes [id number] 1{tbl} Take 1 tablet by mouth daily. [facility] docusate calcium 240 mg capsule 2020-07 00:00: 00 Yes [id number] 240mg Take 1 capsule by mouth once daily as needed for Constipati on. [facility] ferrous sulfate 325 mg (65 mg iron) tablet 2020-07 00:00: 00 Yes [id number] 325mg Take 1 tablet by mouth 2 (two) times daily. [facility] ibuprofen 800 mg tablet 2020-07 00:00: 00 Yes [id number] 800mg Take 1 tablet by mouth every 8 (eight) hours. Take with food or milk. [facility] HYDROcodone -acetaminop hen 5-325 mg tablet 2020-07 00:00: 00 Yes [id number] 1{tbl} Take 1 tablet by mouth every 6 (six) hours as needed (Pain scale above 4). Do not exceed 3 grams of acetaminop hen in 24 hours. Indication s: acute pain [facility] vitamin w/FA tablet 2020-07 00:00: 00 Yes [id number] 1{tbl} Take 1 tablet by mouth daily. [facility] docusate calcium 240 mg capsule 2020-07 00:00: 00 Yes [id number] 240mg Take 1 capsule by mouth once daily as needed for Constipati on. [facility] ferrous sulfate 325 mg (65 mg iron) tablet 2020-07 00:00: 00 Yes [id number] 325mg Take 1 tablet by mouth 2 (two) times daily. [facility] ibuprofen 800 mg tablet 2020-07 00:00: 00 Yes [id number] 800mg Take 1 tablet by mouth every 8 (eight) hours. Take with food or milk. [facility] HYDROcodone -acetaminop hen 5-325 mg tablet 2020-07 00:00: 00 Yes [id number] 1{tbl} Take 1 tablet by mouth every 6 (six) hours as needed (Pain scale above 4). Do not exceed 3 grams of acetaminop hen in 24 hours. Indication s: acute pain [facility] vitamin w/FA tablet 2020-07 00:00: 00 Yes [id number] 1{tbl} Take 1 tablet by mouth daily. [facility] docusate calcium 240 mg capsule 2020-07 00:00: 00 Yes [id number] 240mg Take 1 capsule by mouth once daily as needed for Constipati on. [facility] ferrous sulfate 325 mg (65 mg iron) tablet 2020-07 00:00: 00 Yes [id number] 325mg Take 1 tablet by mouth 2 (two) times daily. [facility] ibuprofen 800 mg tablet 2020-07 00:00: 00 Yes [id number] 800mg Take 1 tablet by mouth every 8 (eight) hours. Take with food or milk. [facility] HYDROcodone -acetaminop hen 5-325 mg tablet 2020-07 00:00: 00 Yes [id number] 1{tbl} Take 1 tablet by mouth every 6 (six) hours as needed (Pain scale above 4). Do not exceed 3 grams of acetaminop hen in 24 hours. Indication s: acute pain [facility] vitamin w/FA tablet 2020-07 00:00: 00 Yes [id number] 1{tbl} Take 1 tablet by mouth daily. [facility] docusate calcium 240 mg capsule 2020-07 00:00: 00 Yes [id number] 240mg Take 1 capsule by mouth once daily as needed for Constipati on. [facility] ferrous sulfate 325 mg (65 mg iron) tablet 2020-07 00:00: 00 Yes [id number] 325mg Take 1 tablet by mouth 2 (two) times daily. [facility] HYDROcodone -acetaminop hen 5-325 mg tablet 2020-07 00:00: 00 Yes [id number] 1{tbl} Take 1 tablet by mouth every 6 (six) hours as needed (Pain scale above 4). Do not exceed 3 grams of acetaminop hen in 24 hours. Indication s: acute pain [facility] vitamin w/FA tablet 2020-07 00:00: 00 Yes [id number] 1{tbl} Take 1 tablet by mouth daily. [facility] docusate calcium 240 mg capsule 2020-07 00:00: 00 Yes [id number] 240mg Take 1 capsule by mouth once daily as needed for Constipati on. [facility] ferrous sulfate 325 mg (65 mg iron) tablet 2020-07 00:00: 00 Yes [id number] 325mg Take 1 tablet by mouth 2 (two) times daily. [facility] HYDROcodone -acetaminop hen 5-325 mg tablet 2020-07 00:00: 00 Yes [id number] 1{tbl} Take 1 tablet by mouth every 6 (six) hours as needed (Pain scale above 4). Do not exceed 3 grams of acetaminop hen in 24 hours. Indication s: acute pain [facility] ibuprofen 800 mg tablet 2020-07 00:00: 00 01-28 00:00 :00 No [id number] 800mg Take 1 tablet by mouth every 8 (eight) hours. Take with food or milk. [facility] acetaminoph en ADULT (OFIRMEV) injection 1,000 mg 2020-07 22:00: 00 05-20 10:13 :00 No 1000mg 1,000 mg, IV Infusion, Administer over 15 Minutes, Q6H, 3 doses, First dose on Sun05/19/21 at 1600, Last dose on Sun05/20/21 at 0000, Routine
Indicatio n: Perioperat cecilia Patient [facility] ibuprofen (IBU) tablet 800 mg 2020-07 20:00: 00 Yes 800mg 800 mg, Oral, Q8H, First dose on Sun05/19/21 at 1400, Until Discontinu ed, Routine [facility] ibuprofen (IBU) tablet 800 mg 2020-07 20:00: 00 Yes 800mg 800 mg, Oral, Q8H, First dose on Sun05/19/21 at 1400, Until Discontinu ed, Routine [facility] simethicone (GAS RELIEF (SIMETHICON E)) chewable tablet 80 mg 2020-07 18:30: 00 Yes 80mg 80 mg, Oral, DAILY, First dose on Sun05/19/21 at 1230, Until Discontinu ed, Routine [facility] simethicone (GAS RELIEF (SIMETHICON E)) chewable tablet 80 mg 2020-07 18:30: 00 05-20 23:42 :05 No 80mg 80 mg, Oral, DAILY, First dose on Sun05/19/21 at 1230, Until Discontinu ed, Routine [facility] ketorolac (TORADOL) injection 30 mg 2020-07 18:00: 00 05-20 05:23 :00 No 30mg 30 mg, Slow IV Push, Q6H, 3 doses, First dose (after last modificati on) on Sun05/19/21 at 1200, Last dose on Sun05/20/21 at 0000, Routine
media law faculty member approving Restricted medication : ALEXIS [facility] rho(D) immune globulin (RHOGAM) syringe 300 mcg 2020-07 16:28: 34 Yes 300ug 300 mcg, Intramuscu lar, ONCE, For 1 dose, Conditiona l, Routine [facility] rho(D) immune globulin (RHOGAM) syringe 300 mcg 2020-07 16:28: 34 Yes 300ug 300 mcg, Intramuscu lar, ONCE, For 1 dose, Conditiona l, Routine [facility] HYDROcodone -acetaminop hen (NORCO 5) 5-325 mg tablet 2 tablet 2020-07 16:24: 53 Yes 2{tbl} 2 tablet, Oral, Q6HPRN, Starting on Sun05/19/21 at 1024, Until Discontinu ed, Routine, Pain (scale 7-10), If uncontroll ed by Ibuprofen [facility] HYDROcodone -acetaminop hen (NORCO 5) 5-325 mg tablet 2 tablet 2020-07 16:24: 53 Yes 2{tbl} 2 tablet, Oral, Q6HPRN, Starting on Sun05/19/21 at 1024, Until Discontinu ed, Routine, Pain (scale 7-10), If uncontroll ed by Ibuprofen [facility] HYDROcodone -acetaminop hen (NORCO 5) 5-325 mg tablet 1 tablet 2020-07 16:24: 49 Yes 1{tbl} 1 tablet, Oral, Q6HPRN, Starting on Sun05/19/21 at 1024, Until Discontinu ed, Routine, Pain (scale 4-6), If uncontroll ed by Ibuprofen [facility] HYDROcodone -acetaminop hen (NORCO 5) 5-325 mg tablet 1 tablet 2020-07 16:24: 49 Yes 1{tbl} 1 tablet, Oral, Q6HPRN, Starting on Sun05/19/21 at 1024, Until Discontinu ed, Routine, Pain (scale 4-6), If uncontroll ed by Ibuprofen [facility] diphenhydrA MINE (BENADRYL) tablet 25 mg 2020-07 16:23: 41 Yes 25mg 25 mg, Oral, Q6HPRN, Starting on Sun05/19/21 at 1023, Until Discontinu ed, Routine, Sleep, Itching [facility] ondansetron (ZOFRAN (PF)) injection 4 mg 2020-07 16:23: 41 Yes 4mg 4 mg, Slow IV Push, Q8HPRN, Starting on Sun05/19/21 at 1023, Until Discontinu ed, Routine, Nausea and Vomiting (N/V) [facility] bisacodyL (DULCOLAX) suppository 10 mg 2020-07 16:23: 41 Yes 10mg 10 mg, Rectal, QDAILYPRN, Starting on Sun05/19/21 at 1023, Until Discontinu ed, Routine, Constipati on [facility] magnesium hydroxide (MILK OF MAGNESIA) 400 mg/5 mL suspension 30 mL 2020-07 16:23: 41 Yes 30mL 30 mL, Oral, QDAILYPRN, Starting on Sun05/19/21 at 1023, Until Discontinu ed, Routine, Constipati on [facility] diphenhydrA MINE (BENADRYL) tablet 25 mg 2020-07 16:23: 41 Yes 25mg 25 mg, Oral, Q6HPRN, Starting on Sun05/19/21 at 1023, Until Discontinu ed, Routine, Sleep, Itching [facility] ondansetron (ZOFRAN (PF)) injection 4 mg 2020-07 16:23: 41 Yes 4mg 4 mg, Slow IV Push, Q8HPRN, Starting on Skylar 05/19/21 at 1023, Until Discontinu ed, Routine, Nausea and Vomiting (N/V) [facility] bisacodyL (DULCOLAX) suppository 10 mg 2020-07 16:23: 41 Yes 10mg 10 mg, Rectal, QDAILYPRN, Starting on Sun05/19/21 at 1023, Until Discontinu ed, Routine, Constipati on [facility] magnesium hydroxide (MILK OF MAGNESIA) 400 mg/5 mL suspension 30 mL 2020-07 16:23: 41 Yes 30mL 30 mL, Oral, QDAILYPRN, Starting on Skylar 05/19/21 at 1023, Until Discontinu ed, Routine, Constipati on [facility] sodium chloride 0.9 % irrigation solution 2020-07 15:00: 00 Yes PRN, Starting on Sun05/19/21 at 0900, Until Discontinu ed, Intra-op [facility] sodium chloride 0.9 % irrigation solution 2020-07 15:00: 00 Yes PRN, Starting on Sun05/19/21 at 0900, Until Discontinu ed, Intra-op [facility] lactated ringers IV infusion 500 mL 2020-07 14:30: 00 05-19 14:24 :00 No 500mL at 999 mL/hr, 500 mL, IV Infusion, ONCE, 1 dose, On Sun05/19/21 at 0830, Routine [facility] lactated ringers IV infusion 1,000 mL 2020-07 14:30: 00 05-19 16:28 :35 No 1000mL at 125 mL/hr, 1,000 mL, IV Infusion, CONTINUOUS , Starting on Skylar 05/19/21 at 0830, Until Skylar 05/19/21 at 1028, Routine [facility] sodium citrate-cit kim acid (BICITRA) 500-334 mg/5 mL solution 30 mL 2020-07 14:22: 50 05-19 14:34 :00 No 30mL 30 mL, Oral, PRE-PROCED URE ONCE, 1 dose, Starting on Skylar 05/19/21 at 0822, Until 05/21/21 at 2359, Routine, Surgery/Pr ocedure [facility] hydrOXYzine 25 mg capsule 2020-07 0- 00:00: 00 Yes [id number] 25mg Take 1 capsule by mouth 4 (four) times daily as needed for Anxiety. [facility] hydrOXYzine 25 mg capsule 2020-07 0 00:00: 00 Yes [id number] 25mg Take 1 capsule by mouth 4 (four) times daily as needed for Anxiety. [facility] hydrOXYzine 25 mg capsule 2020-07 0 00:00: 00 Yes [id number] 25mg Take 1 capsule by mouth 4 (four) times daily as needed for Anxiety. [facility] hydrOXYzine 25 mg capsule 2020-07 0- 00:00: 00 Yes [id number] 25mg Take 1 capsule by mouth 4 (four) times daily as needed for Anxiety. [facility] hydrOXYzine 25 mg capsule 2020-07 0 00:00: 00 Yes [id number] 25mg Take 1 capsule by mouth 4 (four) times daily as needed for Anxiety. [facility] hydrOXYzine 25 mg capsule 2020-07 0 00:00: 00 Yes [id number] 25mg Take 1 capsule by mouth 4 (four) times daily as needed for Anxiety. [facility] hydrOXYzine 25 mg capsule 2020-07 0- 00:00: 00 Yes [id number] 25mg Take 1 capsule by mouth 4 (four) times daily as needed for Anxiety. [facility] hydrOXYzine 25 mg capsule 2020-07 0- 00:00: 00 Yes [id number] 25mg Take 1 capsule by mouth 4 (four) times daily as needed for Anxiety. [facility] hydrOXYzine 25 mg capsule 2020-07 0- 00:00: 00 Yes [id number] 25mg Take 1 capsule by mouth 4 (four) times daily as needed for Anxiety. [facility] hydrOXYzine 25 mg capsule 2020-07 0- 00:00: 00 Yes [id number] 25mg Take 1 capsule by mouth 4 (four) times daily as needed for Anxiety. [facility] hydrOXYzine 25 mg capsule 2020-07 0- 00:00: 00 Yes [id number] 25mg Take 1 capsule by mouth 4 (four) times daily as needed for Anxiety. [facility] hydrOXYzine 25 mg capsule 2020-07 0- 00:00: 00 Yes [id number] 25mg Take 1 capsule by mouth 4 (four) times daily as needed for Anxiety. [facility] hydrOXYzine 25 mg capsule 2020-07 0- 00:00: 00 Yes [id number] 25mg Take 1 capsule by mouth 4 (four) times daily as needed for Anxiety. [facility] hydrOXYzine 25 mg capsule 2020-07 0- 00:00: 00 Yes [id number] 25mg Take 1 capsule by mouth 4 (four) times daily as needed for Anxiety. [facility] hydrOXYzine 25 mg capsule 2020-07 0 00:00: 00 Yes [id number] 25mg Take 1 capsule by mouth 4 (four) times daily as needed for Anxiety. [facility] hydrOXYzine 25 mg capsule 2020-07 0 00:00: 00 Yes [id number] 25mg Take 1 capsule by mouth 4 (four) times daily as needed for Anxiety. [facility] hydrOXYzine 25 mg capsule 2020-07 0- 00:00: 00 Yes [id number] 25mg Take 1 capsule by mouth 4 (four) times daily as needed for Anxiety. [facility] hydrOXYzine 25 mg capsule 2020-07 0 00:00: 00 Yes [id number] 25mg Take 1 capsule by mouth 4 (four) times daily as needed for Anxiety. [facility] azithromyci n 250 mg tablet 03-10 00:00: 00 04-01 00:00 :00 No 250mg Take 1 tablet by mouth daily. Take 500 mg day 1, then 250 mg days 2 to 5. [facility] clonazePAM 0.5 mg tablet 2020-0 03-09 00:00: 00 Yes [id number] .5mg Take 1 tablet by mouth every 8 (eight) hours as needed (Anxiety). [facility] clonazePAM 0.5 mg tablet 2020-0 03-09 00:00: 00 Yes [id number] .5mg Take 1 tablet by mouth every 8 (eight) hours as needed (Anxiety). [facility] clonazePAM 0.5 mg tablet 2020-0 03-09 00:00: 00 Yes [id number] .5mg Take 1 tablet by mouth every 8 (eight) hours as needed (Anxiety). [facility] clonazePAM 0.5 mg tablet 1-0 03-09 00:00: 00 Yes [id number] .5mg Take 1 tablet by mouth every 8 (eight) hours as needed (Anxiety). [facility]5 mg tablet 2020-0 03-09 00:00: 00 Yes [id number] .5mg Take 1 tablet by mouth every 8 (eight) hours as needed (Anxiety). [facility] clon[facility] 0.5 mg tablet 2020-0 03-09 00:00: 00 Yes [id number] .5mg Take 1 tablet by mouth every 8 (eight) hours as needed (Anxiety). [facility] clonaze[facility] 0.5 mg tablet 2020-0 03-09 00:00: 00 Yes [id number] .5mg Take 1 tablet by mouth every 8 (eight) hours as needed (Anxiety). [facility] clonazePAM 0.5 mg tablet 2020-0 03-09 00:00: 00 Yes [id number] .5mg Take 1 tablet by mouth every 8 (eight) hours as needed (Anxiety). [facility] clon[facility] 0.5 mg tablet 1-0 03-09 00:00: 00 Yes [id number] .5mg Take 1 tablet by mouth every 8 (eight) hours as needed (Anxiety). [facility] clonazePAM 0.5 mg tablet 1-0 03-09 00:00: 00 Yes [id number] .5mg Take 1 tablet by mouth every 8 (eight) hours as needed (Anxiety). [facility] clonazePAM 0.5 mg tablet 1-0 03-09 00:00: 00 Yes [id number] .5mg Take 1 tablet by mouth every 8 (eight) hours as needed (Anxiety). [facility] clonazePAM 0.5 mg tablet 2020-0 03-09 00:00: 00 Yes [id number] .5mg Take 1 tablet by mouth every 8 (eight) hours as needed (Anxiety). [facility] clonazePAM 0.5 mg tablet 2020-0 03-09 00:00: 00 Yes [id number] .5mg Take 1 tablet by mouth every 8 (eight) hours as needed (Anxiety). [facility] clonazePAM 0.5 mg tablet 1-0 03-09 00:00: 00 Yes [id number] .5mg Take 1 tablet by mouth every 8 (eight) hours as needed (Anxiety). [facility] 0.5 mg tablet 2020-0 03-09 00:00: 00 Yes [id number] .5mg Take 1 tablet by mouth every 8 (eight) hours as needed (Anxiety). [facility] clonazePAM 0.5 mg tablet 2020-0 03-09 00:00: 00 Yes [id number] .5mg Take 1 tablet by mouth every 8 (eight) hours as needed (Anxiety). [facility] clonazePAM 0.5 mg tablet 2020-0 03-09 00:00: 00 Yes [id number] .5mg Take 1 tablet by mouth every 8 (eight) hours as needed (Anxiety). [facility] clonazePAM 0.5 mg tablet 2020-0 03-09 00:00: 00 Yes [id number] .5mg Take 1 tablet by mouth every 8 (eight) hours as needed (Anxiety). [facility] clonazePAM 0.5 mg tablet 1-0 03-09 00:00: 00 Yes [id number] .5mg Take 1 tablet by mouth every 8 (eight) hours as needed (Anxiety). [facility] clonazePAM 0.5 mg tablet 1-0 03-09 00:00: 00 Yes [id number] .5mg Take 1 tablet by mouth every 8 (eight) hours as needed (Anxiety). [facility] clonazePAM 0.5 mg tablet 03-09 00:00: 00 Yes [id number] .5mg Take 1 tablet by mouth every 8 (eight) hours as needed (Anxiety). [facility] clonazePAM 0.5 mg tablet 03-09 00:00: 00 Yes [id number] .5mg Take 1 tablet by mouth every 8 (eight) hours as needed (Anxiety). [facility] ferrous sulfate 325 mg (65 mg iron) tablet 01-29 00:00: 00 Yes [id number] 325mg Take 1 tablet by mouth 2 (two) times daily. [facility] ferrous sulfate 325 mg (65 mg iron) tablet 01-29 00:00: 00 Yes [id number] 325mg Take 1 tablet by mouth 2 (two) times daily. [facility] ferrous sulfate 325 mg (65 mg iron) tablet 01-29 00:00: 00 Yes [id number] 325mg Take 1 tablet by mouth 2 (two) times daily. [facility] ferrous sulfate 325 mg (65 mg iron) tablet 01-29 00:00: 00 Yes [id number] 325mg Take 1 tablet by mouth 2 (two) times daily. [facility] ferrous sulfate 325 mg (65 mg iron) tablet 01-29 00:00: 00 Yes [id number] 325mg Take 1 tablet by mouth 2 (two) times daily. [facility] ferrous sulfate 325 mg (65 mg iron) tablet 01-29 00:00: 00 Yes [id number] 325mg Take 1 tablet by mouth 2 (two) times daily. [facility] ferrous sulfate 325 mg (65 mg iron) tablet 01-29 00:00: 00 Yes [id number] 325mg Take 1 tablet by mouth 2 (two) times daily. [facility] ferrous sulfate 325 mg (65 mg iron) tablet 01-29 00:00: 00 Yes [id number] 325mg Take 1 tablet by mouth 2 (two) times daily. [facility] ferrous sulfate 325 mg (65 mg iron) tablet 01-29 00:00: 00 Yes [id number] 325mg Take 1 tablet by mouth 2 (two) times daily. [facility] ferrous sulfate 325 mg (65 mg iron) tablet 01-29 00:00: 00 Yes [id number] 325mg Take 1 tablet by mouth 2 (two) times daily. [facility] ferrous sulfate 325 mg (65 mg iron) tablet 01-29 00:00: 00 Yes [id number] 325mg Take 1 tablet by mouth 2 (two) times daily. [facility] ferrous sulfate 325 mg (65 mg iron) tablet 01-29 00:00: 00 Yes [id number] 325mg Take 1 tablet by mouth 2 (two) times daily. [facility] ferrous sulfate 325 mg (65 mg iron) tablet 01-29 00:00: 00 Yes [id number] 325mg Take 1 tablet by mouth 2 (two) times daily. [facility] ferrous sulfate 325 mg (65 mg iron) tablet 01-29 00:00: 00 Yes [id number] 325mg Take 1 tablet by mouth 2 (two) times daily. [facility] ferrous sulfate 325 mg (65 mg iron) tablet 01-29 00:00: 00 Yes [id number] 325mg Take 1 tablet by mouth 2 (two) times daily. [facility] ferrous sulfate 325 mg (65 mg iron) tablet 01-29 00:00: 00 Yes [id number] 325mg Take 1 tablet by mouth 2 (two) times daily. [facility] ferrous sulfate 325 mg (65 mg iron) tablet 01-29 00:00: 00 Yes [id number] 325mg Take 1 tablet by mouth 2 (two) times daily. [facility] ferrous sulfate 325 mg (65 mg iron) tablet 01-29 00:00: 00 Yes [id number] 325mg Take 1 tablet by mouth 2 (two) times daily. [facility] ferrous sulfate 325 mg (65 mg iron) tablet 01-29 00:00: 00 Yes [id number] 325mg Take 1 tablet by mouth 2 (two) times daily. [facility] ferrous sulfate 325 mg (65 mg iron) tablet 01-29 00:00: 00 Yes [id number] 325mg Take 1 tablet by mouth 2 (two) times daily. [facility] ferrous sulfate 325 mg (65 mg iron) tablet 01-29 00:00: 00 Yes [id number] 325mg Take 1 tablet by mouth 2 (two) times daily. [facility] ferrous sulfate 325 mg (65 mg iron) tablet 01-29 00:00: 00 Yes [id number] 325mg Take 1 tablet by mouth 2 (two) times daily. [facility] ferrous sulfate 325 mg (65 mg iron) tablet 01-29 00:00: 00 Yes [id number] 325mg Take 1 tablet by mouth 2 (two) times daily. [facility] ferrous sulfate 325 mg (65 mg iron) tablet 01-29 00:00: 00 Yes [id number] 325mg Take 1 tablet by mouth 2 (two) times daily. [facility] ferrous sulfate 325 mg (65 mg iron) tablet 01-29 00:00: 00 Yes [id number] 325mg Take 1 tablet by mouth 2 (two) times daily. [facility] ferrous sulfate 325 mg (65 mg iron) tablet 01-29 00:00: 00 Yes [id number] 325mg Take 1 tablet by mouth 2 (two) times daily. [facility] ferrous sulfate 325 mg (65 mg iron) tablet 01-29 00:00: 00 Yes [id number] 325mg Take 1 tablet by mouth 2 (two) times daily. [facility] ferrous sulfate 325 mg (65 mg iron) tablet 01-29 00:00: 00 Yes [id number] 325mg Take 1 tablet by mouth 2 (two) times daily. [facility] vit calc,iron,f olic ( VITAMIN ORAL) 10-20 14:46: 00 Yes Take by mouth. [facility] vit calc,iron,f olic ( VITAMIN ORAL) 10-20 14:46: 00 Yes Take by mouth. [facility] vit calc,iron,f olic ( VITAMIN ORAL) 10-20 14:46: 00 Yes Take by mouth. [facility] vit calc,iron,f olic ( VITAMIN ORAL) 10-20 14:46: 00 Yes Take by mouth. [facility] vit calc,iron,f olic ( VITAMIN ORAL) 10-20 14:46: 00 Yes Take by mouth. [facility] vit calc,iron,f olic ( VITAMIN ORAL) 10-20 14:46: 00 Yes Take by mouth. [facility] vit calc,iron,f olic ( VITAMIN ORAL) 10-20 14:46: 00 Yes Take by mouth. [facility] vit calc,iron,f olic ( VITAMIN ORAL) 10-20 14:46: 00 Yes Take by mouth. [facility] escitalopra m oxalate 20 mg tablet 07-27 00:00: 00 Yes [facility] it[facility] escitalopra m oxalate 20 mg tablet 0 07-27 00:00: 00 Yes [facility] it[facility] escitalopra m oxalate 20 mg tablet 0 07-27 00:00: 00 Yes [facility] it[facility] escitalopra m oxalate 20 mg tablet 0 07-27 00:00: 00 Yes [facility] oxalate 20 mg tablet 0 07-27 00:00: 00 Yes [facility] it[facility] escitalopra m oxalate 20 mg tablet 0 07-27 00:00: 00 Yes [facility] it[facility] escitalopra m oxalate 20 mg tablet 0 07-27 00:00: 00 Yes [facility] it[facility] escitalopra m oxalate 20 mg tablet 0 07-27 00:00: 00 Yes [facility] it[facility] escitalopra m oxalate 20 mg tablet 0 07-27 00:00: 00 Yes [facility] it[facility] escitalopra m oxalate 20 mg tablet 0 07-27 00:00: 00 Yes [facility] escitalopra m oxalate 20 mg tablet 0 07-27 00:00: 00 Yes [facility] escitalopra m oxalate 20 mg tablet 0 07-27 00:00: 00 Yes [facility] escitalopra m oxalate 20 mg tablet 0 07-27 00:00: 00 Yes [facility] escitalopra m oxalate 20 mg tablet 0 07-27 00:00: 00 Yes [facility] escitalopra m oxalate 20 mg tablet 0 07-27 00:00: 00 Yes [facility] escitalopra m oxalate 20 mg tablet 0 07-27 00:00: 00 Yes [facility] escitalopra m oxalate 20 mg tablet 0 07-27 00:00: 00 Yes [facility] escitalopra m oxalate 20 mg tablet 0 07-27 00:00: 00 Yes [facility] escitalopra m oxalate 20 mg tablet 0 07-27 00:00: 00 Yes [facility] escitalopra m oxalate 20 mg tablet 0 07-27 00:00: 00 Yes [facility] escitalopra m oxalate 20 mg tablet 0 07-27 00:00: 00 Yes [facility] escitalopra m oxalate 20 mg tablet 0 07-27 00:00: 00 Yes [facility] escitalopra m oxalate 20 mg tablet 0 07-27 00:00: 00 Yes [facility] escitalopra m oxalate 20 mg tablet 0 07-27 00:00: 00 Yes [facility] escitalopra m oxalate 20 mg tablet 0 07-27 00:00: 00 Yes [facility] escitalopra m oxalate 20 mg tablet 0 07-27 00:00: 00 Yes [facility] escitalopra m oxalate 20 mg tablet 0 07-27 00:00: 00 Yes [facility] escitalopra m oxalate 20 mg tablet 07-27 00:00: 00 Yes [facility] escitalopra m oxalate 20 mg tablet 07-27 00:00: 00 Yes [facility] Immunizations Ordered Immunization Name Filled Immunization Name Date Status Comments Source Influenza Virus Vaccine Quad IM, Preserv and ABX Free 6 MO-64 YRS 2021-05-03 00:00:00 Completed [facility] Influenza Virus Vaccine Quad IM, Preserv and ABX Free 6 MO-64 YRS 2021-05-03 00:00:00 Completed [facility] Influenza Virus Vaccine Quad IM, Preserv and ABX Free 6 MO-64 YRS 2021-05-03 00:00:00 Completed [facility] Influenza Virus Vaccine Quad IM, Preserv and ABX Free 6 MO-64 YRS 2021-05-03 00:00:00 Completed [facility] Influenza Virus Vaccine Quad IM, Preserv and ABX Free 6 MO-64 YRS 2021-05-03 00:00:00 Completed [facility] Influenza Virus Vaccine Quad IM, Preserv and ABX Free 6 MO-64 YRS 2021-05-03 00:00:00 Completed [facility] Influenza Virus Vaccine Quad IM, Preserv and ABX Free 6 MO-64 YRS 2021-05-03 00:00:00 Completed [facility] Influenza Virus Vaccine Quad IM, Preserv and ABX Free 6 MO-64 YRS 2021-05-03 00:00:00 Completed [facility] Influenza Virus Vaccine Quad IM, Preserv and ABX Free 6 MO-64 YRS 2021-05-03 00:00:00 Completed [facility] Influenza Virus Vaccine Quad IM, Preserv and ABX Free 6 MO-64 YRS 2021-05-03 00:00:00 Completed [facility] Influenza Virus Vaccine Quad IM, Preserv and ABX Free 6 MO-64 YRS 2021-05-03 00:00:00 Completed [facility] Influenza Virus Vaccine Quad IM, Preserv and ABX Free 6 MO-64 YRS 2021-05-03 00:00:00 Completed [facility] Influenza Virus Vaccine Quad IM, Preserv and ABX Free 6 MO-64 YRS 2021-05-03 00:00:00 Completed [facility] TDAP 2021-03-09 00:00:00 Completed [facility] TDAP 2021-03-09 00:00:00 Completed [facility] TDAP 2021-03-09 00:00:00 Completed [facility] TDAP 2021-03-09 00:00:00 Completed [facility] TDAP 2021-03-09 00:00:00 Completed [facility] TDAP 2021-03-09 00:00:00 Completed [facility] TDAP 2021-03-09 00:00:00 Completed [facility] TDAP 2021-03-09 00:00:00 Completed [facility] TDAP 2021-03-09 00:00:00 Completed [facility] TDAP 2021-03-09 00:00:00 Completed [facility] TDAP 2021-03-09 00:00:00 Completed [facility] TDAP 2021-03-09 00:00:00 Completed [facility] TDAP 2021-03-09 00:00:00 Completed [facility] TDAP 2021-03-09 00:00:00 Completed [facility] TDAP (ADACEL) VACCINE 2015-08-31 00:00:00 Completed [facility] TDAP (ADACEL) VACCINE 2015-08-31 00:00:00 Completed [facility] TDAP (ADACEL) VACCINE 2015-08-31 00:00:00 Completed [facility] TDAP (ADACEL) VACCINE 2015-08-31 00:00:00 Completed [facility] TDAP (ADACEL) VACCINE 2015-08-31 00:00:00 Completed [facility] TDAP (ADACEL) VACCINE 2015-08-31 00:00:00 Completed [facility] TDAP (ADACEL) VACCINE 2015-08-31 00:00:00 Completed [facility] TDAP (ADACEL) VACCINE 2015-08-31 00:00:00 Completed [facility] TDAP (ADACEL) VACCINE 2015-08-31 00:00:00 Completed [facility] TDAP (ADACEL) VACCINE 2015-08-31 00:00:00 Completed [facility] TDAP (ADACEL) VACCINE 2015-08-31 00:00:00 Completed [facility] TDAP (ADACEL) VACCINE 2015-08-31 00:00:00 Completed [facility] TDAP (ADACEL) VACCINE 2015-08-31 00:00:00 Completed [facility] [place] TDAP (ADACEL) VACCINE 2015-08-31 00:00:00 Completed [facility] Influenza Virus Vaccine Quad IM, Preserv and ABX Free 6 MO-64 YRS (FLUCELVAX) Unknown Completed [facility] TDAP (ADACEL) VACCINE Unknown Completed [facility] TDAP Unknown Completed [facility] Influenza Virus Vaccine Quad IM, Preserv and ABX Free 6 MO-64 YRS (FLUCELVAX) Unknown Completed [facility] TDAP (ADACEL) VACCINE Unknown Completed [facility] TDAP Unknown Completed [facility] TDAP (ADACEL) VACCINE Unknown Completed [facility] TDAP Unknown Completed [facility] TDAP (ADACEL) VACCINE Unknown Completed [facility] TDAP Unknown Completed [facility] TDAP (ADACEL) VACCINE Unknown Completed [facility] TDAP Unknown Completed [facility] TDAP (ADACEL) VACCINE Unknown Completed [facility] TDAP Unknown Completed [facility] TDAP (ADACEL) VACCINE Unknown Completed [facility] TDAP (ADACEL) VACCINE Unknown Completed [facility] TDAP (ADACEL) VACCINE Unknown Completed [facility] TDAP (ADACEL) VACCINE Unknown Completed [facility] TDAP (ADACEL) VACCINE Unknown Completed [facility] TDAP (ADACEL) VACCINE Unknown Completed [facility] TDAP (ADACEL) VACCINE Unknown Completed [facility] TDAP (ADACEL) VACCINE Unknown Completed [facility] TDAP Unknown Completed [facility] Influenza Virus Vaccine Quad IM, Preserv and ABX Free 6 MO-64 YRS (FLUCELVAX) Unknown Completed [facility] TDAP (ADACEL) VACCINE Unknown Completed [facility] TDAP Unknown Completed [facility] Vital Signs Vital Name Observation Time Observation Value Comments S ource Systolic blood pressure 2022-01-29 00:51:00 113 mm[Hg] [facility] Diastolic blood pressure 2022-01-29 00:51:00 66 mm[Hg] [facility] Heart rate 2022-01-29 00:51:00 79 /min [facility] Body temperature 2022-01-28 22:24:00 37.72 Eufemia [facility] Respiratory rate 2022-01-28 22:24:00 19 /min [facility] Body height 2022-01-28 22:24:00 162.6 cm [facility] Body weight 2022-01-28 22:24:00 78.019 kg [facility] BMI 2022-01-28 22:24:00 29.52 kg/m2 [facility] Oxygen saturation in Arterial blood by Pulse oximetry 2022-01-28 22:24:00 98 /min [facility] Systolic blood pressure 2021-05-21 13:59:00 125 mm[Hg] [facility] Diastolic blood pressure 2021-05-21 13:59:00 54 mm[Hg] [facility] Heart rate 2021-05-21 13:59:00 91 /[facility] Body [facility] 2021-05-21 13:59:00 36.61 Eufemia [facility] Respiratory rate 2021-05-21 13:59:00 18 /min [facility] Oxygen saturation in Arterial blood by Pulse oximetry 2021-05-21 13:59:00 99 /min [facility] Body height 2021-05-19 14:30:00 162.6 cm [facility] Body weight 2021-05-19 14:30:00 85.276 kg [facility] BMI 2021-05-19 14:30:00 32.27 kg/m2 [facility] Heart rate 2021-05-19 14:45:00 101 /min [facility] Oxygen saturation in Arterial blood by Pulse oximetry 2021-05-19 14:45:00 100 /min [facility] Systolic blood pressure 2021-05-19 14:30:00 126 mm[Hg] [facility] Diastolic blood pressure 2021-05-19 14:30:00 75 mm[Hg] [facility] Body temperature 2021-05-19 14:30:00 36.44 Eufemia [facility] Respiratory rate 2021-05-19 14:30:00 16 /min [facility] Body height 2021-05-19 14:30:00 162.6 cm [facility] Body weight 2021-05-19 14:30:00 85.276 kg [facility] BMI 2021-05-19 14:30:00 32.27 kg/m2 [facility] Systolic blood pressure 2021-05-12 20:23:00 110 mm[Hg] [facility] Diastolic blood pressure 2021-05-12 20:23:00 70 mm[Hg] [facility] Heart rate 2021-05-12 20:23:00 109 /min [facility] Body temperature 2021-05-12 20:23:00 36.78 Eufemia [facility] Respiratory rate 2021-05-12 20:23:00 18 /min [facility] Body height 2021-05-12 20:23:00 162.6 cm [facility] Body weight 2021-05-12 20:23:00 83.008 kg [facility] BMI 2021-05-12 20:23:00 31.41 kg/m2 [facility] Systolic blood pressure 2021-05-03 21:50:00 121 mm[Hg] [facility] Diastolic blood pressure 2021-05-03 21:50:00 80 mm[Hg] [facility] Heart rate 2021-05-03 21:50:00 101 /min [facility] Body temperature 2021-05-03 21:50:00 36.83 Eufemia [facility] Respiratory rate 2021-05-03 21:50:00 18 /min [facility] Body height 2021-05-03 21:50:00 162.6 cm [facility] Body weight 2021-05-03 21:50:00 81.647 kg [facility] BMI 2021-05-03 21:50:00 30.90 kg/m2 [facility] Systolic blood pressure 2021-04-01 19:30:00 115 mm[Hg] [facility] Diastolic blood pressure 2021-04-01 19:30:00 71 mm[Hg] [facility] Heart rate 2021-04-01 19:30:00 88 /min [facility] Body temperature 2021-04-01 19:30:00 36.94 Eufemia [facility] Respiratory rate 2021-04-01 19:30:00 18 /min [facility] Body height 2021-04-01 19:30:00 160 cm [facility] Body weight 2021-04-01 19:30:00 78.926 kg [facility] BMI 2021-04-01 19:30:00 30.82 kg/m2 [facility] Procedures Procedure Date / Time Performed Performing Clinician Source LIPASE 2022-01-28 23:26:00 Felicitas [facility] COMP. METABOLIC PANEL ([id number]) 2022-01-28 23:26:00 Felicitas Torres [facility] CBC WITH DIFF 2022-01-28 23:26:00 [facility]icitas Torres [facility] URINALYSIS 2022-01-28 23:26:00 Felicitas Torres [facility] CONSENT/REFUSAL FOR DIAGNOSIS AND TREATMENT 2022-01-28 22:19:10 Doctor Unassigned, [place] [facility] CBC WITH DIFF 2021-05-20 10:01:00 Adum, Johnna Tejada [facility] CBC WITH DIFF 2021-05-20 10:01:00 Adum, Johnna Tejada [facility] SECTION 2021-05-19 14:42:00 [facility] LAP[facility]OMY 2021-05-19 14:42:00 Adum, Johnna Rodriguez [facility] SECTION 2021-05-19 14:42:00 Adum, [facility] LAPAROSCOPIC SALPINGECTOMY 2021-05-19 14:42:00 Adum, Johnna Rodriguez [facility] NOTICE OF PRIVACY PRACTICES 2021-05-19 13:56:31 Doctor Unassigned, [place] [facility] NOTICE OF PRIVACY PRACTICES 2021-05-19 13:56:31 Doctor Unassigned, [place] [facility] CONSENT/REFUSAL FOR DIAGNOSIS AND TREATMENT 2021-05-19 13:56:08 Doctor Unassigned, [place] [facility] CONSENT/REFUSAL FOR DIAGNOSIS AND TREATMENT 2021-05-19 13:56:08 Doctor Unassigned, [place] [facility] ASSIGNMENT OF BENEFITS 2021-05-19 13:55:48 Docto r Unassigned, [place] [facility] ASSIGNMENT OF BENEFITS 2021-05-19 13:55:48 Docto r Unassigned, [place] [facility] RHO (D) IMMUNE GLOBULIN 2021-05-18 23:18:00 Adum, Stephany Rodriguez [facility] RHO (D) IMMUNE GLOBULIN 2021-05-18 23:18:00 Adum, Stephany Rodriguez [facility] CONSENT/REFUSAL FOR DIAGNOSIS AND TREATMENT 2021-05-17 21:41:48 Doctor Unassigned, [place] [facility] CONSENT/REFUSAL FOR DIAGNOSIS AND TREATMENT 2021-05-17 21:41:48 Doctor Unassigned, [place] [facility] ASSIGNMENT OF BENEFITS 2021-05-17 21:41:35 Docto r Unassigned, [place] [facility] ASSIGNMENT OF BENEFITS 2021-05-17 21:41:35 Docto r Unassigned, [place] [facility] CONSENT/REFUSAL FOR DIAGNOSIS AND TREATMENT 2021-05-17 21:41:18 Doctor Unassigned, [place] [facility] CONSENT/REFUSAL FOR DIAGNOSIS AND TREATMENT 2021-05-17 21:41:18 Doctor Unassigned, [place] [facility] ASSIGNMENT OF BENEFITS 2021-05-17 21:41:04 Docto r Unassigned, [place] [facility] ASSIGNMENT OF BENEFITS 2021-05-17 21:41:04 Docto r Unassigned, [place] [facility] PHYSICIAN ORDERS 2021-05-12 06:01:00 Doctor Unas signed, [place] [facility] POCT URINALYSIS W/O SPECIFIC GRAVITY 2021-05-12 00:00:00 Adum, Johnna Rodriguez [facility] PHYSICIAN ORDERS 2021-05-11 06:01:00 Doctor Linn signed, [place] [facility] ASSIGNMENT OF BENEFITS 2021-05-03 22:35:22 Docto r Unassigned, [place] [facility] FLU VACC ([id number]), 2-64 YRS, .5ML, IM, QUAD (FLUCELVAX) 2021-05-03 21:54:12 Adum, Johnna Rodriguez [facility] POCT URINALYSIS W/O SPECIFIC GRAVITY 2021-05-03 00:00:00 Adum, Johnna Rodriguez [facility] POCT URINALYSIS W/O SPECIFIC GRAVITY 2021-04-01 00:00:00 AdumJohnna [facility] Encounters Start Date/Time End Date/Time Encounter Type Admission Type Attending Clinicians Care Facility Care Department Encounter ID Source 2022-01-28 17:25:00 2022-01-28 20:14:00 Emergency X FELICITAS TORRES [facility] E[facility] [id number] [facility] 2022-01-28 17:25:00 2022-01-28 20:14:00 Emergency Felicitas Torres [facility] [id number] [facility] 2021-07-29 10:15:00 2021-07-29 10:15:00 Outpatient R JOHNNA YO [facility] [id number] [facility] 2021-07-28 13:00:00 2021-07-28 13:00:00 Outpatient R SRINATH [facility] [id number] [facility] 2021-06-22 16:15:00 2021-06-22 16:15:00 Outpatient R SRINATH [facility] [id number] [facility] 2021-06-14 16:15:00 2021-06-14 16:15:00 Outpatient R JOHNNA YO [facility] [id number] [facility] 2021-06-13 00:00:00 2021-06-13 00:00:00 Patient Secure Msg Johnna Yo [facility] [id number] [facility] 2021-06-09 15:30:00 2021-06-09 15:30:00 Outpatient R JOHNNA YO [facility] [id number] [facility] 2021-06-03 11:15:00 2021-06-03 11:15:00 Outpatient R JOHNNA YO [facility] [id number] [facility] 2021-05-23 00:00:00 2021-05-23 00:00:00 Refill Johnna Yo [facility] 1.2.840.114 350.1.13.10 4.2.7.2.686 [id number] 134 [id number] [facility] 2021-05-19 07:53:00 2021-05-21 11:00:00 Inpatient P JOHNNA YO [facility] [id number] [facility] 2021-05-19 07:53:00 2021-05-21 11:00:00 Hospital Encounter Johnna oY [facility] 1.2.840.114 350.1.13.10 4.2.7.2.686 [id number] [facility] 2021-05-19 08:00:00 2021-05-19 10:20:00 Surgery Adsuzanne Johnna [facility] 1.2.840.114 350.1.13.10 4.2.7.2.686 [id number] 013 [id number] [facility] 2021-05-18 17:22:54 2021-05-18 17:37:54 Laboratory Only Only, Adc Test Johnna Yo [facility] 1.284.114 350.1.13.10 4.2.7.2.686 [id number] 353 [id number] [facility] 2021-05-18 17:00:24 2021-05-18 17:15:24 Procurement Professional Visit Pob, Adc Lab Main Srinath [facility] 1.284114 350.1.13.10 4.2.7.2.686 [id number] 353 [id number] [facility] 2021-05-18 08:30:00 2021-05-18 08:30:00 Outpatient R SRINATH [facility] [id number] [facility] 2021-05-12 13:39:02 2021-05-12 14:50:19 Routine Visit Srinath [facility] 1.84.114 350.1.13.10 4.2.7.2.686 [id number] 134 [id number] [facility] 2021-05-12 13:15:00 2021-05-12 14:50:19 Outpatient R ADSUZANNE [facility] [id number] [facility] 2021-05-12 00:00:00 2021-05-12 00:00:00 Orders Only Doctor Unassigned, [place] [facility] 1.284.114 350.1.13.10 4.2.7.2.686 [id number] [id number] [facility] 2021-05-11 13:15:00 2021-05-11 13:15:00 Outpatient R ADSUZANNE [facility] [id number] [facility] 2021-05-11 00:00:00 2021-05-11 00:00:00 Orders Only Doctor Unassigned, [place] [facility] 1.2114 350.1.13.10 4.2.7.2.686 [id number] [id number] [facility] 2021-05-10 00:00:00 2021-05-10 00:00:00 Patient Secure Msg Adum, Johnna Rodriguez [facility] 1.2.840.114 350.1.13.10 4.2.7.2.686 [id number] 134 [id number] [facility] 2021-05-06 00:00:00 2021-05-06 00:00:00 Patient Secure Msg Adum, Johnna Rodriguez [facility] 1.2.840.114 350.1.13.10 4.2.7.2.686 [id number] 134 [id number] [facility] 2021-05-03 17:36:35 2021-05-03 17:51:35 Procurement Professional Visit Pob, Adc Lab Main Adum, Johnna Rodriguez [facility] 1.2.840.114 350.1.13.10 4.2.7.2.686 [id number] 353 [id number] [facility] 2021-05-03 17:36:04 2021-05-03 17:51:04 Procurement Professional Visit Pob, Adc Lab Main Adum, Johnna Rodriguez [facility] 1.2.840.114 350.1.13.10 4.2.7.2.686 [id number] 353 [id number] [facility] 2021-05-03 16:27:00 2021-05-03 17:15:21 Routine Visit Adum, Johnna Rodriguez [facility] 1.2.840.114 350.1.13.10 4.2.7.2.686 [id number] 134 [id number] [facility] 2021-05-03 16:15:00 2021-05-03 17:15:21 Outpatient R ADUM, JOHNNA [facility] [id number] [facility] 2021-05-03 00:00:00 2021-05-03 00:00:00 Orders Only Doctor Unassigned, [place] [facility] 1.2.840.114 350.1.13.10 4.2.7.2.686 [id number] [id number] [facility] 2021-04-22 00:00:00 2021-04-22 00:00:00 Patient Secure Msg Adum, Johnna [facility] 1.2.840.114 350.1.13.10 4.2.7.2.686 [id number] 134 [id number] [facility] 2021-04-19 14:00:00 2021-04-19 14:00:00 Outpatient R ADSUZANNE JOHNNA [facility] [id number] [facility] 2021-04-01 14:13:21 2021-04-01 15:03:38 Routine Visit Johnna Yo [facility] 1.2.840.114 350.1.13.10 4.2.7.2.686 [id number] 134 [id number] [facility] 2021-04-01 14:00:00 2021-04-01 14:00:00 Outpatient R ADJOHNNA PALACIOS [facility] [id number] [facility] 2021-03-28 00:00:00 2021-03-28 00:00:00 Patient Secure Msg AdJohnna palacios [facility] 1.2.840.114 350.1.13.10 4.2.7.2.686 [id number] 134 [id number] [facility] 2021-03-25 09:15:00 2021-03-25 09:15:00 Outpatient R ADSUZANNE [facility] [id number] [facility] 2021-03-25 00:00:00 2021-03-25 00:00:00 Patient Secure Msg Adum, Johnna L [facility] 1.2.840.114 350.1.13.10 4.2.7.2.686 [id number] 134 [id number] [facility] 2021-03-23 11:00:00 2021-03-23 11:00:00 Outpatient R JOHNNA YO [facility] [id number] [facility] 2021-03-18 15:48:20 2021-03-18 16:18:20 Procurement Professional Visit Ultrasound, Adc MfEdward Franco [facility] 1.2.840.114 350.1.13.10 4.2.7.2.686 [id number] 134 [id number] [facility] 2021-03-18 14:00:00 2021-03-18 14:00:00 Outpatient R [facility] [id number] [facility] 2021-03-14 00:00:00 2021-03-14 00:00:00 Patient Secure Msg AdumJohnna [facility] 1.2.840.114 350.1.13.10 4.2.7.2.686 [id number] 134 [id number] [facility] 2021-03-10 00:00:00 2021-03-10 00:00:00 Patient Secure Msg AdJohnna palacios [facility] 1.2.840.114 350.1.13.10 4.2.7.2.686 [id number] 134 [id number] [facility] 2021-03-10 00:00:00 2021-03-10 00:00:00 Telephone AdJohnna palacios [facility] 1.2.840.114 350.1.13.10 4.2.7.2.686 [id number] 134 [id number] [facility] 2021-03-09 13:15:49 2021-03-09 13:30:49 Laboratory Only Only, Adc Test AdJohnna palacios [facility] 1.2840.114 350.1.13.10 4.2.7.2.686 [id number] 353 [id number] [facility] 2021-03-09 11:31:44 2021-03-09 12:46:12 Routine Visit AdJohnna palacios [facility] 1.2840.114 350.1.13.10 4.2.7.2.686 [id number] 134 [id number] [facility] 2021-03-09 11:15:00 2021-03-09 11:15:00 Outpatient R SRINATH JOHNNA [facility] [id number] [facility] 2021-03-09 00:00:00 2021-03-09 00:00:00 Orders Only Doctor Unassigned, [place] [facility] 1.284.114 350.1.13.10 4.2.7.2.686 [id number] [id number] [facility] 2021-03-03 14:15:00 2021-03-03 14:15:00 Outpatient R JOHNNA YO [facility] [id number] [facility] 2021-02-28 00:00:00 2021-02-28 00:00:00 Patient Secure Msg Srinath [facility] 1.2.840.114 350.1.13.10 4.2.7.2.686 [id number] 134 [id number] [facility] 2021-02-26 00:00:00 2021-02-26 00:00:00 Nurse Triage Kaylee Houser [facility] 1.284.114 350.1.13.10 4.2.7.2.686 [id number] 019 [id number] [facility] 2021-02-26 00:00:00 2021-02-26 00:00:00 Patient Secure Msg Doctor Unassigned, [place] [facility] 1.2.840.114 350.1.13.10 4.2.7.2.686 [id number] 019 [id number] [facility] 2021-02-22 00:00:00 2021-02-22 00:00:00 Patient Secure Msg Adum, Johnna Rodriguez [facility] 1.2.840.114 350.1.13.10 4.2.7.2.686 [id number] 134 [id number] [facility] 2021-02-18 00:00:00 2021-02-18 00:00:00 Patient Secure Msg Doctor Unassigned, [place] [facility] 1.2.840.114 350.1.13.10 4.2.7.2.686 [id number] 019 [id number] [facility] 2021-02-08 00:00:00 2021-02-08 00:00:00 Telephone Adum, Johnna Rodriguez [facility] 1.2.840.114 350.1.13.10 4.2.7.2.686 [id number] 134 [id number] [facility] 2021-02-07 00:00:00 2021-02-07 00:00:00 Telephone AdumJohnna [facility] 1.2.840.114 350.1.13.10 4.2.7.2.686 [id number] 134 [id number] [facility] 2021-02-04 00:00:00 2021-02-04 00:00:00 Patient Secure Msg Adum, Johnna Rodriguez [facility] 1.2.840.114 350.1.13.10 4.2.7.2.686 [id number] 134 [id number] [facility] 2021-02-03 13:52:04 2021-02-03 15:07:04 Procurement Professional Visit 1, [facility].114 350.1.13.10 4.2.7.2.686 [id number] [facility] 2021-02-03 14:15:00 2021-02-03 14:15:00 Outpatient P [facility] [id number] [facility] 2021-02-02 00:00:00 2021-02-02 00:00:00 Patient Secure Msg Adum, Johnna Rodriguez [facility] 1.840.114 350.1.13.10 4.2.7.2.686 [id number] 134 [id number] [facility] 2021-01-29 00:00:00 2021-01-29 00:00:00 Case Management Adum, Johnna [facility] 1.840.114 350.1.13.10 4.2.7.2.686 [id number] 134 [id number] [facility] 2021-01-28 08:30:00 2021-01-28 08:30:00 Outpatient R [facility] [id number] [facility] 2021-01-27 00:00:00 2021-01-27 00:00:00 Patient Secure Msg Doctor Unassigned, [place] [facility] 1.84.114 350.1.13.10 4.2.7.2.686 [id number] 019 [id number] [facility] 2021-01-27 00:00:00 2021-01-27 00:00:00 Telephone Adum Johnna Rodriguez [facility] 1.840.114 350.1.13.10 4.2.7.2.686 [id number] 134 [id number] [facility] 2021-01-27 00:00:00 2021-01-27 00:00:00 Telephone Adum, Johnna [facility] 1.2.840.114 350.1.13.10 4.2.7.2.686 [id number] 134 [id number] [facility] 2021-01-26 16:44:26 2021-01-26 16:59:26 Procurement Professional Visit Pob, Adc Lab Main Adum, Johnna Rodriguez [facility] 1.2.840.114 350.1.13.10 4.2.7.2.686 [id number] 353 [id number] [facility] 2021-01-26 14:21:54 2021-01-26 15:48:55 Routine Visit Adsuzanne, Johnna [facility] 1.2.840.114 350.1.13.10 4.2.7.2.686 [id number] 134 [id number] [facility] 2021-01-26 14:00:00 2021-01-26 14:00:00 Outpatient R SRINATH [facility] [id number] [facility] 2021-01-26 00:00:00 2021-01-26 00:00:00 Orders Only Doctor Unassigned, [place] [facility] 1.2.840.114 350.1.13.10 4.2.7.2.686 [id number] [id number] [facility] 2021-01-25 10:45:00 2021-01-25 10:45:00 Outpatient R ADSUZANNE [facility] [id number] [facility] 2021-01-24 09:45:00 2021-01-24 09:45:00 Outpatient P [facility] [id number] [facility] 2021-01-18 10:45:00 2021-01-18 10:45:00 Outpatient R ADSUZANNE [facility] [id number] [facility] 2020-12-24 08:15:00 2020-12-24 08:15:00 Outpatient R SRINATH [facility] [id number] [facility] 2020-12-21 16:40:30 2020-12-21 17:02:28 Routine Visit Adum, Johnna Rodriguez [facility] 1.2840.114 350.1.13.10 4.2.7.2.686 [id number] 134 [id number] [facility] 2020-12-21 16:15:00 2020-12-21 16:15:00 Outpatient R ADUM, JOHNNA [facility] [id number] [facility] 2020-11-03 16:00:00 2020-11-03 16:00:00 Outpatient R ADJOHNNA PALACIOS [facility] [id number] [facility] 2020-10-21 13:30:00 2020-10-21 13:30:00 Outpatient R [facility] [id number] [facility] 2020-10-21 00:00:00 2020-10-21 00:00:00 Telephone Adum, Johnna Rodriguez [facility] 1.840.114 350.1.13.10 4.2.7.2.686 [id number] [facility] 2020-10-20 13:56:11 2020-10-20 15:52:55 Initial Visit AdJohnna palacios [facility] 1.2840.114 350.1.13.10 4.2.7.2.686 [id number] 134 [id number] [facility] 2020-10-20 13:30:00 2020-10-20 13:30:00 Outpatient R ADSUZANNE, JOHNNA [facility] [id number] [facility] 2020-10-20 00:00:00 2020-10-20 00:00:00 Orders Only Doctor Unassigned, [place] [facility] 1.84.114 350.1.13.10 4.2.7.2.686 [id number] [facility] 2009-11-09 00:00:00 2009-11-09 17:58:00 [facility] [id number] [facility] 2008-06-01 00:00:00 2008-06-01 14:49:00 [facility]patient [facility] [id number] [facility] 2008-03-06 00:00:00 2008-03-06 16:07:00 [facility]patient [facility] [id number] [facility] 2008-03-03 00:00:00 2008-03-03 00:00:00 [facility]patient [facility] [id number] [facility] 2008-02-18 00:00:00 2008-02-18 15:54:00 [facility]patient [facility] [id number] [facility] 2008-01-29 00:00:00 2008-01-29 16:38:00 [facility]patient [facility] [id number] [facility] 2007-02-05 00:00:00 2007-02-05 10:10:00 [facility]patient [facility] [id number] [facility] 2006-08-08 00:00:00 2006-08-08 14:25:00 [facility]patient [facility] [id number] [facility] 2006-07-25 00:00:00 2006-07-25 17:10:00 [facility]patient [facility] [id number] [facility] 2006-05-09 00:00:00 2006-05-09 16:09:00 [facility]patient [facility] [id number] [facility] 2006-04-24 00:00:00 2006-04-24 00:00:00 [facility]patient [facility] [id number] [facility] 2005-11-09 00:00:00 2005-11-09 11:56:00 [facility]patient [facility] [id number] [facility] 2005-06-28 00:00:00 2005-06-28 15:39:00 [facility]patient [facility] [id number] [facility] Results Test Description Test Time Test Comments Results Result Co mments Source [facility]:06:26* Test Item Value Reference Range Interpretation Comme nts LIPASE (test code = 0299812223) 177 U/L 0-220 Lab Interpretation (test cod e = 29951-7) Normal [facility] WITH [id number] 00:01:25* Test Item Value Reference Range Interpretation Comme nts WBC (test code = 6690-2) See_Comment [Automated messa ge] The system which generated this result transmitted reference range: 4.30 - 11.10 10*3/?L. The reference range was not used to interpret this result as normal/abnormal. RBC (test code = 789-8) See_Comment [Automated messa ge] The system which generated this result transmitted reference range: 3.93 - 5.25 10*6/?L. The reference range was not used to interpret this result as normal/abnormal. HGB (test code = 718-7) 13.7 g/dL 11.6-15 HCT (test code = 4544-3) 40.1 % 35.7-45.2 MCV (test code = 787-2) 93.0 fL 80.6-95.5 MCH (test code = 785-6) 31.8 pg 25.9-32.8 MCHC (test code = 786-4) 34.2 g/dL 31.6-35.1 RDW-SD (test code = 39385-1) 43.3 fL 39-49.9 RDW-CV (test code = 788-0) 12.5 % 12-15.5 PLT (test code = 777-3) See_Comment [Automated messa ge] The system which generated this result transmitted reference range: 166 - 358 10*3/?L. The reference range was not used to interpret this result as normal/abnormal. MPV (test code = 88103-5) 9.7 fL 9.5-12.9 NRBC/100 WBC (test code = 6454786185) See_Comment [Automated Guidekick ssage] The system which generated this result transmitted reference range: 0.0 - 10.0 /100 WBCs. The reference range was not used to interpret this result as normal/abnormal. NRBC x10^3 (test code = 4384791029) See_Comment [Automated me ssage] The system which generated this result transmitted reference range: 10*3/?L. The reference range was not used to interpret this result as normal/abnormal. GRAN MAT (NEUT) % (test code = 770-8) 73.5 % IMM GRAN % (test code = 8423185657) 0.40 % LYMPH % (test code = 736-9) 19.0 % MONO % (test code = 5905-5) 5.8 % EOS % (test code = 713-8) 0.9 % BASO % (test code = 706-2) 0.4 % GRAN MAT x10^3(ANC) (test code = 7349695851) 6.57 10*3/uL 1.88-7.09 IMM GRAN x10^3 (test code = 7200695418) 0.04 10*3/uL 0-0.06 LYMPH x10^3 (test code = 731-0) 1.70 10*3/uL 1.32-3.29 MONO x10^3 (test code = 742-7) 0.52 10*3/uL 0.33-0.92 EOS x10^3 (test code = 711-2) 0.08 10*3/uL 0.03-0.39 BASO x10^3 (test code = 704-7) 0.04 10*3/uL 0.01-0.07 General acute hospital with Cdywtpoqrwle6556-00-96 11:10:09* Test Item Value Reference Range Interpretation Comme nts WBC (test code = 6690-2) See_Comment H [Automated messa ge] The system which generated this result transmitted reference range: 4.30 - 11.10 10*3/?L. The reference range was not used to interpret this result as normal/abnormal. RBC (test code = 789-8) See_Comment L [Automated messa ge] The system which generated this result transmitted reference range: 3.93 - 5.25 10*6/?L. The reference range was not used to interpret this result as normal/abnormal. HGB (test code = 718-7) 8.7 g/dL 11.6-15.0 L HCT (test code = 4544-3) 27.3 % 35.7-45.2 L MCV (test code = 787-2) 93.2 fL 80.6-95.5 MCH (test code = 785-6) 29.7 pg 25.9-32.8 MCHC (test code = 786-4) 31.9 g/dL 31.6-35.1 RDW-SD (test code = 70669-9) 45.6 fL 39.0-49.9 RDW-CV (test code = 788-0) 13.4 % 12.0-15.5 PLT (test code = 777-3) See_Comment [Automated messa ge] The system which generated this result transmitted reference range: 166 - 358 10*3/?L. The reference range was not used to interpret this result as normal/abnormal. MPV (test code = 85283-4) 10.8 fL 9.5-12.9 NRBC/100 WBC (test code = 9637198924) See_Comment [Automated Guidekick ssage] The system which generated this result transmitted reference range: 0.0 - 10.0 /100 WBCs. The reference range was not used to interpret this result as normal/abnormal. NRBC x10^3 (test code = 6567094407) <0.01 See_Comment [Automated Choozlea ge] The system which generated this result transmitted reference range: 10*3/?L. The reference range was not used to interpret this result as normal/abnormal. GRAN MAT (NEUT) % (test code = 770-8) 78.0 % IMM GRAN % (test code = 5718334259) 0.70 % LYMPH % (test code = 736-9) 13.6 % MONO % (test code = 5905-5) 6.0 % EOS % (test code = 713-8) 1.3 % BASO % (test code = 706-2) 0.4 % GRAN MAT x10^3(ANC) (test code = 6129816358) 8.89 10*3/uL 1.88-7.09 H IMM GRAN x10^3 (test code = 2589815300) 0.08 10*3/uL 0.00-0.06 H LYMPH x10^3 (test code = 731-0) 1.55 10*3/uL 1.32-3.29 MONO x10^3 (test code = 742-7) 0.68 10*3/uL 0.33-0.92 EOS x10^3 (test code = 711-2) 0.15 10*3/uL 0.03-0.39 BASO x10^3 (test code = 704-7) 0.05 10*3/uL 0.01-0.07 Lab Interpretation (test code = 24471-0) Abnormal General acute hospital with Jqaxagqwmdeg1622-69-49 11:10:09* Test Item Value Reference Range Interpretation Comme nts WBC (test code = 6690-2) See_Comment H [Automated messa ge] The system which generated this result transmitted reference range: 4.30 - 11.10 10*3/?L. The reference range was not used to interpret this result as normal/abnormal. RBC (test code = 789-8) See_Comment L [Automated messa ge] The system which generated this result transmitted reference range: 3.93 - 5.25 10*6/?L. The reference range was not used to interpret this result as normal/abnormal. HGB (test code = 718-7) 8.7 g/dL 11.6-15.0 L HCT (test code = 4544-3) 27.3 % 35.7-45.2 L MCV (test code = 787-2) 93.2 fL 80.6-95.5 MCH (test code = 785-6) 29.7 pg 25.9-32.8 MCHC (test code = 786-4) 31.9 g/dL 31.6-35.1 RDW-SD (test code = 68700-5) 45.6 fL 39.0-49.9 RDW-CV (test code = 788-0) 13.4 % 12.0-15.5 PLT (test code = 777-3) See_Comment [Automated messa ge] The system which generated this result transmitted reference range: 166 - 358 10*3/?L. The reference range was not used to interpret this result as normal/abnormal. MPV (test code = 76203-7) 10.8 fL 9.5-12.9 NRBC/100 WBC (test code = 1949436210) See_Comment [Automated me ssage] The system which generated this result transmitted reference range: 0.0 - 10.0 /100 WBCs. The reference range was not used to interpret this result as normal/abnormal. NRBC x10^3 (test code = 4435242485) <0.01 See_Comment [Automated messa ge] The system which generated this result transmitted reference range: 10*3/?L. The reference range was not used to interpret this result as normal/abnormal. GRAN MAT (NEUT) % (test code = 770-8) 78.0 % IMM GRAN % (test code = 5279614135) 0.70 % LYMPH % (test code = 736-9) 13.6 % MONO % (test code = 5905-5) 6.0 % EOS % (test code = 713-8) 1.3 % BASO % (test code = 706-2) 0.4 % GRAN MAT x10^3(ANC) (test code = 2067171904) 8.89 10*3/uL 1.88-7.09 H IMM GRAN x10^3 (test code = 0715290903) 0.08 10*3/uL 0.00-0.06 H LYMPH x10^3 (test code = 731-0) 1.55 10*3/uL 1.32-3.29 MONO x10^3 (test code = 742-7) 0.68 10*3/uL 0.33-0.92 EOS x10^3 (test code = 711-2) 0.15 10*3/uL 0.03-0.39 BASO x10^3 (test code = 704-7) 0.05 10*3/uL 0.01-0.07 Lab Interpretation (test code = 66946-2) Abnormal [facility] IMMUNE [id number] 18:56:23* Test Item Value Reference Range Interpretation Comme nts RHIG CANDIDATE? (test code = 5055) No- see comment Patient is not a candidate for RhIg- Patient is Rh Positive.Performed at [facility] Laboratory Services - [facility] Blood [address] [place] [phone] Free: [phone] No. [id number] [facility] IMMUNE [id number] 18:56:23* Test Item Value Reference Range Interpretation Comme nts RHIG CANDIDATE? (test code = 5055) No- see comment Patient is not a candidate for RhIg- Patient is Rh Positive.Performed at [facility] Laboratory Services - [facility] Blood [address] [place] [id number] Free: [phone] No. [id number] [facility]/O SPECIFIC [id number] 20:25:00* Test Item Value Reference Range Interpretation Comme nts POCT PH U (test code = 3254) N/A 5-8 POCT U LEUK EST (test code = 3263) N/A Negative - Negative POCT U NIT (test code = 3262) N/A Negative - Negati ve POCT U PROT (test code = 3259) Negative Negative - Negat cecilia POCT U GLU (test code = 3256) Trace Negative - Negati ve POCT U KETONE (test code = 3258) N/A Negative - Neg ative POCT U BLD (test code = 3257) N/A Negative - Negati ve [facility]/O SPECIFIC [id number] 21:54:00* Test Item Value Reference Range Interpretation Comme nts POCT PH U (test code = 3254) n/a 5-8 POCT U LEUK EST (test code = 3263) n/a Negative - N egative POCT U NIT (test code = 3262) n/a Negative - Negati ve POCT U PROT (test code = 3259) neg Negative - Negat cecilia POCT U GLU (test code = 3256) neg Negative - Negati ve POCT U KETONE (test code = 3258) n/a Negative - Neg ative POCT U BLD (test code = 3257) n/a Negative - Negati ve Lab Interpretation (test cod e = [id number]) [facility] [id number] 19:44:00* Test Item Value Reference Range Interpretation Comme nts POCT PH U (test code = 3254) n/a 5-8 POCT U LEUK EST (test code = 7313) n/a Negative - N egative POCT U NIT (test code = 3102) n/a Negative - Negati ve POCT U PROT (test code = 7509) neg Negative - Negat cecilia POCT U GLU (test code = 3156) neg Negative - Negati ve POCT U KETONE (test code = 2198) n/a Negative - Neg ative POCT U BLD (test code = 7077) n/a Negative - Negati ve [facility]
[2023-09-18 20:52] LABS: Anion Gap 10.4 mEq/L (5.0-15.0); Potassium 3.4 mEq/L (3.5-5.1)
[2023-09-18 20:57] LABS: Absolute Eosinophils 0.1 K/uL (0-0.5); Absolute Lymphocytes (CBC) 1.3 K/uL (0.7-4.9); Absolute Monocytes 0.8 K/uL (0.1-1.3); Absolute Neutrophil 9.5 K/uL (1.8-8.0); Basophils % 0.3 % (0-1.3); Eosinophils % 0.7 % (0-4.4); Hematocrit 37.5 % (36.0-45.0); Hemoglobin 12.6 g/dL (12.0-15.0); MCH 30.9 pg (27.0-35.0); MCHC 33.6 g/dL (32.0-36.0); MCV 92.1 fL (80-100); MPV 7.7 fL (7.6-11.3); Monocytes % 7.2 % (3.3-12.3); Neutrophils % 80.8 % (41.7-73.7); Nucleated Red Blood Cells % 0.1 % (0-0); Platelets 258 thou/uL (152-406); RBC Red Blood Cell Count 4.07 M/uL (3.86-4.86)
[2023-09-18 21:29] LABS: Specific Gravity 1.015 (1.005-1.030)
--- NOTE | 2023-09-18 21:45 | RAD REPORT ---
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 FINDINGS: Nasopharyngeal tissues are normal in appearance. Fossa Rosenmller are normal. Both palatine tonsils as well as the adenoids appear prominent in size. There is no peritonsillar abs cess. Mild bilateral submandibular and jugular chain lymph nodes are present. The largest on the left measures 16 mm. Tongue base structures are normal. Epiglottis and aryepiglottic folds are normal. Piriform sinuses are well aerated. Normal size thyroid gland. The vocal cords are normal in appearance. Salivary glands are normal in appearance. Upper lung keene are clear. Included intracranial contents are unremarkable. IMPRESSION: No evidence of peritonsillar abscess
--- NOTE | 2023-09-18 21:48 | EDPHYS ---
Physician Documentation [facility] Name: Mary Ann Lin Age: 38 yrs Sex: Female : 1985 Arrival Date: 09/18/2023 Time: 18: Bed DX4 Private MD: ED Physician Yonatan Cobb Historical: - Allergies: 09/17 18:47 No Known Allergies; ap3 - PMHx: 18:47 Anxiety; ap3 - PSHx: 18:47 section; tubal; ap3 - Immunization history:: Client reports receiving the 1st dose of the Covid vaccine. - Social history:: Smoking status: Patient reports use of chewing tobacco. ROS: 22:23 Constitutional: As per HPI kb Exam: 22:23 Constitutional: This is a well developed, well nourished patient who is awake, alert, kb and in no acute distress. Head/Face: Normocephalic, atraumatic. Cardiovascular: Regular rate Respiratory: Respirations even and unlabored. No increased work of breathing. Talking in full sentences Skin: Warm, dry with normal turgor. Normal color. MS/ Extremity: Pulses equal, no cyanosis. Neurovascular intact. Full, normal range of motion. Neuro: Awake and alert, GCS 15, oriented to person, place, time, and situation. Moves all extremities. Normal gait. 22:23 ENT: Posterior pharynx: Airway: normal, no evidence of obstruction, Tonsils: bilaterally enlarged, with erythema, left more enlarged than right, Uvula: normal, midline, swelling, that is moderate, erythema, that is marked, Vital Signs: 18:45 BP 108 / 51; Pulse 86; Resp 18; Temp 98.5; Pulse Ox 100% ; Weight 69.85 kg; Height 5 ap3 ft. 4 in. ; Pain 8/10; 18:45 Body Mass Index 26.43 (69.85 kg, 162.56 cm) ap3 18:45 Pain Scale: Adult ap3 MDM: 18:27 Patient medically screened. kb 09/17 18:40 Order name: CBC with Diff; Complete Time: 21:04 kb 09/17 18:40 Order name: Basic Metabolic Panel; Complete Time: 20:53 kb 09/17 18:40 Order name: Strep; Complete Time: 21:04 kb 09/17 18:40 Order name: Flu; Complete Time: 21:04 kb 09/17 18:40 Order name: COVID-19 SARS RT PCR; Complete Time: 21:46 kb 09/17 21:01 Order name: Throat Culture EDAZ 09/17 21:07 Order name: Test, Urine; Complete Time: 21:35 pf1 09/17 18:40 Order name: CT Soft Tissue Neck W/contr; Complete Time: 21:46 kb 09/17 18:40 Order name: IV Start; Complete Time: 20:34 kb Administered Medications: 20:10 Drug: GI Cocktail without - (Maalox PO 30 ml, Lidocaine Mucous Membrane 2 % 15 pf1 ml) PO once Route: PO; 21:05 Drug: NS 0.9% IV 1000 ml IV at 1000 ml once Route: IV; Rate: 1000 ml; Site: left pf1 antecubital; 21:05 Drug: Decadron - Dexamethasone IVP 10 mg IVP once Route: IVP; Site: left antecubital; pf1 21:55 Drug: Ketorolac IVP 15 mg IVP once Route: IVP; Site: left antecubital; pf1 Disposition Summary: 09/18/23 21:47 Discharge Ordered Notes: Location: Home kb Condition: Stable kb Diagnosis - Acute tonsillitis, unspecified kb Followup: kb - With: Emergency Department - When: As needed - Reason: Worsening of condition Followup: kb - With: Private Physician - When: 2 - 3 days - Reason: Recheck today's complaints, Continuance of care, Re-evaluation by your physician Discharge Instructions: - Discharge Summary Sheet kb - Tonsillitis, [id number] kb Forms: - Medication Reconciliation Form kb - Thank You Letter kb - Antibiotic Education kb - Prescription Opioid Use kb - Patient Portal Instructions kb - Leadership Thank You Letter kb Prescriptions: - Augmentin 875-125 mg Oral Tablet - take 1 tablet ORAL route every 12 hours for 10 days; 20 tablet; Refills: 0, kb Product Selection Permitted Signatures: Dispatcher [employer] EDKristen Elizabeth FNP-C FNP-Ckb Prokisch, Amanda RN RN ap3 Balbina Cavazos RN RN pf1
--- NOTE | 2023-09-18 21:48 | ER ---
Nurse's Notes [facility] Name: Mary Ann Lin Age: 38 yrs Sex: Female : 1985 Arrival Date: 09/18/2023 Time: 18:19 Bed DX4 Private MD: Diagnosis: Acute tonsillitis, unspecified Presentation: 09/17 18:45 Chief complaint: Patient states: she started feeling ill last night, and having left ap3 ear pain that radiates into her throat. patient rates her pain as an 8/10 on the pain scale. Coronavirus screen: At this time, the client does not indicate any symptoms associated with coronavirus-19. Ebola Screen: No symptoms or risks identified at this time. Initial Sepsis Screen: Does the patient meet any 2 criteria? No. Patient's initial sepsis screen is negative. Does the patient have a suspected source of infection? No. Patient's initial sepsis screen is negative. Risk Assessment: Do you want to hurt yourself or someone else? Patient reports no desire to harm self or others. Onset of symptoms was September 17, 2023. 18:45 Method Of Arrival: Ambulatory ap3 18:45 Acuity: ANNABELLE 3 ap3 Triage Assessment: 18:48 General: Appears ill, Behavior is calm, cooperative, appropriate for age. Pain: ap3 Complains of pain in left ear and neck Pain began 1 day ago. Neuro: Level of Consciousness is awake, alert, obeys commands, Oriented to person, place, time, situation. Cardiovascular: Patient's skin is warm and dry. Respiratory: Airway is patent Respiratory effort is even, unlabored, Respiratory pattern is regular, symmetrical. Historical: - Allergies: 18:47 No Known Allergies; ap3 - PMHx: 18:47 Anxiety; ap3 - PSHx: 18:47 section; tubal; ap3 - Immunization history:: Client reports receiving the 1st dose of the Covid vaccine. - Social history:: Smoking status: Patient reports use of chewing tobacco. Screenin:48 Abuse screen: Denies threats or abuse. Nutritional screening: No deficits noted. ap3 Tuberculosis screening: No symptoms or risk factors identified. Vital Signs: 18:45 BP 108 / 51; Pulse 86; Resp 18; Temp 98.5; Pulse Ox 100% ; Weight 69.85 kg; Height 5 ap3 ft. 4 in. ; Pain 8/10; 18:45 Body Mass Index 26.43 (69.85 kg, 162.56 cm) ap3 18:45 Pain Scale: Adult ap3 ED Course: 18:21 Patient arrived in ED. im 18:23 Kristen Rutledge [facility]-C [facility] ld1 18:47 Triage completed. ap3 18:48 Arm band placed on right wrist. ap3 20:01 Yonatan Cobb MD is Attending Physician. kb 20:34 Notified Charge Nurse of pt stated she had dayquil at 1600. kmf 20:34 COVID-19 SARS RT PCR Sent. kmf 20:34 Flu Sent. kmf 20:34 Strep Sent. kmf 20:34 Basic Metabolic Panel Sent. kmf 20:34 CBC with Diff Sent. kmf 20:35 Initial lab(s) drawn, by pa, sent to lab. kmf 20:35 Inserted saline lock: 20 gauge in left antecubital area, using aseptic technique. Blood kmf collected. 21:12 Test, Urine Sent. kmf 21:12 Urine collected: clean catch specimen, clear, Amount Voided: 100mL. kmf 21:31 CT Soft Tissue Neck W/contr In Process Unspecified. EDMS Administered Medications: 20:10 Drug: GI Cocktail without - (Maalox PO 30 ml, Lidocaine Mucous Membrane 2 % 15 pf1 ml) PO once Route: PO; 21:05 Drug: NS 0.9% IV 1000 ml IV at 1000 ml once Route: IV; Rate: 1000 ml; Site: left pf1 antecubital; 21:05 Drug: Decadron - Dexamethasone IVP 10 mg IVP once Route: IVP; Site: left antecubital; pf1 21:55 Drug: Ketorolac IVP 15 mg IVP once Route: IVP; Site: left antecubital; pf1 Outcome: 21:47 Discharge ordered by . kb 22:20 Discharged to home ambulatory, pf1 22:20 Condition: improved pf1 22:20 Discharge instructions given to patient, Instructed on discharge instructions, follow up and referral plans. Demonstrated understanding of instructions, follow-up care, medications, Prescriptions given X 1, 22:23 Patient left the ED. pf1 Signatures: Dispatcher [employer] EDMS Kristen Rutledge FNP-C FNP-Ckb Chanel Box, RN RN ap3 Christina Quick, RN RN ld1 Balbina Cavazos, RN RN pf1 Haleigh Sargent Kelsey Maroul formerly [facility]
[2023-09-18 22:41] VITALS: BP 108/51; TEMP 98.5; O2SAT 100
== END ==
LOC: ER 18:19
DX: J03.90 Acute tonsillitis, unspecified (principal); Z11.52 Encounter for screening for COVID-19
CPT/HCPCS: 36415; 70491; 80048; 81025; 85025; 87070; 87081; 87635; 87804; J1100; J7030; Q9967

== ENCOUNTER 2023-09-29 20:48 | Emergency (ER) | payer SELFPAY ==
--- OUTSIDE RECORDS SUMMARY | 2023-09-29 20:53 | XMS REPORT | Continuity of Care Document ---
Author Name Unknown Address [address] [facility] [address] [place] [address] [facility] Address [address] [facility]. [address] [place] [address] Care Team Providers Care Glass Forming Crew Member Name Role Phone Pcp, Patient Does Not Have A Primary Care Physic joby FELICITAS TORRES Attending Clinician Unavailable Evelio PACFelicitas S Attending Clinician [phone] JOHNNA YO Attending Clinician Unavailable Johnna Yo MD Attending Clinician [phone] Only, Adc Test Attending Clinician Unavailable Pob, Adc Lab Main Attending Clinician Unavailabl e Doctor Unassigned, Santa Claus Attending Clinician U navailable Ultrasound, Adc Mf Attending Clinician Wilma Martínez MD, Edward Mcdowell Attending Clinician [phone] Mik RIGGS, Kaylee Luu Attending Clinician Wilma lackey [facility] Mf Usg Room Attending Clinician Wilma Castellanos MD, Lynnette Attending Clinician [phone] JOHNNA YO Admitting Clinician Unavailable Johnna Yo MD Admitting Clinician [phone] Payers Payer Name Policy Type Policy Number Effective Date Expirati on Date Source [facility] [id number] 2016 00:00:00 Problems Condition Name Condition Details Condition Category Status Onset Date Resolution Date Last Treatment Date Treating Clinician Comments Source Single liveborn, born in hospital, delivered by section Single liveborn, born in hospital, delivered by section Disease Active 2021-1 1-18 00:00: 00 [facility] Obesity (BMI 30-39.9) Obesity (BMI 30-39.9) Disease Active 2020-07 0-01 00:00: 00 [facility] Anemia of mother in , antepartum Anemia of mother in , antepartum Disease Active 7-31 00:00: 00 [facility] Anemia of mother in , antepartum Anemia of mother in , antepartum Disease Active 7-31 00:00: 00 [facility] Family history of congenital anomaly of cardiovasc ular system Family history of congenital anomaly of cardiovasc ular system Disease Active 6-22 00:00: 00 [facility] High risk , multigravi da of advanced maternal age in third trimester High risk , multigravi da of advanced maternal age in third trimester Disease Active 4-21 00:00: 00 [facility] 32 weeks gestation of 32 weeks gestation of Disease Active 4-21 00:00: 00 [facility] 36 weeks gestation of 36 weeks gestation of Disease Active 4-21 00:00: 00 [facility] 38 weeks gestation of 38 weeks gestation of Disease Active 4-21 00:00: 00 [facility] 39 weeks gestation of 39 weeks gestation of Disease Active 4-21 00:00: 00 [facility] History of seizure History of seizure Disease Active 2016-07 00:00: 00 [facility] Tobacco use disorder Tobacco use disorder Disease Active 2016-07 00:00: 00 [facility] Depression Depression Disease Active [facility] Anxiety Anxiety Disease Active Silvestre w: Ciara g of this note might be different from the original. dx: 2005, currently on SSRI and Benzodiaz epines [facility] Previous section Previous section Disease Active [facility] Allergies, Adverse Reactions, Alerts Allergy Name Allergy Type Status Severity Reaction(s) Onset Date Inactive Date Treating Clinician Comments Source NO KNOWN ALLERGIE S Drug Class Active [facility] Social History Social Habit Start Date Stop Date Quantity Comments Source ASSERTION 2020-09-01 00:00:00 [facility] History of tobacco use 2007-06-13 00:00:00 Cigarette Smoker [facility] Exposure to SARS-CoV-2 (event) 2022-01-18 00:00:00 2022-01-28 17:23:00 Not sure [facility] History of Social function 2022-01-28 00:00:00 2022-01-28 00:00:00 [facility] Cigarettes smoked current (pack per day) - Reported 2020-12-21 00:00:00 2020-12-21 00:00:00 [facility] Tobacco use and exposure 2020-12-21 00:00:00 2020-12-21 00:00:00 Smokeless tobacco non-user [facility] Alcohol intake 2020-12-21 00:00:00 2020-12-21 00:00:00 Ex-drinker (finding) [facility] Tobacco Comment 2020-10-20 00:00:00 2020-10-20 00:00:00 < 1/2 PPD, was smoking 1 PPD [facility] Sex Assigned At 1985 00:00:00 1985 00:00:00 [facility] Smoking Status Start Date Stop Date Source Smokes tobacco daily 2020-12-21 00:00:00 [facility] Medications Ordered Medication Name Filled Medication Name Start Date Stop Date Current Medication? Ordering Clinician Indication Dosage Frequency Signature (SIG) Comments Components Source acetaminoph en (TYLENOL) tablet 1,000 mg 01-29 00:30: 00 01-28 23:25 :00 No 1000mg 1,000 mg, Oral, ONCE, 1 dose, On 01/28/22 at 1930, Routine [facility] ketorolac (TORADOL) injection 30 mg 01-29 00:30: 00 01-28 23:26 :00 No 30mg 30 mg, Slow IV Push, ONCE, 1 dose, On 01/28/22 at 1930, JYOTI [facility] ibuprofen 800 mg tablet 7 00:00: 00 Yes [id number] 800mg Take 1 tablet by mouth every 8 (eight) hours as needed for Pain (scale 4-6). [facility] vit calc,iron,f olic ( VITAMIN ORAL) 2020-07 11:10: 18 Yes Take by mouth. [facility] vit calc,iron,f olic ( VITAMIN ORAL) 2020-07 11:10: 18 Yes Take by mouth. [facility] vit calc,iron,f olic ( VITAMIN ORAL) 2020-07 11:10: 18 Yes Take by mouth. [facility] vit calc,iron,f olic ( VITAMIN ORAL) 2020-07 11:10: 18 Yes Take by mouth. [facility] vit calc,iron,f olic ( VITAMIN ORAL) 2020-07 11:10: 18 Yes Take by mouth. [facility] vit calc,iron,f olic ( VITAMIN ORAL) 2020-07 11:10: 18 Yes Take by mouth. [facility] vit calc,iron,f olic ( VITAMIN ORAL) 2020-07 11:10: 18 Yes Take by mouth. [facility] vit calc,iron,f olic ( VITAMIN ORAL) 2020-07 11:10: 18 Yes Take by mouth. [facility] vit calc,iron,f olic ( VITAMIN ORAL) 2020-07 11:10: 18 Yes Take by mouth. [facility] vit calc,iron,f olic ( VITAMIN ORAL) 2020-07 11:10: 18 Yes Take by mouth. [facility] vit calc,iron,f olic ( VITAMIN ORAL) 2020-07 11:10: 18 Yes Take by mouth. [facility] vit calc,iron,f olic ( VITAMIN ORAL) 2020-07 11:10: 18 Yes Take by mouth. [facility] vit calc,iron,f olic ( VITAMIN ORAL) 2020-07 11:10: 18 Yes Take by mouth. [facility] vit calc,iron,f olic ( VITAMIN ORAL) 2020-07 11:10: 18 Yes Take by mouth. [facility] vit calc,iron,f olic ( VITAMIN ORAL) 2020-07 11:10: 18 Yes Take by mouth. [facility] vit calc,iron,f olic ( VITAMIN ORAL) 2020-07 11:10: 18 Yes Take by mouth. [facility] vit calc,iron,f olic ( VITAMIN ORAL) 2020-07 11:10: 18 Yes Take by mouth. [facility] vit calc,iron,f olic ( VITAMIN ORAL) 2020-07 11:10: 18 Yes Take by mouth. [facility] vit calc,iron,f olic ( VITAMIN ORAL) 2020-07 11:10: 18 Yes Take by mouth. [facility] vit calc,iron,f olic ( VITAMIN ORAL) 2020-07 11:10: 18 Yes Take by mouth. [facility] simethicone (GAS RELIEF (SIMETHICON E)) chewable tablet 80 mg 2020-07 23:45: 00 Yes 80mg 80 mg, Oral, BID, First dose (after last modificati on) on Sun05/20/21 at 1745, Until Discontinu ed, Routine [facility] vit calc,iron,f olic ( VITAMIN ORAL) 2020-07 07:53: 25 Yes Take by mouth. [facility] vitamin w/FA tablet 2020-07 00:00: 00 Yes [id number] 1{tbl} Take 1 tablet by mouth daily. [facility] docusate calcium 240 mg capsule 2020-07 00:00: 00 Yes [id number] 240mg Take 1 capsule by mouth once daily as needed for Constipati on. [facility] ferrous sulfate 325 mg (65 mg iron) tablet 2020-07 00:00: 00 Yes [id number] 325mg Take 1 tablet by mouth 2 (two) times daily. [facility] ibuprofen 800 mg tablet 2020-07 00:00: 00 Yes [id number] 800mg Take 1 tablet by mouth every 8 (eight) hours. Take with food or milk. [facility] HYDROcodone -acetaminop hen 5-325 mg tablet 2020-07 00:00: 00 Yes [id number] 1{tbl} Take 1 tablet by mouth every 6 (six) hours as needed (Pain scale above 4). Do not exceed 3 grams of acetaminop hen in 24 hours. Indication s: acute pain [facility] vitamin w/FA tablet 2020-07 00:00: 00 Yes [id number] 1{tbl} Take 1 tablet by mouth daily. [facility] docusate calcium 240 mg capsule 2020-07 00:00: 00 Yes [id number] 240mg Take 1 capsule by mouth once daily as needed for Constipati on. [facility] ferrous sulfate 325 mg (65 mg iron) tablet 2020-07 00:00: 00 Yes [id number] 325mg Take 1 tablet by mouth 2 (two) times daily. [facility] ibuprofen 800 mg tablet 2020-07 00:00: 00 Yes [id number] 800mg Take 1 tablet by mouth every 8 (eight) hours. Take with food or milk. [facility] HYDROcodone -acetaminop hen 5-325 mg tablet 2020-07 00:00: 00 Yes [id number] 1{tbl} Take 1 tablet by mouth every 6 (six) hours as needed (Pain scale above 4). Do not exceed 3 grams of acetaminop hen in 24 hours. Indication s: acute pain [facility] vitamin w/FA tablet 2020-07 00:00: 00 Yes [id number] 1{tbl} Take 1 tablet by mouth daily. [facility] docusate calcium 240 mg capsule 2020-07 00:00: 00 Yes [id number] 240mg Take 1 capsule by mouth once daily as needed for Constipati on. [facility] ferrous sulfate 325 mg (65 mg iron) tablet 2020-07 00:00: 00 Yes [id number] 325mg Take 1 tablet by mouth 2 (two) times daily. [facility] ibuprofen 800 mg tablet 2020-07 00:00: 00 Yes [id number] 800mg Take 1 tablet by mouth every 8 (eight) hours. Take with food or milk. [facility] HYDROcodone -acetaminop hen 5-325 mg tablet 2020-07 00:00: 00 Yes [id number] 1{tbl} Take 1 tablet by mouth every 6 (six) hours as needed (Pain scale above 4). Do not exceed 3 grams of acetaminop hen in 24 hours. Indication s: acute pain [facility] vitamin w/FA tablet 2020-07 00:00: 00 Yes [id number] 1{tbl} Take 1 tablet by mouth daily. [facility] docusate calcium 240 mg capsule 2020-07 00:00: 00 Yes [id number] 240mg Take 1 capsule by mouth once daily as needed for Constipati on. [facility] ferrous sulfate 325 mg (65 mg iron) tablet 2020-07 00:00: 00 Yes [id number] 325mg Take 1 tablet by mouth 2 (two) times daily. [facility] HYDROcodone -acetaminop hen 5-325 mg tablet 2020-07 00:00: 00 Yes [id number] 1{tbl} Take 1 tablet by mouth every 6 (six) hours as needed (Pain scale above 4). Do not exceed 3 grams of acetaminop hen in 24 hours. Indication s: acute pain [facility] vitamin w/FA tablet 2020-07 00:00: 00 Yes [id number] 1{tbl} Take 1 tablet by mouth daily. [facility] docusate calcium 240 mg capsule 2020-07 00:00: 00 Yes [id number] 240mg Take 1 capsule by mouth once daily as needed for Constipati on. [facility] ferrous sulfate 325 mg (65 mg iron) tablet 2020-07 00:00: 00 Yes [id number] 325mg Take 1 tablet by mouth 2 (two) times daily. [facility] HYDROcodone -acetaminop hen 5-325 mg tablet 2020-07 00:00: 00 Yes [id number] 1{tbl} Take 1 tablet by mouth every 6 (six) hours as needed (Pain scale above 4). Do not exceed 3 grams of acetaminop hen in 24 hours. Indication s: acute pain [facility] ibuprofen 800 mg tablet 2020-07 00:00: 00 01-28 00:00 :00 No [id number] 800mg Take 1 tablet by mouth every 8 (eight) hours. Take with food or milk. [facility] acetaminoph en ADULT (OFIRMEV) injection 1,000 mg 2020-07 22:00: 00 05-20 10:13 :00 No 1000mg 1,000 mg, IV Infusion, Administer over 15 Minutes, Q6H, 3 doses, First dose on Sun05/19/21 at 1600, Last dose on Sun05/20/21 at 0000, Routine
Indicatio n: Perioperat cecilia Patient [facility] ibuprofen (IBU) tablet 800 mg 2020-07 20:00: 00 Yes 800mg 800 mg, Oral, Q8H, First dose on Sun05/19/21 at 1400, Until Discontinu ed, Routine [facility] ibuprofen (IBU) tablet 800 mg 2020-07 20:00: 00 Yes 800mg 800 mg, Oral, Q8H, First dose on Sun05/19/21 at 1400, Until Discontinu ed, Routine [facility] simethicone (GAS RELIEF (SIMETHICON E)) chewable tablet 80 mg 2020-07 18:30: 00 Yes 80mg 80 mg, Oral, DAILY, First dose on Sun05/19/21 at 1230, Until Discontinu ed, Routine [facility] simethicone (GAS RELIEF (SIMETHICON E)) chewable tablet 80 mg 2020-07 18:30: 00 05-20 23:42 :05 No 80mg 80 mg, Oral, DAILY, First dose on Sun05/19/21 at 1230, Until Discontinu ed, Routine [facility] ketorolac (TORADOL) injection 30 mg 2020-07 18:00: 00 05-20 05:23 :00 No 30mg 30 mg, Slow IV Push, Q6H, 3 doses, First dose (after last modificati on) on Sun05/19/21 at 1200, Last dose on Sun05/20/21 at 0000, Routine
membership secretary approving Restricted medication : ALEXIS [facility] rho(D) immune globulin (RHOGAM) syringe 300 mcg 2020-07 16:28: 34 Yes 300ug 300 mcg, Intramuscu lar, ONCE, For 1 dose, Conditiona l, Routine [facility] rho(D) immune globulin (RHOGAM) syringe 300 mcg 2020-07 16:28: 34 Yes 300ug 300 mcg, Intramuscu lar, ONCE, For 1 dose, Conditiona l, Routine [facility] HYDROcodone -acetaminop hen (NORCO 5) 5-325 mg tablet 2 tablet 2020-07 16:24: 53 Yes 2{tbl} 2 tablet, Oral, Q6HPRN, Starting on Sun05/19/21 at 1024, Until Discontinu ed, Routine, Pain (scale 7-10), If uncontroll ed by Ibuprofen [facility] HYDROcodone -acetaminop hen (NORCO 5) 5-325 mg tablet 2 tablet 2020-07 16:24: 53 Yes 2{tbl} 2 tablet, Oral, Q6HPRN, Starting on Sun05/19/21 at 1024, Until Discontinu ed, Routine, Pain (scale 7-10), If uncontroll ed by Ibuprofen [facility] HYDROcodone -acetaminop hen (NORCO 5) 5-325 mg tablet 1 tablet 2020-07 16:24: 49 Yes 1{tbl} 1 tablet, Oral, Q6HPRN, Starting on Sun05/19/21 at 1024, Until Discontinu ed, Routine, Pain (scale 4-6), If uncontroll ed by Ibuprofen [facility] HYDROcodone -acetaminop hen (NORCO 5) 5-325 mg tablet 1 tablet 2020-07 16:24: 49 Yes 1{tbl} 1 tablet, Oral, Q6HPRN, Starting on Sun05/19/21 at 1024, Until Discontinu ed, Routine, Pain (scale 4-6), If uncontroll ed by Ibuprofen [facility] diphenhydrA MINE (BENADRYL) tablet 25 mg 2020-07 16:23: 41 Yes 25mg 25 mg, Oral, Q6HPRN, Starting on Sun05/19/21 at 1023, Until Discontinu ed, Routine, Sleep, Itching [facility] ondansetron (ZOFRAN (PF)) injection 4 mg 2020-07 16:23: 41 Yes 4mg 4 mg, Slow IV Push, Q8HPRN, Starting on Sun05/19/21 at 1023, Until Discontinu ed, Routine, Nausea and Vomiting (N/V) [facility] bisacodyL (DULCOLAX) suppository 10 mg 2020-07 16:23: 41 Yes 10mg 10 mg, Rectal, QDAILYPRN, Starting on Sun05/19/21 at 1023, Until Discontinu ed, Routine, Constipati on [facility] magnesium hydroxide (MILK OF MAGNESIA) 400 mg/5 mL suspension 30 mL 2020-07 16:23: 41 Yes 30mL 30 mL, Oral, QDAILYPRN, Starting on Sun05/19/21 at 1023, Until Discontinu ed, Routine, Constipati on [facility] diphenhydrA MINE (BENADRYL) tablet 25 mg 2020-07 16:23: 41 Yes 25mg 25 mg, Oral, Q6HPRN, Starting on Sun05/19/21 at 1023, Until Discontinu ed, Routine, Sleep, Itching [facility] ondansetron (ZOFRAN (PF)) injection 4 mg 2020-07 16:23: 41 Yes 4mg 4 mg, Slow IV Push, Q8HPRN, Starting on Skylar 05/19/21 at 1023, Until Discontinu ed, Routine, Nausea and Vomiting (N/V) [facility] bisacodyL (DULCOLAX) suppository 10 mg 2020-07 16:23: 41 Yes 10mg 10 mg, Rectal, QDAILYPRN, Starting on Sun05/19/21 at 1023, Until Discontinu ed, Routine, Constipati on [facility] magnesium hydroxide (MILK OF MAGNESIA) 400 mg/5 mL suspension 30 mL 2020-07 16:23: 41 Yes 30mL 30 mL, Oral, QDAILYPRN, Starting on Skylar 05/19/21 at 1023, Until Discontinu ed, Routine, Constipati on [facility] sodium chloride 0.9 % irrigation solution 2020-07 15:00: 00 Yes PRN, Starting on Sun05/19/21 at 0900, Until Discontinu ed, Intra-op [facility] sodium chloride 0.9 % irrigation solution 2020-07 15:00: 00 Yes PRN, Starting on Sun05/19/21 at 0900, Until Discontinu ed, Intra-op [facility] lactated ringers IV infusion 500 mL 2020-07 14:30: 00 05-19 14:24 :00 No 500mL at 999 mL/hr, 500 mL, IV Infusion, ONCE, 1 dose, On Sun05/19/21 at 0830, Routine [facility] lactated ringers IV infusion 1,000 mL 2020-07 14:30: 00 05-19 16:28 :35 No 1000mL at 125 mL/hr, 1,000 mL, IV Infusion, CONTINUOUS , Starting on Skylar 05/19/21 at 0830, Until Skylar 05/19/21 at 1028, Routine [facility] sodium citrate-cit kim acid (BICITRA) 500-334 mg/5 mL solution 30 mL 2020-07 14:22: 50 05-19 14:34 :00 No 30mL 30 mL, Oral, PRE-PROCED URE ONCE, 1 dose, Starting on Skylar 05/19/21 at 0822, Until 05/21/21 at 2359, Routine, Surgery/Pr ocedure [facility] hydrOXYzine 25 mg capsule 2020-07 0- 00:00: 00 Yes [id number] 25mg Take 1 capsule by mouth 4 (four) times daily as needed for Anxiety. [facility] hydrOXYzine 25 mg capsule 2020-07 0- 00:00: 00 Yes [id number] 25mg Take 1 capsule by mouth 4 (four) times daily as needed for Anxiety. [facility] hydrOXYzine 25 mg capsule 2020-07 0 00:00: 00 Yes [id number] 25mg Take 1 capsule by mouth 4 (four) times daily as needed for Anxiety. [facility] hydrOXYzine 25 mg capsule 2020-07 0- 00:00: 00 Yes [id number] 25mg Take 1 capsule by mouth 4 (four) times daily as needed for Anxiety. [facility] hydrOXYzine 25 mg capsule 2020-07 0 00:00: 00 Yes [id number] 25mg Take 1 capsule by mouth 4 (four) times daily as needed for Anxiety. [facility] hydrOXYzine 25 mg capsule 2020-07 0 00:00: 00 Yes [id number] 25mg Take 1 capsule by mouth 4 (four) times daily as needed for Anxiety. [facility] hydrOXYzine 25 mg capsule 2020-07 0- 00:00: 00 Yes [id number] 25mg Take 1 capsule by mouth 4 (four) times daily as needed for Anxiety. [facility] hydrOXYzine 25 mg capsule 2020-07 0- 00:00: 00 Yes [id number] 25mg Take 1 capsule by mouth 4 (four) times daily as needed for Anxiety. [facility] hydrOXYzine 25 mg capsule 2020-07 0- 00:00: 00 Yes [id number] 25mg Take 1 capsule by mouth 4 (four) times daily as needed for Anxiety. [facility] hydrOXYzine 25 mg capsule 2020-07 0- 00:00: 00 Yes [id number] 25mg Take 1 capsule by mouth 4 (four) times daily as needed for Anxiety. [facility] hydrOXYzine 25 mg capsule 2020-07 0- 00:00: 00 Yes [id number] 25mg Take 1 capsule by mouth 4 (four) times daily as needed for Anxiety. [facility] hydrOXYzine 25 mg capsule 2020-07 0- 00:00: 00 Yes [id number] 25mg Take 1 capsule by mouth 4 (four) times daily as needed for Anxiety. [facility] hydrOXYzine 25 mg capsule 2020-07 0- 00:00: 00 Yes [id number] 25mg Take 1 capsule by mouth 4 (four) times daily as needed for Anxiety. [facility] hydrOXYzine 25 mg capsule 2020-07 0- 00:00: 00 Yes [id number] 25mg Take 1 capsule by mouth 4 (four) times daily as needed for Anxiety. [facility] hydrOXYzine 25 mg capsule 2020-07 0 00:00: 00 Yes [id number] 25mg Take 1 capsule by mouth 4 (four) times daily as needed for Anxiety. [facility] hydrOXYzine 25 mg capsule 2020-07 0- 00:00: 00 Yes [id number] 25mg Take 1 capsule by mouth 4 (four) times daily as needed for Anxiety. [facility] hydrOXYzine 25 mg capsule 2020-07 0- 00:00: 00 Yes [id number] 25mg Take 1 capsule by mouth 4 (four) times daily as needed for Anxiety. [facility] hydrOXYzine 25 mg capsule 2020-07 0- 00:00: 00 Yes [id number] 25mg Take 1 capsule by mouth 4 (four) times daily as needed for Anxiety. [facility] azithromyci n 250 mg tablet 9 00:00: 00 04-01 00:00 :00 No 250mg Take 1 tablet by mouth daily. Take 500 mg day 1, then 250 mg days 2 to 5. [facility] clonazePAM 0.5 mg tablet 1-0 03-09 00:00: 00 Yes [id number] .5mg Take 1 tablet by mouth every 8 (eight) hours as needed (Anxiety). [facility] clonazePAM 0.5 mg tablet 2020-0 03-09 00:00: 00 Yes [id number] .5mg Take 1 tablet by mouth every 8 (eight) hours as needed (Anxiety). [facility] clonazePAM 0.5 mg tablet 2020-0 03-09 00:00: 00 Yes [id number] .5mg Take 1 tablet by mouth every 8 (eight) hours as needed (Anxiety). [facility] clonazePAM 0.5 mg tablet 2020-0 03-09 00:00: 00 Yes [id number] .5mg Take 1 tablet by mouth every 8 (eight) hours as needed (Anxiety). [facility] clonazePAM 0.5 mg tablet 2020-0 03-09 00:00: 00 Yes [id number] .5mg Take 1 tablet by mouth every 8 (eight) hours as needed (Anxiety). [facility] clonazePAM 0.5 mg tablet 2020-0 03-09 00:00: 00 Yes [id number] .5mg Take 1 tablet by mouth every 8 (eight) hours as needed (Anxiety). [facility] clonazePAM 0.5 mg tablet 2020-0 03-09 00:00: 00 Yes [id number] .5mg Take 1 tablet by mouth every 8 (eight) hours as needed (Anxiety). [facility] clonazePAM 0.5 mg tablet 2020-0 03-09 00:00: 00 Yes [id number] .5mg Take 1 tablet by mouth every 8 (eight) hours as needed (Anxiety). [facility] clonazePAM 0.5 mg tablet 1-0 03-09 00:00: 00 Yes [id number] .5mg Take 1 tablet by mouth every 8 (eight) hours as needed (Anxiety). [facility] clonazePAM 0.5 mg tablet 2021-0 03-09 00:00: 00 Yes [id number] .5mg Take 1 tablet by mouth every 8 (eight) hours as needed (Anxiety). [facility] clonazePAM 0.5 mg tablet 1-0 03-09 00:00: 00 Yes [id number] .5mg Take 1 tablet by mouth every 8 (eight) hours as needed (Anxiety). [facility] clonazePAM 0.5 mg tablet 2020-0 03-09 00:00: 00 Yes [id number] .5mg Take 1 tablet by mouth every 8 (eight) hours as needed (Anxiety). [facility] clonazePAM 0.5 mg tablet 2020-0 03-09 00:00: 00 Yes [id number] .5mg Take 1 tablet by mouth every 8 (eight) hours as needed (Anxiety). [facility] clonazePAM 0.5 mg tablet 2020-0 03-09 00:00: 00 Yes [id number] .5mg Take 1 tablet by mouth every 8 (eight) hours as needed (Anxiety). [facility] clonazePAM 0.5 mg tablet 2020-0 03-09 00:00: 00 Yes [id number] .5mg Take 1 tablet by mouth every 8 (eight) hours as needed (Anxiety). [facility] clonazePAM 0.5 mg tablet 2020-0 03-09 00:00: 00 Yes [id number] .5mg Take 1 tablet by mouth every 8 (eight) hours as needed (Anxiety). [facility] clonazePAM 0.5 mg tablet 2020-0 03-09 00:00: 00 Yes [id number] .5mg Take 1 tablet by mouth every 8 (eight) hours as needed (Anxiety). [facility] clonazePAM 0.5 mg tablet 2020-0 03-09 00:00: 00 Yes [id number] .5mg Take 1 tablet by mouth every 8 (eight) hours as needed (Anxiety). [facility] ity [facility] clonazePAM 0.5 mg tablet 1-0 03-09 00:00: 00 Yes [id number] .5mg Take 1 tablet by mouth every 8 (eight) hours as needed (Anxiety). [facility] it[facility] clonazePAM 0.5 mg tablet 2021-0 03-09 00:00: 00 Yes [id number] .5mg Take 1 tablet by mouth every 8 (eight) hours as needed (Anxiety). [facility] ity [facility] clonazePAM 0.5 mg tablet 03-09 00:00: 00 Yes [id number] .5mg Take 1 tablet by mouth every 8 (eight) hours as needed (Anxiety). [facility] clonazePAM 0.5 mg tablet 03-09 00:00: 00 Yes [id number] .5mg Take 1 tablet by mouth every 8 (eight) hours as needed (Anxiety). [facility] ferrous sulfate 325 mg (65 mg iron) tablet 01-29 00:00: 00 Yes [id number] 325mg Take 1 tablet by mouth 2 (two) times daily. [facility] ferrous sulfate 325 mg (65 mg iron) tablet 01-29 00:00: 00 Yes [id number] 325mg Take 1 tablet by mouth 2 (two) times daily. [facility] ferrous sulfate 325 mg (65 mg iron) tablet 01-29 00:00: 00 Yes [id number] 325mg Take 1 tablet by mouth 2 (two) times daily. [facility] ferrous sulfate 325 mg (65 mg iron) tablet 01-29 00:00: 00 Yes [id number] 325mg Take 1 tablet by mouth 2 (two) times daily. [facility] ferrous sulfate 325 mg (65 mg iron) tablet 01-29 00:00: 00 Yes [id number] 325mg Take 1 tablet by mouth 2 (two) times daily. [facility] ferrous sulfate 325 mg (65 mg iron) tablet 01-29 00:00: 00 Yes [id number] 325mg Take 1 tablet by mouth 2 (two) times daily. [facility] ferrous sulfate 325 mg (65 mg iron) tablet 01-29 00:00: 00 Yes [id number] 325mg Take 1 tablet by mouth 2 (two) times daily. [facility] ferrous sulfate 325 mg (65 mg iron) tablet 01-29 00:00: 00 Yes [id number] 325mg Take 1 tablet by mouth 2 (two) times daily. [facility] ferrous sulfate 325 mg (65 mg iron) tablet 01-29 00:00: 00 Yes [id number] 325mg Take 1 tablet by mouth 2 (two) times daily. [facility] ferrous sulfate 325 mg (65 mg iron) tablet 01-29 00:00: 00 Yes [id number] 325mg Take 1 tablet by mouth 2 (two) times daily. [facility] ferrous sulfate 325 mg (65 mg iron) tablet 01-29 00:00: 00 Yes [id number] 325mg Take 1 tablet by mouth 2 (two) times daily. [facility] ferrous sulfate 325 mg (65 mg iron) tablet 01-29 00:00: 00 Yes [id number] 325mg Take 1 tablet by mouth 2 (two) times daily. [facility] ferrous sulfate 325 mg (65 mg iron) tablet 01-29 00:00: 00 Yes [id number] 325mg Take 1 tablet by mouth 2 (two) times daily. [facility] ferrous sulfate 325 mg (65 mg iron) tablet 01-29 00:00: 00 Yes [id number] 325mg Take 1 tablet by mouth 2 (two) times daily. [facility] ferrous sulfate 325 mg (65 mg iron) tablet 01-29 00:00: 00 Yes [id number] 325mg Take 1 tablet by mouth 2 (two) times daily. [facility] ferrous sulfate 325 mg (65 mg iron) tablet 01-29 00:00: 00 Yes [id number] 325mg Take 1 tablet by mouth 2 (two) times daily. [facility] ferrous sulfate 325 mg (65 mg iron) tablet 01-29 00:00: 00 Yes [id number] 325mg Take 1 tablet by mouth 2 (two) times daily. [facility] ferrous sulfate 325 mg (65 mg iron) tablet 01-29 00:00: 00 Yes [id number] 325mg Take 1 tablet by mouth 2 (two) times daily. [facility] ferrous sulfate 325 mg (65 mg iron) tablet 01-29 00:00: 00 Yes [id number] 325mg Take 1 tablet by mouth 2 (two) times daily. [facility] ferrous sulfate 325 mg (65 mg iron) tablet 01-29 00:00: 00 Yes [id number] 325mg Take 1 tablet by mouth 2 (two) times daily. [facility] ferrous sulfate 325 mg (65 mg iron) tablet 01-29 00:00: 00 Yes [id number] 325mg Take 1 tablet by mouth 2 (two) times daily. [facility] ferrous sulfate 325 mg (65 mg iron) tablet 01-29 00:00: 00 Yes [id number] 325mg Take 1 tablet by mouth 2 (two) times daily. [facility] ferrous sulfate 325 mg (65 mg iron) tablet 01-29 00:00: 00 Yes [id number] 325mg Take 1 tablet by mouth 2 (two) times daily. [facility] ferrous sulfate 325 mg (65 mg iron) tablet 01-29 00:00: 00 Yes [id number] 325mg Take 1 tablet by mouth 2 (two) times daily. [facility] ferrous sulfate 325 mg (65 mg iron) tablet 01-29 00:00: 00 Yes [id number] 325mg Take 1 tablet by mouth 2 (two) times daily. [facility] ferrous sulfate 325 mg (65 mg iron) tablet 01-29 00:00: 00 Yes [id number] 325mg Take 1 tablet by mouth 2 (two) times daily. [facility] ferrous sulfate 325 mg (65 mg iron) tablet 01-29 00:00: 00 Yes [id number] 325mg Take 1 tablet by mouth 2 (two) times daily. [facility] ferrous sulfate 325 mg (65 mg iron) tablet 01-29 00:00: 00 Yes [id number] 325mg Take 1 tablet by mouth 2 (two) times daily. [facility] vit calc,iron,f olic ( VITAMIN ORAL) 10-20 14:46: 00 Yes Take by mouth. [facility] vit calc,iron,f olic ( VITAMIN ORAL) 10-20 14:46: 00 Yes Take by mouth. [facility] vit calc,iron,f olic ( VITAMIN ORAL) 10-20 14:46: 00 Yes Take by mouth. [facility] vit calc,iron,f olic ( VITAMIN ORAL) 10-20 14:46: 00 Yes Take by mouth. [facility] vit calc,iron,f olic ( VITAMIN ORAL) 10-20 14:46: 00 Yes Take by mouth. [facility] vit calc,iron,f olic ( VITAMIN ORAL) 10-20 14:46: 00 Yes Take by mouth. [facility] vit calc,iron,f olic ( VITAMIN ORAL) 10-20 14:46: 00 Yes Take by mouth. [facility] vit calc,iron,f olic ( VITAMIN ORAL) 10-20 14:46: 00 Yes Take by mouth. [facility] mg tablet 07-27 00:00: [address] [facility] it[facility] escitalopra m oxalate 20 mg tablet 0 07-27 00:00: [address] [facility] it[facility] escitalopra m oxalate 20 mg tablet 0 07-27 00:00: [address] [facility] it[facility] escitalopra m oxalate 20 mg tablet 0 07-27 00:00: [address] [facility] it[facility] escitalopra m oxalate 20 mg tablet 0 07-27 00:00: [address] [facility] it[facility] escitalopra m oxalate 20 mg tablet 0 07-27 00:00: [address] [facility] it[facility] escitalopra m oxalate 20 mg tablet 0 07-27 00:00: [address] [facility] escitalopra m oxalate 20 mg tablet 0 07-27 00:00: [address] [facility] escitalopra m oxalate 20 mg tablet 0 07-27 00:00: [address] [facility] escitalopra m oxalate 20 mg tablet 0 07-27 00:00: 00 Yes [facility] escitalopra m oxalate 20 mg tablet 0 07-27 00:00: 00 Yes [facility] escitalopra m oxalate 20 mg tablet 0 07-27 00:00: 00 Yes [facility] escitalopra m oxalate 20 mg tablet 0 07-27 00:00: 00 Yes [facility] escitalopra m oxalate 20 mg tablet 0 07-27 00:00: 00 Yes [facility] escitalopra m oxalate 20 mg tablet 0 07-27 00:00: 00 Yes [facility] escitalopra m oxalate 20 mg tablet 0 07-27 00:00: 00 Yes [facility] escitalopra m oxalate 20 mg tablet 0 07-27 00:00: 00 Yes [facility] escitalopra m oxalate 20 mg tablet 0 07-27 00:00: 00 Yes [facility] escitalopra m oxalate 20 mg tablet 0 07-27 00:00: 00 Yes [facility] escitalopra m oxalate 20 mg tablet 0 07-27 00:00: 00 Yes [facility] escitalopra m oxalate 20 mg tablet 0 07-27 00:00: 00 Yes [facility] escitalopra m oxalate 20 mg tablet 0 07-27 00:00: 00 Yes [facility] escitalopra m oxalate 20 mg tablet 0 07-27 00:00: 00 Yes [facility] escitalopra m oxalate 20 mg tablet 0 07-27 00:00: 00 Yes [facility] escitalopra m oxalate 20 mg tablet 0 07-27 00:00: 00 Yes [facility] escitalopra m oxalate 20 mg tablet 0 07-27 00:00: 00 Yes [facility] escitalopra m oxalate 20 mg tablet 0 07-27 00:00: 00 Yes [facility] escitalopra m oxalate 20 mg tablet 07-27 00:00: 00 Yes [facility] escitalopra m oxalate 20 mg tablet 07-27 00:00: 00 Yes [facility] Immunizations Ordered Immunization Name Filled Immunization Name Date Status Comments Source Influenza Virus Vaccine Quad IM, Preserv and ABX Free 6 MO-64 YRS 2021-05-03 00:00:00 Completed [facility] Influenza Virus Vaccine Quad IM, Preserv and ABX Free 6 MO-64 YRS 2021-05-03 00:00:00 Completed [facility] Influenza Virus Vaccine Quad IM, Preserv and ABX Free 6 MO-64 YRS 2021-05-03 00:00:00 Completed [facility] Influenza Virus Vaccine Quad IM, Preserv and ABX Free 6 MO-64 YRS 2021-05-03 00:00:00 Completed [facility] Influenza Virus Vaccine Quad IM, Preserv and ABX Free 6 MO-64 YRS 2021-05-03 00:00:00 Completed [facility] Influenza Virus Vaccine Quad IM, Preserv and ABX Free 6 MO-64 YRS 2021-05-03 00:00:00 Completed [facility] Influenza Virus Vaccine Quad IM, Preserv and ABX Free 6 MO-64 YRS 2021-05-03 00:00:00 Completed [facility] Influenza Virus Vaccine Quad IM, Preserv and ABX Free 6 MO-64 YRS 2021-05-03 00:00:00 Completed [facility] Influenza Virus Vaccine Quad IM, Preserv and ABX Free 6 MO-64 YRS 2021-05-03 00:00:00 Completed [facility] Influenza Virus Vaccine Quad IM, Preserv and ABX Free 6 MO-64 YRS 2021-05-03 00:00:00 Completed [facility] Influenza Virus Vaccine Quad IM, Preserv and ABX Free 6 MO-64 YRS 2021-05-03 00:00:00 Completed [facility] Influenza Virus Vaccine Quad IM, Preserv and ABX Free 6 MO-64 YRS 2021-05-03 00:00:00 Completed [facility] Influenza Virus Vaccine Quad IM, Preserv and ABX Free 6 MO-64 YRS 2021-05-03 00:00:00 Completed [facility] TDAP 2021-03-09 00:00:00 Completed [facility] TDAP 2021-03-09 00:00:00 Completed [facility] TDAP 2021-03-09 00:00:00 Completed [facility] TDAP 2021-03-09 00:00:00 Completed [facility] TDAP 2021-03-09 00:00:00 Completed [facility] TDAP 2021-03-09 00:00:00 Completed [facility] TDAP 2021-03-09 00:00:00 Completed [facility] TDAP 2021-03-09 00:00:00 Completed [facility] TDAP 2021-03-09 00:00:00 Completed [facility] TDAP 2021-03-09 00:00:00 Completed [facility] TDAP 2021-03-09 00:00:00 Completed [facility] TDAP 2021-03-09 00:00:00 Completed [facility] TDAP 2021-03-09 00:00:00 Completed [facility] TDAP 2021-03-09 00:00:00 Completed [facility] TDAP (ADACEL) VACCINE 2015-08-31 00:00:00 Completed [facility] TDAP (ADACEL) VACCINE 2015-08-31 00:00:00 Completed [facility] TDAP (ADACEL) VACCINE 2015-08-31 00:00:00 Completed [facility] TDAP (ADACEL) VACCINE 2015-08-31 00:00:00 Completed [facility] TDAP (ADACEL) VACCINE 2015-08-31 00:00:00 Completed [facility] TDAP (ADACEL) VACCINE 2015-08-31 00:00:00 Completed [facility] TDAP (ADACEL) VACCINE 2015-08-31 00:00:00 Completed [facility] TDAP (ADACEL) VACCINE 2015-08-31 00:00:00 Completed [facility] TDAP (ADACEL) VACCINE 2015-08-31 00:00:00 Completed [facility] TDAP (ADACEL) VACCINE 2015-08-31 00:00:00 Completed [facility] TDAP (ADACEL) VACCINE 2015-08-31 00:00:00 Completed [facility] TDAP (ADACEL) VACCINE 2015-08-31 00:00:00 Completed [facility] TDAP (ADACEL) VACCINE 2015-08-31 00:00:00 Completed [facility] TDAP (ADACEL) VACCINE 2015-08-31 00:00:00 Completed [facility] Influenza Virus Vaccine Quad IM, Preserv and ABX Free 6 MO-64 YRS (FLUCELVAX) Unknown Completed [facility] TDAP (ADACEL) VACCINE Unknown Completed [facility] TDAP Unknown Completed [facility] Influenza Virus Vaccine Quad IM, Preserv and ABX Free 6 MO-64 YRS (FLUCELVAX) Unknown Completed [facility] TDAP (ADACEL) VACCINE Unknown Completed [facility] TDAP Unknown Completed [facility] TDAP (ADACEL) VACCINE Unknown Completed [facility] TDAP Unknown Completed [facility] TDAP (ADACEL) VACCINE Unknown Completed [facility] TDAP Unknown Completed [facility] TDAP (ADACEL) VACCINE Unknown Completed [facility] TDAP Unknown Completed [facility] TDAP (ADACEL) VACCINE Unknown Completed [facility] TDAP Unknown Completed [facility] TDAP (ADACEL) VACCINE Unknown Completed [facility] TDAP (ADACEL) VACCINE Unknown Completed [facility] TDAP (ADACEL) VACCINE Unknown Completed [facility] TDAP (ADACEL) VACCINE Unknown Completed [facility] TDAP (ADACEL) VACCINE Unknown Completed [facility] TDAP (ADACEL) VACCINE Unknown Completed [facility] TDAP (ADACEL) VACCINE Unknown Completed [facility] TDAP (ADACEL) VACCINE Unknown Completed [facility] TDAP Unknown Completed [facility] Influenza Virus Vaccine Quad IM, Preserv and ABX Free 6 MO-64 YRS (FLUCELVAX) Unknown Completed [facility] TDAP (ADACEL) VACCINE Unknown Completed [facility] TDAP Unknown Completed [facility] Vital Signs Vital Name Observation Time Observation Value Comments S ource Systolic blood pressure 2022-01-29 00:51:00 113 mm[Hg] [facility] Diastolic blood pressure 2022-01-29 00:51:00 66 mm[Hg] [facility] Heart rate 2022-01-29 00:51:00 79 /min [facility] Body temperature 2022-01-28 22:24:00 37.72 Eufemia [facility] Respiratory rate 2022-01-28 22:24:00 19 /min [facility] Body height 2022-01-28 22:24:00 162.6 cm [facility] Body weight 2022-01-28 22:24:00 78.019 kg [facility] BMI 2022-01-28 22:24:00 29.52 kg/m2 [facility] Oxygen saturation in Arterial blood by Pulse oximetry 2022-01-28 22:24:00 98 /min [facility] Systolic blood pressure 2021-05-21 13:59:00 125 mm[Hg] [facility] Diastolic blood pressure 2021-05-21 13:59:00 54 mm[Hg] [facility] Heart rate 2021-05-21 13:59:00 91 /min [facility] Body temperature 2021-05-21 13:59:00 36.61 Eufemia [facility] Respiratory rate 2021-05-21 13:59:00 18 /min [facility] Oxygen saturation in Arterial blood by Pulse oximetry 2021-05-21 13:59:00 99 /min [facility] Body height 2021-05-19 14:30:00 162.6 cm [facility] Body weight 2021-05-19 14:30:00 85.276 kg [facility] BMI 2021-05-19 14:30:00 32.27 kg/m2 [facility] Heart rate 2021-05-19 14:45:00 101 /min [facility] Oxygen saturation in Arterial blood by Pulse oximetry 2021-05-19 14:45:00 100 /min [facility] Systolic blood pressure 2021-05-19 14:30:00 126 mm[Hg] [facility] Diastolic blood pressure 2021-05-19 14:30:00 75 mm[Hg] [facility] Body temperature 2021-05-19 14:30:00 36.44 Eufemia [facility] Respiratory rate 2021-05-19 14:30:00 16 /min [facility] Body height 2021-05-19 14:30:00 162.6 cm [facility] Body weight 2021-05-19 14:30:00 85.276 kg [facility] BMI 2021-05-19 14:30:00 32.27 kg/m2 [facility] Systolic blood pressure 2021-05-12 20:23:00 110 mm[Hg] [facility] Diastolic blood pressure 2021-05-12 20:23:00 70 mm[Hg] [facility] Heart rate 2021-05-12 20:23:00 109 /min [facility] Body temperature 2021-05-12 20:23:00 36.78 Eufemia [facility] Respiratory rate 2021-05-12 20:23:00 18 /min [facility] Body height 2021-05-12 20:23:00 162.6 cm [facility] Body weight 2021-05-12 20:23:00 83.008 kg [facility] BMI 2021-05-12 20:23:00 31.41 kg/m2 [facility] Systolic blood pressure 2021-05-03 21:50:00 121 mm[Hg] [facility] Diastolic blood pressure 2021-05-03 21:50:00 80 mm[Hg] [facility] Heart rate 2021-05-03 21:50:00 101 /min [facility] Body temperature 2021-05-03 21:50:00 36.83 Eufemia [facility] Respiratory rate 2021-05-03 21:50:00 18 /min [facility] Body height 2021-05-03 21:50:00 162.6 cm [facility] Body weight 2021-05-03 21:50:00 81.647 kg [facility] BMI 2021-05-03 21:50:00 30.90 kg/m2 [facility] Systolic blood pressure 2021-04-01 19:30:00 115 mm[Hg] [facility] Diastolic blood pressure 2021-04-01 19:30:00 71 mm[Hg] [facility] Heart rate 2021-04-01 19:30:00 88 /min [facility] Body temperature 2021-04-01 19:30:00 36.94 Eufemia [facility] Respiratory rate 2021-04-01 19:30:00 18 /min [facility] Body height 2021-04-01 19:30:00 160 cm [facility] Body weight 2021-04-01 19:30:00 78.926 kg [facility] BMI 2021-04-01 19:30:00 30.82 kg/m2 [facility] Procedures Procedure Date / Time Performed Performing Clinician Source LIPASE 2022-01-28 23:26:00 Felicitas Torres [facility] COMP. METABOLIC PANEL (31758) 2022-01-28 23:26:00 Felicitas Torres [facility] CBC WITH DIFF 2022-01-28 23:26:00 [facility] URINALYSIS 2022-01-28 23:26:00 Felicitas Torres [facility] CONSENT/REFUSAL FOR DIAGNOSIS AND TREATMENT 2022-01-28 22:19:10 Doctor Unassigned, [facility] CBC WITH DIFF 2021-05-20 10:01:00 Adum, Johnna Tejada [facility] CBC WITH DIFF 2021-05-20 10:01:00 Adum, Johnna Tejada [facility] SECTION 2021-05-19 14:42:00 [facility]OMY 2021-05-19 14:42:00 Adum, Johnna Rodriguez [facility] SECTION 2021-05-19 14:42:00 [facility]um, [facility] LAPAROSCOPIC SALPINGECTOMY 2021-05-19 14:42:00 Adum, Johnna Rodriguez [facility] NOTICE OF PRIVACY PRACTICES 2021-05-19 13:56:31 Doctor Unassigned, [facility] NOTICE OF PRIVACY PRACTICES 2021-05-19 13:56:31 Doctor Unassigned, [facility] CONSENT/REFUSAL FOR DIAGNOSIS AND TREATMENT 2021-05-19 13:56:08 Doctor Unassigned, [facility] CONSENT/REFUSAL FOR DIAGNOSIS AND TREATMENT 2021-05-19 13:56:08 Doctor Unassigned, [facility] ASSIGNMENT OF BENEFITS 2021-05-19 13:55:48 Docto r Unassigned, [facility] ASSIGNMENT OF BENEFITS 2021-05-19 13:55:48 Docto r Unassigned, [facility] RHO (D) IMMUNE GLOBULIN 2021-05-18 23:18:00 Adum, Stephany Rodriguez [facility] RHO (D) IMMUNE GLOBULIN 2021-05-18 23:18:00 Adum, Stephany Rodriguez [facility] CONSENT/REFUSAL FOR DIAGNOSIS AND TREATMENT 2021-05-17 21:41:48 Doctor Unassigned, [facility] CONSENT/REFUSAL FOR DIAGNOSIS AND TREATMENT 2021-05-17 21:41:48 Doctor Unassigned, [facility] ASSIGNMENT OF BENEFITS 2021-05-17 21:41:35 Docto r Unassigned, [facility] ASSIGNMENT OF BENEFITS 2021-05-17 21:41:35 Docto r Unassigned, [facility] CONSENT/REFUSAL FOR DIAGNOSIS AND TREATMENT 2021-05-17 21:41:18 Doctor Unassigned, [facility] CONSENT/REFUSAL FOR DIAGNOSIS AND TREATMENT 2021-05-17 21:41:18 Doctor Unassigned, [facility] ASSIGNMENT OF BENEFITS 2021-05-17 21:41:04 Docto r Unassigned, [facility] ASSIGNMENT OF BENEFITS 2021-05-17 21:41:04 Docto r Unassigned, [facility] PHYSICIAN ORDERS 2021-05-12 06:01:00 Doctor Unas signed, [facility] POCT URINALYSIS W/O SPECIFIC GRAVITY 2021-05-12 00:00:00 Adum, Johnna Rodriguez [facility] PHYSICIAN ORDERS 2021-05-11 06:01:00 Doctor Linn signed, [facility] ASSIGNMENT OF BENEFITS 2021-05-03 22:35:22 Docto r Unassigned, [facility] FLU VACC ([id number]), 2-64 YRS, .5ML, IM, QUAD (FLUCELVAX) 2021-05-03 21:54:12 Adum, Johnna Rodriguez [facility] POCT URINALYSIS W/O SPECIFIC GRAVITY 2021-05-03 00:00:00 Adum, Johnna Rodriguez [facility] POCT URINALYSIS W/O SPECIFIC GRAVITY 2021-04-01 00:00:00 AdumJohnna [facility] Encounters Start Date/Time End Date/Time Encounter Type Admission Type Attending [facility] Care Department Encounter ID Source 2022-01-28 17:25:00 2022-01-28 20:14:00 Emergency X FELICITAS TORRES [facility] ERT [id number] [facility] 2022-01-28 17:25:00 2022-01-28 20:14:00 Emergency Felicitas Torres [facility] [id number] [facility] 2021-07-29 10:15:00 2021-07-29 10:15:00 Outpatient R JOHNNA YO [facility] [id number] [facility] 2021-07-28 13:00:00 2021-07-28 13:00:00 Outpatient R [facility] [id number] [facility] 2021-06-22 16:15:00 2021-06-22 16:15:00 Outpatient R [facility] [id number] [facility] 2021-06-14 16:15:00 2021-06-14 16:15:00 Outpatient R JOHNNA YO [facility] [id number] [facility] 2021-06-13 00:00:00 2021-06-13 00:00:00 Patient Secure Msg Johnna Yo [facility] [id number] [facility] 2021-06-09 15:30:00 2021-06-09 15:30:00 Outpatient R JOHNNA YO [facility] [id number] [facility] 2021-06-03 11:15:00 2021-06-03 11:15:00 Outpatient R JOHNNA YO [facility] [id number] [facility] 2021-05-23 00:00:00 2021-05-23 00:00:00 Refill Johnna Yo [facility] [id number] [id number] [facility] 2021-05-19 07:53:00 2021-05-21 11:00:00 Inpatient P JOHNNA YO [facility] [id number] [facility] 2021-05-19 07:53:00 2021-05-21 11:00:00 Hospital Encounter Johnna Yo [facility] [id number] [id number] [facility] 2021-05-19 08:00:00 2021-05-19 10:20:00 Surgery Srinath Johnna [facility] [id number] [id number] [facility] 2021-05-18 17:22:54 2021-05-18 17:37:54 Laboratory Only Only, Adc Test Johnna Yo [facility] [id number] [facility] 2021-05-18 17:00:24 2021-05-18 17:15:24 Helicopter Specialist Visit Pob, Adc Lab Main Srinath [facility] [id number] [id number] [id number] [facility] 2021-05-18 08:30:00 2021-05-18 08:30:00 Outpatient R SRINATH [facility] [id number] [facility] 2021-05-12 13:39:02 2021-05-12 14:50:19 [facility] 1.84.114 350.1.13.10 4.2.7.2.686 [id number] 134 [id number] [facility] 2021-05-12 13:15:00 2021-05-12 14:50:19 Outpatient R ADSUZANNE [facility] [id number] [facility] 2021-05-12 00:00:00 2021-05-12 00:00:00 Orders Only Doctor Unassigned, Santa Claus [facility] 1.284.114 350.1.13.10 4.2.7.2.686 [id number] 009 [id number] [facility] 2021-05-11 13:15:00 2021-05-11 13:15:00 Outpatient R ADSUZANNE [facility] [id number] [facility] 2021-05-11 00:00:00 2021-05-11 00:00:00 Orders Only Doctor Unassigned, Santa Claus [facility] 1.2.840.114 350.1.13.10 4.2.7.2.686 [id number] 009 [id number] [facility] 2021-05-10 00:00:00 2021-05-10 00:00:00 Patient Secure Msg Adum, Johnna Rodriguez [facility] 1.2.840.114 350.1.13.10 4.2.7.2.686 [id number] 134 [id number] [facility] 2021-05-06 00:00:00 2021-05-06 00:00:00 Patient Secure Msg Adum, Johnna Rodriguez [facility] 1.2.840.114 350.1.13.10 4.2.7.2.686 [id number] 134 [id number] [facility] 2021-05-03 17:36:35 2021-05-03 17:51:35 Helicopter Specialist Visit Pob, Adc Lab Main Adum, Johnna Rodriguez [facility] 1.2.840.114 350.1.13.10 4.2.7.2.686 [id number] 353 [id number] [facility] 2021-05-03 17:36:04 2021-05-03 17:51:04 Helicopter Specialist Visit Pob, Adc Lab Main Adum, Johnna Rodriguez [facility] 1.2.840.114 350.1.13.10 4.2.7.2.686 [id number] 353 [id number] [facility] 2021-05-03 16:27:00 2021-05-03 17:15:21 Routine Visit Adsuzanne, Johnna Rodriguez [facility] 1.2.840.114 350.1.13.10 4.2.7.2.686 [id number] 134 [id number] [facility] 2021-05-03 16:15:00 2021-05-03 17:15:21 Outpatient R ADUM, JOHNNA [facility] [id number] [facility] 2021-05-03 00:00:00 2021-05-03 00:00:00 Orders Only Doctor Unassigned, Santa Claus [facility] 1.2.840.114 350.1.13.10 4.2.7.2.686 [id number] 009 [id number] [facility] 2021-04-22 00:00:00 2021-04-22 00:00:00 Patient Secure Msg Adum, Johnna [facility] 1.2.840.114 350.1.13.10 4.2.7.2.686 [id number] 134 [id number] [facility] 2021-04-19 14:00:00 2021-04-19 14:00:00 Outpatient R ADJOHNNA PALACIOS [facility] [id number] [facility] 2021-04-01 14:13:21 2021-04-01 15:03:38 Routine Visit Johnna Yo [facility] 1.2.840.114 350.1.13.10 4.2.7.2.686 [id number] 134 [id number] [facility] 2021-04-01 14:00:00 2021-04-01 14:00:00 Outpatient R ADJOHNNA PALACIOS [facility] [id number] [facility] 2021-03-28 00:00:00 2021-03-28 00:00:00 Patient Secure Msg AdJohnna palacios [facility] 1.2.840.114 350.1.13.10 4.2.7.2.686 [id number] 134 [id number] [facility] 2021-03-25 09:15:00 2021-03-25 09:15:00 Outpatient R ADSUZANNE JOHNNA [facility] [id number] [facility] 2021-03-25 00:00:00 2021-03-25 00:00:00 Patient Secure Msg AdumJohnna [facility] 1.2.840.114 350.1.13.10 4.2.7.2.686 [id number] 134 [id number] [facility] 2021-03-23 11:00:00 2021-03-23 11:00:00 Outpatient R ADJOHNNA PALACIOS [facility] [id number] [facility] 2021-03-18 15:48:20 2021-03-18 16:18:20 Helicopter Specialist Visit Ultrasound, Adc MfEdward Franco [facility] Building 1.2.840.114 350.1.13.10 4.2.7.2.686 [id number] 134 [id number] [facility] 2021-03-18 14:00:00 2021-03-18 14:00:00 Outpatient R [facility] [id number] [facility] 2021-03-14 00:00:00 2021-03-14 00:00:00 Patient Secure Msg Adum, Johnna Rodriguez [facility] 1.2.840.114 350.1.13.10 4.2.7.2.686 [id number] 134 [id number] [facility] 2021-03-10 00:00:00 2021-03-10 00:00:00 Patient Secure Msg AdumJohnna [facility] 1.2.840.114 350.1.13.10 4.2.7.2.686 [id number] 134 [id number] [facility] 2021-03-10 00:00:00 2021-03-10 00:00:00 Telephone AdJohnna palacios [facility] Building 1.2.840.114 350.1.13.10 4.2.7.2.686 [id number] 134 [id number] [facility] 2021-03-09 13:15:49 2021-03-09 13:30:49 Laboratory Only Only, Adc Test Johnna Yo [facility] 1.2840.114 350.1.13.10 4.2.7.2.686 [id number] 353 [id number] [facility] 2021-03-09 11:31:44 2021-03-09 12:46:12 Routine Visit AdJohnna palacios [facility] 1.2840.114 350.1.13.10 4.2.7.2.686 [id number] 134 [id number] [facility] 2021-03-09 11:15:00 2021-03-09 11:15:00 Outpatient R SRINATH JOHNNA [facility] [id number] [facility] 2021-03-09 00:00:00 2021-03-09 00:00:00 Orders Only Doctor Unassigned, Santa Claus [facility] 1.284.114 350.1.13.10 4.2.7.2.686 [id number] 009 [id number] [facility] 2021-03-03 14:15:00 2021-03-03 14:15:00 Outpatient R JOHNNA YO [facility] [id number] [facility] 2021-02-28 00:00:00 2021-02-28 00:00:00 Patient Secure Msg [facility] 1.2.840.114 350.1.13.10 4.2.7.2.686 [id number] 134 [id number] [facility] 2021-02-26 00:00:00 2021-02-26 00:00:00 Nurse Triage Kaylee Houser [facility] 1.284.114 350.1.13.10 4.2.7.2.686 [id number] 019 [id number] [facility] 2021-02-26 00:00:00 2021-02-26 00:00:00 Patient Secure Msg Doctor Unassigned, Santa Claus [facility] 1.2.840.114 350.1.13.10 4.2.7.2.686 [id number] 019 [id number] [facility] 2021-02-22 00:00:00 2021-02-22 00:00:00 Patient Secure Msg Adum, Johnna Rodriguez [facility] 1.2840.114 350.1.13.10 4.2.7.2.686 [id number] 134 [id number] [facility] 2021-02-18 00:00:00 2021-02-18 00:00:00 Patient Secure Msg Doctor Unassigned, Santa Claus [facility] 1.2840.114 350.1.13.10 4.2.7.2.686 [id number] 019 [id number] [facility] 2021-02-08 00:00:00 2021-02-08 00:00:00 Telephone Adum, Johnna Rodriguez [facility] 1.2840.114 350.1.13.10 4.2.7.2.686 [id number] 134 [id number] [facility] 2021-02-07 00:00:00 2021-02-07 00:00:00 Telephone AdumJohnna [facility] 1.2.840.114 350.1.13.10 4.2.7.2.686 [id number] 134 [id number] [facility] 2021-02-04 00:00:00 2021-02-04 00:00:00 Patient Secure Msg Adum, Johnna Rodriguez [facility] 1.2.840.114 350.1.13.10 4.2.7.2.686 [id number] 134 [id number] [facility] 2021-02-03 13:52:04 2021-02-03 15:07:04 Helicopter Specialist Visit 1, [facility] Us Room [facility] 1..114 350.1.13.10 4.2.7.2.686 [id number] [facility] 2021-02-03 14:15:00 2021-02-03 14:15:00 Outpatient P [facility] [id number] [facility] 2021-02-02 00:00:00 2021-02-02 00:00:00 Patient Secure Msg Adum, Johnna Rodriguez [facility] 1.840.114 350.1.13.10 4.2.7.2.686 [id number] 134 [id number] [facility] 2021-01-29 00:00:00 2021-01-29 00:00:00 Case Management Adum, Johnna [facility] 1.840.114 350.1.13.10 4.2.7.2.686 [id number] 134 [id number] [facility] 2021-01-28 08:30:00 2021-01-28 08:30:00 Outpatient R [facility] [id number] [facility] 2021-01-27 00:00:00 2021-01-27 00:00:00 Patient Secure Msg Doctor Unassigned, Santa Claus [facility] 1.84.114 350.1.13.10 4.2.7.2.686 [id number] 019 [id number] [facility] 2021-01-27 00:00:00 2021-01-27 00:00:00 Telephone Adum, Johnna Rodriguez [facility] 1.840.114 350.1.13.10 4.2.7.2.686 [id number] 134 [id number] [facility] 2021-01-27 00:00:00 2021-01-27 00:00:00 Telephone Adum, Johnna [facility] 1.2.840.114 350.1.13.10 4.2.7.2.686 [id number] 134 [id number] [facility] 2021-01-26 16:44:26 2021-01-26 16:59:26 Helicopter Specialist Visit Pob, Adc Lab Main Adum, Johnna Rodriguez [facility] Building 1.2.840.114 350.1.13.10 4.2.7.2.686 [id number] [facility] 2021-01-26 14:21:54 2021-01-26 15:48:55 Routine Visit Adsuzanne, Johnna [facility] 1.2.840.114 350.1.13.10 4.2.7.2.686 [id number] 134 [id number] [facility] 2021-01-26 14:00:00 2021-01-26 14:00:00 Outpatient R SRINATH [facility] [id number] [facility] 2021-01-26 00:00:00 2021-01-26 00:00:00 Orders Only Doctor Unassigned, Santa Claus [facility] 1.2.840.114 350.1.13.10 4.2.7.2.686 [id number] [facility] 2021-01-25 10:45:00 2021-01-25 10:45:00 Outpatient R ADSUZANNE [facility] [id number] [facility] 2021-01-24 09:45:00 2021-01-24 09:45:00 Outpatient P [facility] [id number] [facility] 2021-01-18 10:45:00 2021-01-18 10:45:00 Outpatient R ADSUZANNE [facility] [id number] [facility] 2020-12-24 08:15:00 2020-12-24 08:15:00 Outpatient R SRINATH [facility] [id number] [facility] 2020-12-21 16:40:30 2020-12-21 17:02:28 Routine Visit Adum, Johnna Rodriguez [facility] 1.2840.114 350.1.13.10 4.2.7.2.686 [id number] 134 [id number] [facility] 2020-12-21 16:15:00 2020-12-21 16:15:00 Outpatient R ADJOHNNA PALACIOS [facility] [id number] [facility] 2020-11-03 16:00:00 2020-11-03 16:00:00 Outpatient R ADJOHNNA PALACIOS [facility] [id number] [facility] 2020-10-21 13:30:00 2020-10-21 13:30:00 Outpatient R [facility] [id number] [facility] 2020-10-21 00:00:00 2020-10-21 00:00:00 Telephone Adum, Johnna Rodriguez [facility] 1.840.114 350.1.13.10 4.2.7.2.686 [id number] 134 [id number] [facility] 2020-10-20 13:56:11 2020-10-20 15:52:55 Initial Visit AdJohnna palacios [facility] 1.2840.114 350.1.13.10 4.2.7.2.686 [id number] 134 [id number] [facility] 2020-10-20 13:30:00 2020-10-20 13:30:00 Outpatient R ADSUZANNE, JOHNNA [facility] [id number] [facility] 2020-10-20 00:00:00 2020-10-20 00:00:00 Orders Only Doctor Unassigned, Santa Claus [facility] 1.84.114 350.1.13.10 4.2.7.2.686 [id number] [facility] 2009-11-09 00:00:00 2009-11-09 17:58:00 [facility] [id number] [facility] 2008-06-01 00:00:00 2008-06-01 14:49:00 [facility] [id number] [facility] 2008-03-06 00:00:00 2008-03-06 16:07:00 [facility] [id number] [facility] 2008-03-03 00:00:00 2008-03-03 00:00:00 [facility] [id number] [facility] 2008-02-18 00:00:00 2008-02-18 15:54:00 [facility]patient [facility] [id number] [facility] 2008-01-29 00:00:00 2008-01-29 16:38:00 [facility]patient [facility] [id number] [facility] 2007-02-05 00:00:00 2007-02-05 10:10:00 [facility]patient [facility] [id number] [facility] 2006-08-08 00:00:00 2006-08-08 14:25:00 [facility]patient [facility] [id number] [facility] 2006-07-25 00:00:00 2006-07-25 17:10:00 [facility]patient [facility] [id number] [facility] 2006-05-09 00:00:00 2006-05-09 16:09:00 [facility]patient [facility] [id number] [facility] 2006-04-24 00:00:00 2006-04-24 00:00:00 [facility]patient [facility] [id number] [facility] 2005-11-09 00:00:00 2005-11-09 11:56:00 [facility]patient [facility] [id number] [facility] 2005-06-28 00:00:00 2005-06-28 15:39:00 [facility]patient [facility] [id number] [facility] Results Test Description Test Time Test Comments Results Result Co [facility]ments [facility]26* Test Item Value Reference Range Interpretation Comme nts LIPASE (test code = 4137555473) 177 U/L 0-220 Lab Interpretation (test cod e = 88155-0) Normal [facility] WITH [id number] 00:01:25* Test Item Value Reference Range Interpretation [...] 34.2 g/dL 31.6-35.1 RDW-SD (test code = 12511-8) 43.3 fL 39-49.9 RDW-CV (test code = 788-0) 12.5 % 12-15.5 PLT (test code = 777-3) See_Comment [Automated messa ge] The system which generated this result transmitted reference range: 166 - 358 10*3/?L. The reference range was not used to interpret this result as normal/abnormal. MPV (test code = 91834-1) 9.7 fL 9.5-12.9 NRBC/100 WBC (test code = 8545797295) See_Comment [Automated Digital Caddies ssage] The system which generated this result transmitted reference range: 0.0 - 10.0 /100 WBCs. The reference range was not used to interpret this result as normal/abnormal. NRBC x10^3 (test code = 7644435855) See_Comment [Automated me ssage] The system which generated this result transmitted reference range: 10*3/?L. The reference range was not used to interpret this result as normal/abnormal. GRAN MAT (NEUT) % (test code = 770-8) 73.5 % IMM GRAN % (test code = 9063809502) 0.40 % LYMPH % (test code = 736-9) 19.0 % MONO % (test code = 5905-5) 5.8 % EOS % (test code = 713-8) 0.9 % BASO % (test code = 706-2) 0.4 % GRAN MAT x10^3(ANC) (test code = 2759131636) 6.57 10*3/uL 1.88-7.09 IMM GRAN x10^3 (test code = 9001742186) 0.04 10*3/uL 0-0.06 LYMPH x10^3 (test code = 731-0) 1.70 10*3/uL 1.32-3.29 MONO x10^3 (test code = 742-7) 0.52 10*3/uL 0.33-0.92 EOS x10^3 (test code = 711-2) 0.08 10*3/uL 0.03-0.39 BASO x10^3 (test code = 704-7) 0.04 10*3/uL 0.01-0.07 [facility] with [id number] 11:10:09* Test Item Value Reference Range Interpretation [...] 31.9 g/dL 31.6-35.1 RDW-SD (test code = 37934-8) 45.6 fL 39.0-49.9 RDW-CV (test code = 788-0) 13.4 % 12.0-15.5 PLT (test code = 777-3) See_Comment [Automated SigmaFlowa ge] The system which generated this result transmitted reference range: 166 - 358 10*3/?L. The reference range was not used to interpret this result as normal/abnormal. MPV (test code = 17426-4) 10.8 fL 9.5-12.9 NRBC/100 WBC (test code = 5022097246) See_Comment [Automated [employer] ssage] The system which generated this result transmitted reference range: 0.0 - 10.0 /100 WBCs. The reference range was not used to interpret this result as normal/abnormal. NRBC x10^3 (test code = 4480930925) <0.01 See_Comment [Automated SigmaFlowa ge] The system which generated this result transmitted reference range: 10*3/?L. The reference range was not used to interpret this result as normal/abnormal. GRAN MAT (NEUT) % (test code = 770-8) 78.0 % IMM GRAN % (test code = 1329092282) 0.70 % LYMPH % (test code = 736-9) 13.6 % MONO % (test code = 5905-5) 6.0 % EOS % (test code = 713-8) 1.3 % BASO % (test code = 706-2) 0.4 % GRAN MAT x10^3(ANC) (test code = 5253133413) 8.89 10*3/uL 1.88-7.09 H IMM GRAN x10^3 (test code = 1727034580) 0.08 10*3/uL 0.00-0.06 H LYMPH x10^3 (test code = 731-0) 1.55 10*3/uL 1.32-3.29 MONO x10^3 (test code = 742-7) 0.68 10*3/uL 0.33-0.92 EOS x10^3 (test code = 711-2) 0.15 10*3/uL 0.03-0.39 BASO x10^3 (test code = 704-7) 0.05 10*3/uL 0.01-0.07 Lab Interpretation (test code = 59925-5) Abnormal [facility] with [id number] 11:10:09* Test Item Value Reference Range Interpretation [...] 31.9 g/dL 31.6-35.1 RDW-SD (test code = 06174-1) 45.6 fL 39.0-49.9 RDW-CV (test code = 788-0) 13.4 % 12.0-15.5 PLT (test code = 777-3) See_Comment [Automated messa ge] The system which generated this result transmitted reference range: 166 - 358 10*3/?L. The reference range was not used to interpret this result as normal/abnormal. MPV (test code = 17157-3) 10.8 fL 9.5-12.9 NRBC/100 WBC (test code = 7525129133) See_Comment [Automated me ssage] The system which generated this result transmitted reference range: 0.0 - 10.0 /100 WBCs. The reference range was not used to interpret this result as normal/abnormal. NRBC x10^3 (test code = 9887667971) <0.01 See_Comment [Automated messa ge] The system which generated this result transmitted reference range: 10*3/?L. The reference range was not used to interpret this result as normal/abnormal. GRAN MAT (NEUT) % (test code = 770-8) 78.0 % IMM GRAN % (test code = 0257378980) 0.70 % LYMPH % (test code = 736-9) 13.6 % MONO % (test code = 5905-5) 6.0 % EOS % (test code = 713-8) 1.3 % BASO % (test code = 706-2) 0.4 % GRAN MAT x10^3(ANC) (test code = 5987008957) 8.89 10*3/uL 1.88-7.09 H IMM GRAN x10^3 (test code = 0955974592) 0.08 10*3/uL 0.00-0.06 H LYMPH x10^3 (test code = 731-0) 1.55 10*3/uL 1.32-3.29 MONO x10^3 (test code = 742-7) 0.68 10*3/uL 0.33-0.92 EOS x10^3 (test code = 711-2) 0.15 10*3/uL 0.03-0.39 BASO x10^3 (test code = 704-7) 0.05 10*3/uL 0.01-0.07 Lab Interpretation (test code = 15936-8) Abnormal [facility]) IMMUNE [id number] 18:56:23* Test Item Value Reference Range Interpretation Comme nts RHIG CANDIDATE? (test code = 5055) No- see comment Patient is not a candidate for RhIg- Patient is Rh Positive.Performed at [facility] Laboratory Services - [facility] Blood [address] [place] [id number] Free: [phone] No. [id number] [facility] Center[facility] (D) IMMUNE [id number] 18:56:23* Test Item Value Reference Range Interpretation Comme nts RHIG CANDIDATE? (test code = 5055) No- see comment Patient is not a candidate for RhIg- Patient is Rh Positive.Performed at [facility] Laboratory Services - [facility] Blood [address] [place] [address]Nuhr Free: [phone] No. [id number] [facility] W/O SPECIFIC [id number] 20:25:00* Test Item Value Reference Range Interpretation [...] = 3257) N/A Negative - Negati ve [facility]/O SPECIFIC [id number] 21:54:00* Test Item Value Reference Range Interpretation [...] ve Lab Interpretation (test cod e = 60932-6) [facility] [id number] 19:44:00* Test Item Value Reference Range Interpretation Comme nts POCT PH U (test code = 3254) n/a 5-8 POCT U LEUK EST (test code = 4753) n/a Negative - N egative POCT U NIT (test code = 2342) n/a Negative - Negati ve POCT U PROT (test code = 1749) neg Negative - Negat cecilia POCT U GLU (test code = 0416) neg Negative - Negati ve POCT U KETONE (test code = 6968) n/a Negative - Neg ative POCT U BLD (test code = 6757) n/a Negative - Negati ve [facility]
[2023-09-29] MEDS ORDERED: METHYLPREDNISOLONE 125 MG INJ ONE (21:20)
[2023-09-29] MEDS ORDERED: FAMOTIDINE 20 MG TAB ONE (21:21)
[2023-09-29] MEDS ORDERED: DIPHENHYDRAMINE 25 MG TAB/CAP ONE (21:21)
--- NOTE | 2023-09-29 23:44 | EDPHYS ---
Physician Documentation [facility] Name: Mary Ann Lin Age: 38 yrs Sex: Female : 1985 Arrival Date: 09/29/2023 Time: 20:48 Bed IW1 Private MD: GARTH Physician Ed Banks HPI: 09/28 22:00 This 38 yrs old Female presents to ER via Ambulatory with complaints of Rash, Hives. cp 22:00 The patient's rash thought to be caused by an unknown cause. The rash is located on the cp back and abdomen. The rash can be described as hives. Onset: The symptoms/episode began/occurred today. Associated signs and symptoms: Pertinent positives: itching, Pertinent negatives: difficulty breathing, Pain swelling of lips, swelling of throat, swelling of tongue, wheezing. Patient reports she has been taking prescribed Augmentin for past several days for sore throat. 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 - Social history:: Smoking status: Patient reports the use of cigarette tobacco products, smokes one-half pack cigarettes per day. ROS: 22:05 Constitutional: Negative for body aches, chills, fever, poor PO intake, cp 22:05 Eyes: Negative for injury, pain, redness, and discharge, cp 22:05 Respiratory: Negative for cough, shortness of breath, wheezing, 22:05 Abdomen/GI: Negative for vomiting, diarrhea, constipation, 22:05 Skin: Positive for rash, of the back and abdomen, 22:05 All other systems are negative, Exam: 22:10 Constitutional: The patient appears in no acute distress, alert, awake, non-toxic, well cp developed, well nourished, 22:10 Head/Face: Normocephalic, atraumatic. cp 22:10 Cardiovascular: Rate: normal, Rhythm: regular, 22:10 Respiratory: the patient does not display signs of respiratory distress, Respirations: normal, no use of accessory muscles, no retractions, labored breathing, is not present, Breath sounds: are clear throughout, no decreased breath sounds, no stridor, no wheezing, 22:10 Abdomen/GI: Inspection: rash that appears as hives, 22:10 Neuro: Orientation: to person, place \T\ time. Mentation: is normal, Vital Signs: 21:14 BP 110 / 60; Pulse 98; Resp 18 S; Temp 98.8(O); Pulse Ox 100% on R/A; Weight 68.04 kg as6 (R); Height 5 ft. 4 in. (R); Pain 7/10; 23:49 BP 108 / 78; Pulse 61; Resp 16 S; Pulse Ox 99% on R/A; as6 21:14 Body Mass Index 25.75 (68.04 kg, 162.56 cm) as6 21:14 Pain Scale: Adult as6 MDM: 21:21 Patient medically screened. henrique 22:00 Differential diagnosis: allergic reaction, anaphylaxis. cp 23:42 Data reviewed: vital signs, nurses notes, and as a result, I will discharge patient. cp 23:42 I considered the following discharge prescriptions or medication management in the cp emergency department Medications were administered in the Emergency Department. See MAR. Counseling: I had a detailed discussion with the patient and/or guardian regarding the historical points, exam findings, and any diagnostic results supporting the discharge/admit diagnosis. Response to treatment: the patient's symptoms have markedly improved after treatment, and as a result, I will discharge patient. 09/28 21:15 Order name: Strep cp 09/28 23:00 Order name: Throat Culture EDMS Administered Medications: 21:24 Drug: Famotidine PO 20 mg PO once Route: PO; as6 23:51 Follow up: Response: No adverse reaction as6 21:24 Drug: diphenhydrAMINE PO 50 mg PO once Route: PO; as6 23:51 Follow up: Response: No adverse reaction as6 21:25 Drug: MethylPREDNISolone Sodium Succinate IM 60 mg IM once Route: IM; Site: right as6 ventrogluteal; 23:51 Follow up: Response: No adverse reaction as6 Disposition Summary: 09/29/23 23:43 Discharge Ordered Notes: Location: Home cp Problem: new cp Symptoms: have improved cp Condition: Stable cp Diagnosis - Allergy status to penicillin cp - Acute pharyngitis, unspecified cp Followup: cp - With: Private Physician - When: 2 - 3 days - Reason: Worsening of condition Discharge Instructions: - Discharge Summary Sheet cp - Drug Allergy cp - Pharyngitis cp Forms: - Medication Reconciliation Form cp - Thank You Letter cp - Antibiotic Education cp - Prescription Opioid Use cp - Patient Portal Instructions cp - Leadership Thank You Letter cp Prescriptions: - Pepcid 20 mg Oral Tablet - take 1 tablet ORAL route every 12 hours for 5 days; 10 tablet; Refills: 0, cp Product Selection Permitted - Zithromax Z-Juan 250 mg Oral Tablet - take 1 tablet ORAL route as directed for 5 days Day 1 - take two (2) tablets cp one time. Day 2, 3, 4 , 5 take one (1) tablet once daily.; 6 tablet; Refills: 0, Product Selection Permitted - Prednisone 20 mg Oral Tablet - take 2 tablets ORAL route once daily for 5 days; 10 tablet; Refills: 0, Product cp Selection Permitted Signatures: Dispatcher [employer] EDEd Law MD MD cha Page, Corey, PA PA Siva Moore RN RN as6 Corrections: (The following items were deleted from the chart) 21:16 21:16 Group A Streptococcus Rapid [id number] ordered. EDMS EDMS
--- NOTE | 2023-09-29 23:44 | ER ---
Nurse's Notes [facility] [place] Name: Mary Ann Lin Age: 38 yrs Sex: Female : 1985 Arrival Date: 09/29/2023 Time: 20:48 Bed IW1 Private MD: Diagnosis: Allergy status to penicillin;Acute pharyngitis, unspecified Presentation: 09/28 21:14 Chief complaint: Patient states: hives that started today. Coronavirus screen: At this as6 time, the client does not indicate any symptoms associated with coronavirus-19. Ebola Screen: No symptoms or risks identified at this time. Initial Sepsis Screen: Does the patient meet any 2 criteria? No. Patient's initial sepsis screen is negative. Does the patient have a suspected source of infection? No. Patient's initial sepsis screen is negative. Risk Assessment: Do you want to hurt yourself or someone else? Patient reports no desire to harm self or others. Onset of symptoms was September 29, 2023. 21:14 Acuity: ANNABELLE 4 as6 21:14 Method Of Arrival: Ambulatory as6 Triage Assessment: 21:16 General: Appears in no apparent distress. uncomfortable, Behavior is calm, cooperative. as6 Pain: Complains of pain in generalized. Derm: Rash noted that is macular, itchy, red, raised, on generalized. 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 - Social history:: Smoking status: Patient reports the use of cigarette tobacco products, smokes one-half pack cigarettes per day. Screenin:50 [facility] ED Fall Risk Assessment (Adult) History of falling in the last 3 months, as6 including since admission No falls in past 3 months (0 pts) Confusion or Disorientation No (0 pts) Intoxicated or Sedated No (0 pts) Impaired Gait No (0 pts) Mobility Assist Device Used No (0 pt) Altered Elimination No (0 pt) Score/Fall Risk Level 0 - 2 = Low Risk Oriented to surroundings, Maintained a safe environment, Educated pt \T\ family on fall prevention, incl call for assistance when getting out of bed, Assessed \T\ reinforced patient's understanding of fall precautions, Hourly rounding (assess needs \T\ fall precautionary measures) done. Abuse screen: Denies threats or abuse. Denies injuries from another. Nutritional screening: No deficits noted. Tuberculosis screening: No symptoms or risk factors identified. Assessment: 23:50 Reassessment: Patient states symptoms have improved. as6 Vital Signs: 21:14 BP 110 / 60; Pulse 98; Resp 18 S; Temp 98.8(O); Pulse Ox 100% on R/A; Weight 68.04 kg as6 (R); Height 5 ft. 4 in. (R); Pain 7/10; 23:49 BP 108 / 78; Pulse 61; Resp 16 S; Pulse Ox 99% on R/A; as6 21:14 Body Mass Index 25.75 (68.04 kg, 162.56 cm) as6 21:14 Pain Scale: Adult as6 ED Course: 20:53 Patient arrived in ED. gm2 21:03 Ed Connelly PA is PHCP. cp 21:03 Ed Banks MD is Attending Physician. cp 21:12 Arm band placed on. as6 21:15 Triage completed. as6 23:49 No provider procedures requiring assistance completed. Patient did not have IV access as6 during this emergency room visit. 23:50 Patient has correct armband on for positive identification. Provided Education on: as6 follow up, rx teacing . Administered Medications: 21:24 Drug: Famotidine PO 20 mg PO once Route: PO; as6 23:51 Follow up: Response: No adverse reaction as6 21:24 Drug: diphenhydrAMINE PO 50 mg PO once Route: PO; as6 23:51 Follow up: Response: No adverse reaction as6 21:25 Drug: MethylPREDNISolone Sodium Succinate IM 60 mg IM once Route: IM; Site: right as6 ventrogluteal; 23:51 Follow up: Response: No adverse reaction as6 Medication: 23:50 VIS not applicable for this client. as6 Outcome: 23:43 Discharge ordered by . cp 23:49 Discharged to home ambulatory, as6 23:49 Condition: stable 23:49 Discharge instructions given to patient, Instructed on discharge instructions, follow up and referral plans. medication usage, Demonstrated understanding of instructions, follow-up care, medications, Prescriptions given X 3, 23:51 Patient left the ED. as6 Signatures: Ed Connelly PA PA cp Slawson, Ashby, RN RN as6 [facility]
[2023-09-30 02:28] VITALS: TEMP 98.8
[2023-09-30 02:59] VITALS: BP 108/78; O2SAT 99
== END 2023-09-29 23:51 | disposition home or self-care (01) ==
LOC: ER 20:48
DX: J02.9 Acute pharyngitis, unspecified (principal); Z88.0 Allergy status to penicillin; R21 Rash and other nonspecific skin eruption
CPT/HCPCS: 87070; 87081; 96372; 99284; J2930

== ENCOUNTER 2023-11-13 12:40 | Emergency (ER) | payer SELFPAY ==
[2023-11-13] MEDS ORDERED: IBUPROFEN 400 MG TAB ONE (13:39)
[2023-11-13] MEDS ORDERED: HYDROCODONE/APAP 10/325 TAB ONE (13:39)
--- NOTE | 2023-11-13 14:12 | RAD REPORT ---
EXAM DESCRIPTION: CT - CTHCSPWOC - 11/13/2023 2:02 pm CLINICAL HISTORY: Trauma, head and neck injury. FALL COMPARISON: <Comparisons> TECHNIQUE: Axial 5 mm thick images of the head were obtained. Axial 2 mm thick images of the cervical spine were obtained with sagittal and coronal reconstruction images generated and reviewed. All CT scans are performed using dose optimization technique as appropriate and may include automated exposure control or mA/KV adjustment according to patient size. FINDINGS: CT HEAD WITHOUT CONTRAST: No acute hemorrhage, hydrocephalus or extra-axial collection is identified.No areas of brain edema or midline shift. The paranasal sinuses and mastoids are clear.The calvarium is intact. CT CERVICAL SPINE WITHOUT CONTRAST: No fracture or subluxation.Mild lower cervical degenerative changes.No prevertebral soft tissues swel ling is identified. IMPRESSION: No acute intracranial or cervical spine findings.
--- NOTE | 2023-11-13 14:18 | RAD REPORT ---
EXAM DESCRIPTION: CT - Thorax Wo Con CLINICAL HISTORY: Chest pain FALL COMPARISON: Chest Single View dated 05/13/2022; Chest Single View dated 05/05/2023 FINDINGS: The lungs are clear. No pleural thickening or pleural effusion. No pneumothorax. No axillary, mediastinal or hilar adenopathy. No concerning bony finding. No gross upper abdominal finding. All CT scans are performed using dose optimization technique as appropriate and may include automated exposure control or mA/KV adjustment according to patient size. IMPRESSION: No acute abnormality is seen.
--- NOTE | 2023-11-13 14:30 | EDPHYS ---
Physician Documentation [facility] Name: Mary Ann Lin Age: 38 yrs Sex: Female : 1985 Arrival Date: 11/13/2023 Time: 12:40 Bed 20 Private MD: ED Physician Shashank Bailey HPI: 11/12 13:06 This 38 yrs old Female presents to ER via Ambulatory with complaints of Fall Injury. rn 13:06 Details of fall: The patient fell from a height, down approximately 7 stairs. Onset: rn The symptoms/episode began/occurred 3 day(s) ago. Associated injuries: The patient sustained injury to the head, upper back injury, injury to the chest. Severity of symptoms: At their worst the symptoms were moderate, in the emergency department the symptoms are unchanged. The patient has not experienced similar symptoms in the past. Patient reports cleaning stairs a few days ago, slipped and fell down 6-7 stairs. Reports headache and upper back pain as well as left rib pain. Rib pain is the worst. Is a smoker and hurts to cough and deep breath. No LOC. No blood thinners. Denies abdominal pain. No lower back pain. No pain to either extremity. Is ambulatory.. 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 - Infectious Disease History:: Denies. - Social history:: Smoking status: Patient reports the use of cigarette tobacco products, smokes one-half pack cigarettes per day. - Family history:: not pertinent. - Hospitalizations: : No recent hospitalization is reported. ROS: 13:06 Constitutional: Negative for fever, chills, and weight loss, Neck: Negative for injury, rn pain, and swelling, Cardiovascular: Positive for left anterior rib pain Respiratory: Pain with deep inspiration Abdomen/GI: Negative for abdominal pain, nausea, vomiting, diarrhea, and constipation, Back: Positive for lower back pain MS/Extremity: Negative for injury and deformity, Neuro: + headache Exam: 13:06 Constitutional: This is a well developed, well nourished patient who is awake, alert, rn and in no acute distress. Head/Face: Normocephalic, atraumatic. Neck: Trachea midline, no masses palpated, and no cervical lymphadenopathy. Supple, full range of motion without nuchal rigidity, or vertebral point tenderness. No Meningismus. Chest/axilla: Mild tenderness to left anterior inferior and lateral inferior ribs. No crepitus. Cardiovascular: Regular rate and rhythm. No pulse deficits. Respiratory: No increased work of breathing, no retractions or nasal flaring. Abdomen/GI: Soft, nontender Back: Mid thoracic spinal tenderness. MS/ Extremity: Pulses equal, no cyanosis. Neurovascular intact. Full, normal range of motion. Equal circumference. Neuro: Awake and alert, GCS 15, oriented to person, place, time, and situation. Cranial nerves II-XII grossly intact. Motor strength 5/5 in all extremities. Sensory grossly intact. Cerebellar exam normal. Normal gait. Vital Signs: 12:52 BP 120 / 77; Pulse 90; Resp 16; Temp 98.1; Pulse Ox 99% on R/A; Weight 65.77 kg; Height iw 5 ft. 4 in. ; Pain 10/10; 14:29 BP 121 / 75; Pulse 79; Resp 18; Pulse Ox 99% ; bp 12:52 Body Mass Index 24.89 (65.77 kg, 162.56 cm) iw 12:52 Pain Scale: Adult iw MDM: 12:46 Patient medically screened. rn 14:27 Differential diagnosis: closed head injury, contusion, fracture. Data reviewed: vital rn signs, nurses notes, radiologic studies, CT scan, and as a result, I will discharge patient. Counseling: I had a detailed discussion with the patient and/or guardian regarding the historical points, exam findings, and any diagnostic results supporting the discharge/admit diagnosis, radiology results, the need for outpatient follow up, to return to the emergency department if symptoms worsen or persist or if there are any questions or concerns that arise at home. Special discussion: I discussed with the patient/guardian in detail that at this point there is no indication for admission to the hospital. It is understood, however, that if the symptoms persist or worsen the patient needs to return immediately for re-evaluation. ED course: No acute findings and imaging. CT chest negative for acute fracture or pneumothorax. I have personally reviewed all of the results, including but not limited to imaging deemed necessary to safely discharge this patient at this time. All results given to and printed out for patient. I personally went over all the results with the patient and answered all questions. Patient will follow-up with PCP and or specialist as discussed. Return precautions given and understood.. 11/12 13:48 Order name: Head C Spine Mpr Wo Con EDMS 11/12 13:48 Order name: Thorax Wo Con EDMS 11/12 14:13 Order name: CT; Complete Time: 14:27 EDMS 11/12 14:19 Order name: CT; Complete Time: 14:27 EDMS Administered Medications: 13:44 Drug: Ibuprofen PO 800 mg PO once Route: PO; bp 14:31 Follow up: Response: No adverse reaction bp 13:44 Drug: [place] PO 10 mg-325 mg 1 tabs PO once Route: PO; bp 14:31 Follow up: Response: No adverse reaction bp Disposition Summary: 11/13/23 14:29 Discharge Ordered Notes: Location: Home rn Problem: new rn Symptoms: have improved rn Condition: Stable rn Diagnosis - Contusion of left front wall of thorax, initial encounter rn Followup: rn - With: Private Physician - When: As needed - Reason: Recheck today's complaints, Re-evaluation by your physician Discharge Instructions: - Discharge Summary Sheet rn - Rib Contusion rn - Chest Contusion, Adult rn Forms: - Medication Reconciliation Form rn - Antibiotic product management internship - Prescription Opioid Use rn - Patient Portal Instructions rn - Leadership Thank You Letter rn Prescriptions: - gabapentin 100 mg Oral capsule - take 1 capsule ORAL route every 12 hours As needed; 14 capsule; Refills: 0, rn Product Selection Permitted Signatures: Dispatcher [employer] Radha Lovett RN Shashank Salas MD MD rn Peltier, Brian, RN RN bp
--- NOTE | 2023-11-13 14:30 | ER ---
Nurse's Notes [facility] [place] Name: Mary Ann Lin Age: 38 yrs Sex: Female : 1985 Arrival Date: 11/13/2023 Time: 12:40 Bed 20 Private MD: Diagnosis: Contusion of left front wall of thorax, initial encounter Presentation: 11/12 12:51 Chief complaint: Patient states: fell down some stairs on Sunday , approx 7 steps, iw landed on left side, feels like ribs are broken on left side , hard to move and breathe , also has pain to left lower back/butt area. 12:51 Acuity: ANNABELLE 3 iw 12:52 Coronavirus screen: At this time, the client does not indicate any symptoms associated iw with coronavirus-19. Ebola Screen: Patient negative for fever greater than or equal to 101.5 degrees Fahrenheit, and additional compatible Ebola Virus Disease symptoms Patient denies exposure to infectious person. Patient denies travel to an Ebola-affected area in the 21 days before illness onset. No symptoms or risks identified at this time. Initial Sepsis Screen: Does the patient meet any 2 criteria? No. Patient's initial sepsis screen is negative. Does the patient have a suspected source of infection? No. Patient's initial sepsis screen is negative. Risk Assessment: Do you want to hurt yourself or someone else? Patient reports no desire to harm self or others. Onset of symptoms was November 10, 2023. 12:52 Method Of Arrival: Ambulatory iw Triage Assessment: 13:00 General: Appears uncomfortable, Behavior is calm, cooperative, appropriate for age. bp Pain: Complains of pain in chest. Respiratory: No deficits noted. Injury Description: Bruise sustained to chest. 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 - Infectious Disease History:: Denies. - Social history:: Smoking status: Patient reports the use of cigarette tobacco products, smokes one-half pack cigarettes per day. - Family history:: not pertinent. - Hospitalizations: : No recent hospitalization is reported. Screenin:00 [facility] ED Fall Risk Assessment (Adult) History of falling in the last 3 months, bp including since admission No falls in past 3 months (0 pts). Abuse screen: Denies threats or abuse. Denies injuries from another. Nutritional screening: No deficits noted. Tuberculosis screening: No symptoms or risk factors identified. Assessment: 13:00 General: Appears uncomfortable, Behavior is appropriate for age. Respiratory: No bp deficits noted. GI: No signs and/or symptoms were reported involving the gastrointestinal system. : No signs and/or symptoms were reported regarding the genitourinary system. 15:05 Reassessment: PT DC HOME WITHOUT DC PAPERS, UNAVAILABLE DUE TO NETWORK PROBLEM. bp Vital Signs: 12:52 BP 120 / 77; Pulse 90; Resp 16; Temp 98.1; Pulse Ox 99% on R/A; Weight 65.77 kg; Height iw 5 ft. 4 in. ; Pain 10/10; 14:29 BP 121 / 75; Pulse 79; Resp 18; Pulse Ox 99% ; bp 12:52 Body Mass Index 24.89 (65.77 kg, 162.56 cm) iw 12:52 Pain Scale: Adult iw ED Course: 12:43 Patient arrived in ED. mr 12:46 Shashank Bailey MD is Attending Physician. rn 12:52 Triage completed. iw 12:53 Arm band placed on. iw 13:00 Patient has correct armband on for positive identification. bp 13:06 Fish Schwartz, RN is Primary Nurse. bp 14:01 Head C Spine Mpr Wo Con In Process Unspecified. EDMS 14:01 Thorax Wo Con In Process Unspecified. EDMS 14:07 CT Chest Wo Con Sent. bp 14:07 CT Head C Spine Sent. bp 14:29 Provided Education on: N/A. bp 14:29 No provider procedures requiring assistance completed. Patient did not have IV access bp during this emergency room visit. Administered Medications: 13:44 Drug: Ibuprofen PO 800 mg PO once Route: PO; bp 14:31 Follow up: Response: No adverse reaction bp 13:44 Drug: [place] PO 10 mg-325 mg 1 tabs PO once Route: PO; bp 14:31 Follow up: Response: No adverse reaction bp Medication: 14:29 VIS not applicable for this client. bp Outcome: 14:29 Discharge ordered by . rn 14:29 Discharged to home ambulatory, bp 14:29 Condition: stable 14:29 Discharge instructions given to patient, Instructed on discharge instructions, follow up and referral plans. medication usage, Demonstrated understanding of instructions, follow-up care, medications, Prescriptions given X 1, 15:07 Patient left the ED. bp Signatures: Dispatcher [employer] EDMS Candace Han, Reg Reg mr Radha Galicia, RN RN iw Shashank Bailey MD MD rn Peltier, Brian, ONEIL RN bp
[2023-11-13 19:08] VITALS: BP 121/75; TEMP 98.1; O2SAT 99
== END 2023-11-13 15:07 | disposition home or self-care (01) ==
LOC: ER 12:40
DX: S20.212A Contusion of left front wall of thorax, initial encounter (principal)
CPT/HCPCS: 70450; 71250; 72125; 99283

== ENCOUNTER 2025-02-09 20:54 | Emergency (ER) | payer OTHER ==
[2025-02-09] MEDS ORDERED: NA CHLORIDE 0.9% 1,000 ML ONE ×2 (21:10→22:18)
[2025-02-09] MEDS ORDERED: ADENOSINE 6 MG/ 2ML VIAL IV ONE (21:11)
[2025-02-09] MEDS ORDERED: ONDANSETRON 4 MG/2 ML VIAL ONE (21:12)
[2025-02-09] MEDS ORDERED: LORazepam 2 MG/ML VIAL ONE (21:14)
[2025-02-09 21:51] LABS: Absolute Lymphocytes (CBC) 1.8 K/uL (0.7-4.9); Hematocrit 32.0 % (36.0-45.0); Hemoglobin 9.9 g/dL (12.0-15.0); MCH 23.7 pg (27.0-35.0); MCHC 31.0 g/dL (32.0-36.0); MCV 76.6 fL (80-100); MPV 8.0 fL (7.6-11.3); Nucleated RBC Absolute Count 0.0 (0-0); Nucleated Red Blood Cells % 0.0 % (0-0); RBC Red Blood Cell Count 4.17 M/uL (3.86-4.86); White Blood Count 13.10 thou/uL (4.3-10.9)
[2025-02-09 21:59] LABS: Anion Gap 11.4 mEq/L (5.0-15.0); BUN Blood Urea Nitrogen 7.0 mg/dL (7-18); Glucose Level 122.0 mg/dL (74-106); Magnesium 2.0 mg/dL (1.6-2.4); Potassium 3.4 mEq/L (3.5-5.1); Troponin High Sensitivity 3.9 pg/mL (<58.9)
--- NOTE | 2025-02-09 21:59 | RAD REPORT ---
EXAM: Chest Single View HISTORY: 39 years Female DYSPNEA COMPARISON: 11/17/2023 FINDINGS: LUNGS/PLEURA: The lungs are clear. No pleural effusions or pneumothorax. No pulmonary edema. CARDIAC/MEDIASTINUM: The cardiac silhouette is within normal limits. UPPER ABDOMEN: No significant abnormality. BONES: No acute abnormality. LINES/TUBES/OTHER: N/A IMPRESSION: No evidence of acute cardiopulmonary disease.
[2025-02-09 22:01] LABS: Thyroid Stimulating Hormone 7.39 uIU/mL (0.358-3.740)
[2025-02-09 22:15] LABS: Influenza A Ag Negative; Influenza B Ag Negative; SARS-CoV-2 Antigen Rapid Res Negative (Negative)
--- NOTE | 2025-02-09 23:31 | EDPHYS ---
Physician Documentation [facility] Name: Mary Ann Lin Age: 39 yrs Sex: Female : 1985 Arrival Date: 02/09/2025 Time: 20:54 Bed 23 Private MD: ED Physician Luis Cabral HPI: 02/09 23:36 This 39 yrs old Female presents to ER via Ambulatory with complaints of Flu Symptoms. kb 23:36 Patient is a 39-year-old female who presents for cough, congestion, sore throat, kb palpitations that started 2 days ago. Denies nausea, vomiting, diarrhea.. 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 - Infectious Disease History:: Denies. - Social history:: Smoking status: Patient reports the use of cigarette tobacco products, smokes one-half pack cigarettes per day. ROS: 23:36 Constitutional: As per HPI kb Exam: 21:09 ECG was reviewed by the Attending Physician. kb 21:19 ECG was reviewed by the Attending Physician. kb 22:53 Constitutional: This is a well developed, well nourished patient who is awake, alert, kb and in no acute distress. Head/Face: Normocephalic, atraumatic. ENT: Moist Mucous membranes Respiratory: Respirations even and unlabored. No increased work of breathing. Talking in full sentences Abdomen/GI: Soft, non-tender. No distention Skin: Warm, dry with normal turgor. Normal color. MS/ Extremity: Pulses equal, no cyanosis. Neurovascular intact. Full, normal range of motion. Neuro: Awake and alert, GCS 15, oriented to person, place, time, and situation. 22:53 Cardiovascular: Rate: tachycardic, Rhythm: regular, Vital Signs: 21:22 BP 132 / 107; Pulse 174; Resp 18; Temp 97.5; Pulse Ox 100% ; Weight 74.84 kg; Height 5 cp4 ft. 4 in. ; Pain 8/10; 22:09 BP 79 / 54; Pulse 113; Resp 22; Pulse Ox 99% on R/A; jb4 22:39 BP 104 / 72; Pulse 101; Resp 20; Pulse Ox 100% on R/A; jb4 23:50 BP 98 / 81; Pulse 92; Resp 16; Pulse Ox 100% on R/A; jb4 21:22 Body Mass Index 28.32 (74.84 kg, 162.56 cm) cp4 21:22 Pain Scale: Adult cp4 MDM: 21:00 Medical Screening Exam initiated lacey 21:29 ED course: Patient's heart rate initially 170-180. EKG obtained and interpreted by me lacey showing SVT. Adenosine ordered. Patient got her IV started and started vomiting, converted to sinus tach in the 130s. Patient reports anxiety. Ativan 1 mg given. Heart rate decreased to 109 sinus tach.. 23:32 Differential diagnosis: covid, flu, strep, pneumonia, viral illness. Data reviewed: lacey vital signs, nurses notes. Consideration of Admission/Observation Escalation of care including admission/observation considered. Admission considered but pt states she does not want to stay in the hospital and is ready to go home. States she has a friend watching her 3 year old and needs to get back to her because her friend has to go to work tomorrow. . I considered the following discharge prescriptions or medication management in the emergency department will prescribe zithromax and prednisone. Pt educated on return precautions. . Test considered but Not performed: CT: ct chest considered but d-dimer wnl. Counseling: I had a detailed discussion with the patient and/or guardian regarding the historical points, exam findings, and any diagnostic results supporting the discharge/admit diagnosis, lab results, radiology results, the need for outpatient follow up, a family practitioner, to return to the emergency department if symptoms worsen or persist or if there are any questions or concerns that arise at home. 02/09 21:09 Order name: Basic Metabolic Panel; Complete Time: 22:17 kb 02/09 21:09 Order name: CBC with Diff; Complete Time: 22:17 kb 02/09 21:09 Order name: D-Dimer; Complete Time: 21:44 kb 02/09 21: Order name: Magnesium; Complete Time: 22:17 kb 02/09 21:09 Order name: Troponin HS; Complete Time: 22:17 kb 02/09 21:09 Order name: COVID-19 Ag + Flu A+B Ag; Complete Time: 22:17 kb 02/09 21:09 Order name: Group A Streptococcus Rapid; Complete Time: 22:00 kb 02/09 21:28 Order name: Thyroid Stimulating Hormone; Complete Time: 22:17 EDMS 02/09 22:00 Order name: Throat Culture EDMS 02/09 22:03 Order name: T4 Free; Complete Time: 22:17 EDMS 02/09 21:09 Order name: XRAY Chest (1 view); Complete Time: 22:00 kb 02/09 21:09 Order name: EKG; Complete Time: 21:10 kb 02/09 21:09 Order name: Cardiac monitoring; Complete Time: 21:27 kb 02/09 21:09 Order name: EKG - Nurse/Tech; Complete Time: :27 kb 02/09 21: Order name: IV Saline Lock; Complete Time: :27 kb 02/09 21:09 Order name: Labs collected and sent; Complete Time: 21:27 kb 02/09 21:09 Order name: O2 Per Protocol; Complete Time: :27 kb 02/09 21:09 Order name: O2 Sat Monitoring; Complete Time: 21:27 kb EC: Rate is 172 beats/min. Rhythm is regular. QRS [place] is Normal. QRS interval is normal at kb 68 msec. QT interval is normal at 463 msec. 21:19 Rate is 109 beats/min. Rhythm is regular. QRS [place] is Normal. ID interval is normal at kb 148 msec. QRS interval is normal at 74 msec. QT interval is normal at 441 msec. Administered Medications: 21:13 Drug: NS 0.9% IV 1000 ml IV at 1000 ml once; to be given as a bolus over 60 minutes jj7 Route: IV; Rate: 1000 ml; Site: right antecubital; 23:49 Follow up: Response: No adverse reaction; IV Status: Completed infusion; IV Intake: jb4 1000ml 21:15 Drug: Ondansetron IVP 4 mg IVP once; over 2 minutes Route: IVP; Site: right antecubital;jj7 23:50 Follow up: Response: No adverse reaction jb4 21:17 Drug: Ativan IVP 1 mg IVP once Route: IVP; Site: right antecubital; jj7 23:49 Follow up: Response: No adverse reaction; Marked relief of symptoms jb4 22:15 Drug: NS 0.9% IV 1000 ml IV at 1000 ml once; to be given as a bolus over 60 minutes jb4 Route: IV; Rate: 1000 ml; Site: right antecubital; 23:48 Follow up: Response: No adverse reaction; IV Status: Completed infusion; IV Intake: jb4 1000ml 23:45 Drug: Decadron - Dexamethasone IVP 10 mg IVP once Route: IVP; Site: right antecubital; jb4 23:47 Follow up: Response: Medication administered at discharge. jb4 Disposition: 02/10 05:17 Co-signature as Attending Physician, Luis Cabral MD I agree with the assessment sp4 and plan of care. I reviewed the patient's care provided by the Advanced Practice Provider and agree with the diagnosis and treatment plan. Disposition Summary: 02/09/25 23:31 Discharge Ordered Notes: Location: Home kb Condition: Stable kb Diagnosis - Supraventricular tachycardia kb - Cough kb - Fever, unspecified kb Followup: kb - With: Emergency Department - When: As needed - Reason: Worsening of condition Followup: kb - With: Private Physician - When: 2 - 3 days - Reason: Recheck today's complaints, Continuance of care, Re-evaluation by your physician Discharge Instructions: - Discharge Summary Sheet kb - Supraventricular Tachycardia, Adult, [id number] kb - Cough, Adult, [id number] kb - Viral Respiratory Infection, [id number] kb Forms: - Medication Reconciliation Form kb - Antibiotic Education kb - Prescription Opioid Use kb - Patient Portal Instructions kb - Leadership Thank You Letter kb Prescriptions: - Prednisone 20 mg Oral Tablet - take 1 tablet ORAL route once daily for 5 days; 5 tablet; Refills: 0, Product kb Selection Permitted - Zithromax 500 mg Oral Tablet - take 1 tablet ORAL route once daily for 5 days; 5 tablet; Refills: 0, Product kb Selection Permitted Signatures: Dispatcher [employer] Kristen Do FNP-C FNP-Luis Angel Wells RN RN jb4 Nidia Charles RN RN jj7 Luis Cabral MD MD sp4 Jerrica Cardoza cp4 Corrections: (The following items were deleted from the chart) 02/09 21:27 21:17 THYROID STIMULAT HORMONE+C.LAB.BRZ ordered. EDMS EDMS 23:31 23:31 Acute upper respiratory infection, unspecified kb kb
--- NOTE | 2025-02-09 23:31 | ER ---
Nurse's Notes [facility] Name: Mary Ann Lin Age: 39 yrs Sex: Female : 1985 Arrival Date: 02/09/2025 Time: 20:54 Bed 23 Private MD: Diagnosis: Supraventricular tachycardia;Cough;Fever, unspecified Presentation: 02/09 21:22 Chief complaint: Patient states: cough, sore throat, headache, and palpitations for 2 cp4 days. Coronavirus screen: Client denies travel out of the [place] in the last 14 days. At this time, the client does not indicate any symptoms associated with coronavirus-19. Ebola Screen: Patient negative for fever greater than or equal to 101.5 degrees Fahrenheit, and additional compatible Ebola Virus Disease symptoms Patient denies exposure to infectious person. Patient denies travel to an Ebola-affected area in the 21 days before illness onset. No symptoms or risks identified at this time. Initial Sepsis Screen: Does the patient meet any 2 criteria? HR > 90 bpm. No. Patient's initial sepsis screen is negative. Does the patient have a suspected source of infection? No. Patient's initial sepsis screen is negative. Risk Assessment: Do you want to hurt yourself or someone else? Patient reports no desire to harm self or others. Onset of symptoms was February 07, 2025. 21:22 Method Of Arrival: Ambulatory cp4 21:22 Acuity: ANNABELLE 2 cp4 Triage Assessment: 21:26 General: Appears distressed, uncomfortable, Behavior is calm, cooperative, appropriate cp4 for age. Pain: Complains of pain in chest Pain does not radiate. Pain currently is 8 out of 10 on a pain scale. Pain began 2-3 days ago. EENT: No signs and/or symptoms were reported regarding the EENT system. Neuro: Level of Consciousness is awake, alert, obeys commands, Oriented to person, place, time, situation. Cardiovascular: Reports palpitations, Patient's skin is warm and dry. Rhythm is SVT. 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 - Infectious Disease History:: Denies. - Social history:: Smoking status: Patient reports the use of cigarette tobacco products, smokes one-half pack cigarettes per day. Screenin:50 [facility] ED Fall Risk Assessment (Adult) History of falling in the last 3 months, jb4 including since admission No falls in past 3 months (0 pts) Confusion or Disorientation No (0 pts) Intoxicated or Sedated No (0 pts) Impaired Gait No (0 pts) Mobility Assist Device Used No (0 pt) Altered Elimination No (0 pt) Score/Fall Risk Level 0 - 2 = Low Risk Oriented to surroundings, Maintained a safe environment. Abuse screen: Denies threats or abuse. Tuberculosis screening: No symptoms or risk factors identified. Assessment: 21:11 General: Appears in no apparent distress. uncomfortable, Behavior is calm, cooperative, jj7 appropriate for age. Neuro: Reports headache. Cardiovascular: Reports palpitations. Respiratory: Reports shortness of breath cough that is productive, hacking, Airway is patent Trachea midline Respiratory effort is even, unlabored, Respiratory pattern is regular, symmetrical. EENT: Reports nasal congestion SORE THROAT. 22:30 Reassessment: Patient appears in no apparent distress at this time. Patient and/or jb4 family updated on plan of care and expected duration. Pain level reassessed. Patient is alert, oriented x 3, equal unlabored respirations, skin warm/dry/pink. Patient states feeling better. Patient states symptoms have improved. 23:50 Reassessment: Patient appears in no apparent distress at this time. Patient and/or jb4 family updated on plan of care and expected duration. Pain level reassessed. Patient is alert, oriented x 3, equal unlabored respirations, skin warm/dry/pink. Patient states feeling better. Vital Signs: 21:22 BP 132 / 107; Pulse 174; Resp 18; Temp 97.5; Pulse Ox 100% ; Weight 74.84 kg; Height 5 cp4 ft. 4 in. ; Pain 8/10; 22:09 BP 79 / 54; Pulse 113; Resp 22; Pulse Ox 99% on R/A; jb4 22:39 BP 104 / 72; Pulse 101; Resp 20; Pulse Ox 100% on R/A; jb4 23:50 BP 98 / 81; Pulse 92; Resp 16; Pulse Ox 100% on R/A; jb4 21:22 Body Mass Index 28.32 (74.84 kg, 162.56 cm) cp4 21:22 Pain Scale: Adult cp4 ED Course: 20:56 Patient arrived in ED. mr 20:56 Kristen Rutledge FNP-C is [facility]. kb 20:56 Luis Cabral MD is Attending Physician. kb 21:26 Triage completed. cp4 21:26 Arm band placed on right wrist. Patient placed in waiting room. cp4 21:27 Group A Streptococcus Rapid Sent. jj7 21:27 COVID-19 Ag + Flu A+B Ag Sent. jj7 21:27 Basic Metabolic Panel Sent. jj7 21:27 CBC with Diff Sent. jj7 21:27 D-Dimer Sent. jj7 21:27 Magnesium Sent. jj7 21:27 Troponin HS Sent. jj7 21:27 No provider procedures requiring assistance completed. EKG done, by ED staff, reviewed cp4 by Kristen ALBERT. Inserted saline lock: 20 gauge in right antecubital area, using aseptic technique. Blood collected. Flushed with 10 mL NS. 21:55 XRAY Chest (1 view) In Process Unspecified. EDMS 23:50 IV discontinued, intact, bleeding controlled, No redness/swelling at site. Pressure jb4 dressing applied. 23:50 Patient has correct armband on for positive identification. Bed in low position. Call jb4 light in reach. Side rails up X 1. Provided Education on: discharge instructions.. Administered Medications: 21:13 Drug: NS 0.9% IV 1000 ml IV at 1000 ml once; to be given as a bolus over 60 minutes jj7 Route: IV; Rate: 1000 ml; Site: right antecubital; 23:49 Follow up: Response: No adverse reaction; IV Status: Completed infusion; IV Intake: jb4 1000ml 21:15 Drug: Ondansetron IVP 4 mg IVP once; over 2 minutes Route: IVP; Site: right antecubital;jj7 23:50 Follow up: Response: No adverse reaction jb4 21:17 Drug: Ativan IVP 1 mg IVP once Route: IVP; Site: right antecubital; jj7 23:49 Follow up: Response: No adverse reaction; Marked relief of symptoms jb4 22:15 Drug: NS 0.9% IV 1000 ml IV at 1000 ml once; to be given as a bolus over 60 minutes jb4 Route: IV; Rate: 1000 ml; Site: right antecubital; 23:48 Follow up: Response: No adverse reaction; IV Status: Completed infusion; IV Intake: jb4 1000ml 23:45 Drug: Decadron - Dexamethasone IVP 10 mg IVP once Route: IVP; Site: right antecubital; jb4 23:47 Follow up: Response: Medication administered at discharge. jb4 Medication: 23:50 VIS not applicable for this client. jb4 Intake: 23:48 IV: 1000ml; Total: 1000ml. jb4 23:49 IV: 1000ml; Total: 2000ml. jb4 Outcome: 23:31 Discharge ordered by . lacey 23:50 Discharged to home ambulatory, jb4 23:50 Condition: stable 23:50 Discharge instructions given to patient, Instructed on discharge instructions, follow up and referral plans. medication usage, Demonstrated understanding of instructions, follow-up care, medications, Prescriptions given X 2, 23:52 Patient left the ED. jb4 Signatures: Dispatcher [employer] EDMS Kristen Rutledge, CNC MILL AND LATHE OPERATOR-C CNC MILL AND LATHE OPERATOR-Ckb Candace Han, Reg Reg mr Luis Angel Pino, RN RN jb4 Nidia Charles RN RN jjJerrica Brady cp4 Corrections: (The following items were deleted from the chart) 23:47 23:45 Decadron - Dexamethasone IVP 10 mg IVP in left antecubital jb4 jb4
[2025-02-10 00:33] VITALS: TEMP 97.5; O2SAT 100
[2025-02-10 00:36] VITALS: BP 98/81
== END 2025-02-09 23:52 | disposition home or self-care (01) ==
LOC: ER 20:54
DX: I47.10 Supraventricular tachycardia, unspecified (principal); R05.9 Cough, unspecified; R50.9 Fever, unspecified; F17.210 Nicotine dependence, cigarettes, uncomplicated; Z11.52 Encounter for screening for COVID-19
CPT/HCPCS: 96361; 93005 ×2; 87070; 85025; 80048; 36415; 83735; 85379; 84443; 84484; 84439; 71045; 96375; 96374; 99284; 87428; J1100; J2405; J7030 ×2; J0153